=== PATIENT | female | born 1945 | race Caucasian/White ===

== ENCOUNTER 2022-04-01 08:40 | Outpatient (CLI) | payer MEDICARE, BC, SELFPAY ==
[2022-04-01 12:28] LABS: Chloride* 103 mmol/L (96-114)
[2022-04-01 12:29] LABS: Potassium* 4.1 mmol/L (3.6-5.1); Sodium* 138 mmol/L (135-149)
[2022-04-01 12:31] LABS: Alkaline Phosphatase* 65 U/L (40-150); Aspartate Amino Transferase* 27 U/L (12-35); Bilirubin Total* 0.7 mg/dL (0.1-1.5); Blood Urea Nitrogen* 12 mg/dL (7-30); Carbon Dioxide* 29 mmol/L (20-32); Cholesterol* 220 mg/dL (90-199); Creatinine* 1.2 mg/dL (0.5-1.5); Estimated Glomerular Filt Rate 46.05; Total Protein* 6.5 g/dL (6.0-8.3)
[2022-04-01 12:32] LABS: Alanine Aminotransferase* 18 U/L (4-35); Glucose* 108 mg/dL (60-115); HDL Cholesterol* 60 mg/dL (>=50); LDL Cholesterol Calculated 136 mg/dL (<100); Triglycerides* 119 mg/dL (40-149)
== END 2022-04-01 08:41 | disposition home or self-care (01) ==
PROVIDERS: PCP Family Medicine; Visit Provider Family Medicine
DX: Z00.00 Encounter for general adult medical examination without abnormal findings (principal); E78.5 Hyperlipidemia, unspecified; E66.9 Obesity, unspecified; Z13.1 Encounter for screening for diabetes mellitus
CPT/HCPCS: 80053; 80061

== ENCOUNTER 2022-05-10 11:01 | Outpatient (CLI) | payer MEDICARE, BC, SELFPAY | END 2022-05-10 11:02 | disposition home or self-care (01) | LOC: NFLDREF 11:01 | PROVIDERS: PCP Family Medicine; Visit Provider Family Medicine | DX: R39.89 Other symptoms and signs involving the genitourinary system (principal); N39.0 Urinary tract infection, site not specified | CPT/HCPCS: 87086 ==

== ENCOUNTER 2022-06-24 12:37 | Outpatient (CLI) | payer MEDICARE, BC, SELFPAY | END 2022-06-24 12:38 | disposition home or self-care (01) | LOC: NFLDREF 07-01 11:34 | PROVIDERS: PCP Family Medicine; Visit Provider Registered Nurse | DX: R30.0 Dysuria (principal); N30.90 Cystitis, unspecified without hematuria | CPT/HCPCS: 87086 ==

== ENCOUNTER 2022-07-02 09:56 | Outpatient (CLI) | payer MEDICARE, BC, SELFPAY ==
--- OUTSIDE RECORDS SUMMARY | 2022-07-04 14:53 | XMS_ITS | Encounter Summary ---
:1945 Author Organization [facility] Address [address] [place] [id number] Care Team Providers Name Role Phone Unavailable Primary Care Provider Unavailable Reason for Referral Outpatient (Routine) - Closed Specialty Diagnoses / Procedures Referred By Contact Refer red To Contact Diagnoses Syncope And Near Syncope Dyspnea On Exertion Nick Mcneil M.D. [facility] Procedures Cardiopulmonary (VO2) Exercise Test [address] [place] [address] Referral ID Status Reason Start Date Expiration Date Visits Requ ested Visits Authorized [id number] Closed 05/11/2022 05/11/2023 1 1 Outpatient (Routine) - Closed Specialty Diagnoses / Procedures Referred By Contact Refer red To Contact Diagnoses Syncope And Near Syncope Dyspnea On Exertion Nick Mcneil M.D. [facility] Procedures Echo Stress [address] [place] [address] Referral ID Status Reason Start Date Expiration Date Visits Requ ested Visits Authorized [id number] Closed 05/11/2022 05/11/2023 1 1 Reason for Visit Outpatient (Routine) - Closed Specialty Diagnoses / Procedures Referred By Contact Refer red To Contact Diagnoses Syncope And Near Syncope Dyspnea On Exertion Nick Mcneil M.D. [facility] Procedures Echo Stress [address] [place] [address], [place] [phone] Referral ID Status Reason Start Date Expiration Date Visits Requ berhaned Visits Authorized [id number] Closed 05/11/2022 05/11/2023 1 1 Encounter Details Date Type Department Care Team Description 05/19/2022 Hospital Encounter Department of Pessanha, Syncope And Near Syncope; Cardiovascular Diseases Nick Reyes M.D. Dyspnea On Exertion in [facility] health care technician [address] [facility] [address] [place] [phone] Social History Tobacco Use Types Packs/Day Years Used Date Smoking Tobacco: Never Smokeless Tobacco: Never Alcohol Use Standard Drinks/Week Comments Not Currently 0 (1 standard drink = 0.6 oz pure alcoho l) wine about once a month Alcohol Habits Answer Date Recorded How often do you have a drink containing Never 02/16/2022 alcohol? How many drinks containing alcohol do you have 1 or 2 10/19/2019 on a typical day when you are drinking? How often do you have six or more drinks on one Never 10/19/2019 occasion? Comment: wine about once a month 10/22/2019 Social Isolation Answer Date Recorded In a typical week, how many times do you More than three babita es a week 02/16/2022 talk on the phone with family, friends, or neighbors? How often do you get together with friends Once a week 02/16/2022 or relatives? How often do you attend baptism or More than 4 times per year 02/16/2022 roman catholic services? Do you belong to any clubs or Yes 02/16/2022 organizations such as baptism groups, unions, fraternal or athletic groups, or school groups? How often do you attend meetings of the More than 4 times pe r year 02/16/2022 clubs or organizations you belong to? Are you now , , , 02/16/2022 , never or living with a partner? Physical Activity Answer Date Recorded On average, how many days per week do you engage in moderate to 7 days 02/16/2022 strenuous exercise (like walking fast, running, jogging, dancing, swimming, biking, or other activities that cause a light or heavy sweat)? On average, how many minutes do you engage in exercise at is 30 min 02/16/2022 level? Stress Answer Date Recorded Do you feel stress - tense, restless, nervous, or Only a lit tle 02/16/2022 anxious, or unable to sleep at night because your mind is troubled all the time - these days? Financial Resource Strain Answer Date Recorded How hard is it for you to pay for the very basics like Not h trey at all 02/16/2022 food, housing, medical care, and heating? Intimate Partner Violence Answer Date Recorded Within the last year, have you been afraid of your partner o r No 02/16/2022 ex-partner? Within the last year, have you been humiliated or emotionall y No 02/16/2022 abused in other ways by your partner or ex-partner? Within the last year, have you been kicked, hit, slapped, or No 02/16/2022 otherwise physically hurt by your partner or ex-partner? Within the last year, have you been raped or forced to have any No 02/16/2022 kind of sexual activity by your partner or ex-partner? Food Insecurity Answer Date Recorded Within the past 12 months, you worried that your food would Never true 02/16/2022 run out before you got money to buy more. Within the past 12 months, the food you bought just didn't N ever true 02/16/2022 last and you didn't have money to get more. Transportation Needs Answer Date Recorded In the past 12 months, has lack of transportation kept you f rom No 02/16/2022 medical appointments or from getting medications? In the past 12 months, has lack of transportation kept you f rom No 02/16/2022 meetings, work, or getting things needed for daily living? Housing Stability Answer Date Recorded In the last 12 months, was there a time when you were not ab le No 02/16/2022 to pay the mortgage or rent on time? In the last 12 months, how many places have you lived? 1 02/16/2022 In the last 12 months, was there a time when you did not hav e a No 02/16/[address] sleep or slept in a detention (including now)? Education Answer Date Recorded What is the highest level of Professional school degree (e.g ., , 02/16/2022 school you have completed or the DDS, DVM, KRISTEN) highest degree you have received? Sex Assigned at Date Recorded Female 05/07/2022 11:11 AM CDT documented as of this encounter Medications at Time of Discharge Medication Sig Dispensed Refills Start Date End Date acetaminophen (TYLENOL) Every 4 Hours as 0 325 mg tablet needed calcium carbonate-vitamin Take 1,000 mg by 0 03/2009 D3 400-133.3 mg-unit mouth daily. tablet cholecalciferol (VITAMIN Take 400 Units by 0 03/2009 D3) 10 mcg (400 Unit) mouth daily. tablet clotrimazole (LOTRIMIN) 1 Apply 1 application 0 % cream topically as needed. dextromethorphan-guaiFENes Take by mouth as 0 in (ROBITUSSIN-DM) 10-100 needed for cough. mg/5 mL syrup diphenhydrAMINE (BENADRYL) Take 25 mg by mouth 0 25 mg capsule every 6 (six) hours as needed. docosanol (ABREVA) 10 % Apply 1 application 0 cream topically 4 (four) times a day as needed. doxycycline (VIBRAMYCIN) 0 03/24/2018 100 mg capsule ergocalciferol, vitamin Twice A Day 0 D2, 10 mcg (400 unit) tablet ibuprofen (ADVIL,MOTRIN) Take 600 mg by mouth 0 200 mg capsule every 6 (six) hours as needed for pain. Lactobacillus acidophilus Take 1 capsule by 0 capsule mouth as needed (Uses when also taking antibiotics). levothyroxine (SYNTHROID, Take 1 tablet by 0 01/01 LEVOTHROID) 88 mcg tablet mouth daily. loperamide (IMODIUM A-D) 2 Take 2 mg by mouth 4 0 mg capsule (four) times a day as needed for diarrhea. loratadine (CLARITIN) 10 Take 1 tablet by 0 06/04 mg tablet mouth daily as needed. metoprolol succinate Take 12.5 mg by mouth 0 04/2022 (TOPROL-XL) 25 mg 24 hr daily. tablet pseudoephedrine-guaiFENesi Take 1 tablet by 0 n (MUCINEX D) 60-600 mg mouth 2 (two) times a per 12 hr tablet day as needed for allergies. sulfamethoxazole-trimethop 0 2 rim (BACTRIM DS) 800-160 mg per tablet vitamin A & D (AMERIDERM) Apply 1 application 0 ointment topically as needed for dry skin. documented as of this encounter Plan of Treatment Upcoming Encounters Date Type Specialty Care Team Description 07/27/2022 Office Visit Cardiovascular Disease Nick Mcneil M.D. [address] [place], [place] [phone] (Wo rk) documented as of this encounter Procedures Procedure Name Priority Date/Time Associated Comments Diagnosis ECHO STRESS 2D WITH Routine 05/19/2022 10:11 Syncope And Near Results for this COLOR, DOPPLER AND AM CDT Syncope procedure are in CONTRAST Dyspnea On the results Exertion section. CARDIOPULMONARY (VO2) Routine 05/19/2022 10:11 Syncope And Renata r Results for this EXERCISE TEST AM CDT Syncope procedure are in Dyspnea On the results Exertion section. documented in this encounter Results ECHO STRESS 2D WITH COLOR, DOPPLER AND CONTRAST (05/19/2022 10:11 AM CDT) [facility] gist Method Time Signature Ejection Fraction 62 MC CV EIMS Mid-Ascending Aorta 33 MC CV EIMS LV Mass Index 123 MC CV EIMS LV End-Diastolic 43 MC CV EIMS Diameter LV End-Systolic 29 MC CV EIMS Diameter LV End-Diastolic 85 MC CV EIMS Volume LV End-Systolic 33 MC CV EIMS Volume MV E Velocity 0.60 MC CV EIMS MV A Velocity 0.90 MC CV EIMS MV E/A 0.67 MC CV EIMS MV e' Velocity 0.06 MC CV EIMS Medial MV E/e' Medial 10 MC CV EIMS LV Interventricular 14 MC CV EIMS Septal Wall Thickness LV Posterior Wall 12 MC CV EIMS Thickness LV Relative Wall 56 MC CV EIMS Thickness RA Pressure 5 MC CV EIMS WMSI At Rest 1 MC CV EIMS WMSI At Peak Stress 1 MC CV EIMS Anatomical Region Laterality Modality Echocardiography Specimen (Source) Anatomical Collection Method Collection Time Re ceived Time Location / / Volume Laterality 05/19/2022 8:51 AM CDT Impressions 05/19/2022 11:41 AM CDT consistent with normal left ventricular filling pressure at rest and with exercise. 9. The stress ECG was negative for ische carmen in leads V4-6 (baseline bifascicular block). 10. O2 uptake data detailed in the [facility] Medical Record (Cardiopulmonary (VO2) Exercise Test). 11. REST IMPRESSIONS: 12. Normal left ventricular chamber size and systolic function, no regional wall motion abnormalities. 13. Normal left ventricular filling pres sure. Mildly increased concentric left ventricular wall thickness. 14. Normal right ventricular chamber siz e with normal systolic function. Unable to estimate right ventricular systolic pressure. 15. No hemodynamically significant valvu lar heart disease. 16. Normal inferior vena cava size with normal inspiratory collapse (>50%). 17. No ??pericardial effusion. Findings STRESS TEST:The patient exercised for 6: 00 min:sec on the Oxygen protocol. The test was terminated due to fatigue and dyspnea. The patient achieved a workload of 6 METS and 94% FAC. A peak heart rate of 118 BPM was achieved (84% age-predicted maximal HR). Blood pressure at rest 138 mmHg/76 mmHg. Blood pressure with exercise 148 mmHg/64 mmHg. Normal blood pressure response to exercise. O2 sat at rest 100%, and with exercise 95%. The baseline ECG demo nstrated sinus rhythm. The stress ECG wa s negative for ischemia in leads V4-V6. Please see Nursing Notes for additional information. REST IMAGES: LEFT VENTRICLE:Normal left ventricular c hamber size. Calculated 2-D biplane volumetric left ventricular ejection fraction 62%. Mildly increased concentric left ventricular wall thickness. No regional wa ll motion abnormalities. Normal left kacy tricular filling pressure. RIGHT VENTRICLE:Normal right ventricular chamber size. Normal right ventricular systolic function. Unable to detect peak tricuspid regurgitation velocity for pulmonary artery systolic pressure calculation. ATRIA:Normal left atrial size by visual estimate. Normal right atrial size by visual estimate. CARDIAC VALVES:Trileaflet aortic valve. Normal aortic valve. No aortic valve regurgitation. Normal mitral valve. Mildly calcified mitral annulus. Trivial mitral valve regurgitation. Normal pulmonary amirah ve. Trivial pulmonary valve regurgitatio n. Normal tricuspid valve. Trivial tricuspid valve regurgitation. OTHER ECHO FINDINGS:Normal inferior vena cava size with normal inspiratory collapse (>50%). Normal mid ascending aorta diameter of 33 mm. Upper limit of normal of the mid ascending aorta, for age, se x and BSA is 39 mm. No intracardiac mass or thrombus, but the left atrial appendage cannot be visualized adequately with transthoracic echo to exclude thrombus in this location. No ??pericardial effusion. Attempts were made to optimize the echocardiographi c images and two or more left ventricula r segments were not visualized adequately to evalua te cardiac structure. The patient's current allergies and medications have been screened. Intravenous Lumason ultrasound enhancement agent(s) administered to enhance endocardial border definition. Imaging enhancement agent administered per [facility] ardiography Contrast Administration Protocol Reference Document [id number]. Patient met an inclusion criterion and did not have contraindications in screening sections. LUNG FINDINGS:Lung ultrasound performed. Findings consistent with normal lung aeration at rest and with exercise. For the complete report, see the Order-L evel Documents. Narrative 05/19/2022 11:41 AM CDT For the complete report, see the Order-Level Documents. Final Impressions 1. STRESS IMPRESSIONS: 2. Exercise echocardiogram negative for myocardial ischemia at the achieved workload. 3. Limited heart rate and double product response could reduce the sensitivity of the test. 4. The patient's exercise capacity was a verage (6.0 METS, 94% FAC). 5. A peak heart rate of 118 BPM was achi eved (84% age-predicted maximal HR). 6. Ejection fraction response from 62% a t rest to 70% at peak stress. 7. Left ventricular end-systolic volume decreased with stress. 8. Procedure Note Radha Flores M.D. - 05/19/2022Form atting of this note might be different from the original. For the complete report, see the Order-L evel Documents. Final Impressions 1. STRESS IMPRESSIONS: 2. Exercise echocardiogram negative for myocardial ischemia at the achieved workload. 3. Limited heart rate and double product response could reduce the sensitivity of the test. 4. The patient's exercise capacity was a verage (6.0 METS, 94% FAC). 5. A peak heart rate of 118 BPM was achi eved (84% age-predicted maximal HR). 6. Ejection fraction response from 62% a t rest to 70% at peak stress. 7. Left ventricular end-systolic volume decreased with stress. 8. Findings consistent with normal left ventricular filling pressure at rest and with exercise. 9. The stress ECG was negative for ische carmen in leads V4-6 (baseline bifascicular block). 10. O2 uptake data detailed in the [facility] Medical Record (Cardiopulmonary (VO2) Exercise Test). 11. REST IMPRESSIONS: 12. Normal left ventricular chamber size and systolic function, no regional wall motion abnormalities. 13. Normal left ventricular filling pres sure. Mildly increased concentric left ventricular wall thickness. 14. Normal right ventricular chamber siz e with normal systolic function. Unable to estimate right ventricular systolic pressure. 15. No hemodynamically significant valvu lar heart disease. 16. Normal inferior vena cava size with normal inspiratory collapse (>50%). 17. No pericardial effusion. Findings STRESS TEST:The patient exercised for 6: 00 min:sec on the Oxygen protocol. The test was terminated due to fatigue and dyspnea. The patient achieved a workload of 6 METS and 94% FAC. A peak heart rate of 118 BPM was achieved (84% age-predicted maximal HR). Blood pr essure at rest 138 mmHg/76 mmHg. Blood pressure with exercise 148 mmHg/64 mmHg. Normal blood pressure response to exercise. O2 sat at rest 100%, and with exercise 95%. The baseline ECG demonstrated sinus rhythm. The stress ECG was negative for ischemia in leads V4-V6. Please see Nursing Notes for additional information. REST IMAGES: LEFT VENTRICLE:Normal left ventricular c hamber size. Calculated 2-D biplane volumetric left ventricular ejection fraction 62%. Mildly increased concentric left ventricular wall thickness. No regional wall motion abnormalities. Normal left ventri cular filling pressure. RIGHT VENTRICLE:Normal right ventricular chamber size. Normal right ventricular systolic function. Unable to detect peak tricuspid regurgitation velocity for pulmonary artery systolic pressure calculation. ATRIA:Normal left atrial size by visual estimate. Normal right atrial size by visual estimate. CARDIAC VALVES:Trileaflet aortic valve. Normal aortic valve. No aortic valve regurgitation. Normal mitral valve. Mildly calcified mitral annulus. Trivial mitral valve regurgitation. Normal pulmonary valve. Trivial pulmonary valve regurgitation. Normal tr icuspid valve. Trivial tricuspid valve regurgitation. OTHER ECHO FINDINGS:Normal inferior vena cava size with normal inspiratory collapse (>50%). Normal mid ascending aorta diameter of 33 mm. Upper limit of normal of the mid ascending aorta, for age, sex and BSA is 39 mm. No intracardiac mass or thrombus, but the l eft atrial appendage cannot be visualized adequately with transthoracic echo to exclude thrombus in this location. No pericardial effusion. Attempts were made to optimize the echocardiographic images and two or more left ventricular segments were not visualized adequately to evaluate cardiac structure. The patient's current allergies and medications have been screened. Intravenous Lumason ultrasound enhancement agent(s) administ ered to enhance endocardial border definition. Imaging enhancement agent administered per Echocardiography Contrast Administration Protocol Reference Document [id number]. Patient met an inclusion criterion and did not h ave contraindications in screening sections. LUNG FINDINGS:Lung ultrasound performed. Findings consistent with normal lung aeration at rest and with exercise. For the complete report, see the Order-L evel Documents. Nick Mcneil M.D. CV ECHO PROCEDURES CARDIOPULMONARY (VO2) EXERCISE TEST (05/19/2022 10:11 AM CDT) Specimen (Source) Anatomical Collection Method Collection Time Re ceived Time Location / / Volume Laterality 05/19/2022 8:24 AM CDT Narrative CV MERGE - 05/19/2022 11:46 AM CDT This result has an attachment that is no t available. See PDF For Result Procedure Note Ras Esteban M.D. - 05/19/2022Forma tting of this note might be different from the original. See PDF For Result Nick Mcneil M.D. CV STRESS PROCEDURES Performing Organization Address City/State/ZIP Code Phon e Number CV MERGE CV MERGE NA documented in this encounter Visit Diagnoses Diagnosis Syncope And Near Syncope Dyspnea On Exertion documented in this encounter Administered Medications Inactive Administered Medications - up to 3 most recent administrations Medication Order MAR Action Action Date Dose Rate Site sodium chloride 0.9 % injection 10 Given 05/19/2022 9:56 AM CDT 10 mL mL 10 mL, intravenous, As needed, line care, Starting on Reena 05/19/22 at 0955, Prior to and following infusion and between multiple consecutive infusions: sodium chloride 0.9 % injection sulfur hexafluoride microspheres injection Given 05/19/2022 10:0 3 AM CDT 3 mL (LUMASON) intravenous, As needed, contrast, Starting on Reena 05/19/22 at 0955, Intraprocedure - Diagnostic, See protocol. Reconstitute each 25 mg vial with 5 mL NS. documented in this encounter
--- OUTSIDE RECORDS SUMMARY | 2022-07-04 14:53 | XMS_ITS | Clinical Summary ---
:1945 Author Organization [facility] [place] [address] Care Team Providers Name Role Phone Dayday Prince MD Primary Care Provider Allergies Not on File Medications Not on file Active Problems Not on file Immunizations Name Administration Dates Next Due Amb Influenza, Inactivated AIIV4 (Age 65+ Years) 07/13/2020 Preserv Free Social History Tobacco Use Types Packs/Day Years Used Date Never Assessed Sex Assigned at Date Recorded Not on file Plan of Treatment Health Maintenance Due Date Last Done Comments COVID-19 vaccine series (#1) 1945 Tdap 1954 Depression screening for age 12+ 1955 BMI (ht and wt on same day) for age 18+ 1961 Hepatitis C screening for age 18-79 1961 Tetanus booster 1963 Zoster (shingles) series for age 50+ (1 of 2) 1993 DEXA/DXA scan for age 65+ 2008 Pneumococcal series for age 65+ (1 - PCV) 2008 Influenza for age 65+ 06/02/2022 07/13/2020 Results Not on filefrom Last 3 Months Insurance Payer Benefit Plan / Subscriber ID Effective Dates Phone Addre ss Type Group BLUE CROSS [place] BLUE [employer]OSS [id number] 2016-Present [address] [address] [place], [place] ONLY [phone] Care Teams Machining Supervisor Relationship Specialty Start Date End Date Labenski, Dayday Ahmet, MD PCP - General 03/20/06 [address] [place] [address]
--- OUTSIDE RECORDS SUMMARY | 2022-07-04 14:53 | XMS_ITS | Encounter Summary ---
:1945 Author Organization [facility] Address [address] [place] [address] Care Team Providers Name Role Phone Unavailable Primary Care Provider Unavailable Encounter Details Date Type Department Care Team Description 02/22/2022 Clinical Communication Department of Sleep Yoni Cavanaugh, Medicine in Geeta Blevins, M.P .H. [place] [address] [place] [phone] Social History Tobacco Use Types Packs/Day Years [...] or relatives? How often do you attend druze or More than 4 times per year 02/16/2022 caodaism services? Do you belong to any clubs or Yes 02/16/2022 organizations such as druze groups, unions, fraternal or athletic groups, or [...] minutes do you engage in exercise at th is 30 min 02/16/2022 level? Stress Answer [...] place to sleep or slept in a assisted (including now)? Education Answer Date Recorded What is the highest level of Professional school degree (e.g ., , 02/16/2022 school you have completed or the DDS, DVM, KRISTEN) highest degree you have received? Sex Assigned at Date Recorded Female 05/07/2022 11:11 AM CDT documented as of this encounter Miscellaneous Notes Telephone Encounter - Lexi Boston L.PNikNNik - 02/24/2022 11:47 AM CDT Patient notified of result. Telephone Encounter - Lexi Boston L.PNikNNik - 02/23/2022 2:53 PM CDT stated that Emmy is not home. Will call again tomorrow. Telephone Encounter - Michelle Vora - 02/22/2022 1:34 PM CDT TEST RESULT QUESTION: Type of test: MR Brain W/O Contrast Date of test: 02/17/22 Which provider/department ordered the test? Dr. Cavanaugh Neurology [facility] Comments: Patient is requesting a call back to review the results of the imaging. She hasn't heard anything and isn't able to find the results on her portal. Route to [facility] pool of ordering provider. documented in this encounter Plan of Treatment Upcoming Encounters Date Type Specialty Care Team Description 07/27/2022 Office Visit Cardiovascular Disease Nick Mcneil M.D. [address] [place] [phone] (Wo rk) documented as of this encounter Visit Diagnoses Not on filedocumented in this encounter
--- OUTSIDE RECORDS SUMMARY | 2022-07-04 14:53 | XMS_ITS | Encounter Summary ---
:[address] [facility] Address [address] [place] [address] Care Team Providers Name Role Phone Unavailable Primary Care Provider Unavailable Reason for Visit Appointment Request (Routine) - Closed Specialty Diagnoses / Procedures Referred By Contact Refer red To Contact Diagnoses Dyspnea On Exertion Nick Mcneil M.D. Procedures Pulmonary Function Tests [address] [place] [phone] Referral ID Status Reason Start Date Expiration Date Visits Requ ested Visits Authorized [id number] Closed 05/11/2022 05/11/2023 1 Encounter Details Date Type Department Care Team Description 05/19/2022 Diagnostic Division of Pulmonary Nick Mcneil, Dyspnea On Exertion Medicine in [facility] [address] [facility] [address] [place] [phone] (Wo rk) Social History Tobacco Use Types Packs/Day Years [...] or relatives? How often do you attend catholic or More than 4 times per year 02/16/2022 episcopalian services? Do you belong to any clubs or Yes 02/16/2022 organizations such as catholic groups, unions, fraternal or athletic groups, or [...] place to sleep or slept in a residential (including now)? Education Answer Date Recorded What is the highest level of Professional school degree (e.g ., , 02/16/2022 school you have completed or the DDS, DVM, KRISTEN) highest degree you have received? Sex Assigned at Date Recorded Female 05/07/2022 11:11 AM CDT documented as of this encounter Plan of Treatment Upcoming Encounters Date Type Specialty Care Team Description 07/27/2022 Office Visit Cardiovascular Disease Nick Mcneil M.D. [address] [place] [phone] (Wo rk) documented as of this encounter Procedures Procedure Name Priority Date/Time Associated Diagnosis Comme nts PULMONARY FUNCTION Routine 05/19/2022 7:29 AM Dyspnea On Exert ion Results for this TESTS CDT procedure are i n the results section. documented in this encounter Results Pulmonary Function Tests (05/19/2022 7:29 AM CDT) Component Value Ref Test Analysis Performed At [facility] Range Method Time Signature VC MAX 2.18 L 05/19/2022 [facility] SENTRY PROVDILATATION 9:[address] FVC PROVDILATATION 2.16 L 05/19/2022 [facility] SENTR Y 9:15 AM CDT SUITE FEV 1 1.64 L 05/19/2022 [facility] PROVDILATATION 9:15 AM CDT SUITE FEV1/FVC 75.86 % 05/19/2022 [facility] PROVDILATATION 9:15 AM CDT SUITE FEF 25-75% 1.37 L/s 05/19/2022 [facility] PROVDILATATION 9:15 AM CDT [address] PEF PROVDILATATION 3.36 L/s 05/19/2022 [facility] 9:15 AM CDT SUITE FET PROVDILATATION 8.05 sec 05/19/2022 [facility] 9:15 AM CDT SUITE [id number] 100.00 % 05/19/2022 [facility] 9:15 AM CDT SUITE PulseRest 67.00 1/min 05/19/2022 [facility] 9:15 AM CDT SUITE [id number] 96.00 % 05/19/2022 [facility] 9:15 AM CDT SUITE PulseExer 101.00 1/min 05/19/2022 [facility] 9:15 AM CDT SUITE EXER TIME 3.00 min 05/19/2022 [facility] 9:15 AM CDT SUITE STEP HEIGHT PRE 9.00 Inch 05/19/2022 [facility] 9:15 AM CDT SUITE VC MAX PROVOCATION 2.12 L 05/19/2022 [facility] 9:15 AM CDT SUITE CHALFVC 2.12 L 05/19/2022 [facility] 9:15 AM CDT SUITE CHALFEV1 1.51 L 05/19/2022 [facility] 9:15 AM CDT SUITE FEV1/FVC 71.36 % 05/19/2022 [facility] PROVOCATION 9:15 AM CDT SUITE FEF 25-75% 1.03 L/s 05/19/2022 [facility] PROVOCATION 9:15 AM CDT SUITE PEF PROVOCATION 2.70 L/s 05/19/2022 [facility] 9:15 AM CDT SUITE FET PROVOCATION 9.09 sec 05/19/2022 [facility] 9:15 AM CDT SUITE VC MAX 2.32 L 05/19/2022 [facility] 9:15 AM CDT SUITE FVC PROVBASE 2.32 L 05/19/2022 [facility] 9:15 AM CDT SUITE FEV 1 PROVBASE 1.75 L 05/19/2022 [facility] 9:15 AM CDT SUITE FEV1/FVC PROVBASE 75.20 % 05/19/2022 [facility] 9:15 AM CDT SUITE FEF 25-75% 1.38 L/s 05/19/2022 [facility] PROVBASE 9:15 AM CDT SUITE PEF PROVBASE 3.93 L/s 05/19/2022 [facility] 9:15 AM CDT SUITE FET PROVBASE 11.10 sec 05/19/2022 [facility] 9:15 AM CDT SUITE DLCO SINGLE BREATH 11.06 ml/(min* 05/19/2022 [facility] S[facility] Y PROVBASE mmHg) 9:15 AM CDT SUITE VA SINGLE BREATH 3.48 L 05/19/2022 [facility] S[facility] PROVBASE 9:15 AM CDT SUITE CUMULATED DOSE 1063.278?? 05/19/2022 [facility] PROVOCATION 9:15 AM CDT SUITE CUMULATED DOSE 2.000 05/19/2022 [facility] PROVDILATATION 9:15 AM CDT SUITE PD 20 05/19/2022 [facility] SENTRY 9:15 AM CDT SUITE SUBSTANCE PROVBASE -- 05/19/2022 [facility] 9:15 AM CDT SUITE SUBSTANCE Methacholine 05/19/2022 [facility] PROVOCATION 9:15 AM CDT SUITE SUBSTANCE Combivent 05/19/2022 [facility] PROVDILATATION 9:15 AM CDT SUITE % PRED VC MAX 97 % % 05/19/2022 [facility] 9:15 AM CDT SUITE FVC% 97 % % 05/19/2022 [facility] 9:15 AM CDT SUITE FEV1% 95 % % 05/19/2022 [facility] 9:15 AM CDT SUITE % PRED FEV1/FVC 97 % % 05/19/2022 [facility] S[facility] 9:15 AM CDT SUITE % PRED FEF 25-75% 91 % % 05/19/2022 [facility] 9:15 AM CDT SUITE % PRED PEF 78 % % 05/19/2022 [facility] 9:15 AM CDT SUITE DLCO% 63 % % 05/19/2022 [facility] 9:15 AM CDT SUITE PRED VC MAX 2.40 05/19/2022 [facility] 9:15 AM CDT SUITE PRED FVC 2.40 05/19/2022 [facility] 9:15 AM CDT SUITE PRED FEV 1 1.83 05/19/2022 [facility] 9:15 AM CDT SUITE PRED FEV1/FVC 77.3 05/19/2022 [facility] 9:15 AM CDT SUITE PRED FEF 25-75% 1.51 05/19/2022 [facility] 9:15 AM CDT SUITE PRED PEF 5.0 05/19/2022 [facility] 9:15 AM CDT SUITE PRED DLCO 17.7 05/19/2022 [facility] 9:15 AM CDT SUITE Specimen (Source) Anatomical Collection Method Collection Time Re ceived Time Location / / Volume Laterality 05/19/2022 7:29 AM CDT Impressions [facility] - 05/19/2022 9:15 AM C DT Negative methacholine challenge. Normal baseline spirometry. Expiratory flows return towards baseline after administration of bronchodilator. Diffusing [place] unadjusted for hemoglobin is mildly reduc ed, consistent with a pulmonary parenchy mal or vascular abnormality, or anemia. Pulse o ximetry is normal at rest and during exercise. Compared to 09/21/2006, and after adjusting for age-related expected changes, there is no significant change. Narrative This result has an attachment that is no t available. Procedure Note Leandro Chinchilla M.D. - 2021 IMPRESSION: Negative methacholine challenge. Normal baseline spirometry. Expiratory flows return towards baseline after administration of bronchodilator. Diffusing capacity unadjusted for hemoglobin is mildly reduced, consistent with a pulmonary parenchymal or vascular abnormality, or anemia. Pulse o ximetry is normal at rest and during exercise. Compared to 09/21/2006, and after adjusting for age-related expected changes, there is no significant change. Nick Mcneil M.D. PFT ORDERABLES Performing Organization Address City/State/ZIP Code Phon e Number [facility] NA documented in this encounter Visit Diagnoses Diagnosis Dyspnea On Exertion documented in this encounter Administered Medications Inactive Administered Medications - up to 3 most recent administrations Medication Order MAR Action Action Date Dose Rate Site ipratropium-albuteroL 20-100 Given 05/19/2022 8:04 AM CDT 2 puff s mcg/actuation inhaler 2 puff (COMBIVENT RESPIMAT) 2 puff, inhalation, Once as needed, other, per protocol, Starting on Reena 05/19/22 at 0743, For 1 dose methacholine chloride (dose 1) 0.1875 mg/3 Given 05/19 7:45 AM CDT 0.0625 mg mL (0.0625 mg/mL) nebulizer solution 0.0625 mg 0.0625 mg, nebulization, Once as needed, per protocol, Starting on Reena 05/19/22 at 0743, For 1 dose, Administer by inhalation using nebulizer. methacholine chloride (dose 2) 0.75 mg/3 mL Given 05/02 7:48 AM CDT 0.25 mg (0.25 mg/mL) nebulizer solution 0.25 mg 0.25 mg, nebulization, Once as needed, per protocol, Starting on Reena 05/19/22 at 0743, For 1 dose, Administer by inhalation using nebulizer. methacholine chloride (dose 3) 3 mg/3 mL (1 Given 05/19/2022 7:5 1 AM CDT 1 mg mg/mL) nebulizer solution 1 mg 1 mg, nebulization, Once as needed, per protocol, Starting on Reena 05/19/22 at 0743, For 1 dose, Administer by inhalation using nebulizer. methacholine chloride (dose 4) 12 mg/3 mL (4 Given 05/19/2022 7: 54 AM CDT 4 mg mg/mL) nebulizer solution 4 mg 4 mg, nebulization, Once as needed, per protocol, Starting on Reena 05/19/22 at 0743, For 1 dose, Administer by inhalation using nebulizer. methacholine chloride (dose 5) 48 mg/3 mL (16 Given 7:57 AM CDT 16 mg mg/mL) nebulizer solution 16 mg 16 mg, nebulization, Once as needed, per protocol, Starting on Reena 05/19/22 at 0743, For 1 dose, Administer by inhalation using nebulizer. documented in this encounter
--- OUTSIDE RECORDS SUMMARY | 2022-07-04 14:53 | XMS_ITS | Encounter Summary ---
:1945 Author Organization [facility] Address [address] [place] [address] Care Team Providers Name Role Phone Unavailable Primary Care Provider Unavailable Encounter Details Date Type Department Care Team Description 04/12/2022 Office Visit Department of Yoni Cavanaugh Syncope An d Collapse Neurology in M.D., M.P.H. (Primary Dx) [place], [place] [address] [phone] Social History Tobacco Use Types Packs/Day Years [...] or relatives? How often do you attend episcopalian or More than 4 times per year 02/16/2022 uatsdin services? Do you belong to any clubs or Yes 02/16/2022 organizations such as episcopalian groups, unions, fraternal or athletic groups, or [...] place to sleep or slept in a mcc (including now)? Education Answer Date Recorded What is the highest level of Professional school degree (e.g ., MD, 02/16/2022 school you have completed or the DDS, DVM, KRISTEN) highest degree you have received? Sex Assigned at Date Recorded Female 05/07/2022 11:11 AM CDT documented as of this encounter Last Filed Vital Signs Vital Sign Reading Time Taken Comments Blood Pressure 127/74 04/12/2022 9:13 AM CDT Pulse 86 04/12/2022 9:13 AM CDT Temperature - - Respiratory Rate - - Oxygen Saturation 98% 04/12/2022 9:13 AM CDT room ai r Inhaled Oxygen Concentration - - Weight 67.8 kg (149 lb 7.6 oz) 04/12/2022 9:13 AM CDT Height - - Body Mass Index 27.26 02/16/2022 7:41 AM CDT documented in this encounter Progress Notes Yoni Cavanaugh M.D., M.P.H. - 04/12/2022 9:30 AM CDT SUBJECTIVE CHIEF COMPLAINT / REASON FOR VISIT Emmy Anderson is a 77 y.o. female who presents for evaluation of No chief complaint on file.. HISTORY OF PRESENT ILLNESS Patient is here to follow-up after an episode presyncope and syncope in October 10 while at episcopalian.For details of that event please see my note from 02/16/2022. Time of the visit her biggest concern in addition to the episode of loss of consciousness was a soreneck and this is gradually gotten better with physical therapy. I was concerned that she might have developed a subdural hematoma and so I got an MRI brain which did not show that. I also thought it overwhelmingly likely that the cause of her loss of consciousness was not a seizure but rather circulatory. I ordered a Holter monitor and it appears to my eye as though this is benign resolved. Bhanu 1. The basic rhythm was sinus with sinus arrhythmia. The total analyzed time was 1d 23h 40m. The heart rate varied from 49 to 120 bpm. The average HR was 74 bpm. 2. Premature ventricular complexes were noted singly. There were 205 PVCs recorded with a PVC burdenof less than 1%. 3. Premature supraventricular complexes were noted singly, in bigeminy and in one 9 beat atrial run,rate of 117 bpm. There were 109 PACs recorded with a PAC burden of less than 1%. 4. No symptomatic events were noted. Barrel Tester: Kamala Marcus/ Bernardo Frederick She tells me today that when she lies down she feels palpitations but no more episodes of presyncopeor loss of consciousness. I placed an order yesterday for her to see automobile upholstery trim installer and she is going to attempt to get one appointment scheduled she leaves today. Reviewed her Holter monitor with her but I told her that I would prefer that automobile upholstery trim installer evaluate her. Not ordered an EEG but to consider that I think it is quite unlikely that this event was a seizure. Past Medical History: Diagnosis Date ??? Cataract 1999 ??? Complication Anesthesia Initial 2002 ??? Dermatitis 1979 ??? Gallbladder Disorder removed about 2002 ??? Headache Unspecified frequent most of my life ??? Hyperlipidemia 3-2019 ??? Hyperthyroidism about 1990 ??? Migraine Headache 1989 ??? Osteoporosis about 2006 ??? Other Injury Of Unspecified Body Region 2016 disk not sure on date ??? Other Specified Health Status 1999 Graves Dise ase and severe allergy to lidocane. food intolle Past Surgical History: Procedure Laterality Date ??? DILATATION AND CURETTAGE 1979 Not sure on date ??? GALLBLADDER SURGERY 2002 not sure on exact date ??? OTHER CONVERTED SHX (SEE COMMENT) N/A 09/12/1995 >Injection of right extensor carpi ulnaris tendon sheath with Celestone and Xylocaine. ??? OTHER CONVERTED SHX (SEE COMMENT) N/A 07/26/1999 > Colonoscopy MEDICATIONS: Current Outpatient Medications: ??? acetaminophen (TYLENOL) 325 mg tablet, Every 4 Hours as needed, Disp: , Rfl: ??? calcium carbonate-vitamin D3 400-133.3 mg-unit tablet, Take 1,000 mg by mouth daily., Disp: , Rfl: ??? cholecalciferol (VITAMIN D3) 10 mcg (400 Unit) tablet, Take 400 Units by mouth daily., Disp: , Rfl: ??? clotrimazole (LOTRIMIN) 1 % cream, Apply 1 application topically as needed., Disp: , Rfl: ??? dextromethorphan-guaiFENesin (ROBITUSSIN-DM) 10-100 mg/5 mL syrup, Take by mouth as needed for cough., Disp: , Rfl: ??? diphenhydrAMINE (BENADRYL) 25 mg capsule, Take 25 mg by mouth every 6 (six) hours as needed., Disp: , Rfl: ??? docosanol (ABREVA) 10 % cream, Apply 1 application topically 4 (four) times a day as needed., Disp: , Rfl: ??? doxycycline (VIBRAMYCIN) 100 mg capsule, , Disp: , Rfl: ??? ergocalciferol, vitamin D2, 10 mcg (400 unit) tablet, Twice A Day, Disp: , Rfl: ??? ibuprofen (ADVIL,MOTRIN) 200 mg capsule, Take 600 mg by mouth every 6 (six) hours as needed for pain., Disp: , Rfl: ??? Lactobacillus acidophilus capsule, Take 1 capsule by mouth as needed (Uses when also taking antibiotics)., Disp: , Rfl: ??? levothyroxine (SYNTHROID, LEVOTHROID) 88 mcg tablet, Take 1 tablet by mouth daily., Disp: , Rfl: ??? loperamide (IMODIUM A-D) 2 mg capsule, Take 2 mg by mouth 4 (four) times a day as needed for diarrhea., Disp: , Rfl: ??? loratadine (CLARITIN) 10 mg tablet, Take 1 tablet by mouth daily as needed., Disp: , Rfl: ??? pseudoephedrine-guaiFENesin (MUCINEX D) 60-600 mg per 12 hr tablet, Take 1 tablet by mouth 2 (two) times a day as needed for allergies., Disp: , Rfl: ? ? vitamin A & D (AMERIDERM) ointment, Apply 1 application topically as needed for dry skin., Disp: , Rfl: ??? metoprolol succinate (TOPROL-XL) 25 mg 24 hr tablet, Take 12.5 mg by mouth daily., Disp: , Rfl: ALLERGY: Allergies Allergen Reactions ??? Lidocaine Anaphylaxis per pt, tubal closure, asthmatic attack; ??? Adhesive Tape-Silicones Rash ??? Aspirin GI intolerance ??? Chlorpheniramine Other (see comments) ??? Chlorpheniramine-Phenylephrine Cough runny nose ??? Codeine Shortness of breath ??? Mold Other (see comments) Sneezing, sinus issues ??? Penicillin V Other (see comments) diahrria ??? Phenylpropanolamine Other (see comments) ??? [place] Pollen-Rough Pigweed Other (see comments) Sneezing, nasal drainage ??? Adhesive Itching Family History Problem Relation Age of Onset ??? Breast cancer Sister ??? Hypertension Sister ??? Hyperlipidemia Sister ??? Diabetes Sister ??? Colon cancer Maternal Grandfather ??? Skin cancer Mother ??? Stroke Mother ??? Arthritis Mother ??? Obesity Mother ??? Skin cancer Sister ??? Coronary artery disease Father ??? Hypertension Father ??? Hyperlipidemia Father ??? Coronary artery disease Brother ??? Hypertension Brother ??? Coronary artery disease Brother ??? Diabetes Brother ??? Obesity Brother ??? Hypertension Brother ??? Hypertension Sister ??? Hyperlipidemia Sister ??? Asthma Sister ??? Obesity Sister ??? Hyperlipidemia Brother ??? Thyroid disease Brother ??? Arthritis Brother ??? Diabetes Brother Social History Socioeconomic History ??? Marital status: Spouse name: Not on file ??? Number of children: Not on file ??? Years of education: Not on file ??? Highest education level: Professional school degree (e.g., MD, DDS, DVM, KRISTEN) Occupational History ??? Not on file Tobacco Use ??? Smoking status: Never Smoker ??? Smokeless tobacco: Never Used Vaping Use ??? Vaping Use: never used Substance and Sexual Activity ??? Alcohol use: Not Currently Alcohol/week: 0.0 standard drinks Comment: wine about once a month ??? Drug use: Never ??? Sexual activity: Not Currently Partners: Male control/protection: None Other Topics Concern ??? Not on file Social History Narrative ??? Not on file Social Determinants of Health Financial Resource Strain: Low Risk ??? Difficulty of Paying Living Expenses: Not hard at all Food Insecurity: No Food Insecurity ??? Worried About Running Out of Food in the Last Year: Never true ??? Ran Out of Food in the Last Year: Never true Transportation Needs: No Transportation Needs ??? Lack of Transportation (Medical): No ??? Lack of Transportation (Non-Medical): No Physical Activity: Sufficiently Active ??? Days of Exercise per Week: 7 days ??? Minutes of Exercise per Session: 30 min Stress: No Stress Concern Present ??? Feeling of Stress : Only a little Social Connections: Socially Integrated ??? Frequency of Communication with Friends and Family: More than three times a week ??? Frequency of Social Gatherings with Friends and Family: Once a week ??? Attends Buddhist Services: More than 4 times per year ??? Active Member of Clubs or Organizations: Yes ??? Attends Club or Organization Meetings: More than 4 times per year ??? Marital Status: Intimate Partner Violence: Not At Risk ??? Fear of Current or Ex-Partner: No ??? Emotionally Abused: No ??? Physically Abused: No ??? Sexually Abused: No Housing Stability: Low Risk ??? Unable to Pay for Housing in the Last Year: No ??? Number of Places Lived in the Last Year: 1 ??? Unstable Housing in the Last Year: No @ OBJECTIVE Vitals: 04/12/22 0913 BP: 127/74 BP Location: Left arm Patient Position: Sitting Cuff Size: Regular Pulse: 86 SpO2: 98% Weight: 67.8 kg PHYSICAL EXAM COGNITION: Alert and oriented x 4. CRANIAL NERVES: lozenge maker helper II-XII intact and symmetric. GAIT: Normal ASSESSMENT / PLAN Impression: Encounter Diagnoses Name Primary? Syncope And Collapse Yes I reviewed with her her by benign MRI brain and what I feel is a benign Holter monitor. I have printed out the reports that she might have it in his entirety and also for Dr. Escobar. I personally spent 30 minutes in care of the patient today. Time includes both non face to face and face to face patient care. Yoni Cavanaugh M.D., M.P.H. documented in this encounter Plan of Treatment Upcoming Encounters Date Type Specialty Care Team Description 07/27/2022 Office Visit Cardiovascular Disease Nick Mcneil M.D. [address] [place] [phone] (Wo rk) documented as of this encounter Visit Diagnoses Diagnosis Syncope And Collapse - Primary documented in this encounter
--- OUTSIDE RECORDS SUMMARY | 2022-07-04 14:53 | XMS_ITS | Encounter Summary ---
:1945 Author Organization [facility] Address [address] [place] [id number] Care Team Providers Name Role Phone Unavailable Primary Care Provider Unavailable Reason for Referral Outpatient (Routine) - Authorized Specialty Diagnoses / Procedures Referred By Contact Refer red To Contact Cardiovascular Disease Nick Mcneil [facility] M.D. [address] [place] [address] Referral ID Status Reason Start Date Expiration Date Visits V isits Requested Authorized [id number] Authorized 05/11/2022 05/11/2023 1 1 Outpatient (Routine) - Closed Specialty Diagnoses / Procedures Referred By Contact Refer red To Contact Diagnoses Syncope And Near Syncope Nick Mcneil M.D. [facility] Procedures ECG Ambulatory Real Time Cardiac Monitoring [address] [place] [address] Referral ID Status Reason Start Date Expiration Date Visits Requ ested Visits Authorized [id number] Closed 05/11/2022 05/11/2023 1 1 Appointment Request (Routine) - Closed Specialty Diagnoses / Procedures Referred By Contact Refer red To Contact Diagnoses Dyspnea On Exertion Nick Mcneil M.D. Procedures Pulmonary Function Tests [address] [place] [address] Referral ID Status Reason Start Date Expiration Date Visits Requ ested Visits Authorized [id number] Closed 05/11/2022 05/11/2023 1 Outpatient (Routine) - Closed Specialty Diagnoses / Procedures Referred By Contact Refer red To Contact Diagnoses Syncope And Near Syncope Dyspnea On Exertion Nick Mcneil M.D. [facility] Procedures Echo Stress [address] [place] [address] Referral ID Status Reason Start Date Expiration Date Visits Requ ested Visits Authorized [id number] Closed 05/11/2022 05/11/2023 1 1 Reason for Visit Reason Comments Syncope Vasovagal Outpatient (Routine) - Closed Specialty Diagnoses / Referred By Contact Referred To Contact Procedures Cardiovascular Diseases / Diagnoses Syncope Vasovagal Yoni Cavanaugh, [facility] Cardiovascular Disease M.Kenny, M.P.H. [address] [address] Referral ID Status Reason Start Date Expiration Date Visits Requ ested Visits Authorized [id number] Closed 04/11/2022 04/11/2023 1 1 Encounter Details Date Type Department Care Team Description 05/11/2022 Comprehensive Visit Department of [place] Syncope And Near Syncope (Primary Dx); Cardiovascular Nick Reyes M.D. Syncope Vasovagal; Diseases in [facility] [address] Dyspnea On Exertion [place], [place] [address] [address] [place], [place] [phone] (Work) [phone] Social History Tobacco Use Types Packs/Day Years Used Date Smoking Tobacco: Never Smokeless Tobacco: Never Tobacco Cessation: Counseling Given: Not Answered Alcohol Use Standard Drinks/Week Comments Not Currently [...] or relatives? How often do you attend yazdanism or More than 4 times per year 02/16/2022 anabaptism services? Do you belong to any clubs or Yes 02/16/2022 organizations such as yazdanism groups, unions, fraternal or athletic groups, or school groups? How often do you attend meetings of the More than 4 times r year 02/16/2022 clubs or organizations you [...] Sign Reading Time Taken Comments Blood Pressure 136/58 05/11/2022 12:02 PM CDT Pulse 67 05/11/2022 11:59 AM CDT Temperature - - Respiratory Rate - - Oxygen Saturation 100% 05/11/2022 11:59 AM CDT Inhaled Oxygen Concentration - - Weight 67.8 kg (149 lb 7.6 oz) 05/11/2022 11:59 AM CDT Height - - Body Mass Index 27.26 02/16/2022 7:41 AM CDT documented in this encounter Consult Notes Nick Mcneil M.D. - 05/11/2022 12:15 PM CDT ASSESSMENT / PLAN Loss of consciousness, 10/2021. 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 Nonsustained supraventricular/atrial tachycardia on Holter 01/2022 Chest discomfort, not suggestive of ischemic etiology. Dyspnea Hyperlipidemia, statin intolerant Hypothyroidism; status post Graves disease with radioactive ablation. Osteoporosis; compression fractures Spinal stenosis of lumbar region. Loss of consciousness, likely due to syncope. Last event occurred October 2021 while standing in yazdanism. Difficulty to properly characterize the event; memory lapses. No typical features for vasovagal syncope described and trauma was associated ( with possible concussion). A cardiac cause has not beenexcluded yet. The patient had underlying right bundle-branch block and left anterior fascicular block diagnosed on January 2022 (electrocardiogram around the time of syncope not available; not performed asper patient). She has not had recurrences of loss of consciousness. Occasional episodes of LOC whileyounger. Her last event, prior to the current one, occurred when she was 45-50 years of age (vasovagal events were likely, in her teenage years). We will proceed with 30 day ambulatory electrocardiographic monitoring to clarify if any bradyarrhythmias or tachyarrhythmias are present that would requireadditional treatment. We would continued with low-dose beta-stacey initiated by primary care provider. Stress testing is also recommended to assess for the possibly of ischemia or exercise-induced arrhythmias. After syncopal event, we would ask the patient not to drive for 3 months but that has already. We will consider additional evaluation with electrophysiology depending on test findings.We educated patient how to prevent vasovagal episodes. Chest discomfort/palpitations/dyspnea. The patient has been reporting occasional chest discomfort, palpitations and dyspnea for least the past month or so. Shortness of breath is mostly exertional but also occurring at night with other symptoms occurring at rest. Not necessarily temporally associated.She is euvolemic on exam. Improvement of dyspnea with menthol does suggest a noncardiac etiology. Still, in view of concerns as well as loss of consciousness, additional evaluation will be performed with a cardiopulmonary exercise stress echocardiogram as well as pulmonary function testing (with methacholine challenge if negative). We will attempt to clarify the etiology the patient's symptoms and decide if additional cardiac therapies are indicated. Hyperlipidemia, per primary care provider. Lipids from [place] reviewed (LDL 136, HDL 60, triglycerides 119 with normal CMP April 2022; normal TSH and no anemia March 2022). The patient is candidate for statins but has been unable to tolerate to different statins due to side effects in the past (sorethroat and headache reported). Low-dose statin such as Crestor once a week or ezetimibe may be initiated by primary care provider. Otherwise, we will consider treatment if abnormal stress testing or when we see the patient next time, in follow-up. PLAN: #1 Syncope Vasovagal - Cardiovascular Disease - General cardiology consult (clinic) #2 Syncope And Near Syncope - SARS Coronavirus-2 RNA, V Asymptomatic; Future; Expected date: This COVID-19 Screening Test is forhigh-risk outpatient appointments and procedures; test is to be done 2-5 days before any high risk appointment or procedure. - ECG Ambulatory Real Time Cardiac Monitoring; Future; Expected date: 05/11/2022 #3 Dyspnea On Exertion - Pulmonary Function Tests; Future; Expected date: 05/11/2022 Other orders - Echo Stress; Future; Expected date: 05/11/2022 - Cardiovascular Disease office visit (clinic) General; Future; Expected date: 08/11/2022 There are no discontinued medications. - Follow up with Cardiology in 3 months or call us sooner in case of problems or concerns. The patient expressed understanding of the information discussed during the visit today and agreement with the plan. CARDIOLOGY CONSULTATION Location: [facility]. Referring Provider: Yoni Cavanaugh M.D., M.P.H. SUBJECTIVE CHIEF COMPLAINT/REASON FOR CONSULT No chief complaint on file. HISTORY OF PRESENT ILLNESS Ms. Emmy Anderson is a very pleasant 77 y.o. female who presents to [facility] for evaluation after loss of consciousness. Her primary care provider is No primary care provider on file.. Previously seen by Cardiology: No. Presenting unaccompanied by family. The patient presents today to [facility] care after episode of loss of consciousness, October 10/2022. She states she was standing in yazdanism on suddenly everything became fuzzy and white. She was still by witnesses that she had lost consciousness and hit her head causing her to have a concussion. Veena had significant neck and chest discomfort, from the trauma, afterwards. She states she had no bowel bladder incontinence and did not bite her tongue. She did not seek help in the ER and did not see her primary care provider immediately. After the event, she still drove home. She has had episodes of loss of consciousness in the past with the last event when she was 45-50 years of age after looking up. She also has had episodes during her teenage years when having painful menstrual periods. She states the loss of consciousness markedly decreased after she became at age 26. No history ofprior myocardial infarction or strokes. She does report for the past month or so a feather feelingin her chest as well as occasional palpitations and chest discomfort at rest (sharp sudden pains). Those occur once in a while. She has also been having difficulty to sleep with shortness of breath which may also occur with exertion. She states that at night she gets short of breath when lying down before going to sleep. This is improved by using mental cough drops or mental inhalers. She states she does not have history of asthma. She does have history of sinus problems. She states shortness of breath even though worsening lately has been present for awhile since she was young. She has occasional lower extremity edema, particularly at the end of the days. On low-dose beta-blockers now, started byher primary care provider. No side effects reported. Hypothyroidism followed by primary care provider. Lipids done in [place] reviewed. Currently undergoing treatment for UTI. No bleeding reported. Family history significant for father dying of a heart attack at age 72. Her brother of a heartattack at age 56. She had a sister with valve replacement in his 70s. Mother had a stroke at age 89. The patient has never smoked. She exercises regularly. She does gardening almost daily. She walks with her dog for proximal 4 blocks wants to twice a da and she does water aerobics at the [employer] times a week. She has been noticed that her endurance has been decreasing. Cardiovascular Risk Factors: 1. Smoking status: has never smoked 2. Type II Diabetes Mellitus: no. 3. Hypertension: no 4. Dyslipidemia: yes. 5. Family history of early Coronary Artery Disease in a first degree relative (Male less than 55 years of age; Female less than 65 years of age): no 6. Obesity and/or Metabolic Syndrome: no 7. Sedentary lifestyle: no 8. Menopausal status: postmenopausal Current Outpatient Medications Medication Sig acetaminophen (TYLENOL) 325 mg tablet Every 4 Hours as needed calcium carbonate-vitamin D3 400-133.3 mg-unit tablet Take 1,000 mg by mouth daily. cholecalciferol (VITAMIN D3) 10 mcg (400 Unit) tablet Take 400 Units by mouth daily. clotrimazole (LOTRIMIN) 1 % cream Apply 1 application topically as needed. dextromethorphan-guaiFENesin (ROBITUSSIN-DM) 10-100 mg/5 mL syrup Take by mouth as needed for cough. diphenhydrAMINE (BENADRYL) 25 mg capsule Take 25 mg by mouth every 6 (six) hours as needed. docosanol (ABREVA) 10 % cream Apply 1 application topically 4 (four) times a day as needed. doxycycline (VIBRAMYCIN) 100 mg capsule ergocalciferol, vitamin D2, 10 mcg (400 unit) tablet Twice A Day ibuprofen (ADVIL,MOTRIN) 200 mg capsule Take 600 mg by mouth every 6 (six) hours as needed for pain. Lactobacillus acidophilus capsule Take 1 capsule by mouth as needed (Uses when also taking antibiotics). levothyroxine (SYNTHROID, LEVOTHROID) 88 mcg tablet Take 1 tablet by mouth daily. loperamide (IMODIUM A-D) 2 mg capsule Take 2 mg by mouth 4 (four) times a day as needed for diarrhea. loratadine (CLARITIN) 10 mg tablet Take 1 tablet by mouth daily as needed. metoprolol succinate (TOPROL-XL) 25 mg 24 hr tablet Take 12.5 mg by mouth daily. pseudoephedrine-guaiFENesin (MUCINEX D) 60-600 mg per 12 hr tablet Take 1 tablet by mouth 2 (two) times a day as needed for allergies. vitamin A & D (AMERIDERM) ointment Apply 1 application topically as needed for dry skin. Allergies Allergen Reactions Lidocaine Anaphylaxis per pt, tubal closure, asthmatic attack; Adhesive Tape-Silicones Rash Aspirin GI intolerance Chlorpheniramine Other (see comments) Chlorpheniramine-Phenylephrine Cough runny nose Codeine Shortness of breath Mold Other (see comments) Sneezing, sinus issues Penicillin V Other (see comments) diahrria Phenylpropanolamine Other (see comments) [place] Pollen-Rough Pigweed Other (see comments) Sneezing, nasal drainage Adhesive Itching Social History Socioeconomic History Marital status: Highest education level: Professional school degree (e.g., MD, DDS, DVM, KRISTEN) Tobacco Use Smoking status: Never Smokeless tobacco: Never Vaping Use Vaping Use: never used Substance and Sexual Activity Alcohol use: Not Currently Alcohol/week: 0.0 standard drinks Comment: wine about once a month Drug use: Never Sexual activity: Not Currently Partners: Male control/protection: None Social Determinants of Health Financial Resource Strain: Low Risk Difficulty of Paying Living Expenses: Not hard at all Food Insecurity: No Food Insecurity Worried About Running Out of Food in the Last Year: Never true Ran Out of Food in the Last Year: Never true Transportation Needs: No Transportation Needs Lack of Transportation (Medical): No Lack of Transportation (Non-Medical): No Physical Activity: Sufficiently Active Days of Exercise per Week: 7 days Minutes of Exercise per Session: 30 min Stress: No Stress Concern Present Feeling of Stress : Only a little Social Connections: Socially Integrated Frequency of Communication with Friends and Family: More than three times a week Frequency of Social Gatherings with Friends and Family: Once a week Attends Episcopalian Services: More than 4 times per year Active Member of Clubs or Organizations: Yes Attends Club or Organization Meetings: More than 4 times per year Marital Status: Intimate Partner Violence: Not At Risk Fear of Current or Ex-Partner: No Emotionally Abused: No Physically Abused: No Sexually Abused: No Housing Stability: Low Risk Unable to Pay for Housing in the Last Year: No Number of Places Lived in the Last Year: 1 Unstable Housing in the Last Year: No Family History Problem Relation Age of Onset Breast cancer Sister Hypertension Sister Hyperlipidemia Sister Diabetes Sister Colon cancer Maternal Grandfather Skin cancer Mother Stroke Mother Arthritis Mother Obesity Mother Skin cancer Sister Coronary artery disease Father Hypertension Father Hyperlipidemia Father Coronary artery disease Brother Hypertension Brother Coronary artery disease Brother Diabetes Brother Obesity Brother Hypertension Brother Hypertension Sister Hyperlipidemia Sister Asthma Sister Obesity Sister Hyperlipidemia Brother Thyroid disease Brother Arthritis Brother Diabetes Brother REVIEW OF SYSTEMS Constitutional: Positive for fatigue. ENT: Positive for sinus congestion. Respiratory: Positive for dry cough (Allergies reported) and shortness of breath. Cardiovascular: Positive for chest pain, pressure or tightness, swelling in the legs or feet, rapid or fluttering heart beat and shortness of breath when lying flat. Genitourinary: Positive for incontinence and frequent urination. Hematologic: - Negative for bruises or bleeds easily. Musculoskeletal: Positive for pain or stiffness in the joints, back pain and muscle pain/stiffness. Neurological: Positive for light-headedness (Occasional) and headaches. - Negative for loss of consciousness. Psychiatric/Behavioral: Positive for excessive daytime sleepiness/tiredness and loud snoring. The following systems were negative: Skin, Eyes, Gastrointestinal The following portions of the patient's history were reviewed and updated as appropriate: allergies,current medications, family history, medical history, social history, surgical history and problem list. OBJECTIVE Vitals: 05/11/22 1159 05/11/22 1202 BP: (!) 127/51 136/58 BP Location: Left arm Right arm Patient Position: Sitting Sitting Cuff Size: Regular Regular Pulse: 67 SpO2: 100% Weight: 67.8 kg BP Readings from Last 3 Encounters: 04/12/22 127/74 02/16/22 152/85 10/22/19 140/71 Body mass index is 27.26 kg/m??. PHYSICAL EXAMINATION GENERAL: Patient is awake, alert, oriented x3. No acute distress. EYES: Pupils are equal and symmetric in size, normal extraocular movements. No pallor. No icterus. No xanthelasma. ENT: Oropharynx not examined; wearing a mask. No drainage from the ear canals bilaterally. NECK: No jugular venous distention. No carotid bruits. CHEST/LUNGS: No chest deformity. Normal respiratory effort. Good entry bilaterally. No adventitious sounds. CARDIOVASCULAR: Normal rate and regular rhythm. Normal S1 and S2. No murmurs, rubs, or gallops. Negative hepatojugular reflux. ABDOMEN: Soft, nontender, nondistended. LOWER EXTREMITIES: Lower extremity warm without edema. UPPER EXTREMITIES: 2+ Radial pulses bilaterally. Normal capillary refill. No cyanosis. NEUROLOGIC: No focal motor findings in upper or lower extremities. DIAGNOSTICS I have reviewed the patient's current laboratory, imaging, and other diagnostic studies. Pertinent laboratory studies have been reviewed and are notable for: Hospital Outpatient Visit on 04/27/2022 Component Date Value Ventricular Rate ECG/Min 04/27/2022 75 NE Interval 04/27/2022 164 QRSD Interval 04/27/2022 134 QT Interval 04/27/2022 410 QTC Interval 04/27/2022 457 P [place] 04/27/2022 66 R [place] 04/27/2022 -73 T Wave [place] 04/27/2022 31 Hospital Outpatient Visit on 02/23/2022 Component Date Value Min Heart Rate 02/25/2022 49 Max Heart Rate 02/25/2022 120 Mean Heart Rate 02/25/2022 74 VE Total Beats 02/25/2022 205 VE Percent Beats 02/25/2022 less than 1 SVE Total Beats 02/25/2022 109 SVE Percent Beats 02/25/2022 less than 1 AF Count 02/25/2022 0 AF Duration 02/25/2022 0 AF Kulm 02/25/2022 0 Symptom Count 02/25/2022 0 ECG 12 Lead Result Date: 04/27/2022 Normal sinus rhythm Right bundle branch block Left anterior fascicular block Bifascicular block Nonspecific ST and T wave abnormality When compared with ECG of 30-AUG-2005 09:40, (RBBB and left anterior fascicular block) are now present Reviewed by NATASHA Rasheed Heart rate 75 BPM. Pertinent cardiac (or related) studies have been reviewed and are notable for: Holter monitor January 2022: 1. The basic rhythm was sinus with [...] 1%. 4. No symptomatic events were noted. Stress echocardiogram March 2007, [facility]: 1. Normal stress echocardiogram. There are no resting or exercise-induced wall motion abnormalities suggestive of ischemia. 2. Stress ECG portion of this test will be dictated separately. IMPRESSION/REPORT/PLAN See above. documented in this encounter Plan of Treatment Upcoming Encounters Date Type Specialty Care Team Description 07/27/2022 Office Visit Cardiovascular Disease Nick Mcneil M.D. [address] [place] [address] [place], [place] [phone] (Wo rk) Scheduled Referrals Name Type Priority Associated Order Schedule Diagnoses Cardiovascular Disease Outpatient Referral Routine Expected: office visit (clinic) 2021 General (Approximate), Expires: 08/11/2023 documented as of this encounter Results ECG AMBULATORY REAL TIME CARDIAC MONITORING (06/23/2022 10:00 PM CDT) P athologist Signature Min Heart Rate 49 bpm [facility] Max Heart Rate 120 bpm [facility] Mean Heart 69 bpm [facility] Rate VE Total Beats <100 count [facility] VE Percent <1% percent [facility] Beats SVE Total 2163 count [facility] Beats SVE Percent <1% percent [facility] Beats Holter Pauses 0 count [facility] AF Count 0 count [facility] AF Duration 0 sec duration [facility] AF Kulm 0% percent [facility] VT Runs 0 count [facility] SVT Runs 8 count [facility] Symptom Count 8 count [facility] Specimen (Source) Anatomical Collection Method Collection Time Re ceived Time Location / / Volume Laterality 05/25/2022 10:36 AM CDT Narrative [facility] - 06/25/2022 10:03 AM CD T 1. The patient was monitored from 05/25/2022 to 06/23/2022 with a total monitoring time of 28 days 11 h r 56 min. The baseline rhythm was sinus. The heart rate varied from 49 to 120 BPM. The average heart rate was 69 BPM. 2. There were <100 PVCs seen with a PVC burden of <1%. 3. There were 2,163 PACs seen singly wit h a PAC burden of <1%. There were 8 runs of supraventricular tachycardia observed. The longest run of SVT was 16 beats. The fastest rate of SVT was 171 BPM. 4. The patient reported 8 symptomatic ev ents of heart fluttering and hard heart beat. During these events, the rhythm was sinus. The heart rate varied from 56 ??to 86 BPM. No ectopy was noted. Autocutter: NATASHA Gómez/ Ashleigh Basalt Procedure Note Marc Lau M.D. - 06/25/2022Formatt ing of this note might be different from the original. 1. The patient was monitored from to 06/23/2022 with a total monitoring time of 28 days 11 hr 56 min. The baseline rhythm was sinus. The heart rate varied from 49 to 120 BPM. The average heart rate was 69 BPM. 2. There were <100 PVCs seen with a PVC burden of <1%. 3. There were 2,163 PACs seen singly wit h a PAC burden of <1%. There were 8 runs of supraventricular tachycardia observed. The longest run of SVT was 16 beats. The fastest rate of SVT was 171 BPM. 4. The patient reported 8 symptomatic ev ents of heart fluttering and hard heart beat. During these events, the rhythm was sinus. The heart rate varied from 56 to 86 BPM. No ectopy was noted. Autocutter: NATASHA Gómez/ Ashleigh Basalt Nick Mcneil M.D. CV CARDIAC SERVICES PROCEDUR ES Performing Organization Address City/State/ZIP Code Phon e Number [facility] NA ECHO STRESS 2D WITH COLOR, DOPPLER AND CONTRAST (05/19/2022 10:11 AM CDT) [facility] gist Method Time Signature Ejection Fraction 62 [...] CV EIMS [facility] At Peak Stress 1 [facility] EIMS Anatomical Region Laterality Modality Echocardiography Specimen [...] 10. O2 uptake data detailed in the [facility] Medical Record (Cardiopulmonary (VO2) Exercise Test). [...] border definition. Imaging enhancement agent administered per [facility] ardiography Contrast Administration Protocol Reference Document [id number]. Patient met an inclusion criterion and did [...] 10. O2 uptake data detailed in the [facility] Medical Record (Cardiopulmonary (VO2) Exercise Test). [...] per Echocardiography Contrast Administration Protocol Reference Document [id number]. Patient met an inclusion criterion and did not h ave contraindications in screening sections. LUNG FINDINGS:Lung ultrasound performed. Findings consistent with normal lung aeration at rest and with exercise. For the complete report, see the Order-L evel Documents. Nick Mcneil M.D. CV ECHO PROCEDURES Pulmonary Function Tests (05/19/2022 7:29 AM CDT) Component Value Ref Test Analysis Performed At Patholo gist Range Method Time Signature VC MAX 2.18 L 05/19/2022 [facility] PROVDILATATION 9:15 [address] CDT [address] FVC PROVDILATATION 2.16 L 05/19/2022 [facility] 9:15 AM CDT SUITE FEV 1 1.64 L 05/19/2022 [facility] PROVDILATATION 9:15 AM CDT SUITE FEV1/FVC 75.86 % 05/19/2022 [facility] PROVDILATATION 9:15 AM CDT SUITE FEF 25-75% 1.37 L/s 05/19/2022 [facility] PROVDILATATION 9:15 AM CDT SUITE PEF PROVDILATATION 3.36 L/s 05/19/2022 [facility] 9:15 AM CDT SUITE FET PROVDILATATION 8.05 sec 05/19/2022 [facility] 9:15 AM CDT SUITE [id number] 100.00 % 05/19/2022 [facility] 9:15 AM CDT SUITE PulseRest 67.00 1/min 05/19/2022 [facility] 9:15 AM CDT SUITE [id number] 96.00 % 05/19/2022 [facility] 9:15 AM CDT SUITE PulseExer 101.00 1/min 05/19/2022 [facility] 9:15 AM CDT SUITE EXER TIME [...] CDT SUITE FEF 25-75% 1.03 L/s 05/19/2022 [facility] PROVOCATION 9:15 AM CDT SUITE PEF PROVOCATION 2.70 L/s 05/19/2022 [facility] KILLIAN[facility] 9:15 AM CDT SUITE FET PROVOCATION 9.09 sec 05/19/2022 [facility] 9:15 AM CDT SUITE VC MAX 2.32 L 05/19/2022 [facility] 9:15 AM CDT SUITE FVC PROVBASE 2.32 L 05/19/2022 ABDIFATAH KILLIANRY 9:15 AM CDT SUITE FEV 1 PROVBASE 1.75 L 05/19/2022 [facility] 9:15 AM CDT SUITE FEV1/FVC PROVBASE 75.20 % 05/19/2022 [facility] 9:15 AM CDT SUITE FEF 25-75% 1.38 L/s 05/19/2022 [facility] PROVBASE 9:15 AM CDT SUITE PEF PROVBASE 3.93 L/s 05/19/2022 [facility] 9:15 AM CDT SUITE FET PROVBASE 11.10 sec 05/19/2022 [facility] 9:15 AM CDT SUITE DLCO SINGLE BREATH 11.06 ml/(min* 05/19/2022 [facility] PROVBASE mmHg) 9:15 AM CDT SUITE VA SINGLE BREATH 3.48 L 05/19/2022 [facility] PROVBASE 9:15 AM CDT SUITE CUMULATED DOSE 1063.278?? 05/19/2022 [facility] [employer] 9:15 AM CDT SUITE CUMULATED DOSE 2.000 05/19/2022 [facility] PROVDILATATION 9:15 AM CDT SUITE PD 20 05/19/2022 [facility] 9:15 AM CDT SUITE SUBSTANCE PROVBASE -- 05/19/2022 [facility] 9:15 AM CDT SUITE SUBSTANCE Methacholine 05/19/2022 [facility] 9:15 AM CDT SUITE SUBSTANCE Combivent 05/19/2022 [facility] PROVDILATATION 9:15 AM CDT SUITE % PRED VC MAX 97 % % 05/19/2022 [facility] 9:15 AM CDT SUITE FVC% 97 % % 05/19/2022 [facility] 9:15 AM CDT SUITE FEV1% 95 % % 05/19/2022 [facility] 9:15 AM CDT SUITE % PRED FEV1/FVC 97 % % 05/19/2022 [facility] 9:15 AM CDT SUITE % PRED FEF 25-75% 91 % % 05/19/2022 [facility] 9:15 AM CDT SUITE % PRED PEF 78 % % 05/19/2022 [facility] 9:15 AM CDT SUITE DLCO% 63 % % 05/19/2022 [facility] 9:15 AM CDT SUITE PRED VC MAX 2.40 05/19/2022 [facility] 9:15 AM CDT SUITE PRED FVC 2.40 05/19/2022 [facility] 9:15 AM CDT SUITE PRED FEV 1 1.83 05/19/2022 [facility] 9:15 AM CDT SUITE PRED FEV1/FVC 77.3 05/19/2022 [facility] 9:15 AM CDT SUITE PRED FEF 25-75% 1.51 05/19/2022 [facility] 9:15 AM CDT SUITE PRED PEF 5.0 05/19/2022 [facility] 9:15 AM CDT SUITE PRED DLCO 17.7 05/19/2022 [facility] 9:15 AM CDT SUITE Specimen (Source) Anatomical Collection Method Collection Time Re ceived Time Location / / Volume Laterality 05/19/2022 7:29 AM CDT Impressions [facility] SUITE - 05/19/2022 9:15 AM C DT Negative [...] Organization Address City/State/ZIP Code Phon e Number [facility] NA SARS Coronavirus-2 RNA, V Asymptomatic (05/16/2022 9:57 AM CDT) [facility] Method Time Signature SARS-CoV-2 Swab, 05/16/2022 [facility] Specimen Nasopharynx 10:32 PM Source CDT SARS CoV-2 Undetected Undetected 05/16/2022 [facility] RNA, TMA 10:32 PM CDT Comment: SARS-CoV-2 RNA absent. This result does not rule out COVID-19 in the patient, as the sensitivity of the test depends o n the timing of the specimen collection and the quality of the specim en. Result should be correlated with patient's history and clinical presentat ion. ----ADDITIONAL INFORMATION---- This molecular amplification test was pe rformed using the Aptima SARS-CoV-2 assay ([employer] on the XStor Systemss tem under emergency use authorization (EUA) by the U.S. Food and Drug Administ ration. Fact sheets for this EUA assay can be fo und at the following links: For Healthcare Providers: https://www.fd a.gov/media/105320/download For Patients: https://www.fda.gov/media/ 285906/download Specimen Anatomical Collection Method Collection Time Receive d Time (Source) Location / / Volume Laterality Varies 05/16/2022 9:57 AM 4:43 (Nasopharynx) CDT PM CDT Nick Mcneil M.D. LAB MICROBIOLOGY - GENERAL O RDERABLES Performing Organization Address City/State/ZIP Code Phon e Number [facility]- [address] [place] [address] [place] [address] System in [place] [facility] [facility] documented in this encounter Visit Diagnoses Diagnosis Syncope And Near Syncope - Primary Syncope Vasovagal Dyspnea On Exertion Dyspnea On Exertion Syncope And Near Syncope Dyspnea On Exertion Syncope And Near Syncope documented in this encounter
--- OUTSIDE RECORDS SUMMARY | 2022-07-04 14:53 | XMS_ITS | Encounter Summary ---
:1945 Author Organization [facility] Address [address] [place] [address] Care Team Providers Name Role Phone Unavailable Primary Care Provider Unavailable Reason for Referral Outpatient (Routine) - Authorized Specialty Diagnoses / Procedures Referred By Contact Refer red To Contact Diagnoses Post Concussion Syndrome Dizziness Syncope Vasovagal Yoni Cavanaugh M.D., [facility] Procedures ECG Heart rhythm monitor (Holter) [facility] [address] [place] [phone] Referral ID Status Reason Start Date Expiration Date Visits V isits Requested Authorized [id number] Authorized 02/16/2022 02/16/2023 1 1 Reason for Visit Outpatient (Routine) - Authorized Specialty Diagnoses / Procedures Referred By Contact Refer red To Contact Diagnoses Post Concussion Syndrome Dizziness Syncope Vasovagal Yoni Cavanaugh M.D., [facility] Procedures ECG Heart rhythm monitor (Holter) [facility] [address] [place] [phone] Referral ID Status Reason Start Date Expiration Date Visits V isits Requested Authorized [id number] Authorized 02/16/2022 02/16/2023 1 1 Encounter Details Date Type Department Care Team Description 02/23/2022 Hospital Encounter Department of Yoni Cavanaugh Post Con cussion Syndrome; Cardiovascular Diseases Geeta Westbrook, Dizz iness; in Zelda Blevins cayden [facility] Syncope Vasovagal [address] [facility] [phone] [place] [phone] Social History Tobacco Use Types Packs/Day Years [...] or relatives? How often do you attend mandaen or More than 4 times per year 02/16/2022 lutheran services? Do you belong to any clubs or Yes 02/16/2022 organizations such as mandaen groups, unions, fraternal or athletic groups, or [...] place to sleep or slept in a care home (including now)? Education Answer Date Recorded What [...] doxycycline (VIBRAMYCIN) 0 03/24/2018 100 mg capsule ibuprofen (ADVIL,MOTRIN) Take 600 mg by mouth [...] 06/04 mg tablet mouth daily as needed. pseudoephedrine-guaiFENesi Take 1 tablet by 0 n (MUCINEX D) 60-600 mg mouth 2 (two) times a per 12 hr tablet day as needed for allergies. vitamin A & D (AMERIDERM) Apply 1 application 0 ointment topically as needed for dry skin. documented as of this encounter Plan of Treatment Upcoming Encounters Date Type Specialty Care Team Description 07/27/2022 Office Visit Cardiovascular Disease Nick Mcneil M.D. [address] [place] [phone] (Wo rk) documented as of this encounter Procedures Procedure Name Priority Date/Time Associated Diagnosis Comme nts HOLTER MONITOR - IN Routine 02/25/2022 1:58 PM Post Concussion Results for this CLINIC AIRWAYS CONTROL SPECIALIST CDT Syndrome procedure are in Dizziness the results Syncope Vasovagal section. documented in this encounter Results HOLTER MONITOR - IN CLINIC AIRWAYS CONTROL SPECIALIST (02/25/2022 1:58 PM CDT) [facility] Method Time Signature Min Heart Rate 49 bpm INFOBIONIC MOME Max Heart Rate 120 bpm INFOBIONIC MOME Mean Heart 74 bpm INFOBIONIC Rate MOME VE Total Beats 205 count INFOBIONIC MOME VE Percent less than percent INFOBIONIC Beats 1 MOME SVE Total 109 count INFOBIONIC Beats MOME SVE Percent less than percent INFOBIONIC Beats 1 MOME AF Count 0 count INFOBIONIC MOME AF Duration 0 duration INFOBIONIC MOME AF [place] 0 percent INFOBIONIC MOME Symptom Count 0 count INFOBIONIC MOME Specimen (Source) Anatomical Collection Method Collection Time Re ceived Time Location / / Volume Laterality 02/23/2022 3:24 PM CDT Narrative INFOBIONIC MOME - 03/02/2022 5:33 PM CDT [place] 1. The basic rhythm was sinus with sinus arrhythmia. The total analyzed time was 1d 23h 40m. The heart rate varied from 49 to 120 bpm. The average HR was 74 bpm. 2. Premature ventricular complexes were noted singly. There were 205 PVCs recorded with a PVC burden of less than 1%. 3. Premature supraventricular complexes were noted singly, in bigeminy and in one 9 beat atrial run, rate of 117 bpm. There were 109 PACs recorded with a PAC burden of less than 1%. 4. No symptomatic events were noted. Steel Plate Printer: Kamala Marcus/ Otoniel, Ad am Procedure Note Cory Whitten M.D. - 03/02/2022Forma tting of this note might be different from the original. [place] 1. The basic rhythm was sinus with sinus arrhythmia. The total analyzed time was 1d 23h 40m. The heart rate varied from 49 to 120 bpm. The average HR was 74 bpm. 2. Premature ventricular complexes were noted singly. There were 205 PVCs recorded with a PVC burden of less than 1%. 3. Premature supraventricular complexes were noted singly, in bigeminy and in one 9 beat atrial run, rate of 117 bpm. There were 109 PACs recorded with a PAC burden of less than 1%. 4. No symptomatic events were noted. Steel Plate Printer: Kamala Marcus/ Phani Frederick am Yoni Cavanaugh M.D., [facility] CV CARDIAC SERVICES PROCED URES Performing Organization Address City/State/ZIP Code Phon e Number [facility] NA documented in this encounter Visit Diagnoses Diagnosis Post Concussion Syndrome Dizziness Syncope Vasovagal documented in this encounter
--- OUTSIDE RECORDS SUMMARY | 2022-07-04 14:53 | XMS_ITS | Encounter Summary ---
:1945 Author Organization [facility] Address [address] [place] [address] Care Team Providers Name Role Phone Unavailable Primary Care Provider Unavailable Reason for Referral Outpatient (Routine) - Closed Specialty Diagnoses / Procedures Referred By Contact Refer red To Contact Diagnoses Syncope And Near Syncope Nick Mcneil M.D. [facility] Procedures ECG Ambulatory Real Time Cardiac Monitoring [address] [place] [address] Referral ID Status Reason Start Date Expiration Date Visits Requ ested Visits Authorized [id number] Closed 05/11/2022 05/11/2023 1 1 Reason for Visit Outpatient (Routine) - Closed Specialty Diagnoses / Procedures Referred By Contact Refer red To Contact Diagnoses Syncope And Near Syncope Nick Mcneil M.D. [facility] Procedures ECG Ambulatory Real Time Cardiac Monitoring [address] [place] [phone] Referral ID Status Reason Start Date Expiration Date Visits Requ ested Visits Authorized [id number] Closed 05/11/2022 05/11/2023 1 1 Encounter Details Date Type Department Care Team Description 05/25/2022 Hospital Encounter Department of [place], Syncope And Near Cardiovascular Diseases Nick Reyes M.D. Syncope in [facility] [address] [place] [phone] Social History Tobacco Use Types Packs/Day Years [...] or relatives? How often do you attend alevism or More than 4 times per year 02/16/2022 congregation services? Do you belong to any clubs or Yes 02/16/2022 organizations such as alevism groups, unions, fraternal or athletic groups, or [...] place to sleep or slept in a retirement (including now)? Education Answer Date Recorded What [...] Office Visit Cardiovascular Disease Nick Mcneil M.D. [address] [place] [address] [place] [phone] (Wo rk) documented as of this encounter Procedures Procedure Name Priority Date/Time Associated Comments Diagnosis ECG AMBULATORY REAL Routine 06/23/2022 10:00 PM Syncope And Ne ar Results for this TIME CARDIAC CDT Syncope procedure are i n MONITORING the results section. documented in this encounter Results ECG AMBULATORY REAL TIME [...] Duration 0 sec duration INFOBIONIC MOME AF [place] 0% percent INFOBIONIC MOME [place] Runs 0 [...] ??to 86 BPM. No ectopy was noted. Physician Interventional Cardiologist: NATASHA Gómez/ Ashleigh Schaefer Procedure Note Marc Lau M.D. - 06/25/2022[place]att [...] to 86 BPM. No ectopy was noted. Physician Interventional Cardiologist: NATASHA Gómez/ Ashleigh Schaefer Nick Mcneil M.D. CV CARDIAC SERVICES PROCEDUR ES Performing Organization Address City/State/ZIP Code Phon e Number [facility] NA documented in this encounter Visit Diagnoses Diagnosis Syncope And Near Syncope documented in this encounter
--- OUTSIDE RECORDS SUMMARY | 2022-07-04 14:53 | XMS_ITS | Clinical Summary ---
:1945 Author Organization [facility] Address [address] [place] [id number] Care Team Providers Name Role Phone Unavailable Primary Care Provider Unavailable Source Comments Patient records contain information from all sites at [facility]. For routine questions regarding patient records, call [phone] during business hours, M-F 8:00 AM - 5:00 PM Central Time. Record requests for emergency care only can be directed to [phone] at any time.[facility] Allergies Active Allergy Reactions Severity Noted Date Comments Adhesive Itching Low 01/11/2022 Adhesive Tape-Silicones Rash 06/04/2013 Aspirin GI intolerance 08/30/2005 Chlorpheniramine Other (see comments) 01/11/2022 Chlorpheniramine-Phenylephri Cough 06/04/2013 runny nose ne Codeine Shortness of breath 08/30/2005 Lidocaine Anaphylaxis High 06/25/2009 per pt, tubal closure, asthmatic attac k; Mold Other (see comments) 02/16/2022 Sneezin g, sinus issues Penicillin V Other (see comments) 03/27/2018 diahrri a Phenylpropanolamine Other (see comments) 01/11/2022 [place] Pollen-Rough Pigweed Other (see comments) 022 Sneezing, nasal drainage Medications Medication Sig Dispensed Refills Start Date End Date Status calcium Take 1,000 mg by 0 05/07/2009 Ac tive carbonate-vitamin D3 mouth daily. 400-133.3 mg-unit tablet doxycycline 0 03/24/2018 Active (VIBRAMYCIN) 100 mg capsule cholecalciferol Take 400 Units by 0 05/07/2009 Active (VITAMIN D3) 10 mcg mouth daily. (400 Unit) tablet levothyroxine Take 1 tablet by 0 01/21/2013 Active (SYNTHROID, mouth daily. LEVOTHROID) 88 mcg tablet loratadine (CLARITIN) Take 1 tablet by 0 06/04/2013 Active 10 mg tablet mouth daily as needed. docosanol (ABREVA) 10 Apply 1 0 Active % cream application topically 4 (four) times a day as needed. pseudoephedrine-guaiFE Take 1 tablet by 0 Active Nesin (MUCINEX D) mouth 2 (two) 60-600 mg per 12 hr times a day as tablet needed for allergies. dextromethorphan-guaiF Take by mouth as 0 Active ENesin (ROBITUSSIN-DM) needed for cough. 10-100 mg/5 mL syrup Lactobacillus Take 1 capsule by 0 Active acidophilus capsule mouth as needed (Uses when also taking antibiotics). diphenhydrAMINE Take 25 mg by 0 Active (BENADRYL) 25 mg mouth every 6 capsule (six) hours as needed. ibuprofen Take 600 mg by 0 Activ e (ADVIL,MOTRIN) 200 mg mouth every 6 capsule (six) hours as needed for pain. loperamide (IMODIUM Take 2 mg by mouth 0 Active A-D) 2 mg capsule 4 (four) times a day as needed for diarrhea. clotrimazole Apply 1 0 Active (LOTRIMIN) 1 % cream application topically as needed. vitamin A & D Apply 1 0 Active (AMERIDERM) ointment application topically as needed for dry skin. acetaminophen Every 4 Hours as 0 Active (TYLENOL) 325 mg needed tablet metoprolol succinate Take 12.5 mg by 0 03/08/2022 Active (TOPROL-XL) 25 mg 24 mouth daily. hr tablet ergocalciferol, Twice A Day 0 Ac tive vitamin D2, 10 mcg (400 unit) tablet sulfamethoxazole-trime 0 05/10/2022 Active thoprim (BACTRIM DS) 800-160 mg per tablet Active Problems Problem Noted Date Syncope And Collapse 04/12/2022 Osteoporosis 10/22/2019 Overview: ?? Osteoporosis, T score -2.6 right hip, neck, T12 compression fracture 2008 after lifting boat ?? Intolerant and reluctant for bone dir ected therapies (prior on oral bisphosphonates for ?11 months but didn't like due to symptoms) ?? She declined IV Reclast prior and cur rently Last Assessment & Plan: ?? Emmy presents for follow up of oste oporosis, last seen by Dr. Cha in 2008, notes reviewed ?? No recurrent compression fractures si nce then, when she had a T12 fracture after lifting a boat; she declined IV Reclast then ?? She returns after repeat DXA and plan s to see orthopedics for 'bad back' and paresthesias of lower legs, new, pending MRI legs ?? Exam: alert and oriented; no palpable neck nodules; no LAD; Lungs clear, CVR - regular, no murmur; Ext - no edema ?? We reviewed her DXA which meets crite duran for osteoporosis but no major declines from 6 years ago, reassuring ?? She had numerous questions re: her ca lcium, vitamin D, fish oil, soy and levothyroxine, all reviewed; she is taking in 500 mg calcium as supplements, probably ~350 mg as diet; lactose intolerant ?? She declines again Reclast at this ti me, after careful risk/benefit discussion; she elects continued diet (increase calcium intake) and exercise ?? She can repeat DXA in 2 years with he r PCP, return if questions or fractures arise Encounters Date Type Specialty Care Team Description 05/25/2022 Hospital Encounter Cardiovascular Disease Pessanha, Syncope And Near Nick Reyes M.D. Syncope 05/19/2022 Hospital Encounter Cardiovascular Disease Dashawnanmiriam, Syncope And Near Syncope; Nick Reyes M.D. Dyspnea On Exe rtion 05/19/2022 Diagnostic Pulmonary Medicine Tarun, Dyspnea O n Exertion Nick Reyes M.D. 05/16/2022 Lab General Surgery Dashawnanha, Syncope And Near Nick Reyes M.D. Syncope 05/11/2022 Comprehensive Visit Cardiovascular Disease Dashawnanha, Syncope And Near Syncope (Primary Dx); Nick Reyes M.D. Syncope Vasova gal; Dyspnea On Exer tion 04/27/2022 Hospital Encounter Laboratory Medicine Yoni Cavanaugh Sy ncope Vasovagal Geeta Westbrook, M.P.H. 04/12/2022 Office Visit Neurology Yoni Cavanaugh Syncope And Geeta Westbrook, Collapse (Prima ry M.P.H. Dx) 04/11/2022 Orders Only Sleep Medicine Yoni Cavanaugh Syncope Vasov carmen Westbrook M.D., (Primary Dx) M.P.H. from Last 3 Months Family History Medical History Relation Name Comments Coronary artery disease Brother 1 ray Hypertension Brother 1 ray Coronary artery disease Brother 2 lenie Diabetes Brother 2 lenie Obesity Brother 2 lenie Hypertension Brother 3 laura Arthritis Brother 4 beau Hyperlipidemia Brother 4 beau Thyroid disease Brother 4 beau Diabetes Brother 5 robin Coronary artery disease Father pops Hyperlipidemia Father pops Hypertension Father pops Colon cancer Maternal Grandfather gramps Arthritis Mother moms Obesity Mother moms Skin cancer Mother moms Stroke Mother moms Breast cancer Sister 1 nasim Diabetes Sister 1 nasim Hyperlipidemia Sister 1 nasim Hypertension Sister 1 nasim Skin cancer Sister 2 placido Asthma Sister 3 bo Hyperlipidemia Sister 3 bo Hypertension Sister 3 bo Obesity Sister 3 bo Relation Name Status Comments Brother 1 ray Brother 2 lenie Brother 3 laura Brother 4 beau Brother 5 robin Father pops Maternal Grandfather gramps Mother moms Sister 1 nasim Sister 2 placido Sister 3 bo Social History Tobacco Use Types Packs/Day Years [...] or relatives? How often do you attend worship or More than 4 times per year 02/16/2022 yarsanism services? Do you belong to any clubs or Yes 02/16/2022 organizations such as worship groups, unions, fraternal or athletic groups, or [...] place to sleep or slept in a long term (including now)? Education Answer Date Recorded What is the highest level of Professional school degree (e.g ., , 02/16/2022 school you have completed or the DDS, DVM, KRISTEN) highest degree you have received? Sex Assigned at Date Recorded Female 05/07/2022 11:11 AM CDT Last Filed Vital Signs Vital Sign Reading Time Taken Comments Blood Pressure 136/58 05/11/2022 12:02 PM CDT Pulse 67 05/11/2022 11:59 AM CDT Temperature - - Respiratory Rate - - Oxygen Saturation 100% 05/11/2022 11:59 AM CDT Inhaled Oxygen Concentration - - Weight 67.8 kg (149 lb 7.6 oz) 05/11/2022 11:59 AM CDT Height 157.7 cm (5' 2.09) 02/16/2022 7:41 AM CDT Body Mass Index 27.26 02/16/2022 7:41 AM CDT Plan of Treatment Upcoming Encounters Date Type Specialty Care Team Description 07/27/2022 Office Visit Cardiovascular Disease Nick Mcneil M.D. [address] [place] [address] [phone] (Wo rk) Health Maintenance Due Date Last Done Comments Hepatitis C Screening 1945 Thyroid Stimulating Hormone (TSH) 1945 test for thyroid function Zoster Vaccines (1 of 2) 1993 Depression Screening (Annual 10/02/2021 PHQ-2) Fall Risk Screen (Annual) 10/02/2021 COVID-19 Vaccine (5 - Booster for 02/24/2022 12/30/2021, , Pfizer series) 12/08/2020, Additional history exists Influenza Vaccine (#1) 2022 06/18/2021, 07/13/2020, 06/11/2020, Additional history exists DTaP,Tdap,and Td Vaccines (3 - Td 03/24/2031 03/24/2021, , or Tdap) 12/01/2010, Additional history exists Pneumococcal vaccine (65+ years) Completed 12/29/2014, 07/2009 Procedures Procedure Name Priority Date/Time Associated Comments Diagnosis ECG AMBULATORY REAL TIME Routine 06/23/2022 10:00 Syncope And Near Results for this CARDIAC MONITORING PM CDT Syncope procedure are in the results section. ECHO STRESS 2D WITH Routine 05/19/2022 10:11 Syncope And Near Results for this COLOR, DOPPLER AND AM CDT Syncope procedure are in CONTRAST Dyspnea On the results Exertion section. CARDIOPULMONARY (VO2) Routine 05/19/2022 10:11 Syncope And Renata r Results for this EXERCISE TEST AM CDT Syncope procedure are in Dyspnea On the results Exertion section. PULMONARY FUNCTION TESTS Routine 05/19/2022 7:29 Dyspnea On Results for this AM CDT Exertion procedure are i n the results section. SARS CORONAVIRUS-2 RNA, Routine 05/16/2022 9:57 Syncope And Ne ar Results for this V AM CDT Syncope procedure are i n the results section. ECG Routine 04/27/2022 9:12 Syncope Vasovagal Results for this AM CDT procedure are i n the results section. from Last 3 Months Results ECG AMBULATORY REAL TIME CARDIAC MONITORING [...] Duration 0 sec duration INFOBIONIC MOME AF [place] 0% percent INFOBIONIC MOME VT Runs 0 count INFOBIONIC MOME SVT Runs 8 count INFOBIONIC MOME Symptom Count 8 count INFOBIONIC JESSICAE Specimen (Source) Anatomical Collection Method Collection Time Re ceived Time Location / / Volume Laterality 05/25/2022 10:36 AM CDT Narrative MIO PARRA - 06/25/2022 10:03 AM CD T 1. [...] ??to 86 BPM. No ectopy was noted. Controls Designer: NATASHA Gómez/ Ashleigh Schaefer Procedure Note Marc [...] to 86 BPM. No ectopy was noted. Controls Designer: NATASHA Gómez/ Ashleigh Schaefer Nick Mcneil M.D. CV CARDIAC SERVICES PROCEDUR ES Performing Organization Address City/State/ZIP Code Phon e Number INFOBIONIC MOME INFOBIONIC MOME NA ECHO STRESS 2D WITH COLOR, DOPPLER AND CONTRAST (05/19/2022 10:11 AM CDT) [facility] Method Time Signature Ejection Fraction 62 MC [...] 10. O2 uptake data detailed in the [facility] [[email or web address]] Medical Record (Cardiopulmonary (VO2) Exercise Test). 11. [...] border definition. Imaging enhancement agent administered per [facility] ardiography Contrast Administration Protocol Reference Document [id number]. Patient met an inclusion criterion and did [...] 10. O2 uptake data detailed in the [facility] [[email or web address]] Medical Record (Cardiopulmonary (VO2) Exercise Test). 11. [...] per Echocardiography Contrast Administration Protocol Reference Document [id number]. Patient met an inclusion criterion and did [...] Volume Laterality 05/19/2022 8:24 AM CDT Narrative [facility] CV MERGE - 05/19/2022 11:46 AM CDT This result has an attachment that is no t available. See PDF For Result Procedure Note Ras Esteban M.D. - 05/19/2022Forma tting of this note might be different from the original. See PDF For Result Nick Mcneil M.D. CV STRESS PROCEDURES Performing Organization Address City/State/ZIP Code Phon e Number CV MERGE CV MERGE NA Pulmonary Function Tests (05/19/2022 7:29 AM CDT) Component Value Ref Test Analysis Performed At [facility] Range Method Time Signature VC MAX 2.18 L 05/19/2022 [facility] PROVDILATATION 9:[address] FVC PROVDILATATION 2.16 L 05/19/2022 [facility] 9:15 AM CDT SUITE FEV 1 1.64 L 05/19/2022 [facility] PROVDILATATION 9:15 AM CDT SUITE FEV1/FVC 75.86 % 05/19/2022 [facility] PROVDILATATION 9:15 AM CDT SUITE FEF 25-75% 1.37 L/s [facility] PEF PROVDILATATION 3.36 L/s 05/19/2022 [facility] 9:15 AM CDT SUITE FET PROVDILATATION 8.05 sec 05/19/2022 [facility] 9:15 AM CDT SUITE [id number] 100.00 % 05/19/2022 [facility] 9:15 AM CDT SUITE PulseRest 67.00 1/min 05/19/2022 [facility] 9:15 AM CDT SUITE [id number] 96.00 % 05/19/2022 [facility] 9:15 AM CDT SUITE PulseExer 101.00 1/min 05/19/2022 [facility] 9:15 AM CDT SUITE EXER TIME 3.00 min 05/19/2022 [facility] 9:15 AM CDT SUITE STEP HEIGHT PRE 9.00 Inch 05/19/2022 [facility] 9:15 AM CDT SUITE VC MAX PROVOCATION 2.12 L 05/19/2022 [facility] 9:15 AM CDT SUITE CHALFVC 2.12 L 05/19/2022 [facility] 9:15 AM CDT SUITE CHALFEV1 1.51 L [...] CDT SUITE FVC PROVBASE 2.32 L 05/19/2022 [facility] 9:15 AM CDT SUITE FEV 1 PROVBASE 1.75 L 05/19/2022 [facility] 9:15 AM CDT SUITE FEV1/FVC PROVBASE 75.20 % 05/19/2022 [facility] 9:15 AM CDT SUITE FEF 25-75% 1.38 L/s 05/19/2022 [facility] PROVBASE 9:15 AM CDT [address] PEF PROVBASE 3.93 L/s 05/19/2022 [facility] 9:15 AM CDT SUITE FET PROVBASE 11.10 sec 05/19/2022 [facility] 9:15 AM CDT SUITE DLCO SINGLE BREATH 11.06 ml/(min* 05/19/2022 [facility] PROVBASE mmHg) 9:15 AM CDT [address] VA SINGLE BREATH 3.48 L 05/19/2022 [facility]OV[facility] 9:15 AM CDT SUITE CUMULATED DOSE 1063.278?? 05/19/2022 [facility]OC[facility] 9:15 AM CDT SUITE CUMULATED DOSE 2.000 05/19/2022 [facility] PR[facility]DIL[facility]ATION 9:15 AM CDT SUITE PD 20 05/19/2022 [facility] 9:15 AM CDT SUITE SUBSTANCE PROVBASE -- 05/19/2022 [facility] 9:15 AM CDT SUITE SUBSTANCE Methacholine 05/19/2022 [facility] 9:15 AM CDT SUITE SUBSTANCE Combivent 05/19/2022 [facility] 9:15 AM CDT SUITE % PRED VC MAX 97 % % 05/19/2022 [facility] 9:15 AM CDT SUITE FVC% 97 % % 05/19/2022 [facility] 9:15 AM CDT SUITE FEV1% 95 % % 05/19/2022 [facility] 9:15 AM CDT SUITE % PRED FEV1/FVC 97 % % 05/19/2022 [facility] 9:15 AM CDT SUITE % PRED FEF 25-75% 91 % % 05/19/2022 [facility] 9:15 AM CDT SUITE % PRED PEF 78 % % 05/19/2022 [facility] 9:15 AM CDT SUITE DLCO% 63 % % 05/19/2022 [facility] 9:15 AM CDT SUITE PRED VC MAX 2.40 05/19/2022 [facility] 9:15 AM CDT SUITE PRED FVC 2.40 05/19/2022 [facility] 9:15 AM CDT SUITE PRED FEV 1 1.83 05/19/2022 [facility] 9:15 AM CDT SUITE PRED FEV1/FVC 77.3 05/19/2022 [facility] 9:15 AM CDT SUITE PRED FEF 25-75% 1.51 05/19/2022 [facility] 9:15 AM CDT SUITE PRED PEF 5.0 05/19/2022 [facility] 9:15 AM CDT SUITE PRED DLCO 17.7 05/19/2022 [facility] 9:15 AM CDT SUITE Specimen (Source) Anatomical Collection Method Collection Time Re ceived Time Location / / Volume Laterality 05/19/2022 7:29 AM CDT Impressions [facility] SUITE - 05/19/2022 9:15 AM C DT Negative methacholine challenge. Normal baseline spirometry. Expiratory flows return towards baseline after administration of bronchodilator. Diffusing [facility] unadjusted for hemoglobin is mildly reduc ed, [...] Mcneil M.D. PFT ORDERABLES Performing Organization Address City/[facility] Phon e Number [facility] SUITE [facility] SUITE NA SARS Coronavirus-2 RNA, V Asymptomatic (05/16/2022 9:57 AM CDT) [facility] Method Time Signature SARS-CoV-2 Swab, 05/16/2022 [...] pe rformed using the Aptima SARS-CoV-2 assay ([employer] on the [employer] tem under emergency use authorization (EUA) by the U.S. Food and Drug Administ rodney. Fact sheets for this EUA assay can be fo und at the following links: For Healthcare Providers: https://www.fd a.gov/media/292625/download For Patients: https://www.fda.gov/media/ 614922/download Specimen Anatomical Collection Method Collection Time Receive d Time (Source) Location / / Volume Laterality Varies 05/16/2022 9:57 AM 4:43 (Nasopharynx) CDT PM CDT Nick Mcneil M.D. LAB MICROBIOLOGY - GENERAL O RDERABLES Performing Organization Address City/[facility]/ZIP Code Phon e Number [facility]- [address] [place] [id number] [place] [address] System in [place] [address] [facility] 12 Lead (04/27/2022 9:12 AM CDT) P athologist Signature Ventricular Rate 75 BPM MUSE ECG/Min ID Interval 164 ms MUSE QRSD Interval 134 ms MUSE QT Interval 410 ms MUSE QTC Interval 457 ms MUSE P [place] 66 degrees MUSE R [place] -73 degrees MUSE T Wave [place] 31 degrees MUSE Specimen Anatomical Collection Method Collection Time Receive d Time (Source) Location / / Volume Laterality 04/27/2022 9:12 AM 2 9:20 CDT AM CDT Impressions MUSE - 04/27/2022 9:20 AM CDT Normal sinus rhythm Right bundle branch block Left anterior fascicular block Bifascicular block Nonspecific ST and T wave abnormality When compared with ECG of 30-AUG-2005 09 :40, (RBBB and left anterior fascicular block ) are now present Reviewed by NATASHA Rasheed Narrative This result has an attachment that is no t available. Procedure Note Danny Bruner M.D., Ph.D. - 2 IMPRESSION: Normal sinus rhythm Right bundle branch block Left anterior fascicular block Bifascicular block Nonspecific ST and T wave abnormality When compared with ECG of 30-AUG-2005 09 :40, (RBBB and left anterior fascicular block ) are now present Reviewed by NATASHA Rasheed Yoni Cavanaugh M.D., M.P.H. ECG ORDERABLES Performing Organization Address City/State/ZIP Code Phon e Number MUSE MUSE NA from Last 3 Months Insurance Payer Benefit Plan Subscriber ID Effective Phone Address Typ e / Group Dates MEDICARE RAILROAD [id number] 2008-Pres [address] [facility] care MEDICARE ent [id number] [place] [address] BLUE [employer] BCBS [place] [id number] 2016-Pres [phone] [address] Cost Share BLUE SHIELD BLUE COST ent [phone] [place] [address] Advance Directives For more information, please contact: [phone] Documents on File Type Date Recorded Patient Evp Marketing Explanati on Advance Directives 08/30/2007 12:00 AM Shady augustin. See document viewer.
--- OUTSIDE RECORDS SUMMARY | 2022-07-04 14:53 | XMS_ITS | Encounter Summary ---
:1945 Author Organization [facility] Address [address] [place] [address] Care Team Providers Name Role Phone Unavailable Primary Care Provider Unavailable Reason for Referral Outpatient (Routine) - Closed Specialty Diagnoses / Procedures Referred By Contact Refer red To Contact Diagnoses Syncope Vasovagal Yoni Cavanaugh M.D., [facility] Procedures ECG 12 Lead M.P.H. [address] [place] [phone] Referral ID Status Reason Start Date Expiration Date Visits Requ ested Visits Authorized [id number] Closed 04/11/2022 04/11/2023 1 1 Outpatient (Routine) - Closed Specialty Diagnoses / Referred By Contact Referred To Contact Procedures Cardiovascular Diseases / Diagnoses Syncope Vasovagal Yoni Cavanaugh, [facility] Cardiovascular Disease Geeta, M.P.H. [address] [place] [phone] Referral ID Status Reason Start Date Expiration Date Visits Requ ested Visits Authorized [id number] Closed 04/11/2022 04/11/2023 1 1 Encounter Details Date Type Department Care Team Description 04/11/2022 Orders Only Department of Sleep Yoni Cavanaugh, Sync ope Vasovagal Medicine in Geeta Schulte, M.P .H. (Primary Dx) [place] [address] [place] [phone] Social History Tobacco Use Types Packs/Day Years [...] or relatives? How often do you attend holiness or More than 4 times per year 02/16/2022 latter-day services? Do you belong to any clubs or Yes 02/16/2022 organizations such as holiness groups, unions, fraternal or athletic groups, or [...] Visit Cardiovascular Disease Nick Mcneil M.D. [address] [place] [address] [place] [phone] (Wo rk) Scheduled Referrals Name Type Priority Associated Order Schedule Diagnoses Cardiovascular Disease Outpatient Referral Routine Syncope Vas ovagal Expected: - General cardiology 022 consult (clinic) (Approximat e), Expires: 07/12/2023 documented as of this encounter Results ECG 12 Lead (04/27/2022 9:12 AM CDT) P athologist Signature Ventricular Rate 75 BPM MUSE ECG/Min [place] Interval 164 ms MUSE QRSD Interval 134 ms MUSE QT Interval 410 ms MUSE QTC Interval 457 ms MUSE P [place] 66 degrees MUSE R [place] -73 degrees MUSE T Wave [place] 31 degrees MUSE Specimen Anatomical Collection Method Collection Time Receive d Time (Source) Location / / Volume Laterality 04/27/2022 9:12 AM 9:20 CDT AM CDT Impressions MUSE - [...] Code Phon e Number MUSE MUSE NA documented in this encounter Visit Diagnoses Diagnosis Syncope Vasovagal - Primary Syncope Vasovagal documented in this encounter
--- OUTSIDE RECORDS SUMMARY | 2022-07-04 14:53 | XMS_ITS | Encounter Summary ---
:1945 Author Organization [facility] Address [address] [place] [address] Care Team Providers Name Role Phone Unavailable Primary Care Provider Unavailable Reason for Referral Outpatient (Routine) - Closed Specialty Diagnoses / Procedures Referred By Contact Refer red To Contact Diagnoses Syncope Vasovagal Yoni Cavanaugh M.D., [facility] Procedures ECG 12 Lead M.P[facility] [address] [place] [phone] Referral ID Status Reason Start Date Expiration Date Visits Requ ested Visits Authorized [id number] Closed 04/11/2022 04/11/2023 1 1 Reason for Visit Outpatient (Routine) - Closed Specialty Diagnoses / Procedures Referred By Contact Refer red To Contact Diagnoses Syncope Vasovagal Yoni Cavanaugh M.D., [facility] Procedures ECG 12 Lead M[facility] [address] [place] [phone] Referral ID Status Reason Start Date Expiration Date Visits Requ ested Visits Authorized [id number] Closed 04/11/2022 04/11/2023 1 1 Encounter Details Date Type Department Care Team Description 04/27/2022 Hospital Encounter Department of Yoni Cavanaugh Syncope Vasovagal Laboratory Medicine in Geeta Westbrook, [place], [place] M.P.H. [address] [place], [place] [phone] Social History Tobacco Use Types Packs/Day Years [...] or relatives? How often do you attend anabaptism or More than 4 times per year 02/16/2022 buddhism services? Do you belong to any clubs or Yes 02/16/2022 organizations such as anabaptism groups, unions, fraternal or athletic groups, or [...] Visit Cardiovascular Disease Nick Mcneil M.D. [address] [place] [address] [place] [phone] (Wo rk) documented as of this encounter Procedures Procedure Name Priority Date/Time Associated Diagnosis Comme nts ECG Routine 04/27/2022 9:12 AM Syncope Vasovagal Resu lts for this CDT procedure are i n the results section . documented in this encounter Results ECG 12 Lead (04/27/2022 9:12 AM CDT) P athologist Signature Ventricular Rate 75 BPM MUSE ECG/Min [place] Interval 164 ms MUSE QRSD Interval 134 ms MUSE QT Interval 410 ms MUSE QTC Interval 457 ms MUSE P [place] 66 degrees MUSE R [place] -73 degrees MUSE T Wave [place] 31 degrees MUSE Specimen Anatomical Collection Method [...] this encounter Visit Diagnoses Diagnosis Syncope Vasovagal documented in this encounter
--- OUTSIDE RECORDS SUMMARY | 2022-07-04 14:53 | XMS_ITS | Encounter Summary ---
:1945 Author Organization [facility] Address [address] [place] [address] Care Team Providers Name Role Phone Unavailable Primary Care Provider Unavailable Encounter Details Date Type Department Care Team Description 05/16/2022 Lab Department of General Nick Mcneil, Syncope And Near Syncope Surgery in [place] [address] [place] [id number] [facility] [phone] (Wo rk) Social History Tobacco Use Types [...] or relatives? How often do you attend muslim or More than 4 times per year 02/16/2022 tenriism services? Do you belong to any clubs or Yes 02/16/2022 organizations such as muslim groups, unions, fraternal or athletic groups, or [...] place to sleep or slept in a long-term (including now)? Education Answer Date Recorded What [...] Office Visit Cardiovascular Disease Nick Mcneil M.D. [address] [place] [address] [phone] (Wo rk) documented as of this encounter Procedures Procedure Name Priority Date/Time Associated Diagnosis Comme nts SARS CORONAVIRUS-2 Routine 05/16/2022 9:57 AM Syncope And Near Results for this RNA, V CDT Syncope procedure are i n the results section. documented in this encounter Results SARS Coronavirus-2 RNA, V Asymptomatic (05/16/2022 9:57 AM CDT) [facility] Method Time Signature SARS-CoV-2 Swab, 05/16/2022 MKTO [...] pe rformed using the Aptima SARS-CoV-2 assay ([employer] on the [employer] tem under emergency use authorization (EUA) by the U.S. Food and Drug Administ rodney. Fact sheets for this EUA assay can be fo und at the following links: For Healthcare Providers: https://www.fd a.gov/media/067632/download For Patients: https://www.fda.gov/media/ 862051/download Specimen Anatomical Collection Method Collection Time Receive d Time (Source) Location / / Volume Laterality Varies 05/16/2022 9:57 AM 4:43 (Nasopharynx) CDT PM CDT Nick Mcneil M.D. LAB MICROBIOLOGY - GENERAL O RDERABLES Performing Organization Address City/State/ZIP Code Phon e Number [facility]- [address] [place] [address] [place] [address] System in [address] documented in this encounter Visit Diagnoses Diagnosis Syncope And Near Syncope documented in this encounter Additional Health Concerns Infection Onset Date Last Indicated Resolved Time COVID19 Pending 05/13/2022 05/16/2022 05/16/2022 10:33 PM CDT documented as of this encounter
--- OUTSIDE RECORDS SUMMARY | 2022-07-04 14:54 | XMS_ITS | Encounter Summary ---
:1945 Author Organization [facility] Address [address] [place] [address] Care Team Providers Name Role Phone Unavailable Primary Care Provider Unavailable Reason for Referral Outpatient (Routine) - Authorized Specialty Diagnoses / Procedures Referred By Contact Refer red To Contact Diagnoses Post Concussion Syndrome Dizziness Syncope Vasovagal Yoni Cavanaugh M.D., [facility] [place] [facility] Procedures ECG Heart rhythm monitor (Holter) [facility] [address] [place] [address] Referral ID Status Reason Start Date Expiration Date Visits V isits Requested Authorized [id number] Authorized 02/16/2022 02/16/2023 1 1 MRI/CAT/PET Scan (Routine) - Closed Specialty Diagnoses / Procedures Referred By Contact Refer red To Contact Radiology Diagnoses Post Concussion Syndrome Dizziness Yoni Cavanaugh M.D., [facility] [place] Procedures MR Brain without IV Contrast [place] MRI BRAIN WO CNTRST HC MRI BRAIN WO CNTRST [facility] [address] [place] [address] Referral ID Status Reason Start Date Expiration Date Visits Requ ested Visits Authorized [id number] Closed 02/16/2022 02/16/2023 1 1 Reason for Visit Reason Comments Dizziness Weakness - Generalized Ref. Dr. [facility] Appointment Request (Routine) - Closed Specialty Diagnoses / Procedures Referred By Contact Refer red To Contact Neurology Referral ID Status Reason Start Date Expiration Date Visits Requ ested Visits Authorized [id number] Closed 02/14/2022 02/14/2023 1 Encounter Details Date Type Department Care Team Description 02/16/2022 Comprehensive Visit Department of Yoni Cavanaugh Co ncussion Syndrome (Primary Dx); Neurology in [place], Dizziness; [place], [place] [facility] Syncope Vasovagal [address] [facility] [address] [place] [phone] [address] Social History Tobacco Use Types Packs/Day [...] or relatives? How often do you attend scientology or More than 4 times per year 02/16/2022 bahai services? Do you belong to any clubs or Yes 02/16/2022 organizations such as scientology groups, unions, fraternal or athletic groups, or [...] place to sleep or slept in a fdc (including now)? Education Answer Date Recorded What is the highest level of Professional school degree (e.g ., , 02/16/2022 school you have completed or the DDS, DVM, KRISTEN) highest degree you have received? Sex Assigned at Date Recorded Female 05/07/2022 11:11 AM CDT documented as of this encounter Last Filed Vital Signs Vital Sign Reading Time Taken Comments Blood Pressure 152/85 02/16/2022 8:05 AM CDT Pulse 74 02/16/2022 8:05 AM CDT Temperature - - Respiratory Rate - - Oxygen Saturation - - Inhaled Oxygen Concentration - - Weight 69.2 kg (152 lb 8.9 oz) 02/16/2022 7:41 AM CDT Height 157.7 cm (5' 2.09) 02/16/2022 7:41 AM CDT Body Mass Index 27.83 02/16/2022 7:41 AM CDT documented in this encounter Patient Instructions AttachmentsThe following attachments cannot be sent through Care Everywhere. Concussion (Tamazight)documented in this encounter Consult Notes Yoni Cavanaugh M.D., M[facility]P.[facility] - 02/16/2022 8:00 AM CDT SUBJECTIVE CHIEF COMPLAINT / REASON FOR VISIT Emmy Anderson is a 76 y.o. female who presents for evaluation of Dizziness and Weakness - Generalized (Ref. Dr. Krishnan [facility]). HISTORY OF PRESENT ILLNESS 76-year-old patient presents for evaluation of dizziness and weakness that have resulted after a fall on October 10 while at scientology. She tells the story that she had been standing in a turned to put him on offering in the tray and as she turned to walk away she felt her vision went white or hazy and then the next thing she recalls is waking up on the floor. Apparently the fall was unwitnessed but people hurt it and the Religious will stand show core vibrating I would as result of the fall. She got upand then finished the service including singing and then was allowed to drive home. Since that time she has had a number of symptoms including a sense of dizziness and headache and fatigue. She feels weak overall. She is not any more such episodes but does feel a sense of impending loss of consciousness or imbalance when sitting up in the morning and then when standing up. I asked her to reviewed very carefully whether head movement from side to side seem to bring the symptoms on and she denied thatit did appear that changing a vertical position that is sitting to standing or lying to sitting werethe those maneuvers that would precipitate symptoms. She has had relatively high blood pressure herebut says that at home her blood pressure substantially lower. She has had osteomyelitis C2 and thereare a series of cervical spine films but none of them show any acute changes. She has not had an MRIbrain, Holter monitor nor EEG. Past Medical History: Diagnosis Date ??? Cataract 1999 ??? Complication Anesthesia Initial 2002 ??? Dermatitis 1979 ??? Gallbladder Disorder removed about 2002 ??? Headache Unspecified frequent most of my life ??? Hyperlipidemia -2018 ??? Hyperthyroidism about 1990 ??? Migraine Headache [...] day as needed., Disp: , Rfl: ??? ibuprofen (ADVIL,MOTRIN) 200 [...] for dry skin., Disp: , Rfl: ??? doxycycline (VIBRAMYCIN) 100 mg capsule, , Disp: , Rfl: ALLERGY: Allergies Allergen Reactions ??? Lidocaine Anaphylaxis per pt, tubal closure, asthmatic attack; ??? Adhesive Tape-Silicones Rash ??? Aspirin GI intolerance ??? Chlorpheniramine Other (see comments) ??? Chlorpheniramine-Phenylephrine Cough runny nose ??? Codeine Shortness of breath ??? Mold Other (see comments) Sneezing, sinus issues ??? Penicillin V Other (see comments) diahrria ??? Phenylpropanolamine Other (see comments) ??? [place] Pollen-Rough Pigweed Other (see comments) Sneezing, nasal [...] and Family: Once a week ??? Attends Shinto Services: More than 4 times per year [...] the Last Year: No @ OBJECTIVE Vitals: 02/16/22 0801 02/16/22 0803 02/16/22 0804 02/16/22 0805 BP: (!) 169/72 148/84 154/90 152/85 BP Location: Left arm Left arm Left arm Left arm Patient Position: Lying Standing Standing Standing Cuff Size: Regular Regular Regular Regular Pulse: 63 67 76 74 Weight: Height: PHYSICAL EXAM COGNITION: Alert and oriented x 4. CRANIAL NERVES: handkerchief presser II-XII intact and symmetric. MOTOR: Full strength throughout the upper and lower extremities bilaterally both proximally and distally. Normal tone. No pronator drift. No tremor. REFLEXES: Normal and symmetric at the biceps, triceps, brachioradialis, knees, and ankles. SENSORY: normal sensation to touch CEREBELLAR: ARMs-normal GAIT: Normal Her head impulse test was limited due to cervical tenderness but was normal. ASSESSMENT / PLAN Impression: Encounter Diagnoses Name Primary? Post Concussion Syndrome Yes ??? Dizziness ??? Syncope Vasovagal Description of the patient's symptoms and every bit like post it concussive syndrome. Of greater concern to me would be whether she might have a subdural hematoma from the fall and what the cause of the syncope was. I am going to get an MRI brain without contrast and going to get 48 hour Holter monitor was see her back after that. Otherwise I think her neurologic exam safer tender neck is as one would expect a 76-year-old post concussive patient. I have given her handout on concussions for her review. I personally spent 60 minutes in care of the patient today. Time includes both non face to face and face to face patient care. Yoni Cavanaugh M.D., M.P.[facility]. documented in this encounter Plan of Treatment Upcoming Encounters Date Type Specialty Care Team Description 07/27/2022 Office Visit Cardiovascular Disease Nick Mcneil M.D. [address] [place] [address] [phone] (Wo rk) documented as of this encounter Results HOLTER MONITOR - IN CLINIC NUMERICAL CONTROL LATHE OPERATOR (02/25/2022 1:58 PM CDT) [facility] Method Time Signature Min Heart Rate [...] AF Duration 0 duration [facility] AF [place] 0 percent INFO[facility] MOME Symptom Count 0 [...] 1%. 4. No symptomatic events were noted. Vice President Of Business Development: Kamala Marcus/ Otoniel, Ad am Procedure Note [...] 1%. 4. No symptomatic events were noted. Vice President Of Business Development: Kamala Marcus/ Phani Frederick am Yoni Cavanaugh M.D., M.P.H. CV CARDIAC SERVICES PROCED URES Performing Organization Address City/State/ZIP Code Phon e Number [facility] NA MR Brain without IV Contrast (02/17/2022 12:22 PM CDT) Anatomical Region Laterality Modality Head, Brain, Neuroradiology RST LOS, Neuroradiology ARZ N/A Magnetic Resonance LOS, Neuroradiology FLA [facility] Specimen (Source) Anatomical Collection Method Collection Time Re ceived Time Location / / Volume Laterality 02/17/2022 3:41 PM CDT Impressions 02/17/2022 3:59 PM CDT No acute findings by noncontrast imaging. Narrative 02/17/2022 3:59 PM CDT EXAM: MR BRAIN WITHOUT IV CONTRAST COMPARISON:None FINDINGS: Diffusion imaging is negative for acute infarction. No hemorrhage. No midline shift. No hydrocephalus. Scattered bilateral FLAIR white matter hyperintensities, which are nonspecific, but likely represent sequela of chronic micr ovascular disease given the patient's age. Procedure Note Valeriano Barnhart M.D. - 02/17/2022Formatt ing of this note might be different from the original. EXAM: MR BRAIN WITHOUT IV CONTRAST COMPARISON:None FINDINGS: Diffusion imaging is negative for acute infarction. No hemorrhage. No midline shift. No hydrocephalus. Scattered bilateral FLAIR white matter hyperintensities, which are nonspecific, but likely represent sequela of chronic micr ovascular disease given the patient's age. IMPRESSION: No acute findings by noncontrast imaging . Yoni Cavanaugh M.D., M.P.H. IMG MRI PROCEDURES documented in this encounter Visit Diagnoses Diagnosis Post Concussion Syndrome - Primary Dizziness Syncope Vasovagal Post Concussion Syndrome Dizziness Post Concussion Syndrome Dizziness Syncope Vasovagal documented in this encounter
--- OUTSIDE RECORDS SUMMARY | 2022-07-04 14:54 | XMS_ITS | Encounter Summary ---
:1945 Author Organization [facility] Address [address] [place] [address] Care Team Providers Name Role Phone Unavailable Primary Care Provider Unavailable Reason for Visit Reason Comments Skin Check Appointment Request (Routine) - Closed Specialty Diagnoses / Procedures Referred By Contact Refer red To Contact Family Medicine Referral ID Status Reason Start Date Expiration Date Visits Requ ested Visits Authorized [id number] Closed 10/05/2020 10/05/2021 1 1 Encounter Details Date Type Department Care Team Description 12/21/2020 Office Visit Department of Deepali Harrington, Keratosis Seborrheic (Primary Dx); [facility] [place], [place] [address] [facility] Keratosis Actinic [address] [place] [phone] Social History Tobacco Use Types Packs/Day Years [...] or relatives? How often do you attend oriental orthodox or More than 4 times per year 02/16/2022 hoahaoism services? Do you belong to any clubs or Yes 02/16/2022 organizations such as oriental orthodox groups, unions, fraternal or athletic groups, or [...] Recorded What is the highest level of school Master's degree (e.g., Rohan Gallagher, MS, 12/09/2020 you have completed or the highest Surya, MEd, GUARD ENTRANCE REGISTRAR, LIVE) degree you have received? Sex Assigned at Date Recorded Female 05/07/2022 11:11 AM CDT documented as of this encounter Progress Notes Deepali Harrington M.D. - 12/21/2020 11:00 AM CDT SUBJECTIVE CHIEF COMPLAINT / REASON FOR VISIT Skin cancer screening exam HISTORY OF PRESENT ILLNESS Ms. Emmy Anderson is a 75 y.o. female who presents today for a full skin cancer screening examination. The patient was last seen by me in Dermatology clinic on 11/26/2019. The patient denies a personal history of skin cancer or family history for melanoma. The patient denies any lesions of concern. Allergies Allergen Reactions ??? Lidocaine Anaphylaxis per pt, tubal closure, asthmatic attack; ??? Adhesive Tape-Silicones Rash ??? Aspirin GI intolerance ??? Chlorpheniramine-Phenylephrine Cough runny nose ??? Codeine Shortness of breath ??? Penicillin V Other (see comments) diahrria MEDICAL HISTORY No history of skin cancer FAMILY HISTORY No family history for melanoma OBJECTIVE PHYSICAL EXAMINATION General: Awake, alert, in no acute distress, and with appropriate affect. Eyes: No scleral injection or icterus. No eyelid abnormalities. Lymph: No lower extremity edema. Skin: I have examined the scalp, face, neck, chest, abdomen, back, bilateral upper extremities, and bilateral lower extremities. My scribe Milagros was present for the full exam today. Examination of face, trunk, and extremities reveals multiple benign appearing nevi and lentigines, and multiple SKs. Examination today reveals a total of 4 AKs, includin involving the left cheek, 1 involving lateral to left eyebrow, 1 involving the right shoulder. Examination of the left posterior forearm reveals a small scar and adjacent to it reveals a 8 x 6.5 mm light brown slightly scaly macule compatible with a SK. Examination today reveals no suspicious lesions for skin cancer. ASSESSMENT / PLAN #1 Left cheek, left lateral eyebrow right shoulder: Actinic keratosis x 4 lesions Given the precancerous nature of this lesion(s), treatment is medically indicated. After discussion of the risks, benefits and alternatives to treatment with cryotherapy, informed consent was obtained.We treated a total of 4 lesion(s) with two 10-second freeze-thaw cycles of liquid nitrogen cryotherapy. The patient tolerated the procedure well. Aftercare instructions were provided in written and verbal form to the patient. Should any of these lesions recur, the patient should return for biopsy or further evaluation. Discussed the risks, benefits, alternatives, and the necessity of other members ofthe healthcare team participating in the procedure. All questions answered and consent given. #2 Face, trunk, and extremities: Multiple benign appearing nevi and lentigines The ABCDE criteria for melanoma was reviewed with the patient. None of the patient's nevi reach the clinical threshold for biopsy. I recommend continued sun protection, self-skin examinations, and observation. Should any of the patient's nevi change in size, color, texture, or shape or develop symptoms such as itching or bleeding, I recommend an immediate return visit for reassessment. #3 Face, trunk, and extremities: Multiple Seborrheic keratosis The benign nature of the skin lesion(s) was discussed with the patient. No treatment is required. I recommend continued observation. Should symptoms or changes develop related to this condition, I would recommend a return visit for reassessment. PATIENT EDUCATION: Ready to learn. No apparent learning barriers were identified. Learning preferences include listening. Explained diagnosis and treatment plan; patient/guardian of patient expressed understanding of thecontent. By signing my name below, I, Phoebe Rasmussen, attest that this documentation has been prepared underthe direction and in the presence of Deepali Harrington M.D. Electronically Signed: josiane Walker. 12/21/2020 I, Deepali Harrington M.D., personally performed the services described in this documentation. All medical record entries made by the scribe were at my direction and in my presence. I have reviewed the chart and discharge instructions (if applicable) and agree that the record reflects my personal performance and is accurate and complete. Deepali Harrington M.D. 12/21 documented in this encounter Plan of Treatment Upcoming Encounters Date Type Specialty Care Team Description 07/27/2022 Office Visit Cardiovascular Disease Nick Mcneil M.D. [address] [place] [address] [phone] (Wo rk) documented as of this encounter Visit Diagnoses Diagnosis Keratosis Seborrheic - Primary Nevi Multiple Keratosis Actinic documented in this encounter
--- OUTSIDE RECORDS SUMMARY | 2022-07-04 14:54 | XMS_ITS | Encounter Summary ---
:1945 Author Organization [facility] Address [address] [place] [address] Care Team Providers Name Role Phone Unavailable Primary Care Provider Unavailable Reason for Visit Reason Comments Skin Check Encounter Details Date Type Department Care Team Description 11/26/2019 Office Visit Department of Deepali Harrington, Natty Pittman ple (Primary Dx); Dermatology in [place] Keratosis Actinic; [place], [place] [address] [place] [address] Keratosis Seborrheic; [address] [place] [address] [place] [phone] Social History Tobacco Use Types Packs/Day Years [...] More than 4 times per year 02/16/2022 temple services? Do you belong to any clubs [...] of Professional school degree (e.g ., , 10/19/2019 school you have completed or the DDS, DVM, KRISTEN) highest degree you have received? Sex Assigned at Date Recorded Female 05/07/2022 11:11 AM CDT documented as of this encounter Progress Notes Deepali Harrington M.D. - 11/26/2019 12:45 PM CST SUBJECTIVE CHIEF COMPLAINT/REASON FOR VISIT Full skin cancer screening HISTORY OF PRESENT ILLNESS Emmy Anderson is a 74 y.o. female who presents for a full skin cancer screening examination. The patient denies a personal history of skin cancer or family history for melanoma. Her mother and sister have had non-melanoma skin cancers. She uses sunscreen intermittently. She has no other concerns today. Allergies Allergen Reactions ??? Lidocaine Anaphylaxis per pt, tubal closure, asthmatic attack; ??? Adhesive Tape-Silicones Rash ??? Aspirin GI intolerance ??? Chlorpheniramine-Phenylephrine Cough runny nose ??? Codeine Shortness of breath ??? Penicillin V Other (see comments) diahrria MEDICAL HISTORY 1. Negative for skin cancer 2. Anaphylactic reaction to lidocaine FAMILY HISTORY 1. Negative for melanoma 2. Non-melanoma skin cancers in mother and sister OBJECTIVE PHYSICAL EXAMINATION General: Awake, alert, in no acute distress, and with appropriate affect. Eyes: No scleral injection or icterus. No eyelid abnormalities. Lymph: No lower extremity edema. Skin: I have examined the scalp, face, neck, chest, abdomen, back, bilateral upper extremities, and bilateral lower extremities. My nurse (Tana) served as a 3d designer for the entirety of the exam. Examination of the face, trunk and extremities reveals multiple benign-appearing nevi, lentigines and seborrheic keratoses. Examination of the left cheek reveals actinic keratoses x3. Examination of the right infraorbital area reveals a verrucal keratosis. Examination of the central forehead reveals a seborrheic keratosis. No suspicious lesions for skin cancer today. ASSESSMENT/PLAN #1 Left cheek: Actinic keratosis x3 CONSENT Discussed the risks, benefits, alternatives, and the necessity of other members of the healthcare team participating in the procedure. All questions answered and consent given. PROCEDURE INFORMATION Given the precancerous nature of this lesion(s), treatment is medically indicated. After discussion of the risks, benefits and alternatives to treatment with cryotherapy, informed consent was obtained.We treated a total of 3 lesion(s) with two 10-second freeze-thaw cycles of liquid nitrogen cryotherapy. The patient tolerated the procedure well. Aftercare instructions were provided in written and verbal form to the patient. Should any of these lesions recur, the patient should return for biopsy or further evaluation. Follow up in 1-2 months for recheck if these areas do not complete resolve. #2 Face, trunk and extremities: Multiple nevi and lentigines The ABCDE criteria for melanoma was reviewed with the patient. None of the patient's nevi reach the clinical threshold for biopsy. I recommend continued sun protection, self-skin examinations, and observation. Should any of the patient's nevi change in size, color, texture, or shape or develop symptoms such as itching or bleeding, I recommend an immediate return visit for reassessment. Follow up in 6months or immediately if any new or changing lesions are noted. #3 Face, trunk and extremities: Seborrheic keratosis The benign nature of the skin lesion(s) was discussed with the patient. No treatment is required. I recommend continued observation. Should symptoms or changes develop related to this condition, I would recommend a return visit for reassessment. #4 Right infraorbital area: Verrucal keratosis The benign nature of the skin [...] thecontent. By signing my name below, I, Manny Brigitte, attest that this documentation has been prepared under thedirection and in the presence of Deepali Harrington M.D. Electronically Signed: josiane Waters. 11/26/2019. 12:54 PM SWAT TEAM MEMBER. I, Deepali Harrington M.D., personally performed the services described in this documentation. All medical record entries made by the scribe were at my direction and in my presence. I have reviewed the chart and discharge instructions (if applicable) and agree that the record reflects my personal performance and is accurate and complete. Deepali Harrington M.D. . 11/26/2019. 1:04 PM SWAT TEAM MEMBER. TEAM MEMBER documented in this encounter Plan of Treatment Upcoming Encounters Date Type Specialty Care Team Description 07/27/2022 Office Visit Cardiovascular Disease Nick Mcneil M.D. [address] [place] [address] [phone] (Wo rk) documented as of this encounter Visit Diagnoses Diagnosis Nevi Multiple - Primary Keratosis Actinic Keratosis Seborrheic Verrucal Keratosis documented in this encounter
--- OUTSIDE RECORDS SUMMARY | 2022-07-04 14:54 | XMS_ITS | Encounter Summary ---
:1945 Author Organization [facility] Address [address] [place] [address] Care Team Providers Name Role Phone Unavailable Primary Care Provider Unavailable Reason for Visit Reason Comments Skin Check Appointment Request (Routine) - Closed Specialty Diagnoses / Procedures Referred By Contact Refer red To Contact Referral ID Status Reason Start Date Expiration Date Visits Requ ested Visits Authorized [id number] Closed 10/13/2021 10/13/2022 1 1 Encounter Details Date Type Department Care Team Description 01/10/2022 Office Visit Department of Deepali Harrington, Keratosis Actinic (Primary Dx); Dermatology in [place] Keratosis Seborrheic Inflamed; [place], [place] [address] [facility] Keratosis Seborrheic; [address] [place] [address] [place] [phone] Social History Tobacco Use Types Packs/Day Years [...] or relatives? How often do you attend samaritan or More than 4 times per year 02/16/2022 yazidi services? Do you belong to any clubs or Yes 02/16/2022 organizations such as samaritan groups, unions, fraternal or athletic groups, or [...] place to sleep or slept in a [facility] (including now)? Education Answer Date Recorded What is the highest level of school Master's degree (e.g., Rohan Gallagher, MS, 12/09/2020 you have completed or the highest Surya, MEd, DUMP GROUNDS CHECKER, LIVE) degree you have received? Sex Assigned at Date Recorded Female 05/07/2022 11:11 AM CDT documented as of this encounter Progress Notes Deepali Harrington M.D. - 01/10/2022 9:15 AM CDT SUBJECTIVE CHIEF COMPLAINT / REASON FOR VISIT Full skin cancer screening HISTORY OF PRESENT ILLNESS Emmy Anderson is a pleasant 76 y.o. female who presents for a full skin cancer screening. The patient was last seen by me in Dermatology clinic on 12/21/20. She denies a personal history of skin cancer or family history for melanoma. She uses sunscreen. She denies any new or changing lesions today. MEDICAL HISTORY Negative for skin cancer FAMILY HISTORY Negative for melanoma Unknown skin cancer in mother and sister OBJECTIVE PHYSICAL EXAMINATION General: Awake, alert, in no acute distress, and with appropriate affect. Eyes: No scleral injection or icterus. No eyelid abnormalities. Lymph: No lower extremity edema. Skin: I have examined the scalp, face, neck, chest, abdomen, back, bilateral upper extremities, and bilateral lower extremities. My scribe (Ana) served as a addiction counselor for the entirety of the exam. Examination today reveals actinic keratoses, including 1 left upper cheek and 1 right upper cheek. Examination of the face, trunk and extremities reveals multiple benign-appearing nevi, lentigines and seborrheic keratoses. Examination of the right upper cheek reveals two irritated seborrheic keratosis. Examination of the left buttock and legs reveals some xerosis. I recommend a moisturizer such as CeraVe twice daily as needed. Examination today reveals no suspicious lesions for skin cancer. ASSESSMENT / PLAN #1 Left upper cheek and right upper cheek: Actinic keratosis x 2 Given the precancerous nature of this lesion(s), treatment is medically indicated. After discussion of the risks, benefits and alternatives to treatment with cryotherapy, informed consent was obtained.We treated a total of 2 lesion(s) with two 10-second freeze-thaw cycles of liquid nitrogen cryotherapy. The patient tolerated the procedure well. Aftercare instructions were provided in written and verbal form to the patient. Should any of these lesions recur, the patient should return for biopsy or further evaluation. Follow up in 1-2 months for recheck if these areas do not complete resolve. #2 Right upper cheek: Irritated seborrheic keratosis x 2 CONSENT Discussed the risks, benefits, alternatives, and the necessity of other members of the healthcare team participating in the procedure. All questions answered and consent given. PROCEDURE INFORMATION After discussion of the risks, benefits and alternatives to treatment with cryotherapy, informed consent was obtained. We treated a total of two lesion(s) with two 10-second freeze-thaw cycles of liquid nitrogen cryotherapy. The patient tolerated the procedure well. Aftercare instructions were provided in written and verbal form to the patient. Should any of these lesions recur, the patient should return for biopsy or further evaluation. Follow up in 1-2 months for recheck if these areas do not complete resolve. #3 Face, trunk and extremities: Multiple nevi and [...] recommend an immediate return visit for reassessment. #4 Face, trunk and extremities: Seborrheic keratosis The benign nature of the skin lesion(s) was discussed with the patient. No treatment is required. I recommend continued observation. Should this lesion change in size, color, texture, or shape or develop symptoms such as itching or bleeding, I recommend an immediate return visit for reassessment. PATIENT EDUCATION: Ready to learn. No apparent learning barriers were identified. Learning preferences include listening. Explained diagnosis and treatment plan; patient/guardian of patient expressed understanding of thecontent. By signing my name below, I, Ana Salter, attest that this documentation has been prepared under the direction and in the presence of Deepali Harrington M.D. Electronically Signed: josiane Mullen. 01/10/2022. 9:12 AM CDT. I, Deepali Harrington M.D., personally performed the services described in this documentation. All medical record entries made by the scribe were at my direction and in my presence. I have reviewed the chart and discharge instructions (if applicable) and agree that the record reflects my personal performance and is accurate and complete. Deepali Harrington M.D. documented in this encounter Plan of Treatment Upcoming Encounters Date Type Specialty Care Team Description 07/27/2022 Office Visit Cardiovascular Disease Nick Mcneil M.D. [address] [place] [address] [phone] (Wo rk) documented as of this encounter Visit Diagnoses Diagnosis Keratosis Actinic - Primary Keratosis Seborrheic Inflamed Keratosis Seborrheic Nevi Multiple documented in this encounter
--- OUTSIDE RECORDS SUMMARY | 2022-07-04 14:54 | XMS_ITS | Encounter Summary ---
:1945 Author Organization [facility] Address [address] [place] [id number] Care Team Providers Name Role Phone Unavailable Primary Care Provider Unavailable Reason for Visit Reason Comments Allergies bananas, consult Appointment Request (Routine) - Closed Specialty Diagnoses / Procedures Referred By Contact Refer red To Contact Allergy and Immunology Referral ID Status Reason Start Date Expiration Date Visits Requ ested Visits Authorized [id number] Closed 10/10/2018 10/10/2019 1 Encounter Details Date Type Department Care Team Description 11/16/2018 Office Visit Department of Allergy Ondina Garduno, Frankie initis Chronic (Primary Dx); [place] Pain Ear Bilateral; [address] Intolerance Food (HCC) [place] [phone] Social History Tobacco Use Types Packs/Day Years Used Date Smoking Tobacco: Never Smokeless Tobacco: Never Alcohol Habits Answer Date Recorded How often do you have a drink containing alcohol? Never 02/16/2022 How many drinks containing alcohol do you have on a typical 1 or 2 10/19/2019 day when you are drinking? How often do you have six or more drinks on one occasion? Ne leticia 10/19/2019 Comment: Not asked Social Isolation Answer Date Recorded In a typical week, how many times do you More than three babita es a week 02/16/2022 talk on the phone with family, friends, or neighbors? How often do you get together with friends Once a week 02/16/2022 or relatives? How often do you attend baptism or More than 4 times per year 02/16/2022 protestant services? Do you belong to any clubs [...] place to sleep or slept in a [facility] (including now)? Sex Assigned at Date Recorded Female 05/07/2022 11:11 AM CDT documented as of this encounter Last Filed Vital Signs Vital Sign Reading Time Taken Comments Blood Pressure 152/78 11/16/2018 3:43 PM HIMS CLERK Pulse 68 11/16/2018 3:43 PM HIMS CLERK Temperature - - Respiratory Rate - - Oxygen Saturation - - Inhaled Oxygen Concentration - - Weight 73.8 kg (162 lb 11.2 oz) 11/16/2018 3:43 PM HIMS CLERK Height - - Body Mass Index 28.47 08/21/2014 8:19 AM HIMS CLERK documented in this encounter Patient Instructions Patient InstructionsOndina Garduno M.D. - 11/16/2018 3:45 PM CST Your nose is swollen and may be contributing to the episodes of nasal congestion, runny nose, sneezing and ear aches that you have been experiencing. Recommend trial of Nasacort 2 sprays to each nostril daily. I would recommend using this daily x 3 months to truly assess your response to this treatment strategy. If helpful, this has a safe profile so it can be used more group home. CLERK documented in this encounter Consult Notes Ondina Garduno M.D. - 11/16/2018 3:45 PM CST SUBJECTIVE CHIEF COMPLAINT / REASON FOR VISIT Chief Complaint Patient presents with ??? Allergies bananas, consult HISTORY OF PRESENT ILLNESS Ms. Anderson is a pleasant 73 y.o. female with Grave's disease, a number of food intolerances, frequent diarrhea, presenting today to review a few allergy concerns. Ms. Anderson spent approximately 45 minutes reviewing her long history of sensitives and intolerances with me today. She has a rather extensive list of foods that she has been avoiding for a number of years due to concern for triggering diarrhea, migraines or nasal congestion. She had seen Dr. Gaitan for allergy evaluation regarding these issues on 09/21/2006. Related documentation was reviewed. Ms. Anderson's history has not changed significantly since then. She has not had any symptoms of anaphylaxis withfood ingestion and food allergy testing in 1998 and 2005 were negative. She has found that eating gluten grains, oats, tanya spice, dairy, pineapple and certain processed meats have been associated with diarrhea. [place] (and any corn derivative), celery and bananas seem to trigger nasal congestion. Peas, onion, apple, pears trigger migraines. [place] fruits cause cold sores. Ms. Anderson detailed a number of other reaction concerns including respiratory issues with exposure to jute, mock orange shrub, malian lilac tree, rough pigweed, some molds, and most paints. There have been rashes over the years that she has attributed to elastic, adhesives, cleome flower green and yellow martinez blossoms, and wool.Use of Afrin once caused hay fever symptoms. Ms. Anderson presents seeking guidance in her nasal congestion and frequent ear aches. She has felt thatcorn derivatives drive these issues. MEDICAL HISTORY Chronic rhinitis Diarrhea Food Intolerance CURRENT MEDICATIONS Current Outpatient Medications Medication Sig ??? calcium carbonate-vitamin D3 400-133.3 mg-unit tablet Take 1,000 mg by mouth daily. ??? cholecalciferol (cholecalciferol) 400 Unit tablet Take 400 Units by mouth daily. ??? clotrimazole (LOTRIMIN) 1 % cream Apply 1 application topically as needed. ??? dextromethorphan-guaiFENesin (ROBITUSSIN-DM) 10-100 mg/5 mL syrup Take by mouth as needed for cough. ??? diphenhydrAMINE (BENADRYL) 25 mg capsule Take 25 mg by mouth every 6 (six) hours as needed. ??? docosanol (ABREVA) 10 % cream Apply 1 application topically 4 (four) times a day as needed. ??? ibuprofen (ADVIL,MOTRIN) 200 mg capsule Take 600 mg by mouth every 6 (six) hours as needed for pain. ??? Lactobacillus acidophilus capsule Take 1 capsule by mouth as needed (Uses when also taking antibiotics). ??? levothyroxine (SYNTHROID, LEVOTHROID) 88 mcg tablet Take 1 tablet by mouth daily. ??? loperamide (IMODIUM A-D) 2 mg capsule Take 2 mg by mouth 4 (four) times a day as needed for diarrhea. ??? loratadine (CLARITIN) 10 mg tablet Take 1 tablet by mouth daily as needed. ? ? vitamin A & D (AMERIDERM) ointment Apply 1 application topically as needed for dry skin. ??? doxycycline (VIBRAMYCIN) 100 mg capsule ??? pseudoephedrine-guaiFENesin (MUCINEX D) 60-600 mg per 12 hr tablet Take 1 tablet by mouth 2 (two) times a day as needed for allergies. ALLERGIES/CONTRAINDICATIONS Allergies Allergen Reactions ??? Lidocaine Anaphylaxis per pt, tubal closure, asthmatic attack; ??? Adhesive Tape-Silicones Rash ??? Aspirin GI intolerance ??? Chlorpheniramine-Phenylephrine Cough runny nose ??? Codeine Shortness of breath ??? Penicillin V Other (see comments) diahrria SOCIAL HISTORY Social History Substance Use Topics ??? Smoking status: Never Smoker ??? Smokeless tobacco: Never Used ??? Alcohol use Not on file REVIEW OF SYSTEMS Constitutional Symptoms: Denies fever, chills, unintentional weight loss, fatigue. Eyes: Denies itchy, watery eyes. Ears: +frequent ear discomfort without associated infections. Nose: +episodic nasal congestion, rhinorrhea Throat: Denies sore throat, postnasal drainage. Cardiovascular: Denies chest pain. Respiratory: Denies shortness of breath, cough, chest tightness, wheezing. GI: Denies heartburn, dysphagia, abdominal pain, nausea, vomiting. +Episodic diarrhea. Heme/Immuno: Denies frequent infection. SKIN: Denies any rash or itching recently. OBJECTIVE BP 152/78 Pulse 68 Wt 73.8 kg BMI 28.47 kg/m?? PHYSICAL EXAMINATION General: Alert, in no apparent distress. Head: Normocephalic, atraumatic. Eyes: No lid edema, no conjunctival injection. Ears: Canals clear, tympanic membranes intact without fluid bilaterally. Nose: Septum midline, moist mucosa, no discharge, mild inferior turbinate hypertrophy, no polyps appreciated. Throat: Moist mucosa, no lesions, no postnasal drainage, no tonsillar enlargement, no exudates. Neck: Supple, no adenopathy. Cardiovascular: Regular rate, rhythm. Respiratory: Clear to auscultation bilaterally, no wheezes, rales, rhonchi. Psychiatric: Mood, affect, and mentation within normal limits. Hematology/Lymphatics/Immunologic: No cervical or supraclavicular lymphadenopathy. DIAGNOSTICS Negative skin testing to anaphylaxis series in 1998 and 2005. ASSESSMENT / PLAN #1 Rhinitis Chronic #2 Pain Ear Bilateral Ms. Anderson has struggled with intermittent rhinitis symptoms including nasal congestion, rhinorrhea, sneezing and ear pressure. She has made some connection of these symptoms with food ingestion, but wasreassured that she does not have any evidence of food allergy. It is unfortunate that her diet has become so restrictive and I suggested that a trial of intranasal corticosteroid may be helpful in controlling her symptoms and allow her some opportunity to liberate her diet. Her desire to minimize medication use is acknowledged. Efforts were made to emphasize the safety profile of intranasal corticosteroids. I recommend consideration for a 3 month trial of Nasacort 2 sprays to each nostril once daily. If no benefit at that point, then it would be reasonable to discontinue use. #3 Intolerance Food (HCC) Ms. Anderson has developed a rather lengthy list of foods that she has eliminated from her diet due to appreciated intolerances. She does not desire medical management of her symptoms and is overall satisfied with her diet as is. She does not appear to have developed any medical complication or nutritional deficits from this diet and thus no further recommendations for modification were made with this regard. All of the above was discussed and all questions were answered. Total length of today's visit was 60minutes of which 40 minutes was spent in discussion of food intolerance vs. allergy vs. other consideration for symptomatology. Follow up as needed. CLERK documented in this encounter Plan of Treatment Upcoming Encounters Date Type Specialty Care Team Description 07/27/2022 Office Visit Cardiovascular Disease Nick Mcneil M.D. [address] [place] [address] [phone] (Wo rk) documented as of this encounter Visit Diagnoses Diagnosis Rhinitis Chronic - Primary Pain Ear Bilateral Intolerance Food documented in this encounter
--- OUTSIDE RECORDS SUMMARY | 2022-07-04 14:54 | XMS_ITS | Encounter Summary ---
:1945 Author Organization [facility] Address [address] [place] [address] Care Team Providers Name Role Phone Unavailable Primary Care Provider Unavailable Encounter Details Date Type Department Care Team Description 10/11/2019 [facility] AND OLENA Saeed M.D. Cervical (Primary Dx) [address] [facility] [address] [address] [place], [place] [phone] Social History Tobacco Use Types Packs/Day Years [...] place to sleep or slept in a alf (including now)? Sex Assigned at Date Recorded Female 05/07/2022 11:11 AM CDT documented as of this encounter Plan of Treatment Upcoming Encounters Date Type Specialty Care Team Description 07/27/2022 Office Visit Cardiovascular Disease Nick Mcneil M.D. [address] [place] [address] [phone] (Wo rk) documented as of this encounter Visit Diagnoses Diagnosis Stenosis Spinal Cervical - Primary documented in this encounter
--- OUTSIDE RECORDS SUMMARY | 2022-07-04 14:54 | XMS_ITS | Encounter Summary ---
:1945 Author Organization [facility] Address [address] [place] [address] Care Team Providers Name Role Phone Unavailable Primary Care Provider Unavailable Encounter Details Date Type Department Care Team Description 07/19/2007 - 07/21/2007 Hospital Encounter HX RST BRENDA 2B Social History Tobacco Use Types Packs/Day Years Used Date Smoking Tobacco: Never Assessed Alcohol Habits Answer Date Recorded How often [...] More than 4 times per year 02/16/2022 sikhism services? Do you belong to any clubs [...] or slept in a [facility] (including now)? Sex Assigned at Date Recorded Female 05/07/2022 11:11 AM CDT documented as of this encounter Plan of Treatment Upcoming Encounters Date Type Specialty Care Team Description 07/27/2022 Office Visit Cardiovascular Disease Nick Mcneil M.D. [address] [phone] (Wo rk) documented as of this encounter Procedures Procedure Name Priority Date/Time Associated Diagnosis Comme nts DX CHEST POST PICC Routine 07/20/2007 10:42 PM Re sults for this PLACEMENT 1 VIEW CDT procedure a re in the results section. DX CHEST POST PICC Routine 07/20/2007 5:09 PM Res ults for this PLACEMENT 1 VIEW CDT procedure a re in the results section. MR CERVICAL SPINE Routine 07/19/2007 7:38 PM Resu lts for this WITHOUT AND WITH IV CDT procedur e are in CONTRAST the results section. documented in this encounter Results DX Chest Post PICC Placement 1 View (07/20/2007 10:42 PM CDT) Anatomical Region Laterality Modality Chest N/A Radiographic Imaging Specimen (Source) Anatomical Collection Method Collection Time Re ceived Time Location / / Volume Laterality 07/20/2007 10:42 PM CDT Narrative 07/21/2007 7:49 AM CDT 20-Jul-2007 22:42:00 ??Exam: Chest-PICC Indications: Check PICC placement ORIGINAL REPORT - 20-Jul-2007 22:50:00 Chest-PICC Right-sided PICC with tip in the mid SVC . Electronically signed by: ?? Jose Rafael Caballero [phone] [id number] 7 22:50 I have reviewed the films/images and agr ee with the above interpretation. Electronically signed by: ?? Giovanny Ramires MD. ??[phone] 21-Jul-2007 07: 49 Procedure Note Mac Ramires M.D. - 01/01/2018Formatti ng of this note might be different from the original. 20-Jul-2007 22:42:00 Exam: Chest-PICC Indications: Check PICC placement ORIGINAL REPORT - 20-Jul-2007 22:50:00 Chest-PICC Right-sided PICC with tip in the mid SVC . Electronically signed by: Jose Rafael Caballero [phone] [id number] 22:50 I have reviewed the films/images and agr ee with the above interpretation. Electronically signed by: Giovanny Ramires MD. [phone] 21-Jul-2007 07:49 Elizabeth Jenkins M.D. IMG DIAGNOSTIC IMAGING PROCE DURES DX Chest Post PICC Placement 1 View (07/20/2007 5:09 PM CDT) Anatomical Region Laterality Modality Chest N/A Radiographic Imaging Specimen (Source) Anatomical Collection Method Collection Time Re ceived Time Location / / Volume Laterality 07/20/2007 5:09 PM CDT Narrative 07/20/2007 7:02 PM CDT 20-Jul-2007 17:09:00 ??Exam: Chest-PICC Indications: s/p PICC line, r/o pulmonar y progress ORIGINAL REPORT - 20-Jul-2007 17:15:00 Chest; 1 view: Mild thoracolumbar curve. Surgical clips RUQ. Aortic calcification. Chest otherwise negative. No PICC is identified on this film. Electronically signed by: ?? Juan Robertson MD [phone] ([id number]) 20-Jul-20 07 17:15 I have reviewed the films/images and agr ee with the above interpretation. Electronically signed by: ?? Oz Decker MD [phone] [id number] 20-Jul-2007 1 9:02 Procedure Note Gwyn Decker M.D. - 01/01/2018Forma tting of this note might be different from the original. 20-Jul-2007 17:09:00 Exam: Chest-PICC Indications: s/p PICC line, r/o pulmonar y progress ORIGINAL REPORT - 20-Jul-2007 17:15:00 Chest; 1 view: Mild thoracolumbar curve. Surgical clips RUQ. Aortic calcification. Chest otherwise negative. No PICC is identified on this film. Electronically signed by: Juan Robertson MD [phone] ([id number]) 20-Jul-20 07 17:15 I have reviewed the films/images and agr ee with the above interpretation. Electronically signed by: Oz Decker MD [phone] [id number] 20-Jul-2007 1 9:02 A. Pati Bundy M.D. IMAmelie DIAGNOSTIC IMAGING PROCE CHRISTOPHER MR Cervical Spine without and with IV Contrast (07/19/2007 7:38 PM CDT) Anatomical Region Laterality Modality Spine, Cervical Spine N/A Magnetic Resonance Specimen (Source) Anatomical Collection Method Collection Time Re ceived Time Location / / Volume Laterality 07/19/2007 7:38 PM CDT Narrative 07/19/2007 9:23 PM CDT 19-Jul-2007 19:38:00 ??Exam: MRI CERVICAL Sp wo&w Indications: C-SP ODONTOID MASS PAIN^ ORIGINAL REPORT - 19-Jul-2007 21:23:00 MRI cervical spine without and with cont rast compared to CT cervical spine without contrast July 19, 2007. By report, there is an outside MRI which I do not have access to. There is no significant ch silas compared to the prior CT. The MR de monstrates a 7mm area of fluid signal intensity in the anterior aspect of the dens immediately below the level of C1. This area of peripherally-enhancing fluid si gnal intensity interrupts the normal ant erior cortical line of the dens suggesting an element of cortical destruction. Surrounding this is an area of abnormal enhancing increased T2 signal within the conti bstance of the dense and minimally withi n the prevertebral soft tissues. Of note, there is very little in the way of prevertebral soft tissue swelling, T2 signal, or enhancement. No other areas of simil ar appearance in other vertebral bodies. Findings are suspicious for osteomyelitis with a questionable small anteriorly-placed abscess. The prevertebral enhancement noted on the outside report is not definitely seen to the level of C 4 on today's examination. ?? 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 ?? With this constellation of findings is s uspicious for infection with possible abscess. Lesser consideration to inflammatory neoplastic disease. This fluid collection does not appear to be prominently me ntioned in the prior MRI report. Correla tion with those images would be helpful for more sensitive evaluation. Electronically signed by: ?? Sam Palm MD. [phone] 19-Jul-2007 21:23 Procedure Note Sam Palm M.D. - 01/01/2018Forma tting of this note might be different from the original. 19-Jul-2007 19:38:00 Exam: MRI CERVICAL Sp wo&w Indications: C-SP ODONTOID MASS PAIN^ ORIGINAL REPORT - 19-Jul-2007 21:23:00 MRI cervical spine without and with cont rast compared to CT cervical spine without contrast July 19, 2007. By report, there is an outside MRI which I do not have access to. There is no significant change compared to the prior CT. The MR demonstrates a 7mm area of fluid signal intensity in the anterior aspect of the dens immediately below the level of C1. This area of peripherally-enhancing fluid signal intensity interrupts the normal anterior cortical line of the den s suggesting an element of cortical destruction. Surrounding this is an area of abnormal enhancing increased T2 signal within the substance of the dense and minimally within the prevertebral soft tissues. Of note, there is very little in the way of prevertebral soft tissue swelling, T2 signal, or enhancement. No other areas of similar appearance in other vertebral bodies. Findings are suspicious for osteomyelitis with a ques tionable small anteriorly-placed abscess. The prevertebral enhancement noted on the outside report is not definitely seen to the level of C4 on today's examination. 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 With this constellation of findings is s uspicious for infection with possible abscess. Lesser consideration to inflammatory neoplastic disease. This fluid collection does not appear to be prominently mentioned in the prior MRI report. Correlation with those images would be helpful for more sensitive evaluation. Electronically signed by: Sam Palm MD. [id number] 19-Jul-2007 21:23 Elizabeth TEJEDA MRI PROCEDURES documented in this encounter Visit Diagnoses Not on filedocumented in this encounter
--- OUTSIDE RECORDS SUMMARY | 2022-07-04 14:54 | XMS_ITS | Encounter Summary ---
:1945 Author Organization [facility] Address [address] [place] [address] Care Team Providers Name Role Phone Unavailable Primary Care Provider Unavailable Reason for Visit Reason Comments Medication Question Encounter Details Date Type Department Care Team Description 06/27/2019 Clinical Division of [facility], Medication Communication Gastroenterology in [place], [place] [address] [facility] [address] [place] [address] [place] [address] Social History Tobacco Use Types Packs/Day Years [...] or relatives? How often do you attend jainism or More than 4 times per year 02/16/2022 mormonism services? Do you belong to any clubs or Yes 02/16/2022 organizations such as jainism groups, unions, fraternal or athletic groups, or [...] place to sleep or slept in a senior living (including now)? Sex Assigned at Date Recorded Female 05/07/2022 11:11 AM CDT documented as of this encounter Plan of Treatment Upcoming Encounters Date Type Specialty Care Team Description 07/27/2022 Office Visit Cardiovascular Disease Nick Mcneil M.D. [address] [place] [phone] (Wo rk) documented as of this encounter Visit Diagnoses Not on filedocumented in this encounter
--- OUTSIDE RECORDS SUMMARY | 2022-07-04 14:54 | XMS_ITS | Encounter Summary ---
:1945 Author Organization [facility] Address [address] [place] [address] Care Team Providers Name Role Phone Unavailable Primary Care Provider Unavailable Reason for Visit MRI/CAT/PET Scan (Routine) - Closed Specialty Diagnoses / Procedures Referred By Contact Refer red To Contact Radiology Diagnoses Pain Back Weakness Leg Numbness Lower Extremity Weakness Upper Extremity Osteoporosis Elizabeth Jenkins M.D. [facility] Procedures MR Lumbar Spine without IV Contrast [address] [place] [address] Referral ID Status Reason Start Date Expiration Date Visits Requ ested Visits Authorized [id number] Closed 10/18/2019 10/17/2020 1 1 Encounter Details Date Type Department Care Team Description 10/23/2019 Hospital Encounter Department of Elizabeth Jenkins Pain Ba ck; RadiologyDino M.D. Weakness Leg; [facility] in [place], [address] [place] [address] Numbness Lower Extremity; [place], [place] Weakness Upper Extremity; [address] [place] [phone] Osteoporosis [place], [place] [phone] (Work) [phone] Social History Tobacco Use Types Packs/Day Years [...] More than 4 times per year 02/16/2022 jain services? Do you belong to any clubs [...] place to sleep or slept in a skilled nursing (including now)? Education Answer Date Recorded What is the highest level of Professional school degree (e.g ., , 10/19/2019 school you have completed or the DDS, DVM, KRISTEN) highest degree you have received? Sex Assigned at Date Recorded Female 05/07/2022 11:11 AM CDT documented as of this encounter Last Filed Vital Signs Vital Sign Reading Time Taken Comments Blood Pressure - - Pulse - - Temperature - - Respiratory Rate - - Oxygen Saturation - - Inhaled Oxygen Concentration - - Weight - - Height 161.2 cm (5' 3.47) 10/23/2019 4:51 PM ASSOCIATE PROFESSOR OF LITERACY Body Mass Index - - documented in this encounter Medications at Time of Discharge Medication Sig Dispensed Refills Start Date End Date calcium carbonate-vitamin Take 1,000 mg by 0 [...] dry skin. documented as of this encounter Nursing Notes Justine Whitfield RNikN. - 10/23/2019 5:30 PM CST A review of the patients current medications was completed under the context of radiology care priorto contrast/medication administration. CIATE PROFESSOR OF LITERACY documented in this encounter Plan of Treatment Upcoming Encounters Date Type Specialty Care Team Description 07/27/2022 Office Visit Cardiovascular Disease Nick Mcneil M.D. [address] [place] [phone] (Wo rk) documented as of this encounter Procedures Procedure Name Priority Date/Time Associated Comments Diagnosis MR CERVICAL AND RAD - Routine 10/23/2019 6:55 Pain Back Results for this THORACIC AND (most inpatients PM ASSOCIATE PROFESSOR OF LITERACY Weakness Leg procedure are in LUMBAR SPINE WOW and all Numbness Lower the resul ts IV CONTRAST outpatients) Extremity section. Weakness Upper Extremity Osteoporosis documented in this encounter Results MR Cervical and Thoracic and Lumbar Spine WOW IV Contrast (10/23/2019 6:55 PM ASSOCIATE PROFESSOR OF LITERACY) Anatomical Region Laterality Modality Spine, Cervical Spine, Neuroradiology RST LOS, N/A Magnetic Resonance Neuroradiology ARZ LOS, Neuroradiology FLA [facility] Specimen (Source) Anatomical Collection Method Collection Time Re ceived Time Location / / Volume Laterality 10/24/2019 1:56 PM ASSOCIATE PROFESSOR OF LITERACY Impressions 10/24/2019 3:08 PM ASSOCIATE PROFESSOR OF LITERACY Overall mild degenerative changes within the spine, with compression deformities compatible with osteoporosis . Nothing to explain the patient's numbness and weakness in all extremities . Narrative 10/24/2019 3:08 PM ASSOCIATE PROFESSOR OF LITERACY EXAM: MR CERVICAL AND THORACIC AND LUMBAR SPINE WOW IV CONTRAST COMPARISON: Cervical spine MRI with and without IV contrast 09/18/2008; lumbar spine MRI with and without IV contrast 0 01/23/2013. No comparison study is available for the thoracic spine MRI. FINDINGS: The cervical spine MRI shows i nterval appearance of C2, C4 and C5 compression deformities, with mild loss of vertebral body height. New grade 1 retrolisthesis of C5 on C6, with mild as sociated degenerative disc disease and spondylosis. At C2-3, new minimal centra l stenosis due to a left paracentral disc protrusion. At C5-6, new mild centr al and bilateral neural foraminal stenosis due to a disc osteophyte comple x and uncovertebral joint hypertrophy. At C6-7 and C7-T1, new minimal central s tenosis due to disc bulges. The central canal and neural foramina are otherwise widely patent. New Schmorl's node in the superior C7 endplate. Normal cervical co rd signal. Remainder normal, specifically, no evidence of active oste omyelitis in the cervical spine. The thoracic spine MRI shows compression deformities T5-9 with mild loss of vertebral body height and mild vertebral body widening. Prominent Schmorl's node in the inferior T12 endplate. No signifi cant degenerative disc disease in the thoracic spine; the central canal and ne ural foramina are widely patent at all thoracic levels. Normal thoracic cord si gnal. Small cysts within the kidneys. The lumbar spine MRI shows 5 lumbar-type vertebral bodies as counted from the occiput, with sacralization of the L5 ve rtebral body. Unchanged since the prior study; the Schmorl's node in the inferio r T12 vertebral body is unchanged since the date of this lumbar spine MRI. Stabl e mild degenerative disc disease, spondylosis and degenerative endplate ch anges at L4-5. At L2-3, minimal central and left neural foraminal stenosis due t o bilateral paracentral disc protrusions with left intraforaminal extension, mode rate facet joint hypertrophy and moderate to marked ligamentum flavum hyp ertrophy. At L3-4, moderate central stenosis due to bilateral paracentral di sc protrusions with intraforaminal extension, mild to moderate facet joint hypertrophy and moderate to marked ligamentum flavum hypertrophy, left more than right. Mild mass effect upon the traversing left L5 nerve root in the lef t lateral recess without ciera swelling of this nerve root. At L4-5, mild centra l and left neural foraminal stenosis due to a left paracentral/intraforaminal dis c protrusion and mild facet joint and ligamentum flavum hypertrophy. Few cysts within the kidneys. Remainder normal. Procedure Note Bryson Galarza M.D., Ph.D. - 10/24/2019Fo rmatting of this note might be different from the original. EXAM: MR CERVICAL AND THORACIC AND LUMBA R SPINE WOW IV CONTRAST COMPARISON: Cervical spine MRI with and without IV contrast 09/18/2008; lumbar spine MRI with and without IV contrast 0 01/23/2013. No comparison study is available for the thoracic spine MRI. FINDINGS: The cervical spine MRI shows i nterval appearance of C2, C4 and C5 compression deformities, with mild loss of vertebral body height. New grade 1 retrolisthesis of C5 on C6, with mild as sociated degenerative disc disease and spondylosis. At C2-3, new minimal centra l stenosis due to a left paracentral disc protrusion. At C5-6, new mild centr al and bilateral neural foraminal stenosis due to a disc osteophyte comple x and uncovertebral joint hypertrophy. At C6-7 and C7-T1, new minimal central s tenosis due to disc bulges. The central canal and neural foramina are otherwise widely patent. New Schmorl's node in the superior C7 endplate. Normal cervical co rd signal. Remainder normal, specifically, no evidence of active oste omyelitis in the cervical spine. The thoracic spine MRI shows compression deformities T5-9 with mild loss of vertebral body height and mild vertebral body widening. Prominent Schmorl's node in the inferior T12 endplate. No signifi cant degenerative disc disease in the thoracic spine; the central canal and ne ural foramina are widely patent at all thoracic levels. Normal thoracic cord si gnal. Small cysts within the kidneys. The lumbar spine MRI shows 5 lumbar-type vertebral bodies as counted from the occiput, with sacralization of the L5 ve rtebral body. Unchanged since the prior study; the Schmorl's node in the inferio r T12 vertebral body is unchanged since the date of this lumbar spine MRI. Stabl e mild degenerative disc disease, spondylosis and degenerative endplate ch anges at L4-5. At L2-3, minimal central and left neural foraminal stenosis due t o bilateral paracentral disc protrusions with left intraforaminal extension, mode rate facet joint hypertrophy and moderate to marked ligamentum flavum hyp ertrophy. At L3-4, moderate central stenosis due to bilateral paracentral di sc protrusions with intraforaminal extension, mild to moderate facet joint hypertrophy and moderate to marked ligamentum flavum hypertrophy, left more than right. Mild mass effect upon the traversing left L5 nerve root in the lef t lateral recess without ciera swelling of this nerve root. At L4-5, mild centra l and left neural foraminal stenosis due to a left paracentral/intraforaminal dis c protrusion and mild facet joint and ligamentum flavum hypertrophy. Few cysts within the kidneys. Remainder normal. IMPRESSION: Overall mild degenerative changes within the spine, with compression deformities compatible with osteoporosis . Nothing to explain the patient's numbness and weakness in all extremities . Elizabeth TEJEDA MRI PROCEDURES documented in this encounter Visit Diagnoses Diagnosis Pain Back Weakness Leg Numbness Lower Extremity Weakness Upper Extremity Osteoporosis documented in this encounter Administered Medications Inactive Administered Medications - up to 3 most recent administrations Medication Order MAR Action Action Date Dose Rate Site gadobutrol injection 0.01-30 mL Given 10/23/2019 6:15 PM ASSOCIATE PROFESSOR OF LITERACY 8 m L (GADAVIST) 0.01-30 mL, intravenous, Once in imaging, contrast, Starting on Mon10/23/19 at 1651, For 1 dose, Imaging Protocol Orders, Dose per Radiant Medication Guidelines documented in this encounter
--- OUTSIDE RECORDS SUMMARY | 2022-07-04 14:54 | XMS_ITS | Encounter Summary ---
:1945 Author Organization [facility] Address [address] [place] [id number] Care Team Providers Name Role Phone Unavailable Primary Care Provider Unavailable Encounter Details Date Type Department Care Team Description 10/22/2019 Hospital Encounter Department of [place], [place], Pain Ba c[facility]; Laboratory Medicine M.D. Weakness Leg; and Pathology, [address] [place] [address] Numbness Lower Extremity; [facility], in [place], [place] Weaknes s Upper Extremity; [place], [place] [address] Osteoporosis [address] [place] [address] [place], [place] (Work) [phone] Social History Tobacco Use Types Packs/Day Years [...] or relatives? How often do you attend restoration or More than 4 times per year 02/16/2022 oriental orthodox services? Do you belong to any clubs or Yes 02/16/2022 organizations such as restoration groups, unions, fraternal or athletic groups, or [...] place to sleep or slept in a longterm (including now)? Education Answer Date Recorded What [...] Office Visit Cardiovascular Disease Nick Mcneil M.D. [address] [place] [address] [phone] (Wo rk) documented as of this encounter Procedures Procedure Name Priority Date/Time Associated Comments Diagnosis 25-HYDROXYVITAMIN D2 Routine 10/22/2019 8:56 AM Pain [place] k Results for this AND D3, S NEEDLE LOOM SETTER Weakness Leg procedure are in Numbness Lower the results Extremity section. Weakness Upper Extremity Osteoporosis PHOSPHORUS Routine 10/22/2019 8:56 AM Pain Back Results for this (INORGANIC), S NEEDLE LOOM SETTER Weakness Leg procedure are in Numbness Lower the results Extremity section. Weakness Upper Extremity Osteoporosis CREATININE WITH Routine 10/22/2019 8:56 AM Pain Back Results for this EGFR, S/P NEEDLE LOOM SETTER Weakness Leg procedure are in Numbness Lower the results Extremity section. Weakness Upper Extremity Osteoporosis CALCIUM, TOT, S/P Routine 10/22/2019 8:56 AM Pain Back Results for this NEEDLE LOOM SETTER Weakness Leg procedure are in Numbness Lower the results Extremity section. Weakness Upper Extremity Osteoporosis ALBUMIN, S/P Routine 10/22/2019 8:56 AM Pain Back Results for this NEEDLE LOOM SETTER Weakness Leg procedure are in Numbness Lower the results Extremity section. Weakness Upper Extremity Osteoporosis documented in this encounter Results 25-Hydroxyvitamin D2 and D3 (10/22/2019 8:56 AM NEEDLE LOOM SETTER) P athologist Signature 25-Hydroxy D2 <4.0 ng/mL 10/23/2019 SDSC 1:02 PM NEEDLE LOOM SETTER 25-Hydroxy D3 48 ng/mL 10/23/2019 SDSC 1:02 PM NEEDLE LOOM SETTER 25-Hydroxy D 48 ng/mL 10/23/2019 SDSC Total 1:02 PM NEEDLE LOOM SETTER Comment: ----REFERENCE VALUE---- 25-HYDROXY D TOTAL (D2+D3) Optimum level s in the healthy population are 20-50, patients with bone disease may benefit from higher levels within this r silas. ----ADDITIONAL INFORMATION---- This test was developed and its performa nce characteristics determined by [facility] in a manner consistent with CLIA requirements. This test has not been cleared or approved by the [place] d and Drug Administration. Specimen Anatomical Collection Method Collection Time Receive d Time (Source) Location / / Volume Laterality Blood (Blood, 10/22/2019 8:56 AM 10/22/19 Venous) NEEDLE LOOM SETTER 12:10 PM NEEDLE LOOM SETTER Elizabeth Jenkins M.D. LAB BLOOD ADD-ON Performing Organization Address City/[facility] Code Phon e Number [facility] [address] [place], [place] [address] [facility] [place] [address] Laboratory Medicine and Pathology [address] [place] Albumin (10/22/2019 8:56 AM NEEDLE LOOM SETTER) P athologist Signature Albumin, S 4.4 3.5 - 5.0 10/22/2019 DTL g/dL 10:16 AM NEEDLE LOOM SETTER Specimen Anatomical Collection Method Collection Time Receive d Time (Source) Location / / Volume Laterality Blood (Blood, 10/22/2019 8:56 AM 10/22/19 9:17 Venous) NEEDLE LOOM SETTER AM NEEDLE LOOM SETTER Elizabeth Jenkins M.D. LAB BLOOD ADD-ON Performing Organization Address City/State/ZIP Code Phon e Number [facility] - [address] [place], [place] [address] [place] [address] [facility] [address] Calcium, Total (10/22/2019 8:56 AM NEEDLE LOOM SETTER) P athologist Signature Calcium, Total, 9.2 8.8 - 10.2 10/22/2019 DTL S mg/dL 10:16 AM NEEDLE LOOM SETTER Specimen Anatomical Collection Method Collection Time Receive d Time (Source) Location / / Volume Laterality Blood (Blood, 10/22/2019 8:56 AM 10/22/19 9:17 Venous) NEEDLE LOOM SETTER AM NEEDLE LOOM SETTER Elizabeth Jenkins M.D. LAB BLOOD ADD-ON Performing Organization Address City/[facility] Code Phon e Number [facility] - 200 [place], [place] [address] [place] [phone] Phosphorus Inorganic (10/22/2019 8:56 AM NEEDLE LOOM SETTER) P athologist Signature Phosphorus 3.5 2.5 - 4.5 10/22/2019 DTL (Inorganic), S mg/dL 10:16 AM NEEDLE LOOM SETTER Specimen Anatomical Collection Method Collection Time Receive d Time (Source) Location / / Volume Laterality Blood (Blood, 10/22/2019 8:56 AM 10/22/19 9:17 Venous) NEEDLE LOOM SETTER AM NEEDLE LOOM SETTER Elizabeth Jenkins M.D. LAB BLOOD ADD-ON Performing Organization Address [facility] Phon e Number [facility] - [address] [place], [place] [address] [place] [id number] (ABNORMAL) Creatinine with Estimated GFR (10/22/2019 8:56 AM NEEDLE LOOM SETTER) Analysis Performed At Patho logist Time Signature Creatinine 1.24 (H) 0.59 - 10/22/2019 DTL 1.04 mg/dL 10:16 AM NEEDLE LOOM SETTER eGFR-Non 42 (L) >=60 10/22/2019 DTL Black/ mL/min/BSA 10:16 AM NEEDLE LOOM SETTER Vietnamese Comment: ----ADDITIONAL INFORMATION---- Estimated GFR calculated using the 2009 CKD_EPI creatinine equation. eGFR-Black/ 49 (L) >=60 mL/min/BSA 2019 10:16 AM NEEDLE LOOM SETTER DTL Comment: ----ADDITIONAL INFORMATION---- Estimated GFR calculated using the 2009 CKD_EPI creatinine equation. Specimen Anatomical Collection Method Collection Time Receive d Time (Source) Location / / Volume Laterality Blood (Blood, 10/22/2019 8:56 AM 10/22/19 9:17 Venous) NEEDLE LOOM SETTER AM NEEDLE LOOM SETTER Elizabeth Jenkins M.D. LAB BLOOD ADD-ON Performing Organization Address City/[facility] Phon e Number [facility] - [address] [place], [place] [address] [place] [address] [facility] [address] documented in this encounter Visit Diagnoses Diagnosis Pain Back Weakness Leg Numbness Lower Extremity Weakness Upper Extremity Osteoporosis documented in this encounter
--- OUTSIDE RECORDS SUMMARY | 2022-07-04 14:54 | XMS_ITS | Encounter Summary ---
:1945 Author Organization [facility] Address [address] [place] [address] Care Team Providers Name Role Phone Unavailable Primary Care Provider Unavailable Reason for Referral MRI/CAT/PET Scan (Routine) - Closed Specialty Diagnoses / Procedures Referred By Contact Refer red To Contact Radiology Diagnoses Post Concussion Syndrome Dizziness [facility] Cavanaugh M[facility]D., [facility] [place] [facility] Procedures MR Brain without IV Contrast SC MRI BRAIN WO CNTRST HC MRI BRAIN WO [facility]ST [facility] [address] [place] [phone] Referral ID Status Reason Start Date Expiration Date Visits Requ ested Visits Authorized [id number] Closed 02/16/2022 02/16/2023 1 1 Reason for Visit MRI/CAT/PET Scan (Routine) - Closed Specialty Diagnoses / Procedures Referred By Contact Refer red To Contact Radiology Diagnoses Post Concussion Syndrome Dizziness Yoni Cavanaugh M.D., [facility] [place] [facility] Procedures MR Brain without IV Contrast SC MRI BRAIN WO CNTRST HC MRI BRAIN WO [facility] [address] [place] [phone] Referral ID Status Reason Start Date Expiration Date Visits Requ ested Visits Authorized [id number] Closed 02/16/2022 02/16/2023 1 1 Encounter Details Date Type Department Care Team Description 02/17/2022 Hospital Encounter Department of Yoni Cavanaugh Con cussion Syndrome; Radiology in [place] M.D., [place], [place] [facility] [address] [facility] [phone] [place] [phone] Social History Tobacco Use Types Packs/Day [...] or relatives? How often do you attend mormonism or More than 4 times per year 02/16/2022 temple services? Do you belong to any clubs or Yes 02/16/2022 organizations such as mormonism groups, unions, fraternal or athletic groups, or [...] place to sleep or slept in a penitentiary (including now)? Education Answer Date Recorded What [...] Office Visit Cardiovascular Disease Nick Mcneil M.D. [address] [place], [place] [address], [place] [phone] (Wo rk) documented as of this encounter Procedures Procedure Name Priority Date/Time Associated Comments Diagnosis MR BRAIN WITHOUT RAD - Routine 02/17/2022 12:22 Post Concussion Res ults for this IV CONTRAST (most inpatients PM CDT Syndrome procedure are in and all Dizziness the results outpatients) section. documented in this encounter Results MR Brain without IV Contrast (02/17/2022 12:22 PM CDT) Anatomical Region Laterality Modality Head, Brain, Neuroradiology RST LOS, Neuroradiology ARZ N/A Magnetic Resonance LOS, Neuroradiology FLA LOS Specimen (Source) Anatomical Collection Method Collection Time [...] Visit Diagnoses Diagnosis Post Concussion Syndrome Dizziness documented in this encounter
--- OUTSIDE RECORDS SUMMARY | 2022-07-04 14:54 | XMS_ITS | Encounter Summary ---
:1945 Author Organization [facility] Address [address] [place] [address] Care Team Providers Name Role Phone Unavailable Primary Care Provider Unavailable Encounter Details Date Type Department Care Team Description 07/19/2007 - 07/21/2007 Hospital Encounter HX NO MAPPING Social History Tobacco Use Types Packs/Day Years [...] or relatives? How often do you attend religion or More than 4 times per year 02/16/2022 congregational services? Do you belong to any clubs or Yes 02/16/2022 organizations such as religion groups, unions, fraternal or athletic groups, or [...] place to sleep or slept in a fci (including now)? Sex Assigned at Date Recorded Female 05/07/2022 11:11 AM CDT documented as of this encounter Plan of Treatment Upcoming Encounters Date Type Specialty Care Team Description 07/27/2022 Office Visit Cardiovascular Disease Nick Mcneil M.D. [address] [place] [address] [phone] (Wo rk) documented as of this encounter Visit Diagnoses Not on filedocumented in this encounter
--- OUTSIDE RECORDS SUMMARY | 2022-07-04 14:54 | XMS_ITS | Encounter Summary ---
:1945 Author Organization [facility] Address [address] [place] [address] Care Team Providers Name Role Phone Unavailable Primary Care Provider Unavailable Reason for Referral Outpatient (Routine) - Closed Specialty Diagnoses / Procedures Referred By Contact Refer red To Contact Diagnoses Pain Back Weakness Leg Numbness Lower Extremity Weakness Upper Extremity Osteoporosis Elizabeth Jenkins M.D. [facility] Procedures BMD Bone Density Spine Hips [address] [place] [phone] Referral ID Status Reason Start Date Expiration Date Visits Requ ested Visits Authorized [id number] Closed 10/18/2019 10/17/2020 1 1 utpatient (Routine) - Closed Specialty Diagnoses / Procedures Referred By Contact Refer red To Contact Endocrinology Diagnoses Pain Back Weakness Leg Numbness Lower Extremity Weakness Upper Extremity Osteoporosis Elizabeth Jenkins M.D. [facility] [address] [place] [phone] Referral ID Status Reason Start Date Expiration Date Visits Requ ested Visits Authorized [id number] Closed 10/18/2019 10/17/2020 1 1 Scheduling Instructions Has seen Dr. Cha in the past RI/CAT/PET Scan (Routine) - Closed Specialty Diagnoses / Procedures Referred By Contact Refer red To Contact Radiology Diagnoses Pain Back Weakness Leg Numbness Lower Extremity Weakness Upper Extremity Osteoporosis Elizabeth Jenkins M.D. [facility] Procedures MR Lumbar Spine without IV Contrast [address] [place] [address] Referral ID Status Reason Start Date Expiration Date Visits Requ ested Visits Authorized [id number] Closed 10/18/2019 10/17/2020 1 1 RI/CAT/PET Scan (Routine) - Closed Specialty Diagnoses / Procedures Referred By Contact Refer red To Contact Radiology Diagnoses Pain Back Weakness Leg Numbness Lower Extremity Weakness Upper Extremity Osteoporosis Elizabeth Jenkins M.D. [facility] Procedures MR Thoracic Spine without IV Contrast [address] [place] [address] Referral ID Status Reason Start Date Expiration Date Visits Requ ested Visits Authorized [id number] Closed 10/18/2019 10/17/2020 1 1 RACT TECHNICIAN Reason for Visit Reason Onset Date Comments Return Visit 10/14/2019 Encounter Details Date Type Department Care Team Description 10/14/2019 Clinical Communication Department of Elizabeth Jenkins Ret urn Visit Orthopedic Surgery in [place], [place] [address] [facility] [place] [address] [place] [phone] Social History Tobacco Use Types Packs/Day Years [...] More than 4 times per year 02/16/2022 adventist services? Do you belong to any clubs [...] or slept in a detention (including now)? Sex Assigned at Date Recorded Female 05/07/2022 11:11 AM CDT documented as of this encounter Miscellaneous Notes Telephone Encounter - Lisa Denis R.N. - 10/29/2019 8:43 AM CST Test Result Information: Name of test result(s): MRI- cervical, thoracic and lumbar Test result information provided: Reviewed results with Mrs. Anderson Ordered by: Dr. Jenkins Date performed: 10/22/19 Pending results: none Disposition/Recommendation: self-care is appropriate at this time, patient encouraged to call back with questions Information/Education: patient/caller able to teach back Caller agreeable to plan of care: yes Dr. Jenkins reviewed the MRI images and Endocrinology visit. Per his direction, advised Mrs. Anderson thathe does not feel that she has anything surgical in nature that would be causing the symptoms she hasbeen having. Advised her that Dr. Jenkins feels that she could have her local provider refer her to neurology. She states that she has been feeling better and does not want to be referred at this time. Advised her to let us know if she has any other questions or concerns. She states good understanding of the information discussed. RACT TECHNICIAN Telephone Encounter - Lupe Soria - 10/28/2019 5:02 PM CST Patient returning Robert's call RACT TECHNICIAN Telephone Encounter - Lisa Denis R.N. - 10/28/2019 2:27 PM CST Attempted to reach patient x1 Contact number used: [phone] Nature of call: Recommendations for patient Left msg to return call. RACT TECHNICIAN Telephone Encounter - Che Neff - 10/18/2019 3:16 PM CST Confirmed 1-, 1-22 and 2-4 appointments with the patient. Sent PAG in the mail and emailed her thelink for the portal. RACT TECHNICIAN Telephone Encounter - Lisa Denis R.N. - 10/18/2019 1:55 PM CST Che, Orders have been placed for MRIs and Endo. Please let me know if you have any questions. Thanks, Robert RACT TECHNICIAN Telephone Encounter - Lupe Soria - 10/17/2019 9:46 AM CST X-rays available for review and copy of report sent to scanning and copy in service box RACT TECHNICIAN Telephone Encounter - Lisa Denis R.N. - 10/16/2019 1:00 PM CST Information Discussed Mrs. Anderson was contacted in regard to her message. She states she would like to have a follow up appointment with Dr. Jenkins. She was last seen in November 2013 for C2 osteomyelitis and T12 compression fracture. She states in the last couple months she has had 3 episodes where both of her legs have gone completely numb to the point of hardly being able to walk. She states this will last for a couple hoursand then it goes away. Denies pain during these episodes. She states she has started to use a cane to help with balance in case this happens again. She states it almost feels like her legs are paralyzed. Recently her local provider did an x-ray of her lower back. Advised her to have these sent to Dr. Jenkins for review. She states about a week ago she had pain in the back of my hips this has sense improved. She states she does have numbness in her hands with R>L. She states she has pain in her knuckles and has been told by her local provider that her hand symptoms are related to arthritis. Shestates that she has noticed weakness in her right hand and is struggling to open jars. She states when she presses down on something with her right hand, the pain increases. Denies pain in her arms. She denies having recent x-rays of her neck. She feels that maybe some of her arm symptoms are related to scar tissue that has built up in her neck. She does have a diagnosis of osteoporosis. She states she was on something for a while but is not sure what it was. She has not had a bone density checked in years. The last one we have was from 11/2013 with a low T- score of -2.4. She states she does take calcium and vitamin D3. PLAN Advised her that Dr. Jenkins will need to review her most recent x-rays. Advised to have the images sent to Dr. Jenkins. Once he has had a chance to review them we will be in contact with her regarding thenext steps. She states good understanding of the information discussed and is in agreement with the plan. Disposition/Recommendation: notified provider and awaiting recommendations and self-care is appropriate at this time, patient encouraged to call back with questions Information/Education: patient/caller able to teach back Caller agreeable to plan of care: yes The following references were used: nursing clinical judgement Addendum Discussed Mrs. Anderson's symptoms with Dr. Jenkins. Per his direction, advised Mrs. Anderson that he would like to have a MRI of her whole spine. She states she would be willing to come to [place] for this. Advised her that Dr. Jenkins would also like her to see a bone fishing reel assembler. She states she hasn't seen one in a while and is in agreement with this plan. Advised her that one of our schedulers will be in contact with her to get all of this arranged. She states good understanding of everything discussed and is in agreement with the plan. RACT TECHNICIAN Telephone Encounter - Lisa Denis R.N. - 10/15/2019 10:02 AM CONTRACT TECHNICIAN Attempted to reach patient x1 Contact number used: [phone] Nature of call: Return call from a patient msg Left msg to return call. RACT TECHNICIAN Telephone Encounter - Carolyne Pal - 10/14/2019 11:03 AM CST Patient received a referral to come back and see Dr. Jenkins for her neck and lower back. With the lower back when she bends forward and then get up has no feeling in both legs. This will last for several hours, has happened 4 times in the last 2 months. She says she is not able to move her legs, has touse a cane to hobble around. In regard to the neck she has quite a bit of pain and will get light headed. She is not sure if scar tissue has built up and is causing the problem. She is trying to be very careful with her movements at this time. Has a corset type back support that she wears when the pain is worse. A few days ago she had sciatic pain. She did have x-rays of the Lsp about a week ago. Last Csp was done 3-4 years ago. She has a hard time getting the muscles to work when having a BM. If she goes to the bathroom every 2 hours she is ok. Please advise if ok to schedule return and if any testing is needed. ([phone]) RACT TECHNICIAN documented in this encounter Plan of Treatment Upcoming Encounters Date Type Specialty Care Team Description 07/27/2022 Office Visit Cardiovascular Disease Nick Mcneil M.D. [address] [place] [address], [place] [phone] (Wo rk) Scheduled Referrals Name Type Priority Associated Order Schedule Diagnoses Endocrinology - Outpatient Referral Routine Pain Back Expected: Osteoporosis / Weakness Leg 10/18/2019 metabolic bone Numbness Lower (Approximat e), disorders consult Extremity Expires: (clinic) Weakness Upper 10/18/2022 Extremity Osteoporosis documented as of this encounter Results BMD Bone Density Spine Hips (10/22/2019 8:57 AM CONTRACT TECHNICIAN) Anatomical Region Laterality Modality Hip, Lumbar Spine, Nuclear Medicine RST LOS, N/A Radiographic Imaging Musculoskeletal ARZ LOS, Muskuloskeletal FLA LOS Specimen (Source) Anatomical Collection Method Collection Time Re ceived Time Location / / Volume Laterality 10/22/2019 12:14 PM CONTRACT TECHNICIAN Impressions 10/22/2019 12:15 PM CONTRACT TECHNICIAN Osteoporosis Narrative 10/22/2019 12:15 PM CONTRACT TECHNICIAN EXAM: ??BMD BONE DENSITY SPINE HIPS COMPARISON: Serial Comparisons Left Total Hip results: ?08/30/2005 ?BMD: ??0.758 g/cm( sq), T Score: -2.0 ?05/07/2009 ?BMD: ??0.736 g/cm( sq), T Score: -2.2 ?12/24/2013 ?BMD: ??0.725 g/cm( sq), T Score: -2.2 ?10/22/2019 ?BMD: ??0.721 g/cm( sq), T Score: -2.3 ?Change vs. Previous (difference): ? -0.004 g/cm(sq) ?Change vs. Previous (%): ??-0.6% ?The least significant change in BM D for the Total Hip ?is 0.036 g/cm(sq) ?The absolute BMD change from previ ous, ??0.004g/cm(sq), is ?less than the least significant ch silas. ?The absolute BMD change from basel ine, ??0.037g/cm(sq), is ?greater than the least significant change. Right Total Hip results: ?05/07/2009 ?BMD: ??0.763 g/cm( sq), T Score: -2.0 ?12/24/2013 ?BMD: ??0.767 g/cm( sq), T Score: -1.9 ?10/22/2019 ?BMD: ??0.744 g/cm( sq), T Score: -2.1 ?Change vs. Previous (difference): ? -0.023 g/cm(sq) ?Change vs. Previous (%): ??-3.0% ?The least significant change in BM D for the Total Hip ?is 0.036 g/cm(sq) ?The absolute BMD change from previ ous, ??0.023g/cm(sq), is ?less than the least significant ch silas. ?The absolute BMD change from basel ine, ??0.019g/cm(sq), is ?less than the least significant ch silas. Combined Total Hip results: ?05/07/2009 ?BMD: ??0.749 g/cm( sq), T Score: -2.1 ?12/24/2013 ?BMD: ??0.746 g/cm( sq), T Score: -2.1 ?10/22/2019 ?BMD: ??0.733 g/cm( sq), T Score: -2.2 ?Change vs. Previous (difference): ? -0.014 g/cm(sq) ?Change vs. Previous (%): ??-1.8% ?The least significant change in BM D for the Total Hip ?is 0.036 g/cm(sq) ?The absolute BMD change from previ ous, ??0.014g/cm(sq), is ?less than the least significant ch silas. ?The absolute BMD change from basel ine, ??0.017g/cm(sq), is ?less than the least significant ch silas. Spine results: ?08/30/2005 ?BMD: ??1.047 g/cm( sq), T Score: -1.0 ?05/07/2009 ?BMD: ??0.994 g/cm( sq), T Score: -1.5 ?12/24/2013 ?BMD: ??1.038 g/cm( sq), T Score: -1.1 ?10/22/2019 ?BMD: ??1.025 g/cm( sq), T Score: -1.2 ?Change vs. Previous (difference): ? -0.013 g/cm(sq) ?Change vs. Previous (%): ??-1.3% ?The least significant change in BM D for the Spine is 0.041 g/cm(sq) ?The absolute BMD change from previ ous, ??0.013g/cm(sq), is ?less than the least significant ch silas. ?The absolute BMD change from basel ine, ??0.022g/cm(sq), is ?less than the least significant ch silas. FINDINGS: Left Hip [single scan]: ?Femur Neck: BMD = ??0.715 g/cm (sq ) ?T-score = -2.3 ?Z-score = - 0.5 ?Total Hip: BMD = ??0.721 g/cm (sq) ?T-score = -2.3 ?Z-score = - 0.7 Right Hip [single scan]: ?Femur Neck: BMD = ??0.682 g/cm (sq ) ?T-score = -2.6 ?Z-score = - 0.8 ?Total Hip: BMD = ??0.744 g/cm (sq) ?T-score = -2.1 ?Z-score = - 0.5 Lumbar Spine ??[single scan]: ?L1: BMD = 0.974 g/cm (sq), T-score =-1.4, Z-score = 0.1 ?L2: BMD = 1.070 g/cm (sq), T-score =-1.2, Z-score = 0.3 ?Total Lumbar Spine: BMD = ??1.025 g/cm (sq) ?T-score = -1.2 ?Z-score = ? ?0.3 Trabecular Bone Scores: ?L1-L2: TBS = 1.377 Please note: A more comprehensive DXA re port, including images and graphs, is available in [facility]. ?In the absence of other causes of low BMD or demonstrated skeletal ?fragility, osteoporosis may be bunny gnosed in post-menopausal ? women when the T-score i s at or below -2.5 as defined by ?the WHO. Osteopenia is present at T-scores between -1 and -2.5 and ?normal BMD when T-score is at or a paola -1.0. The diagnosis in ?pre-menopausal women and men can b e based on low bone mass or ?evidence of skeletal fragility in the appropriate clinical setting. Degenerative changes are present which m ay spuriously elevate the spine BMD measurement. Today's spine scan was compared with the previous scans using a new region,L1-L2. Patient does not meet ISCD guidelines fo r FRAX calculations. Procedure Note Dexter Lamb M.D., Ph.D. - 020 EXAM: BMD BONE DENSITY SPINE HIPS COMPARISON: Serial Comparisons Left Total Hip results: 08/30/2005 BMD: 0.758 g/cm(sq), T Score : -2.0 05/07/2009 BMD: 0.736 g/cm(sq), T Score : -2.2 12/24/2013 BMD: 0.725 g/cm(sq), T Score : -2.2 10/22/2019 BMD: 0.721 g/cm(sq), T Score : -2.3 Change vs. Previous (difference): -0.00 4 g/cm(sq) Change vs. Previous (%): -0.6% The least significant change in BMD for the Total Hip is 0.036 g/cm(sq) The absolute BMD change from previous, 0.004g/cm(sq), is less than the least significant change. The absolute BMD change from baseline, 0.037g/cm(sq), is greater than the least significant sheridan ge. Right Total Hip results: 05/07/2009 BMD: 0.763 g/cm(sq), T Score : -2.0 12/24/2013 BMD: 0.767 g/cm(sq), T Score : -1.9 10/22/2019 BMD: 0.744 g/cm(sq), T Score : -2.1 Change vs. Previous (difference): -0.02 3 g/cm(sq) Change vs. Previous (%): -3.0% The least significant change in BMD for the Total Hip is 0.036 g/cm(sq) The absolute BMD change from previous, 0.023g/cm(sq), is less than the least significant change. The absolute BMD change from baseline, 0.019g/cm(sq), is less than the least significant change. Combined Total Hip results: 05/07/2009 BMD: 0.749 g/cm(sq), T Score : -2.1 12/24/2013 BMD: 0.746 g/cm(sq), T Score : -2.1 10/22/2019 BMD: 0.733 g/cm(sq), T Score : -2.2 Change vs. Previous (difference): -0.01 4 g/cm(sq) Change vs. Previous (%): -1.8% The least significant change in BMD for the Total Hip is 0.036 g/cm(sq) The absolute BMD change from previous, 0.014g/cm(sq), is less than the least significant change. The absolute BMD change from baseline, 0.017g/cm(sq), is less than the least significant change. Spine results: 08/30/2005 BMD: 1.047 g/cm(sq), T Score : -1.0 05/07/2009 BMD: 0.994 g/cm(sq), T Score : -1.5 12/24/2013 BMD: 1.038 g/cm(sq), T Score : -1.1 10/22/2019 BMD: 1.025 g/cm(sq), T Score : -1.2 Change vs. Previous (difference): -0.01 3 g/cm(sq) Change vs. Previous (%): -1.3% The least significant change in BMD for the Spine is 0.041 g/cm(sq) The absolute BMD change from previous, 0.013g/cm(sq), is less than the least significant change. The absolute BMD change from baseline, 0.022g/cm(sq), is less than the least significant change. FINDINGS: Left Hip [single scan]: Femur Neck: BMD = 0.715 g/cm (sq) T-score = -2.3 Z-score = -0.5 Total Hip: BMD = 0.721 g/cm (sq) T-score = -2.3 Z-score = -0.7 Right Hip [single scan]: Femur Neck: BMD = 0.682 g/cm (sq) T-score = -2.6 Z-score = -0.8 Total Hip: BMD = 0.744 g/cm (sq) T-score = -2.1 Z-score = -0.5 Lumbar Spine [single scan]: L1: BMD = 0.974 g/cm (sq), T-score =-1. 4, Z-score = 0.1 L2: BMD = 1.070 g/cm (sq), T-score =-1. 2, Z-score = 0.3 Total Lumbar Spine: BMD = 1.025 g/cm (s q) T-score = -1.2 Z-score = 0.3 Trabecular Bone Scores: L1-L2: TBS = 1.377 Please note: A more comprehensive DXA re port, including images and graphs, is available in [facility]. In the absence of other causes of low B MD or demonstrated skeletal fragility, osteoporosis may be diagnose d in post-menopausal women when the T-score is at or below -2.5 as defined by the WHO. Osteopenia is present at T-sco res between -1 and -2.5 and normal BMD when T-score is at or above -1.0. The diagnosis in pre-menopausal women and men can be bas ed on low bone mass or evidence of skeletal fragility in the a [facility] setting. Degenerative changes are present which m ay spuriously elevate the spine BMD measurement. Today's spine scan was compared with the previous scans using a new region,L1-L2. Patient does not meet ISCD guidelines fo r FRAX calculations. IMPRESSION: Osteoporosis Elizabeth TEJEDA DXA PROCEDURES 25-Hydroxyvitamin D2 and D3 (10/22/2019 8:56 AM CONTRACT TECHNICIAN) P athologist Signature 25-Hydroxy D2 <4.0 ng/mL 10/23/2019 SDSC 1:02 PM CONTRACT TECHNICIAN 25-Hydroxy D3 48 ng/mL 10/23/2019 SDSC 1:02 PM CONTRACT TECHNICIAN 25-Hydroxy D 48 ng/mL 10/23/2019 SDSC Total 1:02 PM CONTRACT TECHNICIAN Comment: ----REFERENCE VALUE---- 25-HYDROXY D TOTAL (D2+D3) Optimum level s in the healthy population are 20-50, patients with bone disease may benefit from higher levels within this r silas. ----ADDITIONAL INFORMATION---- This test was developed and its performa nce characteristics determined by [facility] in a manner consistent with CLIA requirements. This test has not been cleared or approved by the [place] Ren[place] d and Drug Administration. Specimen Anatomical Collection Method Collection Time Receive d Time (Source) Location / / Volume Laterality Blood (Blood, 10/22/2019 8:56 AM 10/22/19 Venous) CONTRACT TECHNICIAN 12:10 PM CONTRACT TECHNICIAN Elizabeth Jenkins M.D. LAB BLOOD ADD-ON Performing Organization Address City/State/ZIP Code Phon e Number [facility] [address] [place], [place] [address] [facility] [place] [address] Laboratory Medicine and Pathology [address] [place] Albumin (10/22/2019 8:56 AM CONTRACT TECHNICIAN) athologist Signature Albumin, S 4.4 3.5 - 5.0 10/22/2019 DTL g/dL 10:16 AM CONTRACT TECHNICIAN Specimen Anatomical Collection Method Collection Time Receive d Time (Source) Location / / Volume Laterality Blood (Blood, 10/22/2019 8:56 AM 10/22/19 9:17 Venous) CONTRACT TECHNICIAN AM CONTRACT TECHNICIAN Elizabeth Jenkins M.D. LAB BLOOD ADD-ON Performing Organization Address City/[facility] [place]/ZIP Code Phon e Number [facility] - [address] [place], [place] [address] [place] [address] [facility] [address] Calcium, Total (10/22/2019 8:56 AM CONTRACT TECHNICIAN) athologist Signature Calcium, Total, 9.2 8.8 - 10.2 10/22/2019 DTL S mg/dL 10:16 AM CONTRACT TECHNICIAN Specimen Anatomical Collection Method Collection Time Receive d Time (Source) Location / / Volume Laterality Blood (Blood, 10/22/2019 8:56 AM 10/22/19 9:17 Venous) CONTRACT TECHNICIAN AM CONTRACT TECHNICIAN Elizabeth Jenkins M.D. LAB BLOOD ADD-ON Performing Organization Address City/State/ZIP Code Phon e Number [facility] - [address] [place], [place] [address] [place] [address] [facility] [address] Phosphorus Inorganic (10/22/2019 8:56 AM CONTRACT TECHNICIAN) P athologist Signature Phosphorus 3.5 2.5 - 4.5 10/22/2019 DTL (Inorganic), S mg/dL 10:16 AM CONTRACT TECHNICIAN Specimen Anatomical Collection Method Collection Time Receive d Time (Source) Location / / Volume Laterality Blood (Blood, 10/22/2019 8:56 AM 10/22/19 9:17 Venous) CONTRACT TECHNICIAN AM CONTRACT TECHNICIAN Elizabeth Jenkins M.D. LAB BLOOD ADD-ON Performing Organization Address City/[facility] [place]/[facility] Code Phon e Number [facility] - [address] [place], [place] [address] [place] [address] [place] [address] Laboratories-[place] [address] [facility] (ABNORMAL) Creatinine with Estimated GFR (10/22/2019 8:56 AM CONTRACT TECHNICIAN) Analysis Performed At Patho logist Time Signature Creatinine 1.24 (H) 0.59 - 10/22/2019 DTL 1.04 mg/dL 10:16 AM CONTRACT TECHNICIAN eGFR-Non 42 (L) >=60 10/22/2019 DTL Black/ mL/min/BSA 10:16 AM CONTRACT TECHNICIAN Polish Comment: ----ADDITIONAL INFORMATION---- Estimated GFR calculated using the 2009 CKD_EPI creatinine equation. eGFR-Black/ 49 (L) >=60 mL/min/BSA 2019 10:16 AM CONTRACT TECHNICIAN DTL Comment: ----ADDITIONAL INFORMATION---- Estimated GFR calculated using the 2009 CKD_EPI creatinine equation. Specimen Anatomical Collection Method Collection Time Receive d Time (Source) Location / / Volume Laterality Blood (Blood, 10/22/2019 8:56 AM 10/22/19 9:17 Venous) CONTRACT TECHNICIAN AM CONTRACT TECHNICIAN Elizabeth Jenkins M.D. LAB BLOOD ADD-ON Performing Organization Address City/State/[facility] Code Phon e Number [facility] - [address] [place], [place] [address] [facility] [place] [place] [address] Laboratories-[address] documented in this encounter Visit Diagnoses Diagnosis Pain Back - Primary Weakness Leg Numbness Lower Extremity Weakness Upper Extremity Osteoporosis Pain Back Weakness Leg Numbness Lower Extremity Weakness Upper Extremity Osteoporosis documented in this encounter
--- OUTSIDE RECORDS SUMMARY | 2022-07-04 14:54 | XMS_ITS | Encounter Summary ---
:1945 Author Organization [facility] Address [address] [place] [address] Care Team Providers Name Role Phone Unavailable Primary Care Provider Unavailable Reason for Referral Outpatient (Routine) - Authorized Specialty Diagnoses / Procedures Referred By Contact Refer red To Contact Neurology Diagnoses Dizziness Weakness [facility] All Krishnan M.D. [facility] [address] [place] [address] Referral ID Status Reason Start Date Expiration Date Visits V isits Requested Authorized [id number] Authorized 02/15/2022 02/15/2023 1 1 Encounter Details Date Type Department Care Team Description 02/15/2022 [facility] All Krishnan (Primary Dx); AND CLINICS Geeta GU [facility] [address] [place] [address] [phone] Social History Tobacco Use Types Packs/Day Years [...] or relatives? How often do you attend christian or More than 4 times per year 02/16/2022 yarsanism services? Do you belong to any clubs or Yes 02/16/2022 organizations such as christian groups, unions, fraternal or athletic groups, or [...] place to sleep or slept in a intermediate (including now)? Education Answer Date Recorded What is the highest level of school Master's degree (e.g., M Elliott, MS, 12/09/2020 you have completed or the highest Surya, MEd, RAND TACKER, LIVE) degree you have received? Sex Assigned at Date Recorded Female 05/07/2022 11:11 AM CDT documented as of this encounter Plan of Treatment Upcoming Encounters Date Type Specialty Care Team Description 07/27/2022 Office Visit Cardiovascular Disease Nick Mcneil M.D. [address] [place] [address] [phone] (Wo rk) Scheduled Referrals Name Type Priority Associated Diagnoses Order [facility] Neurology Referral Outpatient Referral Routine Dizziness Expected: Weakness General 02/15/2022 (Approximate), Expires: 05/18/2023 documented as of this encounter Visit Diagnoses Diagnosis Dizziness - Primary Weakness General documented in this encounter
--- OUTSIDE RECORDS SUMMARY | 2022-07-04 14:54 | XMS_ITS | Encounter Summary ---
:1945 Author Organization [facility] Address [address] [place] [address] Care Team Providers Name Role Phone Unavailable Primary Care Provider Unavailable Reason for Referral Outpatient (Routine) - Closed Specialty Diagnoses / Procedures Referred By Contact Refer red To Contact Diagnoses Pain Back Weakness Leg Numbness Lower Extremity Weakness Upper Extremity Osteoporosis Elizabeth Jenkins M.D. [facility] Procedures BMD Bone Density Spine Hips [address] [place] [phone] Referral ID Status Reason Start Date Expiration Date Visits Requ ested Visits Authorized [id number] Closed 10/18/2019 10/17/2020 1 1 2 YEAR OLDS [employer] Reason for Visit Outpatient (Routine) - Closed Specialty Diagnoses / Procedures Referred By Contact Refer red To Contact Diagnoses Pain Back Weakness Leg Numbness Lower Extremity Weakness Upper Extremity Osteoporosis Elizabeth Jenkins M.D. [facility] Procedures BMD Bone Density Spine Hips [address] [place] [address] [phone] Referral ID Status Reason Start Date Expiration Date Visits Requ ested Visits Authorized [id number] Closed 10/18/2019 10/17/2020 1 1 Encounter Details Date Type Department Care Team Description 10/22/2019 Hospital Encounter Department of Elizabeth Jenkins Pain Ba ck; RadiologyMegan M.D. Weakness Leg; Building, in [address] [place] [address] Numbness Lower Extremity; [place], [place] Weakness Upper Extremity; [address] [place] [phone] Osteoporosis [place], [place] [phone] (Work) [phone] Social History Tobacco Use Types Packs/Day Years [...] or relatives? How often do you attend christianity or More than 4 times per year 02/16/2022 gnosticism services? Do you belong to any clubs or Yes 02/16/2022 organizations such as christianity groups, unions, fraternal or athletic groups, or [...] place to sleep or slept in a usp (including now)? Education Answer Date Recorded What [...] cholecalciferol (VITAMIN Take 400 Units by 0 08/0 03/2009 D3) 10 mcg (400 Unit) mouth [...] Office Visit Cardiovascular Disease Nick Mcneil M.D. 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 Weakness Upper Extremity Osteoporosis documented in this encounter Results BMD Bone Density Spine Hips (10/22/2019 8:57 AM 2 YEAR OLDS PRESCHO[employer] TE[employer]ER) Anatomical Region Laterality Modality Hip, Lumbar Spine, Nuclear Medicine RST LOS, N/A Radiographic Imaging Musculoskeletal ARZ LOS, Muskuloskeletal FLA LOS Specimen (Source) Anatomical Collection Method Collection Time Re ceived Time Location / / Volume Laterality 10/22/2019 12:14 PM 2 YEAR OLDS [employer] Impressions 10/22/2019 12:15 PM 2 YEAR OLDS PRES[employer] TE[employer]ER Osteoporosis Narrative 10/22/2019 12:15 PM 2 YEAR OLDS PRESCHO[employer] TE[employer]ER EXAM: ??BMD BONE DENSITY SPINE HIPS COMPARISON: [...] including images and graphs, is available in [employer]. ?In the absence of other causes of [...] evidence of skeletal fragility [facility] the [facility]. Degenerative changes are present which m ay spuriously elevate the spine BMD measurement. Today's spine scan was compared with the previous scans using a new region,L1-L2. Patient does not meet ISCD guidelines fo r FRAX calculations. IMPRESSION: Osteoporosis Elizabeth TEJEDA DXA PROCEDURES documented in this encounter Visit Diagnoses Diagnosis Pain Back Weakness Leg Numbness Lower Extremity Weakness Upper Extremity Osteoporosis documented in this encounter
--- OUTSIDE RECORDS SUMMARY | 2022-07-04 14:54 | XMS_ITS | Encounter Summary ---
:1945 Author Organization [facility] Address [address] [place] [address] Care Team Providers Name Role Phone Unavailable Primary Care Provider Unavailable Encounter Details Date Type Department Care Team Description 04/24/2020 Clinical Communication Department of Deepali Harrington, Dermatology in .[place], [place] [address] [facility] [address] [place] [phone] Social History Tobacco Use Types Packs/Day Years [...] or relatives? How often do you attend mormon or More than 4 times per year 02/16/2022 congregation services? Do you belong to any clubs or Yes 02/16/2022 organizations such as mormon groups, unions, fraternal or athletic groups, or [...] place to sleep or slept in a nursing home (including now)? Education Answer Date Recorded What is the highest level of Professional school degree (e.g ., , 10/19/2019 school you have completed or the DDS, DVM, KRISTEN) highest degree you have received? Sex Assigned at Date Recorded Female 05/07/2022 11:11 AM CDT documented as of this encounter Miscellaneous Notes Telephone Encounter - Shanell Garcia - 04/24/2020 10:57 AM CDT Pt would like a call back once Dr. Harrington schedule is open for . She is needing a annual skin check. She can be reached at [phone]. Thank you documented in this encounter Plan of Treatment Upcoming Encounters Date Type Specialty Care Team Description 07/27/2022 Office Visit Cardiovascular Disease Nick Mcneil M.D. [address] [place] [phone] (Wo rk) documented as of this encounter Visit Diagnoses Not on filedocumented in this encounter
--- OUTSIDE RECORDS SUMMARY | 2022-07-04 14:54 | XMS_ITS | Encounter Summary ---
:1945 Author Organization [facility] Address [address] [place] [address] Care Team Providers Name Role Phone Unavailable Primary Care Provider Unavailable Reason for Visit Reason Comments Skin Check Appointment Request (Routine) - Closed Specialty Diagnoses / Procedures Referred By Contact Refer red To Contact Dermatology Referral ID Status Reason Start Date Expiration Date Visits Requ ested Visits Authorized [id number] Closed 01/17/2018 07/16/2018 1 Encounter Details Date Type Department Care Team Description 03/27/2018 Office Visit Department of Deepali Harrington, Keratosis Seborrheic Inflamed (Primary Dx); Dermatology in [place] [facility]; [place], [place] [address] [facility] Keratosis Actinic [address] [place] [phone] Social History Tobacco Use Types Packs/Day Years [...] or relatives? How often do you attend restorationist or More than 4 times per year 02/16/2022 holiness services? Do you belong to any clubs or Yes 02/16/2022 organizations such as restorationist groups, unions, fraternal or athletic groups, or [...] or slept in a longterm (including now)? Sex Assigned at Date Recorded Female 05/07/2022 11:11 AM CDT documented as of this encounter Progress Notes Deepali Harrington M.D. - 03/27/2018 3:00 PM CDT CHIEF COMPLAINT/REASON FOR VISIT Skin cancer screening exam HISTORY OF PRESENT ILLNESS Ms. Emmy Anderson is a 72 y.o. female who presents today for a full skin cancer screening examination. The patient denies a history of skin cancer. The patient denies any lesions of concern. Sinceher last visit, the patient reports that her primary care physician at another facility biopsied herleft leg blue nevus which was benign on pathology. The patient reports having a rash on her buttocks that feels similar to dry skin. This itches intermittently. A few days ago, the patient was seen in urgent care for a deer tick bite. She was prescribed doxycycline for 1 day. Allergies not on file PAST MEDICAL HISTORY No history of skin cancer FAMILY HISTORY No family history for melanoma. Mother and sister history of nonmelanoma skin cancer. PHYSICAL EXAM General: Awake, alert, in no acute distress, and with appropriate affect. Eyes: No scleral injection or icterus. No eyelid abnormalities. Lymph: No lower extremity edema. Skin: I have examined the scalp, face, neck, chest, abdomen, back, bilateral upper extremities, and bilateral lower extremities. Examination of the left mid cheek reveals an actinic keratosis. Examination of the left lateral cheek reveals an seborrheic keratosis. Examination of the face otherwise a few benign nevi and lentigines. Examination of the arms and hands reveals multiple benign nevi and lentigines and seborrheic keratoses. Examination of the left clavicle, left triceps and right swenson reveals irritated seborrheic keratosis. Examination of the right upper chest / clavicle reveals some dry skin. Examination of the chest, back and posterior legs reveals multiple seborrheic keratoses and a few benign nevi. Examination of the left swenson reveals a scar at the site of her blue nevus biopsy. Examination of the left lower buttock crease reveals dry skin. No evidence for rash associated with tick bite. IMPRESSION/REPORT/PLAN # 1 Left mid cheek: Actinic keratosis CONSENT Discussed the risks, benefits, alternatives, and the necessity of other members of the healthcare team participating in the procedure. All questions answered and consent given. ?? PROCEDURE INFORMATION Given the precancerous nature of this lesion(s), treatment is medically indicated. After discussion of the risks, benefits and alternatives to treatment with cryotherapy, informed consent was obtained.We treated a total of 1 lesion(s) with two 20-second freeze-thaw cycles of liquid nitrogen cryotherapy. The patient tolerated the procedure well. Aftercare instructions were provided in written and verbal form to the patient. Should any of these lesions recur, the patient should return for biopsy or further evaluation. Follow up in 1-2 months for recheck if these do not completely resolve. #2 Left clavicle, left triceps and right swenson: Inflamed seborrheic keratosis CONSENT Discussed the risks, benefits, alternatives, and the necessity of other members of the healthcare team participating in the procedure. All questions answered and consent given. ?? PROCEDURE INFORMATION Given the precancerous nature of this lesion(s), treatment is medically indicated. After discussion of the risks, benefits and alternatives to treatment with cryotherapy, informed consent was obtained.We treated a total of 3 lesion(s) with two 20-second freeze-thaw cycles of liquid nitrogen cryotherapy. The patient tolerated the procedure well. Aftercare instructions were provided in written and verbal form to the patient. Should any of these lesions recur, the patient should return for biopsy or further evaluation. Follow up in 1-2 months for recheck if these do not completely resolve. #3 Multiple nevi The ABCDE criteria for melanoma was reviewed with the patient. None of the patient's nevi reach the clinical threshold for biopsy. I recommend continued sun protection, self-skin examinations, and observation. Should any of the patient's nevi change in size, color, texture, or shape or develop symptoms such as itching or bleeding, I recommend an immediate return visit for reassessment. Otherwise return in one year for a full skin cancer screening exam. #4 Face, trunk and extremities: Seborrheic Keratosis The benign nature of the skin lesion(s) was discussed with the patient. No treatment is required. I recommend continued observation. Should symptoms or changes develop related to this condition, I would recommend a return visit for reassessment. PATIENT EDUCATION Ready to learn. No apparent learning barriers were identified. Learning preferences include listening. Explained diagnosis and treatment plan; patient/guardian of patient expressed understanding of thecontent. By signing my name below, I, Raz Noel, attest that this documentation has been prepared underthe direction and in the presence of Deepali Harrington M.D.. Electronically Signed: josiane Bean. 03/27/2018. 4:02 PM . IDeepali M.D., personally performed the services described in this documentation. All medical record entries made by the scribe were at my direction and in my presence. I have reviewed the chart and discharge instructions (if applicable) and agree that the record reflects my personal performance and is accurate and complete. Deepali Harrington M.D. . 03/27/2018. 4:22 PM. documented in this encounter Plan of Treatment Upcoming Encounters Date Type Specialty Care Team Description 07/27/2022 Office Visit Cardiovascular Disease Nick Mcneil M.D. [address] [place] [phone] (Wo rk) documented as of this encounter Visit Diagnoses Diagnosis Keratosis Seborrheic Inflamed - Primary Nevi Multiple Keratosis Actinic documented in this encounter
--- OUTSIDE RECORDS SUMMARY | 2022-07-04 14:54 | XMS_ITS | Encounter Summary ---
:1945 Author Organization [facility] Address [address] [place] [address] Care Team Providers Name Role Phone Unavailable Primary Care Provider Unavailable Encounter Details Date Type Department Care Team Description 09/18/2007 - Hospital Encounter HX RST INFUSION Jerson Ramos, 09/25/2007 THERAPY R.N. [address] [place] [phone] Social History Tobacco Use Types Packs/Day Years Used Date Smoking Tobacco: Never Assessed Alcohol Habits Answer Date Recorded How often do you have a drink containing alcohol? Never 02/16/2022 How many drinks containing alcohol do you have on a typical or 2 10/19/2019 day when you are [...] or relatives? How often do you attend baptist or More than 4 times per year 02/16/2022 zoroastrian services? Do you belong to any clubs or Yes 02/16/2022 organizations such as baptist groups, unions, fraternal or athletic groups, or [...] Office Visit Cardiovascular Disease Nick Mcneil M.D. [address] [place] [phone] (Wo rk) documented as of this encounter Visit Diagnoses Not on filedocumented in this encounter
--- OUTSIDE RECORDS SUMMARY | 2022-07-04 14:54 | XMS_ITS | Encounter Summary ---
:1945 Author Organization [facility] Address [address] [place] [address] Care Team Providers Name Role Phone Unavailable Primary Care Provider Unavailable Encounter Details Date Type Department Care Team Description 08/22/2014 Hospital Encounter HX NO MAPPING Social History [...] or relatives? How often do you attend religious or More than 4 times per year 02/16/2022 gnosticist services? Do you belong to any clubs or Yes 02/16/2022 organizations such as religious groups, unions, fraternal or athletic groups, or [...] Refills Start Date End Date calcium carbonate-vitamin D3 Take 1,000 mg by 0 0 05/07/2009 400-133.3 mg-unit tablet mouth daily. cholecalciferol (VITAMIN D3) Take 400 Units by 0 05/07/2009 10 mcg (400 Unit) tablet mouth daily. levothyroxine (SYNTHROID, Take 1 tablet by 0 01/01 LEVOTHROID) 88 mcg tablet mouth daily. loratadine (CLARITIN) 10 mg Take 1 tablet by 0 tablet mouth daily as needed. documented as of this encounter Plan of Treatment Upcoming Encounters Date Type Specialty Care Team Description 07/27/2022 Office Visit Cardiovascular Disease Nick Mcneil M.D. [address] [place] [phone] (Wo rk) documented as of this encounter Visit Diagnoses Not on filedocumented in this encounter
--- OUTSIDE RECORDS SUMMARY | 2022-07-04 14:54 | XMS_ITS | Encounter Summary ---
:1945 Author Organization [facility] Address [address] [place] [address] Care Team Providers Name Role Phone Unavailable Primary Care Provider Unavailable Reason for Visit Outpatient (Routine) - Closed Specialty Diagnoses / Procedures Referred By Contact Refer red To Contact Endocrinology Diagnoses Pain Back Weakness Leg Numbness Lower Extremity Weakness Upper Extremity Osteoporosis Elizabeth Jenkins M.D. [facility] [address] [place] [phone] Referral ID Status Reason Start Date Expiration Date Visits Requ ested Visits Authorized [id number] Closed 10/18/2019 10/17/2020 1 1 Encounter Details Date Type Department Care Team Description 10/22/2019 Comprehensive Visit Division of Brittni Beckham; Endocrinology in [place] Weakness Leg; [place], [place] [address] Numbness Lower Extremity; [address] [facility] Weakness Upper Extremity; [place], [place], Osteoporosis [address] [place] [phone] Social History Tobacco Use Types Packs/Day Years [...] or relatives? How often do you attend zoroastrian or More than 4 times per year 02/16/2022 church services? Do you belong to any clubs or Yes 02/16/2022 organizations such as zoroastrian groups, unions, fraternal or athletic groups, or [...] slept in a senior living (including now)? Education Answer Date Recorded What is the highest level of Professional school degree (e.g ., , 10/19/2019 school you have completed or the DDS, DVM, KRISTEN) highest degree you have received? Sex Assigned at Date Recorded Female 05/07/2022 11:11 AM CDT documented as of this encounter Last Filed Vital Signs Vital Sign Reading Time Taken Comments Blood Pressure 140/71 10/22/2019 1:17 PM WOOD CAULKER Pulse 76 10/22/2019 1:17 PM WOOD CAULKER Temperature - - Respiratory Rate - - Oxygen Saturation - - Inhaled Oxygen Concentration - - Weight 73.6 kg (162 lb 4.1 oz) 10/22/2019 1:17 PM WOOD CAULKER Height 161.2 cm (5' 3.47) 10/22/2019 1:17 PM WOOD CAULKER Body Mass Index 28.32 10/22/2019 1:17 PM WOOD CAULKER documented in this encounter Consult Notes Indy Beckham M.D. - 10/22/2019 1:30 PM CST Problem List Musculoskeletal Osteoporosis Overview ?? Osteoporosis, T score -2.6 right hip, neck, T12 compression fracture 2008 after lifting boat ?? Intolerant and reluctant for bone directed therapies (prior on oral bisphosphonates for ?11 months but didn't like due to symptoms) ?? She declined IV Reclast prior and currently Current Assessment & Plan ?? Emmy presents for follow up of osteoporosis, last seen by Dr. Cha in 2008, notes reviewed ?? No recurrent compression fractures since then, when she had a T12 fracture after lifting a boat; she declined IV Reclast then ?? She returns after repeat DXA and plans to see orthopedics for 'bad back' and paresthesias of lower legs, new, pending MRI legs ?? Exam: alert and oriented; no palpable neck nodules; no LAD; Lungs clear, CVR - regular, no murmur; Ext - no edema ?? We reviewed her DXA which meets criteria for osteoporosis but no major declines from 6 years ago,reassuring ?? She had numerous questions re: her calcium, vitamin D, fish oil, soy and levothyroxine, all reviewed; she is taking in 500 mg calcium as supplements, probably ~350 mg as diet; lactose intolerant ?? She declines again Reclast at this time, after careful risk/benefit discussion; she elects continued diet (increase calcium intake) and exercise ?? She can repeat DXA in 2 years with her PCP, return if questions or fractures arise CAULKER documented in this encounter Miscellaneous Notes Assessment & Plan Note - Indy Beckham M.D. - 10/22/2019 4:22 PM CSTAssociated Problem(s): Osteoporosis ?? Emmy presents for follow up of osteoporosis, last seen by Dr. Cha in 2008, notes reviewed ?? No recurrent compression fractures since then, when she had a T12 fracture after lifting a boat; she declined IV Reclast then ?? She returns after repeat DXA and plans to see orthopedics for 'bad back' and paresthesias of lower legs, new, pending MRI legs ?? Exam: alert and oriented; no palpable neck nodules; no LAD; Lungs clear, CVR - regular, no murmur; Ext - no edema ?? We reviewed her DXA which meets criteria for osteoporosis but no major declines from 6 years ago,reassuring ?? She had numerous questions re: her calcium, vitamin D, fish oil, soy and levothyroxine, all reviewed; she is taking in 500 mg calcium as supplements, probably ~350 mg as diet; lactose intolerant ?? She declines again Reclast at this time, after careful risk/benefit discussion; she elects continued diet (increase calcium intake) and exercise ?? She can repeat DXA in 2 years with her PCP, return if questions or fractures arise CAULKER documented in this encounter Plan of Treatment Upcoming Encounters Date Type Specialty Care Team Description 07/27/2022 Office Visit Cardiovascular Disease Nick Mcneil M.D. [address] [place] [phone] (Wo rk) documented as of this encounter Visit Diagnoses Diagnosis Pain Back Weakness Leg Numbness Lower Extremity Weakness Upper Extremity Osteoporosis documented in this encounter
== END 2022-07-02 09:57 | disposition home or self-care (01) ==
LOC: NFLDREF 07-04 14:51
PROVIDERS: PCP Family Medicine; Visit Provider Student in an Organized Health Care Education/Training Program
DX: R30.0 Dysuria (principal); N39.0 Urinary tract infection, site not specified
CPT/HCPCS: 87086

== ENCOUNTER 2022-07-13 11:09 | Outpatient (CLI) | payer MEDICARE, BC, SELFPAY ==
--- OUTSIDE RECORDS SUMMARY | 2022-07-14 12:30 | XMS_ITS | Encounter Summary ---
:1945 Author Organization [facility] Address [address] [place] [address] Care Team Providers Name Role Phone Unavailable Primary Care Provider Unavailable Reason for Referral Outpatient (Routine) - Closed Specialty Diagnoses / Procedures Referred By Contact Refer red To Contact Diagnoses Syncope And Near Syncope Nick Mcneil M.D. [facility] Procedures ECG Ambulatory Real Time Cardiac Monitoring [address] [place] [address] Referral ID Status Reason Start Date Expiration Date Visits Requ ested Visits Authorized [id number] Closed 05/11/2022 05/11/2023 1 1 Reason for Visit Outpatient (Routine) - Closed Specialty Diagnoses / Procedures Referred By Contact Refer red To Contact Diagnoses Syncope And Near Syncope Nick Mcneil M.D. [facility] Procedures ECG Ambulatory Real Time Cardiac Monitoring [address] [place] [address] Referral ID Status Reason Start Date Expiration Date Visits Requ ested Visits Authorized [id number] Closed 05/11/2022 05/11/2023 1 1 Encounter Details Date Type Department Care Team Description 05/25/2022 Hospital Encounter Department of Pessanha, Syncope And Near Cardiovascular Diseases Nick Reyes M.D. Syncope in [facility] [address] [place] [phone] Social History Tobacco Use [...] or relatives? How often do you attend yarsani or More than 4 times per year 02/16/2022 protestant services? Do you belong to any clubs or Yes 02/16/2022 organizations such as yarsani groups, unions, fraternal or athletic groups, or [...] 4 (four) times a day as needed. ibuprofen (ADVIL,MOTRIN) Take 600 mg by mouth [...] ointment topically as needed for dry skin. doxycycline (VIBRAMYCIN) 0 03/24/2018 100 mg capsule ergocalciferol, vitamin Twice A Day 0 D2, 10 mcg (400 unit) tablet metoprolol succinate Take 12.5 mg by mouth 0 04/2022 (TOPROL-XL) 25 mg 24 hr daily. tablet sulfamethoxazole-trimethop 0 2 rim (BACTRIM DS) 800-160 mg per tablet documented as of this encounter Plan of Treatment Upcoming Encounters Date Type Specialty Care Team Description 07/27/2022 Office Visit Cardiovascular Disease Nick Mcneil M.D. [address] [place] [address] [place] [phone] (Wo rk) documented as of [...] Duration 0 sec duration INFOBIONIC MOME AF [place] 0% percent INFOBIONIC MOME [place] Runs 0 [...] ??to 86 BPM. No ectopy was noted. Computer Technical Support Specialist: NATASHA Gómez/ Ashleigh Schaefer Procedure Note Marc [...] to 86 BPM. No ectopy was noted. Computer Technical Support Specialist: NATASHA Gómez/ Ashleigh Schaefer Nick Mcneil M.D. CV CARDIAC SERVICES PROCEDUR ES Performing Organization Address City/State/ZIP Code Phon e Number INFOBIONIC MOME INFOBIONIC MOME NA documented in this encounter Visit Diagnoses Diagnosis Syncope And Near Syncope documented in this encounter
--- OUTSIDE RECORDS SUMMARY | 2022-07-14 12:30 | XMS_ITS | Clinical Summary ---
:1945 Author Organization [facility] Address [address] [place] [address] Care Team Providers Name Role Phone Unavailable Primary Care Provider Unavailable Source Comments Patient records contain information from all sites at [facility]. For routine questions regarding patient records, call [phone] during business hours, M-F 8:00 AM - 5:00 PM Central Time. Record requests for emergency care only can be directed to [phone] at any time.[facility] Allergies Active Allergy Reactions Severity Noted Date [...] diahrri a Phenylpropanolamine Other (see comments) 01/11/2022 [place] Pollen-Rough Pigweed Other (see comments) 022 Sneezing, [...] M.D. Syncope 05/19/2022 Hospital Encounter Cardiovascular Disease Tar[place], Syncope And Near Syncope; Nick Reyes M.D. [...] 04/27/2022 Hospital Encounter Laboratory Medicine Yoni Cavanaugh ncope Vasovagal Geeta Westbrook, M.P.H. from Last 3 Months Family History [...] or relatives? How often do you attend yazidi or More than 4 times per year 02/16/2022 roman catholic services? Do you belong to any clubs or Yes 02/16/2022 organizations such as yazidi groups, unions, fraternal or athletic groups, or [...] place to sleep or slept in a correction (including now)? Education Answer Date Recorded What [...] Office Visit Cardiovascular Disease Nick Mcneil M.D. [address] [place] [phone] (Wo rk) Health Maintenance Due [...] Duration 0 sec duration INFOBIONIC MOME AF [place] 0% percent INFOBIONIC MOME [place] Runs 0 [...] ??to 86 BPM. No ectopy was noted. Business Planning Director: NATASHA Gómez/ Ashleigh Schaefer Procedure Note Marc [...] to 86 BPM. No ectopy was noted. Business Planning Director: NATASHA Gómez/ Ashleigh Schaefer Nick Mcneil M.D. CV CARDIAC SERVICES PROCEDUR ES Performing Organization Address City/State/ZIP Code Phon e Number INFOBIONIC MOME INFOBIONIC MOME NA ECHO STRESS 2D WITH COLOR, DOPPLER AND CONTRAST (05/19/2022 10:11 AM CDT) [facility] Method Time Signature Ejection Fraction 62 CV EIMS Mid-Ascending Aorta 33 MC CV [...] 10. O2 uptake data detailed in the [facility] Medical Record (Cardiopulmonary (VO2) Exercise Test). 11. [...] border definition. Imaging enhancement agent administered per [facility] ardiography Contrast Administration Protocol Reference Document [id number]. Patient met an inclusion criterion and did [...] 10. O2 uptake data detailed in the [facility] Medical Record (Cardiopulmonary (VO2) Exercise Test). 11. [...] per Echocardiography Contrast Administration Protocol Reference Document [id number]. Patient met an inclusion criterion and did [...] Component Value Ref Test Analysis Performed At [facility] Range Method Time Signature VC MAX 2.18 L 05/19/2022 [place] PROVDILATATION 9:[address] FVC PROVDILATATION 2.16 L 05/19/2022 [facility] [place] 9:15 AM CDT SUITE FEV 1 1.64 L 05/19/2022 [place] PROVDILATATION 9:15 AM CDT SUITE FEV1/FVC 75.86 % 05/19/2022 [place] PROVDILATATION 9:15 AM CDT SUITE FEF 25-75% 1.37 L/s 05/19/2022 [place] PROVDILATATION 9:15 AM CDT SU[address] PEF PROVDILATATION 3.36 L/s 05/19/2022 [facility] 9:15 AM CDT SUITE FET PROVDILATATION 8.05 sec 05/19/2022 [facility] 9:15 AM CDT SUITE [id number] 100.00 % 05/19/2022 [place] 9:15 AM CDT SUITE PulseRest 67.00 1/min 05/19/2022 [place] 9:15 AM CDT SUITE [id number] 96.00 % 05/19/2022 [place] 9:15 AM CDT SUITE PulseExer 101.00 1/min 05/19/2022 [place] 9:15 AM CDT SUITE EXER TIME 3.00 min 05/19/2022 [place] 9:15 AM CDT SUITE STEP HEIGHT PRE 9.00 Inch 05/19/2022 [place] 9:15 AM CDT SUITE VC MAX PROVOCATION 2.12 L 05/19/2022 [facility] 9:15 AM CDT SUITE CHALFVC 2.12 L 05/19/2022 [place] 9:15 AM CDT SUITE CHALFEV1 1.51 L 05/19/2022 [place] 9:15 AM CDT SUITE FEV1/FVC 71.36 % 05/19/2022 [place] PROVOCATION 9:15 AM CDT SUITE FEF 25-75% 1.03 L/s 05/19/2022 [place] PROVOCATION 9:15 AM CDT SU[address] PEF [...] AM CDT SUITE CUMULATED DOSE 2.000 05/19/2022 [place] PROVDILATATION 9:15 AM CDT SUITE PD 20 05/19/2022 [place] 9:15 AM CDT SUITE SUBSTANCE PROVBASE -- 05/19/2022 [facility] 9:15 AM CDT SUITE SUBSTANCE Methacholine 05/19/2022 [place] PROVOCATION 9:15 AM CDT SUITE SUBSTANCE Combivent 05/19/2022 [place] PROVDILATATION 9:15 AM CDT SUITE % PRED VC MAX 97 % % 05/19/2022 [place] [facility] 9:15 AM CDT SUITE FVC% 97 % % 05/19/2022 [facility] 9:15 AM CDT SUITE FEV1% 95 % % 05/19/2022 [facility] 9:15 AM CDT SUITE % PRED FEV1/FVC 97 % % 05/19/2022 [facility] 9:15 AM CDT SUITE % PRED FEF 25-75% 91 % % 05/19/2022 [facility] 9:15 AM CDT SUITE % PRED PEF 78 % % 05/19/2022 [facility] 9:15 AM CDT SUITE DLCO% 63 % % 05/19/2022 [facility] 9:15 AM CDT SUITE PRED VC MAX 2.40 05/19/2022 [facility] 9:15 AM CDT SUITE PRED FVC 2.40 05/19/2022 [facility] 9:15 AM CDT SUITE PRED FEV 1 1.83 05/19/2022 [facility] 9:15 AM CDT SUITE PRED FEV1/FVC 77.3 05/19/2022 [facility] 9:15 AM CDT SUITE PRED FEF 25-75% 1.51 05/19/2022 [facility] 9:15 AM CDT SUITE PRED PEF 5.0 05/19/2022 [facility] 9:15 AM CDT SUITE PRED DLCO 17.7 05/19/2022 [facility] 9:15 AM CDT SUITE Specimen (Source) Anatomical Collection Method Collection Time Re ceived Time Location / / Volume Laterality 05/19/2022 7:29 AM CDT Impressions [facility] - 05/19/2022 9:15 AM C DT Negative [...] Mcneil M.D. PFT ORDERABLES Performing Organization Address City/[facility] Phon e Number [place] SUITE [place] SUITE NA SARS Coronavirus-2 RNA, V Asymptomatic (05/16/2022 9:57 AM CDT) [facility] Method Time Signature SARS-CoV-2 Swab, 05/16/2022 MKTO [...] pe rformed using the Aptima SARS-CoV-2 assay ([employer] on the [employer] tem under emergency use authorization (EUA) by the U.S. Food and Drug Administ ration. Fact sheets for this EUA assay can be fo und at the following links: For Healthcare Providers: https://www.fd a.gov/media/832451/download For Patients: https://www.fda.gov/media/ 658914/download Specimen Anatomical Collection Method Collection Time Receive d Time (Source) Location / / Volume Laterality Varies 05/16/2022 9:57 AM 4:43 (Nasopharynx) CDT PM CDT Nick Mcneil M.D. LAB MICROBIOLOGY - GENERAL O RDERABLES Performing Organization Address City/[facility]/ZIP Code Phon e Number [facility]- [address] [place] [address] [place] [address] ECG 12 Lead (04/27/2022 9:12 AM CDT) P athologist Signature Ventricular Rate 75 BPM MUSE ECG/Min HI Interval 164 ms MUSE QRSD Interval 134 ms MUSE QT Interval 410 ms MUSE QTC Interval 457 ms MUSE P [place] 66 degrees MUSE R [place] -73 degrees MUSE T Wave [place] 31 degrees MUSE Specimen Anatomical Collection Method [...] Address City/State/ZIP Code Phon e Number MUSE ABRAH[place] NA from Last 3 Months Insurance Payer Benefit Plan Subscriber ID Effective Phone Address Typ e / Group Dates MEDICARE RAILROAD [id number] 2008-Pres [address] [facility] MEDICARE [place] [id number] [place] [address] BLUE CROSS BCBS FALSE PASS [id number] 2016-Pres [phone] [address] Cost Share BLUE SHIELD BLUE COST ent [phone] [place] [address] Advance Directives For more information, please contact: [phone] Documents on File Type Date Recorded Patient Central Office Supervisor Explanati on Advance Directives 08/30/2007 12:00 AM Shady augustin. See document viewer.
--- OUTSIDE RECORDS SUMMARY | 2022-07-14 12:30 | XMS_ITS | Clinical Summary ---
:1945 Author Organization [facility] [place] [address] Care Team Providers Name Role Phone Dayday [...] Type Group BLUE CROSS MR BLUE CROSS [id number] 2016-Present [address] [address] [place], [place] ONLY [phone] Care Teams Confectionery Laboratory Manager Relationship Specialty Start Date End Date Labenski, Dayday Ahmet, MD PCP - General 03/20/06 [address] [place] [address]
--- OUTSIDE RECORDS SUMMARY | 2022-07-14 12:31 | XMS_ITS | Encounter Summary ---
:1945 Author Organization [facility] Address [address] [place] [address] Care Team Providers Name Role Phone Unavailable Primary Care Provider Unavailable Reason for Visit Reason Comments Skin Check Appointment Request (Routine) - Closed Specialty Diagnoses / Procedures Referred By Contact Refer red To Contact Referral ID Status Reason Start Date Expiration Date Visits Requ ested Visits Authorized [id number] Closed 10/13/2021 10/13/2022 1 1 Encounter Details Date Type Department Care Team Description 01/10/2022 Office Visit Department of Deepali Harrington, Keratosis Actinic (Primary Dx); Dermatology in [place] Keratosis Seborrheic Inflamed; [place], [place] [address] [facility] Keratosis Seborrheic; [address] [place] [address] [place] [phone] Social History Tobacco Use Types Packs/Day Years [...] or relatives? How often do you attend cheondoism or More than 4 times per year 02/16/2022 islam services? Do you belong to any clubs or Yes 02/16/2022 organizations such as cheondoism groups, unions, fraternal or athletic groups, or [...] place to sleep or slept in a group home (including now)? Education Answer Date Recorded What is the highest level of school Master's degree (e.g., Rohan Gallagher, MS, 12/09/2020 you have completed or the highest Surya, MEd, TORPEDO MAN, LIVE) degree you have received? Sex Assigned [...] extremities. My scribe (Ana) served as a fixed income analyst for the entirety of the exam. Examination [...] Office Visit Cardiovascular Disease Nick Mcneil M.D. [address] [place] [phone] (Wo rk) documented as of this encounter Visit Diagnoses Diagnosis Keratosis Actinic - Primary Keratosis Seborrheic Inflamed Keratosis Seborrheic Nevi Multiple documented in this encounter
--- OUTSIDE RECORDS SUMMARY | 2022-07-14 12:31 | XMS_ITS | Encounter Summary ---
:1945 Author Organization [facility] Address [address] [place] [address] Care Team Providers Name Role Phone Unavailable Primary Care Provider Unavailable Encounter Details Date Type Department Care Team Description 02/22/2022 Clinical Communication Department of Sleep Yoni Cavanaugh, Medicine in Geeta Blevins, M.P .H. [place] [address] [place] [phone] Social History Tobacco Use Types Packs/Day Years [...] or relatives? How often do you attend jewish or More than 4 times per year 02/16/2022 druze services? Do you belong to any clubs or Yes 02/16/2022 organizations such as jewish groups, unions, fraternal or athletic groups, or [...] the results on her portal. Route to [facility] pool of ordering provider. documented in this encounter Plan of Treatment Upcoming Encounters Date Type Specialty Care Team Description 07/27/2022 Office Visit Cardiovascular Disease Nick Mcneil M.D. [address] [place] [phone] (Wo rk) documented as of this encounter Visit Diagnoses Not on filedocumented in this encounter
--- OUTSIDE RECORDS SUMMARY | 2022-07-14 12:31 | XMS_ITS | Encounter Summary ---
:1945 Author Organization [facility] Address [address] [place] [address] Care Team Providers Name Role Phone Unavailable Primary Care Provider Unavailable Reason for Referral Outpatient (Routine) - Authorized Specialty Diagnoses / Procedures Referred By Contact Refer red To Contact Neurology Diagnoses Dizziness Weakness [facility] All Krishnan M.D. [facility] [address] [place] [address] Referral ID Status Reason Start Date Expiration Date Visits V isits Requested Authorized [id number] Authorized 02/15/2022 02/15/2023 1 1 Encounter Details Date Type Department Care Team Description 02/15/2022 [facility] All Krishnan (Primary Dx); AND CLINICS Geeta GU [facility] [address] [place] [address] [phone] Social History Tobacco Use Types Packs/Day Years [...] or relatives? How often do you attend jew or More than 4 times per year 02/16/2022 episcopalian services? Do you belong to any clubs or Yes 02/16/2022 organizations such as jew groups, unions, fraternal or athletic groups, or [...] place to sleep or slept in a [place] [facility] facility (including now)? Education Answer Date Recorded What is the highest level of school Master's degree (e.g., M Elliott, MS, 12/09/2020 you have completed or the highest Surya, MEd, RATING EXAMINER, LIVE) degree you have received? Sex Assigned at Date Recorded Female 05/07/2022 11:11 AM CDT documented as of this encounter Plan of Treatment Upcoming Encounters Date Type Specialty Care Team Description 07/27/2022 Office Visit Cardiovascular Disease Nick Mcneil M.D. [address] [place] [phone] (Wo rk) Scheduled Referrals Name Type Priority Associated Diagnoses Order S [facility] Neurology Referral Outpatient Referral Routine Dizziness Expected: Weakness General 02/15/2022 (Approximate), Expires: 05/18/2023 documented as of this encounter Visit Diagnoses Diagnosis Dizziness - Primary Weakness General documented in this encounter
--- OUTSIDE RECORDS SUMMARY | 2022-07-14 12:31 | XMS_ITS | Encounter Summary ---
:1945 Author Organization [facility] Address [address] [place] [address] Care Team Providers Name Role Phone Unavailable Primary Care Provider Unavailable Encounter Details Date Type Department Care Team Description 05/16/2022 Lab Department of General Nick Mcneil, Syncope And Near Syncope Surgery in Geeta [place] [address] [place] [phone] [facility] [phone] (Wo rk) Social History Tobacco Use Types [...] or relatives? How often do you attend rastafarian or More than 4 times per year 02/16/2022 restorationist services? Do you belong to any clubs or Yes 02/16/2022 organizations such as rastafarian groups, unions, fraternal or athletic groups, or [...] place to sleep or slept in a halfway (including now)? Education Answer Date Recorded What [...] Office Visit Cardiovascular Disease Nick Mcneil M.D. [address] [place] [phone] (Wo rk) documented as of this encounter Procedures Procedure Name Priority Date/Time Associated Diagnosis Comme nts SARS CORONAVIRUS-2 Routine 05/16/2022 9:57 AM Syncope And Near Results for this RNA, V CDT Syncope procedure are i n the results section. documented in this encounter Results SARS Coronavirus-2 RNA, V Asymptomatic (05/16/2022 9:57 AM CDT) [facility] Method Time Signature SARS-CoV-2 Swab, 05/16/2022 MKTO [...] pe rformed using the Aptima SARS-CoV-2 assay ([employer] on the [place] Sys tem under emergency use authorization (EUA) by the U.S. Food and Drug Administ rodney. Fact sheets for this EUA assay can be fo und at the following links: For Healthcare Providers: https://www.fd a.gov/media/498117/download For Patients: https://www.fda.gov/media/ 740199/download Specimen Anatomical Collection Method Collection Time Receive d Time (Source) Location / / Volume Laterality Varies 05/16/2022 9:57 AM 4:43 (Nasopharynx) CDT PM CDT Nick Mcneil M.D. LAB MICROBIOLOGY - GENERAL O RDERABLES Performing Organization Address City/State/ZIP Code Phon e Number [facility]- [address] [place] [address] [place] [address] System [address] documented in this encounter Visit Diagnoses Diagnosis Syncope And Near Syncope documented in this encounter Additional Health Concerns Infection Onset Date Last Indicated Resolved Time COVID19 Pending 05/13/2022 05/16/2022 05/16/2022 10:33 PM CDT documented as of this encounter
--- OUTSIDE RECORDS SUMMARY | 2022-07-14 12:31 | XMS_ITS | Encounter Summary ---
:1945 Author Organization [facility] Address [address] [place] [address] Care Team Providers Name Role Phone Unavailable Primary Care Provider Unavailable Reason for Referral Outpatient (Routine) - Closed Specialty Diagnoses / Procedures Referred By Contact Refer red To Contact Diagnoses Syncope Vasovagal Yoni Cavanaugh M.D., [facility] Procedures ECG 12 Lead M.P.H. [address] [place] [phone] Referral ID Status Reason Start Date Expiration Date Visits Requ ested Visits Authorized [id number] Closed 04/11/2022 04/11/2023 1 1 Outpatient (Routine) - Closed Specialty Diagnoses / Referred By Contact Referred To Contact Procedures Cardiovascular Diseases / Diagnoses Syncope Vasovagal Yoni Cavanaugh, [facility] Cardiovascular Disease Geeta, M.P.H. [address] [place] [phone] Referral ID Status Reason Start Date Expiration Date Visits Requ ested Visits Authorized [id number] Closed 04/11/2022 04/11/2023 1 1 Encounter Details Date Type Department Care Team Description 04/11/2022 Orders Only Department of Sleep Yoni Cavanaugh, Sync ope Vasovagal Medicine in Geeta Schulte, M.P .H. (Primary Dx) [place] [address] [place] [phone] Social History Tobacco Use Types Packs/Day Years [...] or relatives? How often do you attend voodoo or More than 4 times per year 02/16/2022 restoration services? Do you belong to any clubs or Yes 02/16/2022 organizations such as voodoo groups, unions, fraternal or athletic groups, or [...] Office Visit Cardiovascular Disease Nick Mcneil M.D. [address] [place] [address] EDU Schulte [phone] (Wo rk) Scheduled Referrals Name Type Priority Associated Order Schedule Diagnoses Cardiovascular Disease Outpatient Referral Routine Syncope Vas ovagal Expected: - General cardiology 022 consult (clinic) (Approximat e), Expires: 07/12/2023 documented as of this encounter Results ECG 12 Lead (04/27/2022 9:12 AM CDT) P athologist Signature Ventricular Rate 75 BPM MUSE ECG/Min [place] Interval 164 ms MUSE QRSD Interval 134 ms MUSE QT Interval 410 ms MUSE QTC Interval 457 ms MUSE P [place] 66 degrees MUSE R [place] -73 degrees MUSE T Wave [place] 31 degrees MUSE Specimen Anatomical Collection Method [...]
--- OUTSIDE RECORDS SUMMARY | 2022-07-14 12:31 | XMS_ITS | Encounter Summary ---
:1945 Author Organization [facility] Address [address] [place] [address] Care Team Providers Name Role Phone Unavailable Primary Care Provider Unavailable Reason for Referral Outpatient (Routine) - Closed Specialty Diagnoses / Procedures Referred By Contact Refer red To Contact Diagnoses Syncope And Near Syncope Dyspnea On Exertion Nick Mcneil M.D. [facility] Procedures Cardiopulmonary (VO2) Exercise Test [address] [place] [address] Referral ID Status Reason Start Date Expiration Date Visits Requ ested Visits Authorized [id number] Closed 05/11/2022 05/11/2023 1 1 Outpatient (Routine) - Closed Specialty Diagnoses / Procedures Referred By Contact Refer red To Contact Diagnoses Syncope And Near Syncope Dyspnea On Exertion Nick Mcneil M.D. [facility] Procedures Echo Stress [address] [place] [address] Referral ID Status Reason Start Date Expiration Date Visits Requ ested Visits Authorized [id number] Closed 05/11/2022 05/11/2023 1 1 Reason for Visit Outpatient (Routine) - Closed Specialty Diagnoses / Procedures Referred By Contact Refer red To Contact Diagnoses Syncope And Near Syncope Dyspnea On Exertion Nick Mcneil M.D. [facility] Procedures Echo Stress [address] [place], [place] [phone] Referral ID Status Reason Start Date Expiration Date Visits Requ berhaned Visits Authorized [id number] Closed 05/11/2022 05/11/2023 1 1 Encounter Details Date Type Department Care Team Description 05/19/2022 Hospital Encounter Department of Pessanha, Syncope And Near Syncope; Cardiovascular Diseases Nick Reyes M.D. Dyspnea On Exertion in 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 [address] [place], [place] [phone] (Wo rk) documented as [...] AND CONTRAST (05/19/2022 10:11 AM CDT) [facility] gist Method Time Signature Ejection Fraction 62 [...] 10. O2 uptake data detailed in the [facility] Medical Record (Cardiopulmonary (VO2) Exercise [...] border definition. Imaging enhancement agent administered per [facility] ardiography Contrast Administration Protocol Reference Document [id number]. Patient met an inclusion criterion and did [...] 10. O2 uptake data detailed in the [facility] Medical Record (Cardiopulmonary (VO2) Exercise [...] per Echocardiography Contrast Administration Protocol Reference Document [id number]. Patient met an inclusion criterion and did [...]
--- OUTSIDE RECORDS SUMMARY | 2022-07-14 12:31 | XMS_ITS | Encounter Summary ---
:1945 Author Organization [facility] Address [address] [place] [address] Care Team Providers Name Role Phone Unavailable Primary Care Provider Unavailable Reason for Referral MRI/CAT/PET Scan (Routine) - Closed Specialty Diagnoses / Procedures Referred By Contact Refer red To Contact Radiology Diagnoses Post Concussion Syndrome Dizziness Yoni Cavanaugh M.D., [facility] [place] [facility] Procedures MR Brain without IV Contrast [place] MRI BRAIN WO CNTRST HC MRI BRAIN WO CNTRST [facility] [address] [place] [phone] Referral ID Status Reason Start Date Expiration Date Visits Requ ested Visits Authorized [id number] Closed 02/16/2022 02/16/2023 1 1 Reason for Visit MRI/CAT/PET Scan (Routine) - Closed Specialty Diagnoses / Procedures Referred By Contact Refer red To Contact Radiology Diagnoses Post Concussion Syndrome Dizziness Yoni Cavanaugh M.D., [facility] [place] [facility] Procedures MR Brain without IV Contrast [place] MRI BRAIN WO CNTRST HC MRI BRAIN WO CNTRST [facility] [address] [place] [phone] Referral ID Status Reason Start Date Expiration Date Visits Requ ested Visits Authorized [id number] Closed 02/16/2022 02/16/2023 1 1 Encounter Details Date Type Department Care Team Description 02/17/2022 Hospital Encounter Department of Yoni Cavanaugh Con cussion Syndrome; Radiology in [place] M.D., [place], [place] M.P.H. [address] 0 NW [facility] [address] [place] [phone] [address] Social History Tobacco Use Types Packs/Day [...] or relatives? How often do you attend bahai or More than 4 times per year 02/16/2022 islam services? Do you belong to any clubs or Yes 02/16/2022 organizations such as bahai groups, unions, fraternal or athletic groups, or [...] doxycycline (VIBRAMYCIN) 0 03/24/2018 100 mg capsule documented as of this encounter Plan of Treatment Upcoming Encounters Date Type Specialty Care Team Description 07/27/2022 Office Visit Cardiovascular Disease Nick Mcneil M.D. [address] [place] [address] [phone] (Wo rk) documented as of this encounter [...]
--- OUTSIDE RECORDS SUMMARY | 2022-07-14 12:31 | XMS_ITS | Encounter Summary ---
:1945 Author Organization [facility] Address [address] [place] [address] Care Team Providers Name Role Phone Unavailable Primary Care Provider Unavailable Reason for Referral Outpatient (Routine) - Authorized Specialty Diagnoses / Procedures Referred By Contact Refer red To Contact Diagnoses Post Concussion Syndrome Dizziness Syncope Vasovagal Yoni Cavanaugh M.D., [facility] Procedures ECG Heart rhythm monitor (Holter) M.P[facility] [address] [place] [phone] Referral ID Status Reason Start Date Expiration Date Visits V isits Requested Authorized [id number] Authorized 02/16/2022 02/16/2023 1 1 Reason for Visit Outpatient (Routine) - Authorized Specialty Diagnoses / Procedures Referred By Contact Refer red To Contact Diagnoses Post Concussion Syndrome Dizziness Syncope Vasovagal Yoni Cavanaugh M.D., [facility] Procedures ECG Heart rhythm monitor (Holter) M[facility] [address] [place] [phone] Referral ID Status Reason Start Date Expiration Date Visits V isits Requested Authorized [id number] Authorized 02/16/2022 02/16/2023 1 1 Encounter Details Date Type Department Care Team Description 02/23/2022 Hospital Encounter Department of Yoni Cavanaugh Post Con cussion Syndrome; Cardiovascular Diseases Geeta Westbrook, Dizz iness; in Zelda Blevins cay[place] M.P.H. Syncope Vasovagal [address] [facility] [address] [place] [phone] Social History Tobacco Use Types Packs/Day [...] or relatives? How often do you attend gnosticism or More than 4 times per year 02/16/2022 scientologist services? Do you belong to any clubs or Yes 02/16/2022 organizations such as gnosticism groups, unions, fraternal or athletic groups, or [...] Visit Cardiovascular Disease Nick Mcneil M.D. [address] [place] [phone] (Wo rk) documented as of this encounter Procedures Procedure Name Priority Date/Time Associated Diagnosis Comme nts HOLTER MONITOR - IN Routine 02/25/2022 1:58 PM Post Concussion Results for this CLINIC TECHNICAL SOLUTIONS DIRECTOR CDT Syndrome procedure are in Dizziness the results Syncope Vasovagal section. documented in this encounter Results HOLTER MONITOR - IN CLINIC TECHNICAL SOLUTIONS DIRECTOR (02/25/2022 1:58 PM CDT) [facility] Method Time Signature Min Heart Rate 49 [...] AF Duration 0 duration INFOBIONIC MOME AF [place] 0 percent INFOBIONIC MOME Symptom Count 0 [...] 1%. 4. No symptomatic events were noted. Mattress Renovator: Kamala Marcus/ Otoniel, Ad am Procedure Note [...] 1%. 4. No symptomatic events were noted. Mattress Renovator: Kamala Marcus/ Phani Frederick am Yoni Cavanaugh M.D., M.P.H. CV CARDIAC SERVICES PROCED URES Performing Organization Address City/State/ZIP Code Phon e Number INFOBIONIC MOME INFOBIONIC MOME NA documented in this encounter Visit Diagnoses Diagnosis Post Concussion Syndrome Dizziness Syncope Vasovagal documented in this encounter
--- OUTSIDE RECORDS SUMMARY | 2022-07-14 12:31 | XMS_ITS | Encounter Summary ---
:1945 Author Organization [facility] Address [address] [place] [address] Care Team Providers Name Role Phone Unavailable Primary Care Provider Unavailable Encounter Details Date Type Department Care Team Description 04/12/2022 Office Visit Department of Yoni Cavanaugh Syncope An d Collapse Neurology in M.D., M.P.H. (Primary Dx) [place], [place] [address] [address] [phone] Social History Tobacco Use Types Packs/Day Years [...] or relatives? How often do you attend presybeterian or More than 4 times per year 02/16/2022 protestant services? Do you belong to any clubs or Yes 02/16/2022 organizations such as presybeterian groups, unions, fraternal or athletic groups, or [...] and syncope in October 10 while at [employer].For details of that event please see my [...] 1%. 4. No symptomatic events were noted. Ballast Regulator Operator: Kamala Marcus/ Bernardo Frederick She tells me today that when she lies down she feels palpitations but no more episodes of presyncopeor loss of consciousness. I placed an order yesterday for her to see wood setter and she is going to attempt to get one appointment scheduled she leaves today. Reviewed her Holter monitor with her but I told her that I would prefer that wood setter evaluate her. Not ordered an EEG but [...] diahrria ??? Phenylpropanolamine Other (see comments) ??? [place] Pollen-Rough Pigweed Other (see comments) Sneezing, nasal [...] and Family: Once a week ??? Attends Scientology Services: More than 4 times per year [...] Alert and oriented x 4. CRANIAL NERVES: insurance customer service specialist II-XII intact and symmetric. GAIT: Normal ASSESSMENT [...] Office Visit Cardiovascular Disease Nick Mcneil M.D. [address] [place] [phone] (Wo rk) documented as of this encounter Visit Diagnoses Diagnosis Syncope And Collapse - Primary documented in this encounter
--- OUTSIDE RECORDS SUMMARY | 2022-07-14 12:31 | XMS_ITS | Encounter Summary ---
:1945 Author Organization [facility] Address [address] [place] [address] Care Team Providers Name Role Phone Unavailable Primary Care Provider Unavailable Encounter Details Date Type Department Care Team Description 10/22/2019 Hospital Encounter Department of [place], [place], Pain Ba ck; Laboratory Medicine M.D. Weakness Leg; and Pathology, [address] [place] [address] Numbness Lower Extremity; [facility], in [place], [place] Weaknes s Upper Extremity; [place], [place] [address] Osteoporosis [address] [place] [address] [place], [place] (Work) [address] [phone] Social History Tobacco Use Types Packs/Day Years [...] More than 4 times per year 02/16/2022 denominational services? Do you belong to any clubs [...] Cardiovascular Disease Nick Mcneil M.D. [address] [place], [place] [phone] (Wo rk) documented as of this encounter Procedures Procedure Name Priority Date/Time Associated Comments Diagnosis 25-HYDROXYVITAMIN D2 Routine 10/22/2019 8:56 AM Pain [place] k Results for this AND D3, S QUARTZ CUTTER Weakness Leg procedure are in Numbness Lower the results Extremity section. Weakness Upper Extremity Osteoporosis PHOSPHORUS Routine 10/22/2019 8:56 AM Pain Back Results for this (INORGANIC), S QUARTZ CUTTER Weakness Leg procedure are in Numbness Lower the results Extremity section. Weakness Upper Extremity Osteoporosis CREATININE WITH Routine 10/22/2019 8:56 AM Pain Back Results for this EGFR, S/P QUARTZ CUTTER Weakness Leg procedure are in Numbness Lower the results Extremity section. Weakness Upper Extremity Osteoporosis CALCIUM, TOT, S/P Routine 10/22/2019 8:56 AM Pain Back Results for this QUARTZ CUTTER Weakness Leg procedure are in Numbness Lower the results Extremity section. Weakness Upper Extremity Osteoporosis ALBUMIN, S/P Routine 10/22/2019 8:56 AM Pain Back Results for this QUARTZ CUTTER Weakness Leg procedure are in Numbness Lower the results Extremity section. Weakness Upper Extremity Osteoporosis documented in this encounter Results 25-Hydroxyvitamin D2 and D3 (10/22/2019 8:56 AM QUARTZ CUTTER) P athologist Signature 25-Hydroxy D2 <4.0 ng/mL 10/23/2019 SDSC 1:02 PM QUARTZ CUTTER 25-Hydroxy D3 48 ng/mL 10/23/2019 SDSC 1:02 PM QUARTZ CUTTER 25-Hydroxy D 48 ng/mL 10/23/2019 SDSC Total 1:02 PM QUARTZ CUTTER Comment: ----REFERENCE VALUE---- 25-HYDROXY D TOTAL (D2+D3) Optimum level s in the healthy population are 20-50, patients with bone disease may benefit from higher levels within this r silas. ----ADDITIONAL INFORMATION---- This test was developed and its performa nce characteristics determined by [facility] in a manner consistent with CLIA requirements. This test has not been cleared or approved by the [place] d and Drug Administration. Specimen Anatomical Collection Method Collection Time Receive d Time (Source) Location / / Volume Laterality Blood (Blood, 10/22/2019 8:56 AM 10/22/19 Venous) QUARTZ CUTTER 12:10 PM QUARTZ CUTTER Elizabeth Jenkins M.D. LAB BLOOD ADD-ON Performing Organization Address City/[facility] Code Phon e Number [facility] [address] [place], [place] [address] [facility] [place] [address] Laboratory Medicine and Pathology [address] [place] Albumin (10/22/2019 8:56 AM QUARTZ CUTTER) P athologist Signature Albumin, S 4.4 3.5 - 5.0 10/22/2019 DTL g/dL 10:16 AM QUARTZ CUTTER Specimen Anatomical Collection Method Collection Time Receive d Time (Source) Location / / Volume Laterality Blood (Blood, 10/22/2019 8:56 AM 10/22/19 9:17 Venous) QUARTZ CUTTER AM QUARTZ CUTTER Elizabeth Jenkins M.D. LAB BLOOD ADD-ON Performing Organization Address City/State/ZIP Code Phon e Number [facility] - [address] [place], [place] [address] [place] [address] Laboratories-[facility] [address] Calcium, Total (10/22/2019 8:56 AM QUARTZ CUTTER) P athologist Signature Calcium, Total, 9.2 8.8 - 10.2 10/22/2019 DTL S mg/dL 10:16 AM QUARTZ CUTTER Specimen Anatomical Collection Method Collection Time Receive d Time (Source) Location / / Volume Laterality Blood (Blood, 10/22/2019 8:56 AM 10/22/19 9:17 Venous) QUARTZ CUTTER AM QUARTZ CUTTER Elizabeth Jenkins M.D. LAB BLOOD ADD-ON Performing Organization Address City/[facility] Code Phon e Number [facility] - 200 [place], [place] [address] [place] [address] Phosphorus Inorganic (10/22/2019 8:56 AM QUARTZ CUTTER) P athologist Signature Phosphorus 3.5 2.5 - 4.5 10/22/2019 DTL (Inorganic), S mg/dL 10:16 AM QUARTZ CUTTER Specimen Anatomical Collection Method Collection Time Receive d Time (Source) Location / / Volume Laterality Blood (Blood, 10/22/2019 8:56 AM 10/22/19 9:17 Venous) QUARTZ CUTTER AM QUARTZ CUTTER Elizabeth Jenkins M.D. LAB BLOOD ADD-ON Performing Organization Address [facility] Phon e Number [facility] - 200 [place], [place] [address] [place] [address] (ABNORMAL) Creatinine with Estimated GFR (10/22/2019 8:56 AM QUARTZ CUTTER) Analysis Performed At Patho logist Time Signature Creatinine 1.24 (H) 0.59 - 10/22/2019 DTL 1.04 mg/dL 10:16 AM QUARTZ CUTTER eGFR-Non 42 (L) >=60 10/22/2019 DTL Black/ mL/min/BSA 10:16 AM QUARTZ CUTTER Nigerian Comment: ----ADDITIONAL INFORMATION---- Estimated GFR calculated using the 2009 CKD_EPI creatinine equation. eGFR-Black/ 49 (L) >=60 mL/min/BSA 2019 10:16 AM QUARTZ CUTTER DTL Comment: ----ADDITIONAL INFORMATION---- Estimated GFR calculated using the 2009 CKD_EPI creatinine equation. Specimen Anatomical Collection Method Collection Time Receive d Time (Source) Location / / Volume Laterality Blood (Blood, 10/22/2019 8:56 AM 10/22/19 9:17 Venous) QUARTZ CUTTER AM QUARTZ CUTTER Elizabeth Jenkins M.D. LAB BLOOD ADD-ON Performing Organization Address City/[facility] Phon e Number [facility] - [address] [place], [place] [address] [place] [address] [facility] [address] documented in this encounter Visit Diagnoses Diagnosis Pain Back Weakness Leg Numbness Lower Extremity Weakness Upper Extremity Osteoporosis documented in this encounter
--- OUTSIDE RECORDS SUMMARY | 2022-07-14 12:31 | XMS_ITS | Encounter Summary ---
:1945 [address] [facility] Address [address] [place] [address] Care Team Providers Name Role Phone Unavailable Primary Care Provider Unavailable Reason for Referral Outpatient (Routine) - Closed Specialty Diagnoses / Procedures Referred By Contact Refer red To Contact Diagnoses Syncope Vasovagal Yoni Cavanaugh M.D., [facility] Procedures ECG 12 Lead M.P.H[facility] [address] [place] [phone] Referral ID Status Reason Start Date Expiration Date Visits Requ ested Visits Authorized [id number] Closed 04/11/2022 04/11/2023 1 1 Reason for Visit Outpatient (Routine) - Closed Specialty Diagnoses / Procedures Referred By Contact Refer red To Contact Diagnoses Syncope Vasovagal Yoni Cavanaugh M.D., [facility] Procedures ECG 12 Lead M.P.[facility] [address] [place] [phone] Referral ID Status Reason Start Date Expiration Date Visits Requ ested Visits Authorized [id number] Closed 04/11/2022 04/11/2023 1 1 Encounter Details Date Type Department Care Team Description 04/27/2022 Hospital Encounter Department of Yoni Cavanaugh Syncope Vasovagal Laboratory Medicine in Geeta Westbrook, [place], [place] M.P.H. [address] [place], [place] [phone] Social History Tobacco Use Types Packs/Day Years [...] or relatives? How often do you attend pentecostalism or More than 4 times per year 02/16/2022 latter-day services? Do you belong to any clubs or Yes 02/16/2022 organizations such as pentecostalism groups, unions, fraternal or athletic groups, or [...] (TOPROL-XL) 25 mg 24 hr daily. tablet documented as of this encounter Plan of Treatment Upcoming Encounters Date Type Specialty Care Team Description 07/27/2022 Office Visit Cardiovascular Disease Nick Mcneil M.D. [address] [place] [address] [place] [phone] (Wo rk) documented as of this encounter Procedures Procedure Name Priority Date/Time Associated Diagnosis Comme nts ECG Routine 04/27/2022 9:12 AM Syncope Vasovagal Resu lts for this CDT procedure are i n the results section . documented in this encounter Results ECG 12 Lead (04/27/2022 9:12 AM CDT) P athologist Signature Ventricular Rate 75 BPM MUSE ECG/Min [place] Interval 164 ms MUSE QRSD Interval 134 ms MUSE QT Interval 410 ms MUSE QTC Interval 457 ms MUSE P [place] 66 degrees MUSE R [place] -73 degrees MUSE T Wave [place] 31 degrees MUSE Specimen Anatomical Collection Method [...]
--- OUTSIDE RECORDS SUMMARY | 2022-07-14 12:31 | XMS_ITS | Encounter Summary ---
:1945 Author Organization [facility] Address [address] [place] [address] Care Team Providers Name Role Phone Unavailable Primary Care Provider Unavailable Reason for Referral Outpatient (Routine) - Authorized Specialty Diagnoses / Procedures Referred By Contact Refer red To Contact Cardiovascular Disease Nick Mcneil [facility] M.D. [address] [place] [address] Referral ID Status Reason Start Date Expiration Date Visits V isits Requested Authorized [id number] Authorized 05/11/2022 05/11/2023 1 1 Outpatient (Routine) - Closed Specialty Diagnoses / Procedures Referred By Contact Refer red To Contact Diagnoses Syncope And Near Syncope Nick Mcneil M.D. [facility] Procedures ECG Ambulatory Real Time Cardiac Monitoring [address] [place] [address] Referral ID Status Reason Start Date Expiration Date Visits Requ ested Visits Authorized [id number] Closed 05/11/2022 05/11/2023 1 1 Appointment Request (Routine) - Closed Specialty Diagnoses / Procedures Referred By Contact Refer red To Contact Diagnoses Dyspnea On Exertion Nick Mcneil M.D. Procedures Pulmonary Function Tests [address] [place] [address] Referral ID Status Reason Start Date Expiration Date Visits Requ ested Visits Authorized [id number] Closed 05/11/2022 05/11/2023 1 Outpatient (Routine) - Closed Specialty Diagnoses / Procedures Referred By Contact Refer red To Contact Diagnoses Syncope And Near Syncope Dyspnea On Exertion Nick Mcneil M.D. [facility] Procedures Echo Stress [address] [place] [address] Referral ID Status Reason Start Date Expiration Date Visits Requ ested Visits Authorized [id number] Closed 05/11/2022 05/11/2023 1 1 Reason for Visit Reason Comments Syncope Vasovagal Outpatient (Routine) - Closed Specialty Diagnoses / Referred By Contact Referred To Contact Procedures Cardiovascular Diseases / Diagnoses Syncope Vasovagal Yoni Cavanaugh, [facility] Cardiovascular Disease M.Kenny, M.P.H. [address] [address] Referral ID Status Reason Start Date Expiration Date Visits Requ ested Visits Authorized [id number] Closed 04/11/2022 04/11/2023 1 1 Encounter Details Date Type Department Care Team Description 05/11/2022 Comprehensive Visit Department of Tarun Syncope And Near Syncope (Primary Dx); Cardiovascular Nick Reyes M.D. Syncope Vasovagal; Diseases in [facility] [address] Dyspnea On Exertion [place], [place] [address] [address] [place], [place] [phone] (Work) [phone] Social History Tobacco Use Types Packs/Day Years [...] More than 4 times per year 02/16/2022 pentecostal services? Do you belong to any clubs [...] or slept in a alf (including now)? Education Answer Date Recorded What [...] event occurred October 2021 while standing in mormon. Difficulty to properly characterize the event; memory [...] Hyperlipidemia, per primary care provider. Lipids from [place] reviewed (LDL 136, HDL 60, triglycerides 119 [...] agreement with the plan. CARDIOLOGY CONSULTATION Location: [facility]. Referring Provider: Yoni Cavanaugh M.D., M.P.H. SUBJECTIVE CHIEF COMPLAINT/REASON FOR CONSULT No chief complaint on file. HISTORY OF PRESENT ILLNESS Ms. Emmy Anderson is a very pleasant 77 y.o. female who presents to [facility] for evaluation after loss of consciousness. Her primary care provider is No primary care provider on file.. Previously seen by Cardiology: No. Presenting unaccompanied by family. The patient [facility] after episode of loss of consciousness, October 10/2022. She states she was standing in mormon on suddenly everything became fuzzy and white. [...] by primary care provider. Lipids done in [place] reviewed. Currently undergoing treatment for UTI. No [...] and she does water aerobics at the [employer] times a week. She has been noticed [...] (see comments) diahrria Phenylpropanolamine Other (see comments) [place] Pollen-Rough Pigweed Other (see comments) Sneezing, nasal [...] Friends and Family: Once a week Attends Amish Services: More than 4 times per year [...] Date Value Ventricular Rate ECG/Min 04/27/2022 75 OH Interval 04/27/2022 164 QRSD Interval 04/27/2022 134 QT Interval 04/27/2022 410 QTC Interval 04/27/2022 457 P [place] 04/27/2022 66 R [place] 04/27/2022 -73 T Wave [place] 04/27/2022 31 Hospital Outpatient Visit on 02/23/2022 Component Date Value Min Heart Rate 02/25/2022 49 Max Heart Rate 02/25/2022 120 Mean Heart Rate 02/25/2022 74 VE Total Beats 02/25/2022 205 VE Percent Beats 02/25/2022 less than 1 SVE Total Beats 02/25/2022 109 SVE Percent Beats 02/25/2022 less than 1 AF Count 02/25/2022 0 AF Duration 02/25/2022 0 AF Foley 02/25/2022 0 Symptom Count 02/25/2022 0 ECG [...] Office Visit Cardiovascular Disease Nick Mcneil M.D. [address] [place] [address] [place], [place] [phone] (Wo rk) Scheduled Referrals [...] Duration 0 sec duration INFOBIONIC MOME AF Foley 0% percent INFOBIONIC MOME VT Runs 0 [...] ??to 86 BPM. No ectopy was noted. Internet Cafe Manager: NATASHA Gómez/ Ashleigh Delaplaine Procedure Note Marc Lau M.D. - 06/25/2022Formatt [...] to 86 BPM. No ectopy was noted. [employer] Manager: NATASHA Gómez/ Ashleigh Delaplaine Nick Mcneil M.D. CV CARDIAC SERVICES PROCEDUR ES Performing Organization Address City/State/ZIP Code Phon e Number INFOBIONIC MOME INFOBIONIC MOME NA ECHO STRESS 2D WITH COLOR, DOPPLER AND CONTRAST (05/19/2022 10:11 AM CDT) [facility] gist Method Time Signature Ejection Fraction 62 [...] CV EIMS [facility]I At Peak Stress 1 [facility] EIMS Anatomical Region Laterality Modality Echocardiography [...] 10. O2 uptake data detailed in the [facility] Medical Record (Cardiopulmonary (VO2) Exercise Test). [...] border definition. Imaging enhancement agent administered per [facility] ardiography Contrast Administration Protocol Reference Document [id number]. Patient met an inclusion criterion and did [...] 10. O2 uptake data detailed in the [facility] Medical Record (Cardiopulmonary (VO2) Exercise Test). [...] per Echocardiography Contrast Administration Protocol Reference Document [id number]. Patient met an inclusion criterion and did [...] Time Signature VC MAX 2.18 L 05/19/2022 [facility] PROVDILATATION 9:[address] FVC PROVDILATATION 2.16 L 05/19/2022 [facility] 9:15 AM CDT SUITE FEV 1 1.64 L 05/19/2022 [facility] PROVDILATATION 9:15 AM CDT SUITE FEV1/FVC 75.86 % 05/19/2022 [facility] PROVDILATATION 9:15 AM CDT SUITE FEF 25-75% 1.37 L/s 05/19/2022 [facility] PROVDILATATION 9:15 AM CDT SU[address] PEF PROVDILATATION 3.36 L/s 05/19/2022 [facility] 9:15 AM CDT SUITE FET PROVDILATATION 8.05 sec 05/19/2022 [facility] 9:15 AM CDT SUITE [id number] 100.00 % 05/19/2022 [facility] 9:15 AM CDT SUITE PulseRest 67.00 1/min 05/19/2022 [facility] 9:15 AM CDT SUITE F3HdoBywd 96.00 % 05/19/2022 [facility] 9:15 AM CDT SUITE PulseExer 101.00 1/min [...] CDT SUITE FET PROVOCATION 9.09 sec 05/19/2022 [facility] 9:15 AM CDT SUITE VC MAX [...] AM CDT SUITE CUMULATED DOSE 2.000 05/19/2022 [facility] PROVDILATATION 9:15 AM CDT SUITE PD 20 05/19/2022 [facility] 9:15 AM CDT SUITE SUBSTANCE PROVBASE -- 05/19/2022 [facility] 9:15 AM CDT SUITE SUBSTANCE Methacholine 05/19/2022 [facility] PROVOCATION 9:15 AM CDT SUITE SUBSTANCE Combivent 05/19/2022 [facility] PROVDILATATION 9:15 AM CDT SUITE % PRED VC MAX 97 % % 05/19/2022 [facility] 9:15 AM CDT SUITE FVC% 97 % % 05/19/2022 [facility] 9:15 AM CDT SUITE FEV1% 95 % % 05/19/2022 [facility] 9:15 AM CDT SUITE % PRED FEV1/FVC 97 % % 05/19/2022 [facility] 9:15 AM CDT SUITE % PRED FEF 25-75% 91 % % 05/19/2022 [facility] 9:15 AM CDT SUITE % PRED PEF 78 % % 05/19/2022 [facility] 9:15 AM CDT SUITE DLCO% 63 % % 05/19/2022 [facility] 9:15 AM CDT SUITE PRED VC MAX 2.40 05/19/2022 [facility] 9:15 AM CDT SUITE PRED FVC 2.40 05/19/2022 [facility] 9:15 AM CDT SUITE PRED FEV 1 1.83 05/19/2022 [facility] 9:15 AM CDT SUITE PRED FEV1/FVC 77.3 05/19/2022 [facility] 9:15 AM CDT SUITE PRED FEF 25-75% 1.51 05/19/2022 [facility] 9:15 AM CDT SUITE PRED PEF 5.0 05/19/2022 [facility] 9:15 AM CDT SUITE PRED DLCO [...] Organization Address City/State/ZIP Code Phon e Number [facility] NA SARS Coronavirus-2 RNA, V Asymptomatic (05/16/2022 9:57 AM CDT) [facility] Method Time Signature SARS-CoV-2 Swab, 05/16/2022 MKTO [...] pe rformed using the Aptima SARS-CoV-2 assay ([employer] on the [employer] tem under emergency use authorization (EUA) by the U.S. Food and Drug Administ ration. Fact sheets for this EUA assay can be fo und at the following links: For Healthcare Providers: https://www.fd a.gov/media/769308/download For Patients: https://www.fda.gov/media/ 467708/download Specimen Anatomical Collection Method Collection Time Receive d Time (Source) Location / / Volume Laterality Varies 05/16/2022 9:57 AM 4:43 (Nasopharynx) CDT PM CDT Nick Mcneil M.D. LAB MICROBIOLOGY - GENERAL O RDERABLES Performing Organization Address City/State/ZIP Code Phon e Number [facility]- [address] [place] [address] [place] [address] System in [place] [address] [facility] documented in this encounter Visit Diagnoses Diagnosis Syncope And Near Syncope - Primary Syncope Vasovagal Dyspnea On Exertion Dyspnea On Exertion Syncope And Near Syncope Dyspnea On Exertion Syncope And Near Syncope documented in this encounter
--- OUTSIDE RECORDS SUMMARY | 2022-07-14 12:31 | XMS_ITS | Encounter Summary ---
:1945 Author Organization [facility] Address [address] [place] [address] Care Team Providers Name Role Phone Unavailable Primary Care Provider Unavailable Reason for Visit MRI/CAT/PET Scan (Routine) - Closed Specialty Diagnoses / Procedures Referred By Contact Refer red To Contact Radiology Diagnoses Pain Back Weakness Leg Numbness Lower Extremity Weakness Upper Extremity Osteoporosis Elizabeth Jenkins M.D. [facility] Procedures MR Lumbar Spine without IV Contrast [address] [place] [address] Referral ID Status Reason Start Date Expiration Date Visits Requ ested Visits Authorized [id number] Closed 10/18/2019 10/17/2020 1 1 Encounter Details Date Type Department Care Team Description 10/23/2019 Hospital Encounter Department of Elizabeth Jenkins Pain Ba ck; RadiologyDino M.D. Weakness Leg; [facility] in [place], [address] [place] [address] Numbness Lower Extremity; [place], [place] Weakness Upper Extremity; [address] [place] [phone] Osteoporosis [place], [place] [phone] (Work) [phone] Social History Tobacco Use Types Packs/Day Years [...] or relatives? How often do you attend episcopal or More than 4 times per year 02/16/2022 synagogue services? Do you belong to any clubs or Yes 02/16/2022 organizations such as episcopal groups, unions, fraternal or athletic groups, or [...] 161.2 cm (5' 3.47) 10/23/2019 4:51 PM QUALITY ASSURANCE GROUP LEADER Body Mass Index - - documented in [...] mg capsule documented as of this encounter Nursing Notes Justine Whitfield, RNikN. - 10/23/2019 5:30 PM CST A review of the patients current medications was completed under the context of radiology care priorto contrast/medication administration. ITY ASSURANCE GROUP LEADER documented in this encounter Plan of Treatment Upcoming Encounters Date Type Specialty Care Team Description 07/27/2022 Office Visit Cardiovascular Disease Nick Mcneil M.D. [address] [place] [phone] (Wo rk) documented as of this encounter Procedures Procedure Name Priority Date/Time Associated Comments Diagnosis MR CERVICAL AND RAD - Routine 10/23/2019 6:55 Pain Back Results for this THORACIC AND (most inpatients PM QUALITY ASSURANCE GROUP LEADER Weakness Leg procedure are in LUMBAR SPINE WOW and all Numbness Lower the resul ts IV CONTRAST outpatients) Extremity section. Weakness Upper Extremity Osteoporosis documented in this encounter Results MR Cervical and Thoracic and Lumbar Spine WOW IV Contrast (10/23/2019 6:55 PM QUALITY ASSURANCE GROUP LEADER) Anatomical Region Laterality Modality Spine, Cervical Spine, Neuroradiology RST LOS, N/A Magnetic Resonance Neuroradiology ARZ LOS, Neuroradiology FLA [facility] Specimen (Source) Anatomical Collection Method Collection Time Re ceived Time Location / / Volume Laterality 10/24/2019 1:56 PM QUALITY ASSURANCE GROUP LEADER Impressions 10/24/2019 3:08 PM QUALITY ASSURANCE GROUP LEADER Overall mild degenerative changes within the spine, with compression deformities compatible with osteoporosis . Nothing to explain the patient's numbness and weakness in all extremities . Narrative 10/24/2019 3:08 PM QUALITY ASSURANCE GROUP LEADER EXAM: MR CERVICAL AND THORACIC AND LUMBAR [...] injection 0.01-30 mL Given 10/23/2019 6:15 PM QUALITY ASSURANCE GROUP LEADER 8 m L (GADAVIST) 0.01-30 mL, intravenous, Once in imaging, contrast, Starting on Mon10/23/19 at 1651, For 1 dose, Imaging Protocol Orders, Dose per Radiant Medication Guidelines documented in this encounter
--- OUTSIDE RECORDS SUMMARY | 2022-07-14 12:31 | XMS_ITS | Encounter Summary ---
:1945 Author Organization [facility] Address [address] [place] [address] Care Team Providers Name Role Phone Unavailable Primary Care Provider Unavailable Encounter Details Date Type Department Care Team Description 04/24/2020 Clinical Communication Department of Deepali Harrington, Dermatology in .[place], [place] [address] [facility] [address] [place] [phone] [phone] Social History Tobacco Use Types Packs/Day Years [...] or relatives? How often do you attend amish or More than 4 times per year 02/16/2022 zoroastrianism services? Do you belong to any clubs or Yes 02/16/2022 organizations such as amish groups, unions, fraternal or athletic groups, or [...] skin check. She can be reached at [phone]. Thank you documented in this encounter Plan of Treatment Upcoming Encounters Date Type Specialty Care Team Description 07/27/2022 Office Visit Cardiovascular Disease Nick Mcneil M.D. [address] [place] [phone] (Wo rk) documented as of this encounter Visit Diagnoses Not on filedocumented in this encounter
--- OUTSIDE RECORDS SUMMARY | 2022-07-14 12:31 | XMS_ITS | Encounter Summary ---
:1945 Author Organization [facility] Address [address] [place] [address] Care Team Providers Name Role Phone Unavailable Primary Care Provider Unavailable Reason for Visit Appointment Request (Routine) - Closed Specialty Diagnoses / Procedures Referred By Contact Refer red To Contact Diagnoses Dyspnea On Exertion Nick Mcneil M.D. Procedures Pulmonary Function Tests [address] [place] [address] Referral ID Status Reason Start Date Expiration Date Visits Requ ested Visits Authorized [id number] Closed 05/11/2022 05/11/2023 1 Encounter Details Date Type Department Care Team Description 05/19/2022 Diagnostic Division of Pulmonary Nick Mcneil, Dyspnea On Exertion Medicine in [facility] [address] [facility] [address] [place] [phone] (Wo rk) Social History Tobacco [...] place to sleep or slept in a custodial (including now)? Education Answer Date Recorded What [...] Office Visit Cardiovascular Disease Nick Mcneil M.D. [address] [place] [phone] (Wo rk) documented as of this encounter Procedures Procedure Name Priority Date/Time Associated Diagnosis Comme nts PULMONARY FUNCTION Routine 05/19/2022 7:29 AM Dyspnea On Exert ion Results for this TESTS CDT procedure are i n the results section. documented in this encounter Results Pulmonary Function Tests (05/19/2022 7:29 AM CDT) Component Value Ref Test Analysis Performed At [facility] Range Method Time Signature VC MAX 2.18 L 05/19/2022 [facility] PROVDILATATION 9:15 AM CDT [address] FVC PROVDILATATION 2.16 L 05/19/2022 [facility] 9:15 AM CDT SUITE FEV [...] [facility] 9:15 AM CDT SUITE [id number] 100.00 % 05/19/2022 [facility] 9:15 AM CDT SUITE PulseRest 67.00 1/min 05/19/2022 [facility] 9:15 AM CDT SUITE [id number] 96.00 % 05/19/2022 [facility] 9:15 AM CDT SUITE PulseExer 101.00 1/min 05/19/2022 [facility] 9:15 AM CDT SUITE EXER TIME [...] CDT SUITE FEF 25-75% 1.03 L/s 05/19/2022 [facility] PROVOCATION 9:15 AM CDT SUITE PEF PROVOCATION 2.70 L/s 05/19/2022 [facility] 9:15 AM CDT SUITE FET PROVOCATION 9.09 sec 05/19/2022 [facility] 9:15 AM CDT SUITE VC MAX 2.32 L 05/19/2022 [facility] 9:15 AM CDT SUITE FVC PROVBASE 2.32 L 05/19/2022 [facility] 9:15 AM CDT SUITE FEV 1 PROVBASE 1.75 L 05/19/2022 [facility] 9:15 AM CDT SUITE FEV1/FVC PROVBASE 75.20 % 05/19/2022 [facility] 9:15 AM CDT SUITE FEF 25-75% 1.38 L/s 05/19/2022 [facility] PROV[facility] 9:15 AM CDT SUITE PEF PROVBASE 3.93 L/s 05/19/2022 [facility] 9:15 AM CDT SUITE FET PROVBASE 11.10 sec 05/19/2022 [facility] 9:15 AM CDT SUITE DLCO SINGLE BREATH 11.06 ml/(min* 05/19/2022 [facility] PROVBASE mmHg) 9:15 AM CDT SUITE VA SINGLE BREATH 3.48 L 05/19/2022 [facility] PROVBASE 9:15 AM CDT SUITE CUMULATED DOSE 1063.278?? 05/19/2022 [facility] 9:15 AM CDT SUITE CUMULATED DOSE 2.000 05/19/2022 [facility] PROVDILATATION 9:15 AM CDT SUITE PD 20 05/19/2022 [facility] 9:15 AM CDT SUITE SUBSTANCE PROVBASE -- 05/19/2022 [facility] 9:15 AM CDT SUITE SUBSTANCE Methacholine 05/19/2022 [facility] PROVOCATION 9:15 AM CDT SUITE SUBSTANCE Combivent 05/19/2022 [facility] PROVDILATATION 9:15 AM CDT SUITE % PRED VC MAX 97 % % 05/19/2022 [facility] 9:15 AM CDT SUITE FVC% 97 % % 05/19/2022 [facility] 9:15 AM CDT SUITE FEV1% 95 % % 05/19/2022 [facility] 9:15 AM CDT SUITE % PRED FEV1/FVC 97 % % 05/19/2022 [facility] 9:15 AM CDT SUITE % PRED FEF 25-75% 91 % % 05/19/2022 [facility] 9:15 AM CDT SUITE % PRED PEF 78 % % 05/19/2022 [facility] 9:15 AM CDT SUITE DLCO% 63 % % 05/19/2022 [facility] 9:15 AM CDT SUITE PRED VC MAX 2.40 05/19/2022 [facility] 9:15 AM CDT SUITE PRED FVC 2.40 05/19/2022 [facility] 9:15 AM CDT SUITE PRED FEV 1 1.83 05/19/2022 [facility] 9:15 AM CDT SUITE PRED FEV1/FVC 77.3 05/19/2022 [facility] 9:15 AM CDT SUITE PRED FEF 25-75% 1.51 05/19/2022 [facility] 9:15 AM CDT SUITE PRED PEF 5.0 05/19/2022 [facility] 9:15 AM CDT SUITE PRED DLCO 17.7 05/19/2022 [facility] 9:15 AM CDT SUITE Specimen (Source) Anatomical Collection Method Collection Time Re ceived Time Location / / Volume Laterality 05/19/2022 7:29 AM CDT Impressions [facility] - 05/19/2022 9:15 AM C DT Negative [...] Organization Address City/State/ZIP Code Phon e Number [facility] NA documented in this encounter Visit [...]
--- OUTSIDE RECORDS SUMMARY | 2022-07-14 12:31 | XMS_ITS | Encounter Summary ---
:1945 Author Organization [facility] Address [address] [place] [address] Care Team Providers Name Role Phone Unavailable Primary Care Provider Unavailable Reason for Referral Outpatient (Routine) - Authorized Specialty Diagnoses / Procedures Referred By Contact Refer red To Contact Diagnoses Post Concussion Syndrome Dizziness Syncope Vasovagal Yoni Cavanaugh M.D., [facility] [place] Region Procedures ECG Heart rhythm monitor (Holter) M.P.H. [address] [place] [address] Referral ID Status Reason Start Date Expiration Date Visits V isits Requested Authorized [id number] Authorized 02/16/2022 02/16/2023 1 1 MRI/CAT/PET Scan (Routine) - Closed Specialty Diagnoses / Procedures Referred By Contact Refer red To Contact Radiology Diagnoses Post Concussion Syndrome Dizziness Yoni Cavanaugh M.D., [facility] [place] Procedures MR Brain without IV Contrast ID MRI BRAIN WO CNTRST HC MRI BRAIN WO CNTRST [facility] [address] [place] [address] Referral ID Status Reason Start Date Expiration Date Visits Requ ested Visits Authorized [id number] Closed 02/16/2022 02/16/2023 1 1 Reason for Visit Reason Comments Dizziness Weakness - Generalized Ref. Dr. Krishnan [facility] Appointment Request (Routine) - Closed Specialty Diagnoses / Procedures Referred By Contact Refer red To Contact Neurology Referral ID Status Reason Start Date Expiration Date Visits Requ ested Visits Authorized [id number] Closed 02/14/2022 02/14/2023 1 Encounter Details Date Type Department Care Team Description 02/16/2022 Comprehensive Visit Department of Yoni Cavanaugh Co ncussion Syndrome (Primary Dx); Neurology in [place], Dizziness; [place], [place] M.P.H. Syncope Vasovagal [address] [facility] [address] [place], [place] [phone] [address] Social History Tobacco Use Types Packs/Day [...] cannot be sent through Care Everywhere. Concussion (Kyrgyz)documented in this encounter Consult Notes Yoni Cavanaugh M.D., M.P.H. - 02/16/2022 8:00 AM CDT SUBJECTIVE CHIEF COMPLAINT / REASON FOR VISIT Emmy Anderson is a 76 y.o. female who presents for evaluation of Dizziness and Weakness - Generalized (Ref. Dr. Krishnan [facility]). HISTORY OF PRESENT ILLNESS 76-year-old patient presents for evaluation of dizziness and weakness that have resulted after a fall on October 10 while at worship. She tells the story that she had been standing in a turned to put him on offering in the tray and as she turned to walk away she felt her vision went white or hazy and then the next thing she recalls is waking up on the floor. Apparently the fall was unwitnessed but people hurt it and the Confucianism will stand show core vibrating I would [...] diahrria ??? Phenylpropanolamine Other (see comments) ??? [place] Pollen-Rough Pigweed Other (see comments) Sneezing, nasal [...] and Family: Once a week ??? Attends Moravian Services: More than 4 times per year [...] Alert and oriented x 4. CRANIAL NERVES: customer service correspondence clerk II-XII intact and symmetric. MOTOR: Full strength [...] Office Visit Cardiovascular Disease Nick Mcneil M.D. [address] [place] [phone] (Wo rk) documented as of this encounter Results HOLTER MONITOR - IN CLINIC SUPERVISOR CORRESPONDENCE SECTION (02/25/2022 1:58 PM CDT) [facility] Method Time Signature Min Heart Rate 49 [...] AF Duration 0 duration INFOBIONIC MOME AF [place] 0 percent INFOBIONIC MOME Symptom Count 0 [...] 1%. 4. No symptomatic events were noted. Blanket Winder Helper: Kamala Marcus/ Otoniel, Ad am Procedure Note [...] 1%. 4. No symptomatic events were noted. Blanket Winder Helper: Kamala Marcus/ Phani Frederick am Yoni Cavanaugh M.D., M.P.H. CV CARDIAC SERVICES PROCED URES Performing Organization Address City/State/ZIP Code Phon e Number [facility] INFO[facility]ION[facility] NA MR Brain without IV Contrast (02/17/2022 12:22 PM CDT) Anatomical Region Laterality Modality Head, Brain, Neuroradiology RST LOS, Neuroradiology ARZ N/A Magnetic Resonance LOS, Neuroradiology FLA [facility] Specimen (Source) Anatomical Collection Method Collection Time [...]
--- OUTSIDE RECORDS SUMMARY | 2022-07-14 12:31 | XMS_ITS | Encounter Summary ---
:1945 Author Organization [facility] Address [address] [place] [address] Care Team Providers Name Role Phone Unavailable Primary Care Provider Unavailable Reason for Visit Reason Comments Skin Check Encounter Details Date Type Department Care Team Description 11/26/2019 Office Visit Department of Deepali Harrington, Natty Pittman ple (Primary Dx); Dermatology in [place] Ker[facility]; [place], [place] [address] [place] [address] Keratosis Seborrheic; [address] [place] [address] [place] [phone] Social History Tobacco Use Types Packs/Day Years [...] or relatives? How often do you attend congregation or More than 4 times per year 02/16/2022 holiness services? Do you belong to any clubs or Yes 02/16/2022 organizations such as congregation groups, unions, fraternal or athletic groups, or [...] extremities. My nurse (Tana) served as a renal dialysis technician for the entirety of the exam. Examination [...] Electronically Signed: josiane Waters. 11/26/2019. 12:54 PM ELECTRIC MOTORMAN. I, Deepali Harrington M.D., personally performed the services described in this documentation. All medical record entries made by the scribe were at my direction and in my presence. I have reviewed the chart and discharge instructions (if applicable) and agree that the record reflects my personal performance and is accurate and complete. Deepali Harrington M.D. . 11/26/2019. 1:04 PM ELECTRIC MOTORMAN. TRIC MOTORMAN documented in this encounter Plan of Treatment Upcoming Encounters Date Type Specialty Care Team Description 07/27/2022 Office Visit Cardiovascular Disease Nick Mcneil M.D. 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
--- OUTSIDE RECORDS SUMMARY | 2022-07-14 12:31 | XMS_ITS | Encounter Summary ---
:[address] [facility] Address [address] [place] [address] Care Team Providers Name Role Phone Unavailable Primary Care Provider Unavailable Reason for Visit Reason Comments Skin Check Appointment Request (Routine) - Closed Specialty Diagnoses / Procedures Referred By Contact Refer red To Contact Family Medicine Referral ID Status Reason Start Date Expiration Date Visits Requ ested Visits Authorized [id number] Closed 10/05/2020 10/05/2021 1 1 Encounter Details Date Type Department Care Team Description 12/21/2020 Office Visit Department of Deepali Harrington, Keratosis Seborrheic (Primary Dx); [facility] [place] [facility] [place], [place] [address] [email or web address]] Keratosis Actinic [address] [place] [phone] Social History Tobacco Use Types Packs/Day Years [...] or relatives? How often do you attend nondenominational or More than 4 times per year 02/16/2022 pentecostal services? Do you belong to any clubs or Yes 02/16/2022 organizations such as nondenominational groups, unions, fraternal or athletic groups, or [...] place to sleep or slept in a prison (including now)? Education Answer Date Recorded What is the highest level of school Master's degree (e.g., Rohan Gallagher, MS, 12/09/2020 you have completed or the highest Surya, MEd, COMPONENT OVERHAUL OPERATOR, LIVE) degree you have received? Sex Assigned [...] Office Visit Cardiovascular Disease Nick Mcneil M.D. 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
--- OUTSIDE RECORDS SUMMARY | 2022-07-14 12:32 | XMS_ITS | Encounter Summary ---
:1945 Author Organization [facility] Address [address] [place] [address] Care Team Providers Name Role Phone Unavailable [...] More than 4 times per year 02/16/2022 mormon services? Do you belong to any clubs [...] Electronically signed by: ?? Jose Rafael Caballero [phone] [id number] 7 22:50 I have reviewed the [...] . Electronically signed by: Jose Rafael Caballero [phone] R148 22:50 I have reviewed the films/images [...] Electronically signed by: ?? Juan Robertson MD [phone] ([id number]) 20-Jul-20 07 17:15 I have reviewed the films/images and agr ee with the above interpretation. Electronically signed by: ?? Oz Decker MD [phone] [id number] 20-Jul-2007 1 9:02 Procedure Note Gwyn [...] film. Electronically signed by: Juan Robertson MD [phone] ([id number]) 20-Jul-20 07 17:15 I have reviewed the films/images and agr ee with the above interpretation. Electronically signed by: Oz Decker MD [phone] [id number] 20-Jul-2007 1 9:02 A. Pati Bundy [...] Electronically signed by: ?? Sam Palm MD. [phone] 19-Jul-2007 21:23 Procedure Note Sam Palm M.D. [...] evaluation. Electronically signed by: Sam Palm MD. [id number] 19-Jul-2007 21:23 Elizabeth TEJEDA MRI PROCEDURES documented in this encounter Visit Diagnoses Not on filedocumented in this encounter
--- OUTSIDE RECORDS SUMMARY | 2022-07-14 12:32 | XMS_ITS | Encounter Summary ---
:1945 Author Organization [facility] Address [address] [place] [address] Care Team Providers Name Role Phone Unavailable Primary Care Provider Unavailable Reason for Referral Outpatient (Routine) - Closed Specialty Diagnoses / Procedures Referred By Contact Refer red To Contact Diagnoses Pain Back Weakness Leg Numbness Lower Extremity Weakness Upper Extremity Osteoporosis Elizabeth Jenkins M.D. [facility] Procedures BMD Bone Density Spine Hips [address] [place] [phone] Referral ID Status Reason Start Date Expiration Date Visits Requ ested Visits Authorized [id number] Closed 10/18/2019 10/17/2020 1 1 utpatient (Routine) - Closed Specialty Diagnoses / Procedures Referred By Contact Refer red To Contact Endocrinology Diagnoses Pain Back Weakness Leg Numbness Lower Extremity Weakness Upper Extremity Osteoporosis Elizabeth Jenkins M.D. [facility] [address] [place] [phone] Referral ID Status Reason Start Date Expiration Date Visits Requ ested Visits Authorized [id number] Closed 10/18/2019 10/17/2020 1 1 Scheduling Instructions Has seen Dr. Cha in the past RI/CAT/PET Scan (Routine) - Closed Specialty Diagnoses / Procedures Referred By Contact Refer red To Contact Radiology Diagnoses Pain Back Weakness Leg Numbness Lower Extremity Weakness Upper Extremity Osteoporosis Elizabeth Jenkins M.D. [facility] Procedures MR Lumbar Spine without IV Contrast [address] [place] [address] Referral ID Status Reason Start Date Expiration Date Visits Requ ested Visits Authorized [id number] Closed 10/18/2019 10/17/2020 1 1 RI/CAT/PET Scan (Routine) - Closed Specialty Diagnoses / Procedures Referred By Contact Refer red To Contact Radiology Diagnoses Pain Back Weakness Leg Numbness Lower Extremity Weakness Upper Extremity Osteoporosis Elizabeth Jenkins M.D. [facility] Procedures MR Thoracic Spine without IV Contrast [address] [place] [address] Referral ID Status Reason Start Date Expiration Date Visits Requ ested Visits Authorized [id number] Closed 10/18/2019 10/17/2020 1 1 L EXPENSE AGENT Reason for Visit Reason Onset Date Comments Return Visit 10/14/2019 Encounter Details Date Type Department Care Team Description 10/14/2019 Clinical Communication Department of Elizabeth Jenkins Ret urn Visit Orthopedic Surgery in [place], [place] [address] [facility] [place] [address] [place] [phone] Social History Tobacco Use Types Packs/Day Years [...] or relatives? How often do you attend adventist or More than 4 times per year 02/16/2022 mu-ism services? Do you belong to any clubs or Yes 02/16/2022 organizations such as adventist groups, unions, fraternal or athletic groups, or [...] or slept in a fdc (including now)? Sex Assigned at Date Recorded [...] states good understanding of the information discussed. L EXPENSE AGENT Telephone Encounter - Lupe Soria - 10/28/2019 5:02 PM CST Patient returning Robert's call L EXPENSE AGENT Telephone Encounter - Lisa Denis R.N. - 10/28/2019 2:27 PM CST Attempted to reach patient x1 Contact number used: [phone] Nature of call: Recommendations for patient Left msg to return call. L EXPENSE AGENT Telephone Encounter - Che Neff - 10/18/2019 3:16 PM CST Confirmed 1-, 1-22 and 2-4 appointments with the patient. Sent PAG in the mail and emailed her thelink for the portal. L EXPENSE AGENT Telephone Encounter - Lisa Denis R.N. - 10/18/2019 1:55 PM CST Che, Orders have been placed for MRIs and Endo. Please let me know if you have any questions. Thanks, Robert L EXPENSE AGENT Telephone Encounter - Lupe Soria - 10/17/2019 9:46 AM CST X-rays available for review and copy of report sent to scanning and copy in service box L EXPENSE AGENT Telephone Encounter - Lisa Denis R.N. - [...] she would be willing to come to [place] for this. Advised her that Dr. Jenkins would also like her to see a bone judge's clerk. She states she hasn't seen one in a while and is in agreement with this plan. Advised her that one of our schedulers will be in contact with her to get all of this arranged. She states good understanding of everything discussed and is in agreement with the plan. L EXPENSE AGENT Telephone Encounter - Lisa Denis R.N. - 10/15/2019 10:02 AM FINAL EXPENSE AGENT Attempted to reach patient x1 Contact number used: [phone] Nature of call: Return call from a patient msg Left msg to return call. L EXPENSE AGENT Telephone Encounter - Carolyne Pal - 10/14/2019 [...] return and if any testing is needed. ([phone]) L EXPENSE AGENT documented in this encounter Plan of Treatment Upcoming Encounters Date Type Specialty Care Team Description 07/27/2022 Office Visit Cardiovascular Disease Nick Mcneil M.D. [address] [place] [address], [place] [phone] (Wo rk) Scheduled Referrals Name Type Priority Associated Order Schedule Diagnoses Endocrinology - Outpatient Referral Routine Pain Back Expected: Osteoporosis / Weakness Leg 10/18/2019 metabolic bone Numbness Lower (Approximat e), disorders consult Extremity Expires: (clinic) Weakness Upper 10/18/2022 Extremity Osteoporosis documented as of this encounter Results BMD Bone Density Spine Hips (10/22/2019 8:57 AM FINAL EXPENSE AGENT) Anatomical Region Laterality Modality Hip, Lumbar Spine, Nuclear Medicine RST LOS, N/A Radiographic Imaging Musculoskeletal ARZ LOS, Muskuloskeletal FLA LOS Specimen (Source) Anatomical Collection Method Collection Time Re ceived Time Location / / Volume Laterality 10/22/2019 12:14 PM FINAL EXPENSE AGENT Impressions 10/22/2019 12:15 PM FINAL EXPENSE AGENT Osteoporosis Narrative 10/22/2019 12:15 PM FINAL EXPENSE AGENT EXAM: ??BMD BONE DENSITY SPINE HIPS COMPARISON: [...] including images and graphs, is available in [place]. ?In the absence of other causes of [...] evidence of skeletal fragility [facility] the [facility]. Degenerative changes are present which m ay spuriously elevate the spine BMD measurement. Today's spine scan was compared with the previous scans using a new region,L1-L2. Patient does not meet ISCD guidelines fo r FRAX calculations. IMPRESSION: Osteoporosis Elizabeth TEJEDA DXA PROCEDURES 25-Hydroxyvitamin D2 and D3 (10/22/2019 8:56 AM FINAL EXPENSE AGENT) P athologist Signature 25-Hydroxy D2 <4.0 ng/mL 10/23/2019 SDSC 1:02 PM FINAL EXPENSE AGENT 25-Hydroxy D3 48 ng/mL 10/23/2019 SDSC 1:02 PM FINAL EXPENSE AGENT 25-Hydroxy D 48 ng/mL 10/23/2019 SDSC Total 1:02 PM FINAL EXPENSE AGENT Comment: ----REFERENCE VALUE---- 25-HYDROXY D TOTAL (D2+D3) Optimum level s in the healthy population are 20-50, patients with bone disease may benefit from higher levels within this r silas. ----ADDITIONAL INFORMATION---- This test was developed and its performa nce characteristics determined by [facility] in a manner consistent with CLIA requirements. This test has not been cleared or approved by the [place] d and Drug Administration. Specimen Anatomical Collection Method Collection Time Receive d Time (Source) Location / / Volume Laterality Blood (Blood, 10/22/2019 8:56 AM 10/22/19 Venous) FINAL EXPENSE AGENT 12:10 PM FINAL EXPENSE AGENT Elizabeth Jenkins M.D. LAB BLOOD ADD-ON Performing Organization Address City/State/ZIP Code Phon e Number [facility] [address] [place], [place] [address] [facility] [place] [address] Laboratory Medicine and Pathology [address] [place] Albumin (10/22/2019 8:56 AM FINAL EXPENSE AGENT) athologist Signature Albumin, S 4.4 3.5 - 5.0 10/22/2019 DTL g/dL 10:16 AM FINAL EXPENSE AGENT Specimen Anatomical Collection Method Collection Time Receive d Time (Source) Location / / Volume Laterality Blood (Blood, 10/22/2019 8:56 AM 10/22/19 9:17 Venous) FINAL EXPENSE AGENT AM FINAL EXPENSE AGENT Elizabeth Jenkins M.D. LAB BLOOD ADD-ON Performing Organization Address City/[facility]/ZIP Code Phon e Number [facility] - [address] [place], [place] [address] [place] [address] [facility] [address] Calcium, Total (10/22/2019 8:56 AM FINAL EXPENSE AGENT) athologist Signature Calcium, Total, 9.2 8.8 - 10.2 10/22/2019 DTL S mg/dL 10:16 AM FINAL EXPENSE AGENT Specimen Anatomical Collection Method Collection Time Receive d Time (Source) Location / / Volume Laterality Blood (Blood, 10/22/2019 8:56 AM 10/22/19 9:17 Venous) FINAL EXPENSE AGENT AM FINAL EXPENSE AGENT Elizabeth Jenkins M.D. LAB BLOOD ADD-ON Performing Organization Address City/State/ZIP Code Phon e Number [facility] - [address] [place], [place] [address] [place] [address] [facility] [address] Phosphorus Inorganic (10/22/2019 8:56 AM FINAL EXPENSE AGENT) P athologist Signature Phosphorus 3.5 2.5 - 4.5 10/22/2019 DTL (Inorganic), S mg/dL 10:16 AM FINAL EXPENSE AGENT Specimen Anatomical Collection Method Collection Time Receive d Time (Source) Location / / Volume Laterality Blood (Blood, 10/22/2019 8:56 AM 10/22/19 9:17 Venous) FINAL EXPENSE AGENT AM FINAL EXPENSE AGENT Elizabeth Jenkins M.D. LAB BLOOD ADD-ON Performing Organization Address City/[facility] Code Phon e Number [facility] - [address] [place], [place] [address] [place] [address] [place] [address] [facility]-[place] [address] [address] [facility] (ABNORMAL) Creatinine with Estimated GFR (10/22/2019 8:56 AM FINAL EXPENSE AGENT) Analysis Performed At Patho logist Time Signature Creatinine 1.24 (H) 0.59 - 10/22/2019 DTL 1.04 mg/dL 10:16 AM FINAL EXPENSE AGENT eGFR-Non 42 (L) >=60 10/22/2019 DTL Black/ mL/min/BSA 10:16 AM FINAL EXPENSE AGENT [place] Comment: ----ADDITIONAL INFORMATION---- Estimated GFR calculated using the 2009 CKD_EPI creatinine equation. eGFR-Black/ 49 (L) >=60 mL/min/BSA 2019 10:16 AM FINAL EXPENSE AGENT DTL Comment: ----ADDITIONAL INFORMATION---- Estimated GFR calculated using the 2009 CKD_EPI creatinine equation. Specimen Anatomical Collection Method Collection Time Receive d Time (Source) Location / / Volume Laterality Blood (Blood, 10/22/2019 8:56 AM 10/22/19 9:17 Venous) FINAL EXPENSE AGENT AM FINAL EXPENSE AGENT Elizabeth Jenkins M.D. LAB BLOOD ADD-ON Performing Organization Address City/State/[facility] Code Phon e Number [facility] - [address] [place], [place] [address] [facility] [place] [address] [address] documented in this encounter Visit Diagnoses Diagnosis Pain Back - Primary Weakness Leg Numbness Lower Extremity Weakness Upper Extremity Osteoporosis Pain Back Weakness Leg Numbness Lower Extremity Weakness Upper Extremity Osteoporosis documented in this encounter
--- OUTSIDE RECORDS SUMMARY | 2022-07-14 12:32 | XMS_ITS | Encounter Summary ---
:1945 Author Organization [facility] Address [address] [place] [address] Care Team Providers Name Role Phone Unavailable Primary Care Provider Unavailable Reason for Visit Reason Comments Medication Question Encounter Details Date Type Department Care Team Description 06/27/2019 Clinical Division of Maged, Medication Communication Gastroenterology in [place], [place] [address] [facility] [[email or web address] [address] [place] [address] [place] [address] Social History Tobacco Use Types Packs/Day Years [...] or relatives? How often do you attend judaism or More than 4 times per year 02/16/2022 pentecostal services? Do you belong to any clubs or Yes 02/16/2022 organizations such as judaism groups, unions, fraternal or athletic groups, or [...] or slept in a prison (including now)? Sex Assigned at Date Recorded Female 05/07/2022 11:11 AM CDT documented as of this encounter Plan of Treatment Upcoming Encounters Date Type Specialty Care Team Description 07/27/2022 Office Visit Cardiovascular Disease Nick Mcneil M.D. [address] [place] [phone] (Wo rk) documented as of this encounter Visit Diagnoses Not on filedocumented in this encounter
--- OUTSIDE RECORDS SUMMARY | 2022-07-14 12:32 | XMS_ITS | Encounter Summary ---
:[address] [facility] Address [address] [place] [address] Care Team Providers Name Role Phone Unavailable Primary Care Provider Unavailable Encounter Details Date Type Department Care Team Description 10/11/2019 [facility] AND OLENA Saeed M.D. Cervical (Primary Dx) [address] [facility] [address], [place] [address] [place], [place] [phone] [address] Social History Tobacco Use Types Packs/Day Years [...] or relatives? How often do you attend evangelical or More than 4 times per year 02/16/2022 rastafarian services? Do you belong to any clubs or Yes 02/16/2022 organizations such as evangelical groups, unions, fraternal or athletic groups, or [...] Office Visit Cardiovascular Disease Nick Mcneil M.D. [address] [place] [phone] (Wo rk) documented as of this encounter Visit Diagnoses Diagnosis Stenosis Spinal Cervical - Primary documented in this encounter
--- OUTSIDE RECORDS SUMMARY | 2022-07-14 12:32 | XMS_ITS | Encounter Summary ---
:1945 Author Organization [facility] Address [address] [place] [address] Care Team Providers Name Role Phone Unavailable Primary Care Provider Unavailable Encounter Details Date Type Department Care Team Description 09/18/2007 - Hospital Encounter HX RST INFUSION Jerson Ramos, 09/25/2007 THERAPY R.N. [address] [place] [phone] Social History Tobacco Use Types Packs/Day Years [...] or relatives? How often do you attend advent or More than 4 times per year 02/16/2022 tenriism services? Do you belong to any clubs or Yes 02/16/2022 organizations such as advent groups, unions, fraternal or athletic groups, or [...] Office Visit Cardiovascular Disease Nick Mcneil M.D. [address] [place] [phone] (Wo rk) documented as of this encounter Visit Diagnoses Not on filedocumented in this encounter
--- OUTSIDE RECORDS SUMMARY | 2022-07-14 12:32 | XMS_ITS | Encounter Summary ---
:[address] [facility] Address [address] [place] [address] Care Team Providers Name Role Phone Unavailable Primary Care Provider Unavailable Reason for Visit Outpatient (Routine) - Closed Specialty Diagnoses / Procedures Referred By Contact Refer red To Contact Endocrinology Diagnoses Pain Back Weakness Leg Numbness Lower Extremity Weakness Upper Extremity Osteoporosis Elizabeth Jenkins M.D. [facility] [address] [place] [address] Referral ID Status Reason Start Date Expiration Date Visits Requ ested Visits Authorized [id number] Closed 10/18/2019 10/17/2020 1 1 Encounter Details Date Type Department Care Team Description 10/22/2019 Comprehensive Visit Division of Brittni Beckham; Endocrinology in [place] Weakness Leg; [place], [place] [address] Numbness Lower Extremity; [address] [facility] Weakness Upper Extremity; [place], [place], Osteoporosis [address] [place] [phone] [address] Social History Tobacco Use Types Packs/Day [...] or relatives? How often do you attend taoism or More than 4 times per year 02/16/2022 mormon services? Do you belong to any clubs or Yes 02/16/2022 organizations such as taoism groups, unions, fraternal or athletic groups, or [...] Comments Blood Pressure 140/71 10/22/2019 1:17 PM ADJUNCT PHLEBOTOMY INSTRUCTOR Pulse 76 10/22/2019 1:17 PM ADJUNCT PHLEBOTOMY INSTRUCTOR Temperature - - Respiratory Rate - - Oxygen Saturation - - Inhaled Oxygen Concentration - - Weight 73.6 kg (162 lb 4.1 oz) 10/22/2019 1:17 PM ADJUNCT PHLEBOTOMY INSTRUCTOR Height 161.2 cm (5' 3.47) 10/22/2019 1:17 PM ADJUNCT PHLEBOTOMY INSTRUCTOR Body Mass Index 28.32 10/22/2019 1:17 PM ADJUNCT PHLEBOTOMY INSTRUCTOR documented in this encounter Consult Notes [place] [...] PCP, return if questions or fractures arise NCT PHLEBOTOMY INSTRUCTOR documented in this encounter Miscellaneous Notes Assessment [...] PCP, return if questions or fractures arise NCT PHLEBOTOMY INSTRUCTOR documented in this encounter Plan of Treatment Upcoming Encounters Date Type Specialty Care Team Description 07/27/2022 Office Visit Cardiovascular Disease Nick Mcneil M.D. [address] [place] [phone] (Wo rk) documented as of this encounter Visit Diagnoses Diagnosis Pain Back Weakness Leg Numbness Lower Extremity Weakness Upper Extremity Osteoporosis documented in this encounter
--- OUTSIDE RECORDS SUMMARY | 2022-07-14 12:32 | XMS_ITS | Encounter Summary ---
:[address] [facility] Address [address] [place] [address] Care Team Providers Name Role Phone Unavailable Primary Care Provider Unavailable Reason for Visit Reason Comments Allergies bananas, consult Appointment Request (Routine) - Closed Specialty Diagnoses / Procedures Referred By Contact Refer red To Contact Allergy and Immunology Referral ID Status Reason Start Date Expiration Date Visits Requ ested Visits Authorized [id number] Closed 10/10/2018 10/10/2019 1 Encounter Details Date Type Department Care Team Description 11/16/2018 Office Visit Department of Allergy Ondina Garduno, Frankie initis Chronic (Primary Dx); in [place] M.D. Pain Ear Bilateral; [address] Intolerance Food (HCC) [place] [phone] Social History Tobacco Use Types Packs/Day Years [...] or relatives? How often do you attend roman catholic or More than 4 times per year 02/16/2022 anglican services? Do you belong to any clubs or Yes 02/16/2022 organizations such as roman catholic groups, unions, fraternal or athletic groups, [...] place to sleep or slept in a half-way (including now)? Sex Assigned at Date Recorded Female 05/07/2022 11:11 AM CDT documented as of this encounter Last Filed Vital Signs Vital Sign Reading Time Taken Comments Blood Pressure 152/78 11/16/2018 3:43 PM SIGHT EFFECTS SPECIALIST Pulse 68 11/16/2018 3:43 PM SIGHT EFFECTS SPECIALIST Temperature - - Respiratory Rate - - Oxygen Saturation - - Inhaled Oxygen Concentration - - Weight 73.8 kg (162 lb 11.2 oz) 11/16/2018 3:43 PM SIGHT EFFECTS SPECIALIST Height - - Body Mass Index 28.47 08/21/2014 8:19 AM SIGHT EFFECTS SPECIALIST documented in this encounter Patient Instructions Patient [...] profile so it can be used more shelter. T EFFECTS SPECIALIST documented in this encounter Consult Notes Ondina [...] processed meats have been associated with diarrhea. Gause (and any corn derivative), celery and bananas seem to trigger nasal congestion. Peas, onion, apple, pears trigger migraines. Fajardo fruits cause cold sores. Ms. Anderson detailed a number of other reaction concerns including respiratory issues with exposure to jute, mock orange shrub, british virgin islander lilac tree, rough pigweed, some molds, and [...] consideration for symptomatology. Follow up as needed. T EFFECTS SPECIALIST documented in this encounter Plan of Treatment Upcoming Encounters Date Type Specialty Care Team Description 07/27/2022 Office Visit Cardiovascular Disease Nick Mcneil M.D. [address] [place] [phone] (Wo rk) documented as of this encounter Visit Diagnoses Diagnosis Rhinitis Chronic - Primary Pain Ear Bilateral Intolerance Food documented in this encounter
--- OUTSIDE RECORDS SUMMARY | 2022-07-14 12:32 | XMS_ITS | Encounter Summary ---
:1945 Author Organization [facility] Address [address] [place] [address] Care Team Providers Name Role Phone Unavailable [...] More than 4 times per year 02/16/2022 orthodox services? Do you belong to any [...] or slept in a penitentiary (including now)? Sex Assigned at Date Recorded [...] Office Visit Cardiovascular Disease Nick Mcneil M.D. [address] [place] [address] [phone] (Wo rk) documented as of this encounter Visit Diagnoses Not on filedocumented in this encounter
--- OUTSIDE RECORDS SUMMARY | 2022-07-14 12:32 | XMS_ITS | Encounter Summary ---
:1945 Author Organization [facility] Address [address] [place] [address] Care Team Providers Name Role Phone Unavailable Primary Care Provider Unavailable Reason for Visit Reason Comments Skin Check Appointment Request (Routine) - Closed Specialty Diagnoses / Procedures Referred By Contact Refer red To Contact Dermatology Referral ID Status Reason Start Date Expiration Date Visits Requ ested Visits Authorized [id number] Closed 01/17/2018 07/16/2018 1 Encounter Details Date Type Department Care Team Description 03/27/2018 Office Visit Department of Deepali Harrington, Keratosis Seborrheic Inflamed (Primary Dx); Dermatology in [facility]; [place], [place] [address] [facility] Keratosis Actinic [address] [place] [phone] Social History Tobacco Use Types Packs/Day Years [...] or relatives? How often do you attend temple or More than 4 times per year 02/16/2022 jainism services? Do you belong to any clubs or Yes 02/16/2022 organizations such as temple groups, unions, fraternal or athletic groups, or [...] or slept in a intermediate (including now)? Sex Assigned at Date Recorded [...] Visit Cardiovascular Disease Nick Mcneil M.D. [address] [place] [phone] (Wo rk) documented as of this encounter Visit Diagnoses Diagnosis Keratosis Seborrheic Inflamed - Primary Nevi Multiple Keratosis Actinic documented in this encounter
--- OUTSIDE RECORDS SUMMARY | 2022-07-14 12:32 | XMS_ITS | Encounter Summary ---
:1945 Author Organization [facility] Address [address] [place] [address] Care Team Providers Name Role Phone Unavailable [...] or relatives? How often do you attend yarsanism or More than 4 times per year 02/16/2022 confucianism services? Do you belong to any clubs or Yes 02/16/2022 organizations such as yarsanism groups, unions, fraternal or athletic groups, or [...] to sleep or slept in a senior care (including now)? Sex Assigned at Date Recorded Female 05/07/2022 11:11 AM CDT documented as of this encounter Plan of Treatment Upcoming Encounters Date Type Specialty Care Team Description 07/27/2022 Office Visit Cardiovascular Disease Nick Mcneil M.D. [address] [place] [phone] (Wo rk) documented as of this encounter Visit Diagnoses Not on filedocumented in this encounter
--- OUTSIDE RECORDS SUMMARY | 2022-07-14 12:32 | XMS_ITS | Encounter Summary ---
:1945 Author Organization [facility] Address [address] [place] [address] Care Team Providers Name Role Phone Unavailable Primary Care Provider Unavailable Reason for Referral Outpatient (Routine) - Closed Specialty Diagnoses / Procedures Referred By Contact Refer red To Contact Diagnoses Pain Back Weakness Leg Numbness Lower Extremity Weakness Upper Extremity Osteoporosis Elizabeth Jenkins M.D. [facility] Procedures BMD Bone Density Spine Hips [address] [place] [phone] Referral ID Status Reason Start Date Expiration Date Visits Requ ested Visits Authorized [id number] Closed 10/18/2019 10/17/2020 1 1 PROCESS ENGINEER Reason for Visit Outpatient (Routine) - Closed Specialty Diagnoses / Procedures Referred By Contact Refer red To Contact Diagnoses Pain Back Weakness Leg Numbness Lower Extremity Weakness Upper Extremity Osteoporosis Elizabeth Jenkins M.D. [facility] Procedures BMD Bone Density Spine Hips [address] [place] [phone] Referral ID Status Reason Start Date Expiration Date Visits Requ ested Visits Authorized [id number] Closed 10/18/2019 10/17/2020 1 1 Encounter Details Date Type Department Care Team Description 10/22/2019 Hospital Encounter Department of Elizabeth Jenkins Pain Ba ck; RadiologyMegan M.D. Weakness Leg; Building, in [address] [place] [address] Numbness Lower Extremity; [place], [place] Weakness Upper Extremity; [address] [place] [phone] Osteoporosis [place], [place] [phone] (Work) [phone] Social History Tobacco Use Types Packs/Day Years [...] More than 4 times per year 02/16/2022 taoist services? Do you belong to any clubs [...] Visit Cardiovascular Disease Nick Mcneil M.D. [address] [place] [phone] (Wo rk) documented as of this encounter Procedures Procedure Name Priority Date/Time Associated Comments Diagnosis BMD BONE DENSITY RAD - Routine 10/22/2019 8:57 Pain Back Results for this SPINE HIPS (most inpatients AM LEAD PROCESS ENGINEER Weakness Leg procedure are in and all Numbness Lower the results outpatients) Extremity section. Weakness Upper Extremity Osteoporosis documented in this encounter Results BMD Bone Density Spine Hips (10/22/2019 8:57 AM LEAD PROCESS ENGINEER) Anatomical Region Laterality Modality Hip, Lumbar Spine, Nuclear Medicine RST LOS, N/A Radiographic Imaging Musculoskeletal ARZ LOS, Muskuloskeletal FLA LOS Specimen (Source) Anatomical Collection Method Collection Time Re ceived Time Location / / Volume Laterality 10/22/2019 12:14 PM LEAD PROCESS ENGINEER Impressions 10/22/2019 12:15 PM LEAD PROCESS ENGINEER Osteoporosis Narrative 10/22/2019 12:15 PM LEAD PROCESS ENGINEER EXAM: ??BMD BONE DENSITY SPINE HIPS COMPARISON: [...] including images and graphs, is available in [employer]. ?In the absence of other causes of [...] evidence of skeletal fragility [facility] the [facility]. Degenerative changes are present which [...]
== END 2022-07-13 11:10 | disposition home or self-care (01) ==
LOC: NFLDREF 07-14 12:28
PROVIDERS: PCP Family Medicine; Visit Provider Family Medicine
DX: R30.0 Dysuria (principal)
CPT/HCPCS: 87086

== ENCOUNTER 2022-09-05 14:20 | Outpatient (CLI) | payer MEDICARE, BC, SELFPAY ==
--- NOTE | 2022-09-05 14:40 | CRLHL7_ITS ---
For Patients: As a result of the Century Cures Act, medical imaging exams and procedure reports are released immediately into your electronic medical record. You may view this report before your referring provider. If you have questions, please contact your health care provider. BILATERAL SCREENING MAMMOGRAM WITH COMPUTER-AIDED DETECTION TECHNIQUE: CC and MLO views were obtained. These mammographic images have been obtained using full-field digital technique. These mammographic images were interpreted with the benefit of computer-aided detection. COMPARISON FILM: 08/30/21, 08/18/20, 08/15/19. FINDINGS: There are scattered areas of fibroglandular density. IMPRESSION: There is no radiographic evidence for malignancy. ASSESSMENT: BI-RADS Category 1: Negative RECOMMENDATION: Routine screening mammogram in 1 year. A lay language report of this examination will be provided to the patient. MANJINDER LEIGH M.D. Diagnostic Radiologist [email or web address] ED/[place] Transcribed: 09/06/2022, 6:[address]/Dictated by: Manjinder Leigh MD @ 09/06/2022 8:34:00 AM (Electronically Signed)
--- OUTSIDE RECORDS SUMMARY | 2022-09-05 14:51 | XMS_ITS | Encounter Summary ---
:1945 Author Organization [facility] Address [address] [place] [address] Care Team Providers Name Role Phone Unavailable Primary Care Provider Unavailable Reason for Referral Outpatient (Routine) - Closed Specialty Diagnoses / Procedures Referred By Contact Refer red To Contact Diagnoses Syncope Vasovagal Yoni Cavanaugh M.D., [facility] Procedures ECG 12 [address] [facility] [address], [place] [phone] Referral ID Status Reason Start Date Expiration Date Visits Requ ested Visits Authorized [id number] Closed 04/11/2022 04/11/2023 1 1 Reason for Visit Outpatient (Routine) - Closed Specialty Diagnoses / Procedures Referred By Contact Refer red To Contact Diagnoses Syncope Vasovagal Yoni Cavanaugh M.D., [facility] Procedures ECG 12 Lead [facility] [address], [place] [phone] Referral ID Status Reason Start Date Expiration Date Visits Requ ested Visits Authorized [id number] Closed 04/11/2022 04/11/2023 1 1 Encounter Details Date Type Department Care Team Description 04/27/2022 Hospital Encounter Department of Yoni Cavanaugh Syncope Vasovagal Laboratory Medicine in [place], [place], [place] [facility] [address] [place], [place] [phone] Social History Tobacco Use Types Packs/Day Years [...] alcohol do you have on a typical day 1 or 2 10/19/2019 when you are drinking? How often do you have six or more drinks on one occasion? Ne leticia 10/19/2019 Social Isolation Answer Date Recorded In a typical week, how many times do you More than three babita es a week 02/16/2022 talk on the phone with family, friends, or neighbors? How often do you get together with friends Once a week 02/16/2022 or relatives? How often do you attend mandaeism or More than 4 times per year 02/16/2022 scientology services? Do you belong to any clubs or Yes 02/16/2022 organizations such as mandaeism groups, unions, fraternal or athletic groups, or [...] place to sleep or slept in a fpc (including now)? Education Answer Date Recorded What [...] calcium carbonate-vitamin Take 1,000 mg by 0 /0 03/2009 D3 400-133.3 mg-unit mouth daily. tablet cholecalciferol (VITAMIN Take 400 Units by 0 0 03/2009 D3) 10 mcg (400 Unit) mouth daily. tablet clotrimazole (LOTRIMIN) 1 Apply 1 application 0 % cream topically as needed. dextromethorphan-guaiFENe Take by mouth as 0 sin (ROBITUSSIN-DM) needed for cough. 10-100 mg/5 mL syrup diphenhydrAMINE Take 25 mg by mouth 0 (BENADRYL) 25 mg capsule every 6 (six) hours as needed. docosanol (ABREVA) 10 % Apply 1 application 0 cream topically 4 (four) times a day as needed. ergocalciferol, vitamin Twice A Day 0 D2, [...] mcg tablet mouth daily. loperamide (IMODIUM A-D) Take 2 mg by mouth 4 0 2 mg capsule (four) times a day as needed for diarrhea. loratadine (CLARITIN) 10 Take 1 tablet by 0 06/04 mg tablet mouth daily as needed. metoprolol succinate Take 12.5 mg by 0 03/08/2022 (TOPROL-XL) 25 mg 24 hr mouth daily. tablet pseudoephedrine-guaiFENes Take 1 tablet by 0 in (MUCINEX D) 60-600 mg mouth 2 (two) times per 12 hr tablet a day as needed for allergies. vitamin A & D (AMERIDERM) Apply 1 application 0 ointment topically as needed for dry skin. doxycycline (VIBRAMYCIN) 0 03/24/2018 07/27/2022 100 mg capsule documented as of this encounter Plan of Treatment Not on filedocumented as of this encounter Procedures Procedure Name Priority Date/Time Associated Diagnosis Comme nts ECG Routine 04/27/2022 9:12 AM Syncope Vasovagal Resu lts for this CDT procedure are i n the results section . documented in this encounter Results ECG 12 Lead (04/27/2022 9:12 AM CDT) P athologist Signature Ventricular Rate 75 BPM MUSE ECG/Min NM Interval 164 ms MUSE QRSD Interval 134 ms MUSE QT Interval 410 ms MUSE QTC Interval 457 ms MUSE P [place] 66 degrees MUSE R [place] -73 degrees MUSE T Wave [place] 31 degrees MUSE Specimen Anatomical Collection Method [...]
--- OUTSIDE RECORDS SUMMARY | 2022-09-05 14:51 | XMS_ITS | Encounter Summary ---
:1945 Author Organization [facility] Address [address] [place] [address] Care Team Providers Name Role Phone Unavailable Primary Care Provider Unavailable Reason for Referral Outpatient (Routine) - Authorized Specialty Diagnoses / Procedures Referred By Contact Refer red To Contact Diagnoses Syncope Vasovagal Nick Mcneil M.D. [facility] [place] [facility] Procedures ECG 12 Lead [address] [place] [address] Referral ID Status Reason Start Date Expiration Date Visits V isits Requested Authorized [id number] Authorized 07/27/2022 07/27/2023 1 1 Outpatient (Routine) - Authorized Specialty Diagnoses / Procedures Referred By Contact Refer red To Contact Cardiovascular Disease Nick Mcneil [facility] [place] [facility] M.D. [address] [place] [address] Referral ID Status Reason Start Date Expiration Date Visits V isits Requested Authorized [id number] Authorized 07/27/2022 07/26/2025 1 1 Outpatient (Routine) - Closed Specialty Diagnoses / Procedures Referred By Contact Refer red To Contact Diagnoses Dyspnea On Exertion Nick Mcneil M.D. [facility] [place] [facility] Procedures DX Chest AP or PA and Lateral 2 Views [address] [place] [address] Referral ID Status Reason Start Date Expiration Date Visits Requ ested Visits Authorized [id number] Closed 07/27/2022 07/27/2023 1 1 Reason for Visit Reason Comments Follow-up Outpatient (Routine) - Closed Specialty Diagnoses / Procedures Referred By Contact Refer red To Contact [facility] [address] [place] [address] Referral ID Status Reason Start Date Expiration Date Visits Requ ested Visits Authorized [id number] Closed 05/11/2022 05/11/2023 1 1 Encounter Details Date Type Department Care Team Description 07/27/2022 Office Visit Department of Nick Mcneil Dyspnea On Exertion (Primary Dx); Cardiovascular Diseases [facility] Syncope Vasovagal in [facility] 300 [facility] [address] [place], [place] [facility] [phone] Social History Tobacco Use Types Packs/Day [...] Sign Reading Time Taken Comments Blood Pressure 131/77 07/27/2022 7:55 AM CDT Pulse 79 07/27/2022 7:55 AM CDT Temperature - - Respiratory Rate - - Oxygen Saturation 98% 07/27/2022 7:53 AM CDT Inhaled Oxygen Concentration - - Weight 68.9 kg (151 lb 12.6 oz) 07/27/2022 7:53 AM CDT Height - - Body Mass Index 27.68 02/16/2022 7:41 AM CDT documented in this encounter Progress Notes Nick Mcneil M.D. - 07/27/2022 7:45 AM CDT ASSESSMENT / PLAN Loss of consciousness, 10/2021. No recurrences. Palpitations. Right bundle-branch block and left anterior fascicular block on electrocardiogram from 01/2022; new from 2004. Nonsustained supraventricular/atrial tachycardia on Holter 01/2022 and EM 05/2022. Chest discomfort, not suggestive of ischemic etiology. Dyspnea, exertional. Hyperlipidemia, statin intolerant Hypothyroidism; status post Graves disease with radioactive ablation. Osteoporosis; compression fractures Spinal stenosis of lumbar region. COVID-19 on 06/2022. Loss of consciousness, likely due to syncope. Last event occurred October 2021 while standing in [employer]. Difficulty to properly characterize the event; memory lapses. No typical features for vasovagal syncope described and trauma was associated (with possible concussion). She underwent extensive workup with stress testing and monthly ambulatory event monitor with reassuring finding. The patient had underlying right bundle-branch block and left anterior fascicular block diagnosed on January 2022 (electrocardiogram around the time of syncope not available; not performed as per patient). In case of recurrences, particularly if not suggestive of a vasovagal episode, we will consider referral to electrophysiology for consideration of EP study and implantable loop recorder placement. The patient has supraventricular tachycardia but did not appear to be symptomatic from the events. Continue beta-stacey therapy as prescribed. In case of increase in palpitations, we asked the patient to reach out for possible up titration of beta-blockers. We again educated the patient on how to prevent vasovagal episodes. The patient agrees to reach out to us in case of recurrent symptoms, prior to follow-up appointment. Chest discomfort/palpitations/dyspnea. Symptoms are not suggestive of ischemia and she is status post reassuring cardiopulmonary exercise stress echocardiogram. We discussed importance lifestyle changes including regular exercise. We encouraged the patient to exercise for least half an hour 5 days a week. Pulmonary testing was not significantly abnormal but for mild reduction in diffusing capacity. Achest x-ray will be done today. If no significant abnormalities, no changes will be indicated. Risk modification is recommended with primary care provider. She has hyperlipidemia based on past lipids done at [facility] (LDL 136, HDL 60, triglycerides 119 with normal CMP April 2022; normal TSH and no anemia March 2022). The patient is candidate for statins but has been unable to tolerate to different statins due to side effects in the past (sore throat and headache reported). Low-dose statin such as Crestor once a week or ezetimibe may be initiated by primary care provider. PLAN: #1 Dyspnea On Exertion - DX Chest AP or PA and Lateral 2 Views; Future; Expected date: 07/27/2022 #2 Syncope Vasovagal - ECG 12 Lead; Future; Expected date: 07/27/2023 (Before next visit) Other orders - Cardiovascular Disease office visit (clinic) General - Cardiovascular Disease office visit (clinic) General; Future; Expected date: 07/27/2023 Medications Discontinued During This Encounter Medication Reason doxycycline (VIBRAMYCIN) 100 mg capsule sulfamethoxazole-trimethoprim (BACTRIM DS) 800-160 mg per tablet - Note forwarded to primary care provider. - Follow up with Cardiology in 12 months or call us sooner in case of problems or concerns. The patient expressed understanding of the information discussed during the visit today and agreement with the plan. CARDIOLOGY SUBSEQUENT VISIT Location: [facility]. SUBJECTIVE CHIEF COMPLAINT Office follow-up. HISTORY OF PRESENT ILLNESS Ms. Emmy Anderson is a very pleasant 77 y.o. female who presents to [facility] for follow-up. Her primary care provider is No primary care provider on file. (Dr. All Krishnan). Last seen by me on 05/2022. Presenting unaccompanied by family. I had the pleasure of seeing Ms. Emmy Anderson in clinic today. She is 77 y.o. years old. Patient presents today stating she is doing well from a cardiovascular standpoint. Still reports occasional chest discomfort, palpitations and decreased endurance. She states she has not been able to run even as a child with some shortness of breath. She is able to walk though. She exercises 3 times a week and walks about daily for proximal 4 blocks. She states she has no major symptoms other than decreased endurance when walking or with activities, during the daytime. She does report sharp stabbing chestdiscomfort lasting for few seconds were recurrent for 10-15 minutes at night as well as palpitations. Self-limited symptoms. Chest pain palpitations are not as significant during the daytime though. They are not exertional. She had 1 episode of dizziness for proximal 1 hour but no loss of consciousness associated. No recurrent loss of consciousness reported. She had been bothered by recurrent bladderinfections. She is working on being seen by Urology. We review test findings with the patient. We reviewed medications with the patient's. PERTINENT CARDIAC (OR RELATED) STUDIES REVIEWED: Ambulatory electrocardiographic monitor 06/2022: 1. The patient was monitored from 05/25/2022 to 06/23/2022 with a total monitoring time of 28 days 11 hr 56 min. The baseline rhythm was sinus. The heart rate varied from 49 to 120 BPM. The average heartrate was 69 BPM. 2. There were <100 PVCs seen with a PVC burden of <1%. 3. There were 2,163 PACs seen singly with a PAC burden of <1%. There were 8 runs of supraventricular tachycardia observed. The longest run of SVT was 16 beats. The fastest rate of SVT was 171 BPM. 4. The patient reported 8 symptomatic events of heart fluttering and hard heart beat. During these events, the rhythm was sinus. The heart rate varied from 56 to 86 BPM. No ectopy was noted. Stress echocardiogram May 2022: 1. STRESS IMPRESSIONS: 2. Exercise echocardiogram negative for myocardial ischemia at the achieved workload. 3. Limited heart rate and double product response could reduce the sensitivity of the test. 4. The patient's exercise capacity was average (6.0 METS, 94% FAC). 5. A peak heart rate of 118 BPM was achieved (84% age-predicted maximal HR). 6. Ejection fraction response from 62% at rest to 70% at peak stress. 7. Left ventricular end-systolic volume decreased with stress. 8. Findings consistent with normal left ventricular filling pressure at rest and with exercise. 9. The stress ECG was negative for ischemia in leads V4-6 (baseline bifascicular block). 10. O2 uptake data detailed in the Electronic Medical Record (Cardiopulmonary (VO2) Exercise Test). 11. REST IMPRESSIONS: 12. Normal left ventricular chamber size and systolic function, no regional wall motion abnormalities. 13. Normal left ventricular filling pressure. Mildly increased concentric left ventricular wall thickness. 14. Normal right ventricular chamber size with normal systolic function. Unable to estimate right ventricular systolic pressure. 15. No hemodynamically significant valvular heart disease. 16. Normal inferior vena cava size with normal inspiratory collapse (>50%). 17. No pericardial effusion. Pulmonary function test May 2022: Negative methacholine challenge. Normal baseline spirometry. Expiratory flows return towards baseline after administration of bronchodilator. Diffusing capacity unadjusted for hemoglobin is mildly reduced, consistent with a pulmonary parenchymal or vascular abnormality, or anemia. Pulse oximetry is nor mal at rest and during exercise. Compared to 09/21/2006, and after adjusting for age-related expected changes, there is no significant change. Holter monitor January 2022: 1. The basic [...] of this test will be dictated separately. Current Outpatient Medications Medication Sig acetaminophen (TYLENOL) [...] times a day as needed. ergocalciferol, vitamin D2, 10 mcg (400 unit) [...] tablet Take 12.5 mg by mouth daily. phenazopyridine (PYRIDIUM) 100 mg tablet TAKE 1 TABLET BY MOUTH THREE TIMES DAILY FOR 6 DOSES NEEDED FOR PAIN pseudoephedrine-guaiFENesin (MUCINEX D) 60-600 mg per 12 [...] (see comments) diahrria Phenylpropanolamine Other (see comments) [place] Pollen-Rough Pigweed Other (see comments) Sneezing, nasal drainage Adhesive Itching REVIEW OF SYSTEMS Constitutional: Positive for fatigue. ENT: Positive for sinus congestion. Respiratory: Positive for coughing up mucus (phlegm) and shortness of breath. Cardiovascular: Positive for chest pain, pressure or tightness, rapid or fluttering heart beat and shortness of breath when lying flat. Gastrointestinal: Positive for diarrhea. Genitourinary: Positive for frequent urination. Musculoskeletal: Positive for pain or stiffness in the joints, back pain and muscle pain/stiffness. Neurological: Positive for light-headedness and loss of balance or tendency to fall easily. The following systems were negative: Skin, Eyes, Hematologic, Psychiatric The following portions of the patient's history were reviewed and updated as appropriate: allergies,current medications, family history, medical history, social history, and problem list. OBJECTIVE Vitals: 07/27/22 0753 07/27/22 0755 BP: 127/73 131/77 BP Location: Right arm Right arm Patient Position: Sitting Standing Cuff Size: Regular Regular Pulse: 72 79 SpO2: 98% Weight: 68.9 kg BP Readings from Last 3 Encounters: 07/27/22 131/77 05/11/22 136/58 04/12/22 127/74 Wt Readings from Last 3 Encounters: 07/27/22 68.9 kg 05/11/22 67.8 kg 04/12/22 67.8 kg Body mass index is 27.68 kg/m??. PHYSICAL EXAMINATION GENERAL: Patient is awake, alert, oriented x3. No acute distress. EYES: No pallor. NECK: No jugular venous distention. CHEST/LUNGS: No chest deformity. Normal respiratory effort. Good entry bilaterally. No adventitious sounds. CARDIOVASCULAR: Normal rate and regular rhythm. Normal S1 and S2. No murmurs, rubs, or gallops. LOWER EXTREMITIES: Lower extremity warm without edema. UPPER EXTREMITIES: 2+ right radial pulse. Normal capillary refill. No cyanosis. NEUROLOGIC: Exam deferred. DIAGNOSTICS I have reviewed the patient's current laboratory, imaging, and other diagnostic studies. Pertinent laboratory studies have been reviewed and are notable for: No visits with results within 2 Month(s) from this visit. Latest known visit with results is: Hospital Outpatient Visit on 05/25/2022 Component Date Value Min Heart Rate 06/23/2022 49 Max Heart Rate 06/23/2022 120 Mean Heart Rate 06/23/2022 69 VE Total Beats 06/23/2022 <100 VE Percent Beats 06/23/2022 <1% SVE Total Beats 06/23/2022 2163 SVE Percent Beats 06/23/2022 <1% Holter Pauses 06/23/2022 0 AF Count 06/23/2022 0 AF Duration 06/23/2022 0 sec AF [place] 06/23/2022 0% VT Runs 06/23/2022 0 SVT Runs 06/23/2022 8 Symptom Count 06/23/2022 8 Lab Results Component Value Date CREATININE 1.24 (H) 10/22/2019 IMPRESSION/REPORT/PLAN See above. Nick Mcneil M.D. documented in this encounter Plan of Treatment Scheduled Orders Name Type Priority Associated Diagnoses Order S chedule ECG 12 Lead ECG Routine Syncope Vasovagal Expected: 07/27/2023 (Approximate), Expires: 2023 Scheduled Referrals Name Type Priority Associated Order Schedule Diagnoses Cardiovascular Disease Outpatient Referral Routine Expected: office visit (clinic) 2022 General (Approximate), Expires: 10/27/2023 documented as of this encounter Results DX Chest AP or PA and Lateral 2 Views (07/27/2022 8:46 AM CDT) Anatomical Region Laterality Modality Chest, Thoracic RST LOS, Thoracic ARZ LOS, Thoracic N/A Digital Radiography FLA LOS Specimen (Source) Anatomical Collection Method Collection Time Re ceived Time Location / / Volume Laterality 07/27/2022 9:11 AM CDT Impressions 07/27/2022 9:13 AM CDT No acute abnormalities are identified in the chest. Narrative 07/27/2022 9:13 AM CDT EXAM: DX CHEST AP OR PA AND LATERAL 2 VIEWS COMPARISON: 07/20/2007 FINDINGS: No acute abnormalities are giovanna ntified in the chest. The heart size and pulmonary vascularity are within normal limits. No acute focal pulmonary parenchymal abnormalities are seen. The visualized skeleton is demineralized . There are surgical clips in the right upper quadrant. There are atherosclerotic changes in the aorta. Mild lumbar curve is partially included on this study. Procedure Note Brant Lucas M.D. - 07/27/2022Format ting of this note might be different from the original. EXAM: DX CHEST AP OR PA AND LATERAL 2 EWS COMPARISON: 07/20/2007 FINDINGS: No acute abnormalities are giovanna ntified in the chest. The heart size and pulmonary vascularity are within normal limits. No acute focal pulmonary parenchymal abnormalities are seen. The visualized skeleton is demineralized . There are surgical clips in the right upper quadrant. There are atherosclerotic changes in the aorta. Mild lumbar curve is partially included on this study. IMPRESSION: No acute abnormalities are identified in the chest. Nick [facility] MIAN WHITE documented in this encounter Visit Diagnoses Diagnosis Dyspnea On Exertion - Primary Syncope Vasovagal Dyspnea On Exertion documented in this encounter
--- OUTSIDE RECORDS SUMMARY | 2022-09-05 14:51 | XMS_ITS | Encounter Summary ---
:1945 Author Organization [facility] Address [address] [place] [address] Care Team Providers Name Role Phone Unavailable Primary Care Provider Unavailable Encounter Details Date Type Department Care Team Description 04/12/2022 Office Visit Department of Yoni Cavanaugh, Syncope An d Collapse Neurology in [facility] (Primary Dx) [place], [place] [address] [address] [phone] Social History Tobacco Use Types Packs/Day Years [...] many times do you More than three baibta es a week 02/16/2022 talk on the phone with family, friends, or neighbors? How often do you get together with friends Once a week 02/16/2022 or relatives? How often do you attend presybeterian or More than 4 times per year 02/16/2022 cheondoism services? Do you belong to any clubs [...] 1%. 4. No symptomatic events were noted. Entry Analyst: Kamala Marcus/ Bernardo Frederick She tells me today that when she lies down she feels palpitations but no more episodes of presyncopeor loss of consciousness. I placed an order yesterday for her to see hospital personnel director and she is going to attempt to get one appointment scheduled she leaves today. Reviewed her Holter monitor with her but I told her that I would prefer that hospital personnel director evaluate her. Not ordered an EEG but [...] diahrria ??? Phenylpropanolamine Other (see comments) ??? [place] Pollen-Rough Pigweed Other (see comments) Sneezing, nasal [...] and Family: Once a week ??? Attends Baptism Services: More than 4 times per year [...] Alert and oriented x 4. CRANIAL NERVES: coal picker II-XII intact and symmetric. GAIT: Normal ASSESSMENT [...] documented in this encounter Plan of Treatment Not on filedocumented as of this encounter Visit Diagnoses Diagnosis Syncope And Collapse - Primary documented in this encounter
--- OUTSIDE RECORDS SUMMARY | 2022-09-05 14:51 | XMS_ITS | Encounter Summary ---
:1945 Author Organization [facility] Address [address] [place] [address] Care Team Providers Name Role Phone Unavailable Primary Care Provider Unavailable Reason for Referral Outpatient (Routine) - Authorized Specialty Diagnoses / Procedures Referred By Contact Refer red To Contact Diagnoses Post Concussion Syndrome Dizziness Syncope Vasovagal Yoni Cavanaugh M.D., [facility] Procedures ECG Heart rhythm monitor (Holter) [facility] [address] [place] [phone] Referral ID Status Reason Start Date Expiration Date Visits V isits Requested Authorized [id number] Authorized 02/16/2022 02/16/2023 1 1 Reason for Visit Outpatient (Routine) - Authorized Specialty Diagnoses / Procedures Referred By Contact Refer red To Contact Diagnoses Post Concussion Syndrome Dizziness Syncope Vasovagal Yoni Cavanaugh M.D., [facility] Procedures ECG Heart rhythm monitor (Holter) [facility] [address] [place] [phone] Referral ID Status Reason Start Date Expiration Date Visits V isits Requested Authorized [id number] Authorized 02/16/2022 02/16/2023 1 1 Encounter Details Date Type Department Care Team Description 02/23/2022 Hospital Encounter Department of Yoni Cavanaugh Post Con cussion Syndrome; Cardiovascular Diseases Geeta Westbrook, Dizz iness; in [facility] Syncope Vasovagal [address] [facility] [address] [place] [phone] Social History Tobacco Use Types Packs/Day [...] More than 4 times per year 02/16/2022 anabaptist services? Do you belong to any clubs [...] 06/04 mg tablet mouth daily as needed. pseudoephedrine-guaiFENes Take 1 tablet by 0 in [...] PM Post Concussion Results for this CLINIC TRANSMITTER OPERATOR CDT Syndrome procedure are in Dizziness the results Syncope Vasovagal section. documented in this encounter Results HOLTER MONITOR - IN CLINIC TRANSMITTER OPERATOR (02/25/2022 1:58 PM CDT) [facility] gist Method Time Signature Min Heart Rate 49 [...] AF Duration 0 duration INFOBIONIC MOME AF [place] 0 percent INFOBIONIC MOME Symptom Count 0 [...] 1%. 4. No symptomatic events were noted. Adult And Pediatric Neurologist: Kamala Marcus/ Phani Frederick am Procedure Note Cory Whitten M.D. - [...] 1%. 4. No symptomatic events were noted. Adult And Pediatric Neurologist: Arvind Marcus Ad am Yoni Cavanaugh M.D., M.P.[facility]. CV CARDIAC SERVICES PROCED URES Performing Organization Address City/State/ZIP Code Phon e Number INFOBIONIC MOME INFOBIONIC MOME NA documented in this encounter Visit Diagnoses Diagnosis Post Concussion Syndrome Dizziness Syncope Vasovagal documented in this encounter
--- OUTSIDE RECORDS SUMMARY | 2022-09-05 14:51 | XMS_ITS | Encounter Summary ---
:1945 Author Organization [facility] Address [address] [place] [address] Care Team Providers Name Role Phone Unavailable Primary Care Provider Unavailable Reason for Referral Outpatient (Routine) - Closed Specialty Diagnoses / Procedures Referred By Contact Refer red To Contact Diagnoses Syncope And Near Syncope [facility]. [facility] ECG Ambulatory Real Time Cardiac Monitoring [address] [place] [address] Referral ID Status Reason Start Date Expiration Date Visits Requ ested Visits Authorized [id number] Closed 05/11/2022 05/11/2023 1 1 Reason for Visit Outpatient (Routine) - Closed Specialty Diagnoses / Procedures Referred By Contact Refer red To Contact Diagnoses Syncope And Near Syncope Nick [facility]il [facility].D. [facility] Procedures ECG Ambulatory Real Time Cardiac Monitoring [address] [place] [address] Referral ID Status Reason Start Date Expiration Date Visits Requ ested Visits Authorized [id number] Closed 05/11/2022 05/11/2023 1 1 Encounter Details Date Type Department Care Team Description 05/25/2022 Hospital Encounter Department of Pess[place]ha, Syncope And Near Cardiovascular Diseases Nick Reyes M.D. Syncope in [facility] [address] [place] [phone] Social History Tobacco Use Types Packs/Day Years [...] More than 4 times per year 02/16/2022 presybeterian services? Do you belong to any clubs [...] cholecalciferol (VITAMIN Take 400 Units by 0 /03/2009 D3) 10 mcg (400 Unit) mouth daily. [...] (VIBRAMYCIN) 0 03/24/2018 07/27/2022 100 mg capsule sulfamethoxazole-trimetho 0 05/10/2022 07/27/2022 prim (BACTRIM DS) 800-160 mg per tablet documented [...] Duration 0 sec duration INFOBIONIC MOME AF [place] 0% percent INFOBIONIC MOME [place] Runs 0 [...] ??to 86 BPM. No ectopy was noted. Rebrander: NATASHA Gómez/ Ashleigh Schaefer Procedure Note Marc Lau M.D. - 06/25/2022Formatt ing of this note might be different from the original. 1. The patient was monitored from 022 to 06/23/2022 with a total monitoring time [...] to 86 BPM. No ectopy was noted. Rebrander: NATASHA Gómez/ Ashleigh Schaefer Nick Mcneil M.D. CV CARDIAC SERVICES PROCEDUR ES Performing Organization Address City/State/ZIP Code Phon e Number INFOBIONIC MOME INFOBIONIC MOME NA documented in this encounter Visit Diagnoses Diagnosis Syncope And Near Syncope documented in this encounter
--- OUTSIDE RECORDS SUMMARY | 2022-09-05 14:51 | XMS_ITS | Clinical Summary ---
:1945 Author Organization [facility] Address [address] [place] [address] Care Team Providers Name Role Phone Unavailable Primary Care Provider Unavailable Source Comments Patient records contain information from all sites at [facility]. For routine questions regarding patient records, call [phone] during business hours, M-F 8:00 AM - 5:00 PM Central Time. Record requests for emergency care only can be directed to [phone] at any time.[facility] Allergies Active Allergy Reactions Severity Noted Date [...] diahrri a Phenylpropanolamine Other (see comments) 01/11/2022 [place] Pollen-Rough Pigweed Other (see comments) 022 Sneezing, nasal drainage Medications Medication Sig Dispensed Refills Start Date End Date Status calcium Take 1,000 mg by 0 05/07/2009 Ac tive carbonate-vitamin D3 mouth daily. 400-133.3 mg-unit tablet cholecalciferol Take 400 Units by 0 05/07/2009 [...] vitamin D2, 10 mcg (400 unit) tablet phenazopyridine TAKE 1 TABLET BY 0 07/02/2022 Active (PYRIDIUM) 100 mg MOUTH THREE TIMES tablet DAILY FOR 6 DOSES NEEDED FOR PAIN estradioL (ESTRACE) Insert 1 g into 42 g 3 07/29/2022 Active 0.1 mg/g (0.01%) the vagina 3 vaginal cream (three) times a week. Nightly for first week. 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 07/27/2022 Hospital Encounter Radiology Nick Mcneil Dyspne a On S, M.D. Exertion 07/27/2022 Office Visit Cardiovascular Nick Mcneil Dyspnea On Exertion (Primary Dx); Disease S, M.D. Syncope Vasovag al 07/18/2022 Community Orders All Krishnan Infection Urinary C, M.D. Tract (Primary Dx) from Last 3 Months Family History Medical [...] or relatives? How often do you attend methodist or More than 4 times per year 02/16/2022 oriental orthodox services? Do you belong to any clubs or Yes 02/16/2022 organizations such as methodist groups, unions, fraternal or athletic groups, or [...] 12.6 oz) 07/27/2022 7:53 AM CDT Height 157.7 cm (5' 2.09) 02/16/2022 7:41 AM CDT Body Mass Index 27.68 02/16/2022 7:41 AM CDT Plan of Treatment Health Maintenance Due Date Last Done Comments Hepatitis C Screening 1945 Thyroid Stimulating Hormone (TSH) 1945 test for thyroid function Zoster Vaccines (1 of 2) 1993 Depression Screening (Annual 10/02/2021 PHQ-2) Fall Risk Screen (Annual) 10/02/2021 DTaP,Tdap,and Td Vaccines (3 - Td 03/24/2031 03/24/2021, , or Tdap) 12/01/2010, Additional history exists Colonoscopy Discontinued 08/22/2014 Colorectal Cancer Surveillance Discontinued Pneumococcal vaccine (65+ years) Completed 12/29/2014, 07/2009 COVID-19 Vaccine Completed 06/10/2022, 12/30/2021, 12/30/2021, Additional history exists Influenza Vaccine Completed 06/10/2022, 06/18/2021, 07/13/2020, Additional history exists CT Colonography Discontinued Cologuard Discontinued Procedures Procedure Name Priority Date/Time Associated Comments Diagnosis DX CHEST AP OR PA RAD - Routine 07/27/2022 8:46 Dyspnea On Result s for this AND LATERAL 2 (most inpatients AM CDT Exertion procedure are in VIEWS and all the results outpatients) section. ECG AMBULATORY Routine 06/23/2022 10:00 Syncope And Near Resul ts for this REAL TIME CARDIAC PM CDT Syncope procedure are in MONITORING the results section. from Last 3 Months Results DX Chest AP or PA and [...] abnormalities are identified in the chest. Nick Mcneil M.D. IMAmelie DIAGNOSTIC IMAGING PROCE CHRISTOPHER ECG AMBULATORY REAL TIME CARDIAC MONITORING (06/23/2022 [...] Duration 0 sec duration INFOBIONIC MOME AF [place] 0% percent INFOBIONIC MOME [place] Runs 0 [...] ??to 86 BPM. No ectopy was noted. Receivable Manager: NATASHA Gómez/ Ashleigh Schaefer Procedure Note Marc [...] to 86 BPM. No ectopy was noted. Receivable Manager: NATASHA Gómez/ Ashleigh Schaefer Nick Mcneil M.D. CV CARDIAC SERVICES PROCEDUR ES Performing Organization Address City/State/ZIP Code Phon e Number INFOBIONIC MOME INFOBIONIC MOME NA from Last 3 Months Insurance Payer Benefit Plan Subscriber ID Effective Phone Address Typ e / Group Dates MEDICARE RAILROAD [id number] 2008-Pres [address] [facility] MEDICARE ent [id number] [place] [address] BLUE CROSS BCBS [employer] [id number] 2016-Pres [phone] [facility] SHIELD BLUE COST ent [phone] [place] [address] Advance Directives For more information, please contact: [phone] Documents on File Type Date Recorded Patient Hand Mold Maker Explanati on Advance Directives 08/30/2007 12:00 AM Shady augustin. See document viewer.
--- OUTSIDE RECORDS SUMMARY | 2022-09-05 14:51 | XMS_ITS | Encounter Summary ---
:1945 Author Organization [facility] Address [address] [place] [address] Care Team Providers Name Role Phone Unavailable Primary Care Provider Unavailable Reason for Referral Outpatient (Routine) - Closed Specialty Diagnoses / Procedures Referred By Contact Refer red To Contact Diagnoses Syncope Vasovagal Yoni Cavanaugh M.D., [facility] Procedures ECG 12 Lead M.P.H. [address] [place] [phone] Referral ID Status Reason Start Date Expiration Date Visits Requ ested Visits Authorized [id number] Closed 04/11/2022 04/11/2023 1 1 Outpatient (Routine) - Closed Specialty Diagnoses / Referred By Contact Referred To Contact Procedures Cardiovascular Diseases / Diagnoses Syncope Vasovagal Yoni Cavanaugh, [facility] Cardiovascular Disease Geeta, M.P.H. [address] [place] [phone] Referral ID Status Reason Start Date Expiration Date Visits Requ ested Visits Authorized [id number] Closed 04/11/2022 04/11/2023 1 1 Encounter Details Date Type Department Care Team Description 04/11/2022 Orders Only Department of Sleep Yoni Cavanaugh, Sync ope Vasovagal Medicine in Geeta Schulte, M.P .H. (Primary Dx) [place] [address] [place], [place] EDU SCHULTE [phone] Social History Tobacco Use Types Packs/Day Years [...] More than 4 times per year 02/16/2022 baptism services? Do you belong to any clubs [...] as of this encounter Plan of Treatment Scheduled Referrals Name Type Priority Associated Order Schedule Diagnoses Cardiovascular Disease Outpatient Referral Routine Syncope Vas ovagal Expected: - General cardiology 022 consult (clinic) (Approximat e), Expires: 07/12/2023 documented as of this encounter Results ECG 12 Lead (04/27/2022 9:12 AM CDT) P athologist Signature Ventricular Rate 75 BPM MUSE ECG/Min CO Interval 164 ms MUSE QRSD Interval 134 ms MUSE QT Interval 410 ms MUSE QTC Interval 457 ms MUSE P Deaver 66 degrees MUSE R Deaver -73 degrees MUSE T Wave Deaver 31 degrees MUSE Specimen Anatomical Collection Method [...]
--- OUTSIDE RECORDS SUMMARY | 2022-09-05 14:51 | XMS_ITS | Encounter Summary ---
:1945 Author Organization [facility] Address [address] [place] [address] Care Team Providers Name Role Phone Unavailable Primary Care Provider Unavailable Reason for Referral Outpatient (Routine) - Closed Specialty Diagnoses / Procedures Referred By Contact Refer red To Contact Diagnoses Syncope And Near Syncope Dyspnea On Exertion Nick Mcneil M.D. [facility] Procedures Cardiopulmonary (VO2) Exercise Test [address] [place] [address] Referral ID Status Reason Start Date Expiration Date Visits Requ ested Visits Authorized [id number] Closed 05/11/2022 05/11/2023 1 1 Outpatient (Routine) - Closed Specialty Diagnoses / Procedures Referred By Contact Refer red To Contact Diagnoses Syncope And Near Syncope Dyspnea On Exertion Nick Mcneil M.D. [facility] Procedures Echo Stress [address] [place] [address] Referral ID Status Reason Start Date Expiration Date Visits Requ ested Visits Authorized [id number] Closed 05/11/2022 05/11/2023 1 1 Reason for Visit Outpatient (Routine) - Closed Specialty Diagnoses / Procedures Referred By Contact Refer red To Contact Diagnoses Syncope And Near Syncope Dyspnea On Exertion Nick Mcneil M.D. [facility] Procedures Echo Stress [address] [place], [place] [phone] Referral ID Status Reason Start Date Expiration Date Visits Requ ested Visits Authorized [id number] Closed 05/11/2022 05/11/2023 1 1 Encounter Details Date Type Department Care Team Description 05/19/2022 Hospital Encounter Department of Pessanha, Syncope And Near Syncope; Cardiovascular Diseases Nick Reyes M.D. Dyspnea On Exertion in [facility] potato spotter [address] [facility] [address] [place] [phone] Social History Tobacco Use Types Packs/Day Years [...] or relatives? How often do you attend mu-ism or More than 4 times per year 02/16/2022 congregational services? Do you belong to any clubs or Yes 02/16/2022 organizations such as mu-ism groups, unions, fraternal or athletic groups, or [...] DOPPLER AND CONTRAST (05/19/2022 10:11 AM CDT) [facility] gist Method Time Signature Ejection Fraction 62 [...] 10. O2 uptake data detailed in the [facility] Medical Record (Cardiopulmonary (VO2) Exercise [...] border definition. Imaging enhancement agent administered per [facility] ardiography Contrast Administration Protocol Reference Document [id number]. Patient met an inclusion criterion and did [...] 10. O2 uptake data detailed in the [facility] Medical Record (Cardiopulmonary (VO2) Exercise [...] per Echocardiography Contrast Administration Protocol Reference Document [id number]. Patient met an inclusion criterion and did [...]
--- OUTSIDE RECORDS SUMMARY | 2022-09-05 14:51 | XMS_ITS | Clinical Summary ---
:1945 Author Organization [facility] [place] [address] Care Team Providers Name Role Phone Dayday [...] Type Group BLUE CROSS MR BLUE CROSS [id number] 2016-Present [address] [address] [place], [place] MR PB ONLY [phone] Care Teams Ethylbenzene Converter Operator Relationship Specialty Start Date End Date Labenski, Dayday Ahmet, MD PCP - General 03/20/06 [address] [place] [address]
--- OUTSIDE RECORDS SUMMARY | 2022-09-05 14:51 | XMS_ITS | Encounter Summary ---
:1945 Author Organization [facility] Address [address] [place] [address] Care Team Providers Name Role Phone Unavailable Primary Care Provider Unavailable Reason for Visit Appointment Request (Routine) - Closed Specialty Diagnoses / Procedures Referred By Contact Refer red To Contact Diagnoses Dyspnea On Exertion Nick Mcneil M.D. Procedures Pulmonary Function Tests [address] [place] [address] Referral ID Status Reason Start Date Expiration Date Visits Requ ested Visits Authorized [id number] Closed 05/11/2022 05/11/2023 1 Encounter Details Date Type Department Care Team Description 05/19/2022 Diagnostic Division of Pulmonary Nick Mcneil, Dyspnea On Exertion Medicine in [facility] [address] [facility] [address] [place] [phone] (Wo rk) Social History Tobacco [...] slept in a senior care (including now)? Education Answer Date Recorded What [...] Component Value Ref Test Analysis Performed At [facility] Range Method Time Signature VC MAX 2.18 L 05/19/2022 [facility] 9:[address] FVC PROVDILATATION 2.16 L 05/19/2022 [facility] 9:15 AM CDT SUITE FEV 1 1.64 L 05/19/2022 [facility] 9:15 AM CDT SUITE FEV1/FVC 75.86 % 05/19/2022 [facility] 9:15 AM CDT SUITE FEF 25-75% 1.37 L/s 05/19/2022 [facility] 9:15 AM CDT [address] PEF PROVDILATATION 3.36 L/s 05/19/2022 [facility] 9:15 AM CDT SUITE FET PROVDILATATION 8.05 sec 05/19/2022 [facility] 9:15 AM CDT SUITE [id number] 100.00 % 05/19/2022 [facility] 9:15 AM CDT SUITE PulseRest 67.00 1/min 05/19/2022 [facility] 9:15 AM CDT SUITE [id number] 96.00 % 05/19/2022 [facility] 9:15 AM CDT SUITE PulseExer 101.00 1/min 05/19/2022 [facility] 9:15 AM CDT SUITE EXER TIME 3.00 min 05/19/2022 [facility] 9:15 AM CDT SUITE STEP HEIGHT PRE 9.00 Inch 05/19/2022 [facility] 9:15 AM CDT SUITE VC MAX PROVOCATION 2.12 L 05/19/2022 [facility] 9:15 AM CDT SUITE CHALFVC [...] AM CDT SUITE CUMULATED DOSE 1063.278?? 05/19/2022 [facility] 9:15 AM CDT SUITE CUMULATED DOSE 2.000 05/19/2022 [facility] 9:15 AM CDT SUITE PD 20 05/19/2022 [facility] 9:15 AM CDT SUITE SUBSTANCE PROVBASE -- 05/19/2022 [facility] 9:15 AM CDT SUITE SUBSTANCE Methacholine 05/19/2022 [facility] 9:15 AM CDT SUITE SUBSTANCE Combivent 05/19/2022 [facility] 9:15 AM CDT SUITE % PRED VC MAX 97 % % 05/19/2022 [facility] 9:15 AM CDT SUITE FVC% 97 % % 05/19/2022 [facility] 9:15 AM CDT SUITE FEV1% 95 % % 05/19/2022 [facility] 9:15 AM CDT SUITE % PRED FEV1/FVC 97 % % 05/19/2022 [facility] 9:15 AM CDT SUITE % PRED FEF 25-75% 91 % % 05/19/2022 [facility] 9:15 AM CDT SUITE % PRED PEF 78 % % 05/19/2022 [facility] 9:15 AM CDT SUITE DLCO% 63 % % 05/19/2022 [facility] 9:15 AM CDT SUITE PRED VC MAX 2.40 05/19/2022 [facility] 9:15 AM CDT SUITE PRED FVC 2.40 05/19/2022 [facility] 9:15 AM CDT SUITE PRED FEV 1 1.83 05/19/2022 [facility] 9:15 AM CDT SUITE PRED FEV1/FVC 77.3 05/19/2022 [facility] 9:15 AM T SUITE PRED FEF 25-75% 1.51 05/19/2022 [facility] 9:15 AM CDT [facility] PRED PEF 5.0 05/19/2022 [facility] 9:15 AM T [facility] PRED DLCO 17.7 05/19/2022 [facility] 9:15 AM CDT [facility] Specimen (Source) Anatomical Collection Method Collection Time Re ceived Time Location / / Volume Laterality 05/19/2022 7:29 AM CDT Impressions [facility] - 05/19/2022 9:15 AM C DT [...] Organization Address City/State/ZIP Code Phon e Number [facility] NA documented in this encounter [...] as needed, other, per protocol, Starting on [facility] 05/19/22 at 0743, For 1 dose methacholine [...] as needed, per protocol, Starting on Reena 8 at 0743, For 1 dose, Administer by inhalation using nebulizer. documented in this encounter
--- OUTSIDE RECORDS SUMMARY | 2022-09-05 14:51 | XMS_ITS | Encounter Summary ---
:1945 Author Organization [facility] Address [address] [place] [address] Care Team Providers Name Role Phone Unavailable Primary Care Provider Unavailable Encounter Details Date Type Department Care Team Description 07/18/2022 [facility] All Krishnan Inf ection Urinary AND CLINICS C, [place]ik[place] Tract (Primary Dx) [address] [facility] [address] [place] [address] [place], [place] [phone] Social History Tobacco Use Types Packs/Day Years [...] as of this encounter Visit Diagnoses Diagnosis Infection Urinary Tract - Primary documented in this encounter
--- OUTSIDE RECORDS SUMMARY | 2022-09-05 14:51 | XMS_ITS | Encounter Summary ---
:1945 Author Organization [facility] Address [address] [place] [address] Care Team Providers Name Role Phone Unavailable Primary Care Provider Unavailable Reason for Referral Outpatient (Routine) - Closed Specialty Diagnoses / Procedures Referred By Contact Refer red To Contact Cardiovascular Disease Nick Mcneil [facility] M.DNik [address] [place] [address] Referral ID Status Reason Start Date Expiration Date Visits Requ ested Visits Authorized [id number] Closed 05/11/2022 05/11/2023 1 1 Outpatient (Routine) - Closed Specialty Diagnoses / Procedures Referred By Contact Refer red To Contact Diagnoses Syncope And Near Syncope [facility]il [facility].D. [facility] Procedures ECG Ambulatory Real Time Cardiac Monitoring [address] [place] [address] Referral ID Status Reason Start Date Expiration Date Visits Requ ested Visits Authorized [id number] Closed 05/11/2022 05/11/2023 1 1 Appointment Request (Routine) - Closed Specialty Diagnoses / Procedures Referred By Contact Refer red To Contact Diagnoses Dyspnea On Exertion Nick Mcneil M.D. Procedures Pulmonary Function Tests [address] [place] [address] Referral ID Status Reason Start Date Expiration Date Visits Requ ested Visits Authorized [id number] Closed 05/11/2022 05/11/2023 1 Outpatient (Routine) - Closed Specialty Diagnoses / Procedures Referred By Contact Refer red To Contact Diagnoses Syncope And Near Syncope Dyspnea On Exertion Nick Mcneil M.D. [facility] Procedures Echo Stress [address] [place] [address] Referral ID Status Reason Start Date Expiration Date Visits Requ ested Visits Authorized [id number] Closed 05/11/2022 05/11/2023 1 1 Reason for Visit Reason Comments Syncope Vasovagal Outpatient (Routine) - Closed Specialty Diagnoses / Referred By Contact Referred To Contact Procedures Cardiovascular Diseases / Diagnoses Syncope Vasovagal Yoni Cavanaugh, [facility] Cardiovascular Disease M.Kenny, M.P.H. [address] [place] [phone] Referral ID Status Reason Start Date Expiration Date Visits Requ ested Visits Authorized [id number] Closed 04/11/2022 04/11/2023 1 1 Encounter Details Date Type Department Care Team Description 05/11/2022 Comprehensive Visit Department of [place] Syncope And Near Syncope (Primary Dx); Cardiovascular Nick Reyes M.D. Syncope Vasovagal; Diseases in [facility] [address] Dyspnea On Exertion [place], [place] [address] [address] [place], [place] [phone] (Work) [phone] Social History Tobacco Use Types Packs/Day Years [...] event occurred October 2021 while standing in anabaptism. Difficulty to properly characterize the event; memory [...] Hyperlipidemia, per primary care provider. Lipids from [place] reviewed (LDL 136, HDL 60, triglycerides 119 [...] with the plan. CARDIOLOGY CONSULTATION Location: [facility]. Referring Provider: Yoni Cavanaugh M.D., M.P.H. SUBJECTIVE CHIEF COMPLAINT/REASON FOR CONSULT No chief complaint on file. HISTORY OF PRESENT ILLNESS Ms. Emmy Anderson is a very pleasant 77 y.o. female who presents to [facility] for evaluation after loss of consciousness. Her primary care provider is No primary care provider on file.. Previously seen by Cardiology: No. Presenting unaccompanied by family. The patient presents today to establish care after episode of loss of consciousness, October 10/2022. She states she was standing in anabaptism on suddenly everything became fuzzy and white. She was still by witnesses that she had lost consciousness and hit her head causing her to have a concussion. [place] had significant neck and chest discomfort, from [...] by primary care provider. Lipids done in [place] reviewed. Currently undergoing treatment for UTI. No [...] and she does water aerobics at the [employer] times a week. She has been noticed [...] (see comments) diahrria Phenylpropanolamine Other (see comments) [place] Pollen-Rough Pigweed Other (see comments) Sneezing, nasal drainage Adhesive Itching Social History Socioeconomic History Marital status: Highest education level: Professional school degree (e.g., , DDS, DVM, KRISTEN) Tobacco Use Smoking status: [...] Friends and Family: Once a week Attends Gnosticist Services: More than 4 times per year [...] Date Value Ventricular Rate ECG/Min 04/27/2022 75 MS Interval 04/27/2022 164 QRSD Interval 04/27/2022 134 QT Interval 04/27/2022 410 QTC Interval 04/27/2022 457 P [place] 04/27/2022 66 R [place] 04/27/2022 -73 T Wave [place] 04/27/2022 31 Hospital Outpatient Visit on 02/23/2022 Component Date Value Min Heart Rate 02/25/2022 49 Max Heart Rate 02/25/2022 120 Mean Heart Rate 02/25/2022 74 VE Total Beats 02/25/2022 205 VE Percent Beats 02/25/2022 less than 1 SVE Total Beats 02/25/2022 109 SVE Percent Beats 02/25/2022 less than 1 AF Count 02/25/2022 0 AF Duration 02/25/2022 0 AF [place] 02/25/2022 0 Symptom Count 02/25/2022 0 ECG [...] in this encounter Plan of Treatment Scheduled Referrals [...] Duration 0 sec duration INFOBIONIC MOME AF [place] 0% percent INFOBIONIC MOME VT Runs 0 [...] ??to 86 BPM. No ectopy was noted. [place]: NATASHA Gómez/ Ashleigh Schaefer Procedure Note Marc [...] to 86 BPM. No ectopy was noted. [place]: NATASHA Gómez/ Ashleigh Schaefer Nick Mcneil M.D. CV CARDIAC SERVICES PROCEDUR ES Performing Organization Address City/State/ZIP Code Phon e Number INFOBIONIC MOME INFOBION[facility] MOME NA ECHO STRESS 2D WITH COLOR, DOPPLER AND CONTRAST (05/19/2022 10:11 AM CDT) [facility] Method Time Signature Ejection Fraction 62 [...] 10. O2 uptake data detailed in the [facility] Medical Record (Cardiopulmonary (VO2) Exercise Test). [...] border definition. Imaging enhancement agent administered per [facility] ardiography Contrast Administration Protocol Reference Document [id number]. Patient met an inclusion criterion and did [...] 10. O2 uptake data detailed in the [facility] Medical Record (Cardiopulmonary (VO2) Exercise Test). [...] per Echocardiography Contrast Administration Protocol Reference Document [id number]. Patient met an inclusion criterion and did not h ave contraindications in screening sections. LUNG FINDINGS:Lung ultrasound performed. Findings consistent with normal lung aeration at rest and with exercise. For the complete report, see the Order-L evel Documents. Nick Mcneil M.D. CV ECHO PROCEDURES Pulmonary Function Tests (05/19/2022 7:29 AM CDT) Component Value Ref Test Analysis Performed At [facility] Method Time Signature VC MAX 2.18 L [facility] FVC PROVDILATATION 2.16 L 05/19/2022 [facility]ILLIAN[facility] Y 9:15 AM CDT SUITE FEV 1 1.64 L 05/19/2022 [facility] PROVDILATATION 9:15 AM CDT SUITE FEV1/FVC 75.86 % 05/19/2022 [facility] PROVDILATATION 9:15 AM CDT SUITE FEF 25-75% 1.37 L/s 05/19/20[facility] 9:15 AM CDT SU[address] PEF PROVDILATATION 3.36 L/s 05/19/2022 [facility] 9:15 AM CDT SUITE FET PROVDILATATION 8.05 sec 05/19/2022 [facility] 9:15 AM CDT SUITE [id number] 100.00 % 05/19/2022 [facility] 9:15 AM CDT SUITE PulseRest 67.00 1/min 05/19/2022 [facility] 9:15 AM CDT SUITE [id number] 96.00 % 05/19/2022 [facility] 9:15 AM CDT SUITE PulseExer 101.00 1/min 05/19/2022 [facility] 9:15 AM CDT SUITE EXER TIME 3.00 min 05/19/2022 [facility] 9:15 AM CDT SUITE STEP HEIGHT PRE 9.00 Inch 05/19/2022 [facility] 9:15 AM CDT SUITE VC MAX [...] AM CDT SUITE CUMULATED DOSE 1063.278?? 05/19/2022 [facility] PROVOCATION 9:15 AM CDT SUITE CUMULATED DOSE 2.000 05/19/2022 [facility] PROVDILATATION 9:15 AM CDT SUITE PD 20 05/19/2022 [facility] 9:15 AM CDT SUITE SUBSTANCE PROVBASE -- 05/19/2022 [facility] 9:15 AM CDT SUITE SUBSTANCE Methacholine 05/19/2022 [facility] 9:15 AM CDT SUITE SUBSTANCE Combivent 05/19/2022 [facility] PROVDILATATION 9:15 AM CDT SUITE % PRED VC MAX 97 % % 05/19/2022 [facility] 9:15 AM CDT SUITE FVC% 97 % % 05/19/2022 [facility] 9:15 AM CDT SUITE FEV1% 95 % % 05/19/2022 [facility] 9:15 AM CDT SUITE % PRED FEV1/FVC 97 % % 05/19/2022 [facility] 9:15 AM CDT SUITE % PRED FEF 25-75% 91 % % 05/19/2022 [facility] 9:15 AM CDT SUITE % PRED PEF 78 % % 05/19/2022 [facility] 9:15 AM CDT SUITE DLCO% 63 % % 05/19/2022 [facility] 9:15 AM CDT SUITE PRED VC MAX 2.40 05/19/2022 [facility] 9:15 AM CDT SUITE PRED FVC 2.40 05/19/2022 [facility] 9:15 AM CDT SUITE PRED FEV 1 1.83 05/19/2022 [facility] 9:15 AM CDT SUITE PRED FEV1/FVC 77.3 05/19/2022 [facility] 9:15 AM CDT SUITE PRED FEF 25-75% 1.51 05/19/2022 [facility] 9:15 AM CDT SUITE PRED PEF 5.0 05/19/2022 [facility] 9:15 AM CDT SUITE PRED DLCO 17.7 05/19/2022 [facility] 9:15 AM CDT SUITE Specimen (Source) Anatomical Collection Method Collection Time Re ceived Time Location / / Volume Laterality 05/19/2022 7:29 AM CDT Impressions [facility] - 05/19/2022 9:15 AM C DT [...] Performing Organization Address City/[facility] Phon e Number [facility]ENTRY SUITE DUPREE SENT SUITE NA SARS Coronavirus-2 RNA, V Asymptomatic (05/16/2022 9:57 AM CDT) [facility] Method Time Signature SARS-CoV-2 Swab, 05/16/2022 [...] pe rformed using the Aptima SARS-CoV-2 assay ([employer] on the [employer] tem under emergency use authorization (EUA) by the U.S. Food and Drug Administ ration. Fact sheets for this EUA assay can be fo und at the following links: For Healthcare Providers: https://www.fd a.gov/media/150237/download For Patients: https://www.fda.gov/media/ 612902/download Specimen Anatomical Collection Method Collection Time Receive d Time (Source) Location / / Volume Laterality Varies 05/16/2022 9:57 AM 4:43 (Nasopharynx) CDT PM CDT Nick Mcneil M.D. LAB MICROBIOLOGY - GENERAL O RDERABLES Performing Organization Address City/State/[facility] Code Phon e Number [facility]- [address] [place] [address] [place] [address] System in [place] [address] [facility] documented in this encounter Visit Diagnoses Diagnosis Syncope And Near Syncope - Primary Syncope Vasovagal Dyspnea On Exertion Dyspnea On Exertion Syncope And Near Syncope Dyspnea On Exertion Syncope And Near Syncope documented in this encounter
--- OUTSIDE RECORDS SUMMARY | 2022-09-05 14:51 | XMS_ITS | Encounter Summary ---
:1945 Author Organization [facility] Address [address] [place] [address] Care Team Providers Name Role Phone Unavailable Primary Care Provider Unavailable Reason for Visit Reason Comments Consult Urinary Tract Infection Recurrent Appointment Request (Routine) - Closed Specialty Diagnoses / Procedures Referred By Contact Refer red To Contact Urology Referral ID Status Reason Start Date Expiration Date Visits Requ ested Visits Authorized [id number] Closed 07/27/2022 07/27/2023 1 1 Encounter Details Date Type Department Care Team Description 07/28/2022 Comprehensive Visit Department of Janie Sheriff Inf ection Urinary Tract Recurrent (Primary Dx); Urology in A, ACCESS CLERK, C.N.P. 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 - 07/28/2022 9:30 AM CDT SUBJECTIVE REASON FOR CONSULT Recurrent UTI HISTORY OF PRESENT ILLNESS Emmy is a pleasant 77 year old female here today for consultation for recurrent urinary tract infection. She has been symptomatic for infection on June 24, July 02, and July 13. She was treated with Macrobid but symptoms did not improve. She was treated with ciprofloxacin 500 mg tablet twice daily for 7 days. She was unable to tolerate this at full strength and took a half tablet twice daily for 4 days. She did not have positive urine cultures. Other infections in the past occurred in November2021, August 2021 and March 2021. Complete records are not available as her primary provider is at [facility]. Please see below for further details. MC AMB URO PROLAPSE INTAKE QUESTIONNAIRE SB: How many pregnancies have you had?: 2 How many live births have you had?: 2 How many vaginal deliveries have you had?: 2 Have you had a hysterectomy?: no Are you premenopausal, perimenopausal, or post menopausal?: post menopausal Associated Symptoms suprapubic pain (+) Chemical exposures: toxic chemical exposure (-) Lower Urinary Symptoms Lower Urinary Sx: able to sense full bladder (+) frequency (+) Presence of pelvic pain: suprapubic pain (+) Obstructive Sx: kidney infections or required hospitalization for kidney failure (-) # of UTI's in past year: 3 or more Required catheter: no Incontinence: urge incontinence (+) unintentionally leaks urine (+) leaking occurs during coughing, sneezing or lifting heavy objects (-) experiences a feeling of urgency before leaking (+) Treatments: Treatments taken for urinary symptoms: medications treatments helped (+) had surgical or office procedures to improve urinary symptoms (-) The following portions of the patient's history were reviewed and updated as appropriate: allergies,current medications, family history, medical history, social history, surgical history, and problem list. REVIEW OF SYSTEMS Gastrointestinal: Positive for constipation and diarrhea. - Pain before bowel movements, colonoscopy normal in the past. Stool is soft and doesn't stick together. Goes back and forth between constipation and diarrhea. Very diet dependent. Takes plums regularly. Genitourinary: Positive for pain with urination. - Symptoms of UTI: increased urgency and frequency, increased incontinence, duenas when urinating. Symptoms returned 4 days after stopping Macrobid, recheck showed infection and started Cipro which caused diarrhea. Takes probiotics with antibiotics. No sexual activity. No douches. Uses Ivory soap, takes bath 4 times week, shower 3 times week after exercise at pool. Drinks 1-2 20 ounce water, 2 small glasses of juice, rice milk with cereal. Sometimes leaks on the way to the bathroom. Gets up 3-4 times at night to void. Psychiatric/Behavioral: - Snores at times. Lot of respiratory issues in the past. Past Medical History: Diagnosis Date Cataract 2000 Complication Anesthesia Initial 2002 Dermatitis 1980 Gallbladder Disorder removed about 2002 Headache Unspecified frequent most of my life Hyperlipidemia 3-2019 Hyperthyroidism about 1990 Migraine Headache 1990 Osteoporosis about 2006 Other Injury Of Unspecified Body Region 2016 disk not sure on date Other Specified Health Status 1999 Graves Dise ase and severe allergy to lidocane. food intolle Past Surgical History: Procedure Laterality Date DILATATION AND CURETTAGE 1979 Not sure on date GALLBLADDER SURGERY 2002 not sure on exact date OTHER CONVERTED SHX (SEE COMMENT) N/A 09/12/1995 >Injection of right extensor carpi ulnaris tendon sheath with Celestone and Xylocaine. OTHER CONVERTED SHX (SEE COMMENT) N/A 07/26/1999 > Colonoscopy Family History Problem Relation Age of Onset [...] Thyroid disease Brother Arthritis Brother Diabetes Brother Allergies Allergen Reactions Lidocaine Anaphylaxis per pt, tubal closure, asthmatic attack; Adhesive Tape-Silicones Rash Aspirin GI intolerance Chlorpheniramine Other (see comments) Chlorpheniramine-Phenylephrine Cough runny nose Codeine Shortness of breath Mold Other (see comments) Sneezing, sinus issues Penicillin V Other (see comments) diahrria Phenylpropanolamine Other (see comments) [place] Pollen-Rough Pigweed Other (see comments) Sneezing, nasal drainage Adhesive Itching Current Outpatient Medications on File Prior to Visit Medication Sig Dispense Refill acetaminophen (TYLENOL) 325 mg tablet Every 4 [...] application topically as needed for dry skin. No current facility-administered medications on file prior to visit. Social History Tobacco Use Smoking status: Never Smokeless tobacco: Never Vaping Use Vaping Use: never used Substance Use Topics Alcohol use: Not Currently Alcohol/week: 0.0 standard drinks Comment: wine about once a month Drug use: Never OBJECTIVE There were no vitals filed for this visit. PHYSICAL EXAM Vitals and nursing note reviewed. General: Well developed, well nourished, well groomed female in no acute distress. Neurological: Alert, cooperative, oriented x3. Appropriate mood and affect. Head: Normal appearance, no abnormalities, normocephalic. Neck: Symmetrical and supple, trachea is midline. Cardiac: regular rate, regular rhythm. Respiratory:Respirations are unlabored with normal respiratory rate and normal respiratory movements. Normal chest wall expansion without use of accessory muscles. Abdomen: Soft, non-tender, non-distended Vascular: There are +2 pulses noted in both upper and lower extremities. : Skin color and turgor appropriate for region. No ulcers, erythema, rashes, or pigmented lesions noted. External genitalia negative for masses, lesions, or swelling. No labial agglutination noted, minimal atrophy noted. No unusual odors or discharge noted. Vaginal mucosa with atrophy present. No cystocele or rectocele exhibited on straining. Extremities: Warm, without edema or ulcerations. Musculoskeletal: [place] is symmetrical and balanced. DIAGNOSTIC Postvoid residual by bladder scan 28 mL. ASSESSMENT / PLAN 1. Infection Urinary Tract Recurrent 2. Atrophy Vagina Due To Estrogen Deficiency We had an in-depth discussion about her recurrent urinary tract infections and vaginal atrophy. We discussed that vaginal estrogen therapy can be very effective at rejuvenating vaginal tissue and therefore preventing infections. She should use vaginal estrogen nightly for 1 week then 3 times a week after that. We also discussed use of Ellura or Uqora products for prevention of infection. She is encouraged to continue with adequate amounts of fluid intake. We discussed symptoms of infection, if she is symptomatic she should contact us or be seen by her primary provider. We encouraged that she have urine cultures collected with all urine specimens. We discussed hygiene measures to prevent infections. If she continues to have issues, she will contact us. Next steps in workup would include CT abdomenand pelvis and possible cystoscopy. All questions answered today. Signed by: Janie Sheriff APRN, C.N.P. 07/28/2022 9:10 AM CDT documented in this encounter Plan of Treatment Not on filedocumented as of this encounter Visit Diagnoses Diagnosis Infection Urinary Tract Recurrent - Prim levi Atrophy Vagina Due To Estrogen Deficienc y documented in this encounter
--- OUTSIDE RECORDS SUMMARY | 2022-09-05 14:51 | XMS_ITS | Encounter Summary ---
:1945 Author Organization [facility] Address [address] [place] [address] Care Team Providers Name Role Phone Unavailable Primary Care Provider Unavailable Encounter Details Date Type Department Care Team Description 05/16/2022 Lab Department of General Nick Mcneil, Syncope And Near Syncope Surgery in [place] [address], [place] [phone] (Wo rk) Social History Tobacco Use Types [...] or relatives? How often do you attend taoist or More than 4 times per year 02/16/2022 zoroastrianism services? Do you belong to any clubs or Yes 02/16/2022 organizations such as taoist groups, unions, fraternal or athletic groups, or [...] place to sleep or slept in a snf (including now)? Education Answer Date Recorded What [...] RNA, V Asymptomatic (05/16/2022 9:57 AM CDT) [facility] Method Time Signature SARS-CoV-2 Swab, 05/16/2022 [...] pe rformed using the Aptima SARS-CoV-2 assay ([employer] on the [employer] tem under emergency use authorization (EUA) by the U.S. Food and Drug Administ ration. Fact sheets for this EUA assay can be fo und at the following links: For Healthcare Providers: https://www.fd a.gov/media/883277/download For Patients: https://www.fda.gov/media/ 898020/download Specimen Anatomical Collection Method Collection Time Receive d Time (Source) Location / / Volume Laterality Varies 05/16/2022 9:57 AM 4:43 (Nasopharynx) CDT PM CDT Nick Mcneil M.D. LAB MICROBIOLOGY - GENERAL O RDELVIS Performing Organization Address City/State/[facility] Phon e Number [facility]- [address] [place] [address] [place] [address] System [address] documented in this encounter Visit Diagnoses Diagnosis Syncope And Near Syncope documented in this encounter Additional Health Concerns Infection Onset Date Last Indicated Resolved Time COVID19 Pending 05/13/2022 05/16/2022 05/16/2022 10:33 PM CDT documented as of this encounter
--- OUTSIDE RECORDS SUMMARY | 2022-09-05 14:51 | XMS_ITS | Encounter Summary ---
:1945 Author Organization [facility] Address [address] [place] [address] Care Team Providers Name Role Phone Unavailable Primary Care Provider Unavailable Reason for Referral Outpatient (Routine) - Closed Specialty Diagnoses / Procedures Referred By Contact Refer red To Contact Diagnoses Dyspnea On Exertion Nick Mcneil M.D. [facility] Procedures DX Chest AP or PA and Lateral 2 Views [address] [place] [address] Referral ID Status Reason Start Date Expiration Date Visits Requ ested Visits Authorized [id number] Closed 07/27/2022 07/27/2023 1 1 Reason for Visit Outpatient (Routine) - Closed Specialty Diagnoses / Procedures Referred By Contact Refer red To Contact Diagnoses Dyspnea On Exertion Nick [facility]neil M.D. [facility] Procedures DX Chest AP or PA and Lateral 2 Views [address] [place] [address] Referral ID Status Reason Start Date Expiration Date Visits Requ ested Visits Authorized [id number] Closed 07/27/2022 07/27/2023 1 1 Encounter Details Date Type Department Care Team Description 07/27/2022 Hospital Encounter Department of Nick Mcneil ea On Exertion Radiology in [place] [address] [facility] [place] [phone] Social History Tobacco Use Types Packs/Day Years [...] succinate Take 12.5 mg by mouth 0 /04/2022 (TOPROL-XL) 25 mg 24 hr daily. tablet phenazopyridine (PYRIDIUM) TAKE 1 TABLET BY 0 10/2021 100 mg tablet MOUTH THREE TIMES DAILY FOR 6 DOSES NEEDED FOR PAIN pseudoephedrine-guaiFENesi Take 1 tablet by 0 n [...] VIEWS and all the results outpatients) section. documented in this encounter Results DX Chest AP or [...]
--- OUTSIDE RECORDS SUMMARY | 2022-09-05 14:52 | XMS_ITS | Encounter Summary ---
:1945 Author Organization [facility] Address [address] [place] [address] Care Team Providers Name Role Phone Unavailable Primary Care Provider Unavailable Encounter Details Date Type Department Care Team Description 04/24/2020 Clinical Communication Department of Deepali Harrington, Dermatology in M.D. [place], [place] [address] [facility] [address] [place] [phone] [phone] Social History Tobacco Use Types Packs/Day Years [...] or relatives? How often do you attend sikh or More than 4 times per year 02/16/2022 gnosticism services? Do you belong to any clubs or Yes 02/16/2022 organizations such as sikh groups, unions, fraternal or athletic groups, or school groups? How often do you attend meetings of the More than 4 times pe year 02/16/2022 clubs or organizations you belong [...] skin check. She can be reached at [phone]. Thank you documented in this encounter Plan of Treatment Not on filedocumented as of this encounter Visit Diagnoses Not on filedocumented in this encounter
--- OUTSIDE RECORDS SUMMARY | 2022-09-05 14:52 | XMS_ITS | Encounter Summary ---
:1945 Author Organization [facility] Address [address] [place] [address] Care Team Providers Name Role Phone Unavailable [...] More than 4 times per year 02/16/2022 amish services? Do you belong to any clubs [...] or slept in a [facility] (including now)? Sex Assigned at Date Recorded [...]
--- OUTSIDE RECORDS SUMMARY | 2022-09-05 14:52 | XMS_ITS | Encounter Summary ---
:1945 Author Organization [facility] Address [address] [place] [address] Care Team Providers Name Role Phone Unavailable [...] or relatives? How often do you attend quaker or More than 4 times per year 02/16/2022 shinto services? Do you belong to any clubs or Yes 02/16/2022 organizations such as quaker groups, unions, fraternal or athletic groups, or [...] or slept in a correction (including now)? Sex Assigned at Date Recorded [...] Electronically signed by: ?? Jose Rafael Caballero [phone] [id number] 7 22:50 I have reviewed the [...] . Electronically signed by: Jose Rafael Caballero [phone] [id number] 7 22:50 I have reviewed the [...] Electronically signed by: ?? Juan Robertson MD [phone] ([id number]) 20-Jul-20 07 17:15 I have reviewed the films/images and agr ee with the above interpretation. Electronically signed by: ?? Oz Decker MD [phone] [id number] 20-Jul-2007 1 9:02 Procedure Note Gwyn [...] film. Electronically signed by: Juan Robertson MD [phone] ([id number]) 20-Jul-20 07 17:15 I have reviewed the films/images and agr ee with the above interpretation. Electronically signed by: Oz Decker MD [phone] [id number] 20-Jul-2007 1 9:02 Martha TEJEDA DIAGNOSTIC IMAGING PROCE DURES MR Cervical Spine without and with IV [...] Electronically signed by: ?? Sam Palm MD. [id number] 19-Jul-2007 21:23 Procedure Note Sam Palm M.D. [...] evaluation. Electronically signed by: Sam Palm MD. [id number] 19-Jul-2007 21:23 Elizabeth TEJEDA MRI PROCEDURES documented in this encounter Visit Diagnoses Not on filedocumented in this encounter
--- OUTSIDE RECORDS SUMMARY | 2022-09-05 14:52 | XMS_ITS | Encounter Summary ---
:1945 Author Organization [facility] Address [address] [place] [address] Care Team Providers Name Role Phone Unavailable Primary Care Provider Unavailable Reason for Visit Reason Comments Allergies bananas, consult Appointment Request (Routine) - Closed Specialty Diagnoses / Procedures Referred By Contact Refer red To Contact Allergy and Immunology Referral ID Status Reason Start Date Expiration Date Visits Requ ested Visits Authorized [id number] Closed 10/10/2018 10/10/2019 1 Encounter Details Date Type Department Care Team Description 11/16/2018 Office Visit Department of Allergy Ondina Garduno, Rh initis Chronic (Primary Dx); in [place] Wang M.D. Pain Ear Bilateral; [address] Intolerance Food (HCC) [place] [phone] Social History Tobacco Use Types Packs/Day Years [...] More than 4 times per year 02/16/2022 episcopal services? Do you belong to any clubs [...] Comments Blood Pressure 152/78 11/16/2018 3:43 PM INFORMATION RECEPTIONIST Pulse 68 11/16/2018 3:43 PM INFORMATION RECEPTIONIST Temperature - - Respiratory Rate - - Oxygen Saturation - - Inhaled Oxygen Concentration - - Weight 73.8 kg (162 lb 11.2 oz) 11/16/2018 3:43 PM INFORMATION RECEPTIONIST Height - - Body Mass Index 28.47 08/21/2014 8:19 AM INFORMATION RECEPTIONIST documented in this encounter Patient Instructions Patient [...] profile so it can be used more fpc. RMATION RECEPTIONIST documented in this encounter Consult Notes Ondina [...] processed meats have been associated with diarrhea. [place] (and any corn derivative), celery and bananas seem to trigger nasal congestion. Peas, onion, apple, pears trigger migraines. [place] fruits cause cold sores. Ms. Anderson detailed a number of other reaction concerns including respiratory issues with exposure to jute, mock orange shrub, indian lilac tree, rough pigweed, some molds, and [...] consideration for symptomatology. Follow up as needed. RMATION RECEPTIONIST documented in this encounter Plan of Treatment Not on filedocumented as of this encounter Visit Diagnoses Diagnosis Rhinitis Chronic - Primary Pain Ear Bilateral Intolerance Food documented in this encounter
--- OUTSIDE RECORDS SUMMARY | 2022-09-05 14:52 | XMS_ITS | Encounter Summary ---
:1945 Author Organization [facility] Address [address] [place] [address] Care Team Providers Name Role Phone Unavailable Primary Care Provider Unavailable Reason for Visit Reason Comments Skin Check Encounter Details Date Type Department Care Team Description 11/26/2019 Office Visit Department of Deepali Harrington, Natty Pittman ple (Primary Dx); Dermatology in [place] Keratosis Actinic; [address] Keratosis Seborrheic; [address] [place] [address] [place] [address] [phone] Social History Tobacco Use Types Packs/Day Years [...] More than 4 times per year 02/16/2022 yazdanism services? Do you belong to any clubs or Yes 02/16/2022 organizations such as episcopalian groups, unions, fraternal or athletic groups, or school groups? How often do you attend meetings of the More than 4 times [facility] year 02/16/2022 clubs or organizations you belong [...] extremities. My nurse (Tana) served as a water pollution control inspector for the entirety of the exam. Examination [...] By signing my name below, I, Manny Briggs, attest that this documentation has been prepared under thedirection and in the presence of Deepali Harrington M.D. Electronically Signed: josiane Waters. 11/26/2019. 12:54 PM GREEN FEED ATTENDANT. I, Deepali Harrington M.D., personally performed the services described in this documentation. All medical record entries made by the scribe were at my direction and in my presence. I have reviewed the chart and discharge instructions (if applicable) and agree that the record reflects my personal performance and is accurate and complete. Deepali Harrington M.D. . 11/26/2019. 1:04 PM GREEN FEED ATTENDANT. N FEED ATTENDANT documented in this encounter Plan of Treatment Not on filedocumented as of this encounter Visit Diagnoses Diagnosis Nevi Multiple - Primary Keratosis Actinic Keratosis Seborrheic Verrucal Keratosis documented in this encounter
--- OUTSIDE RECORDS SUMMARY | 2022-09-05 14:52 | XMS_ITS | Encounter Summary ---
:1945 Author Organization [facility] Address [address] [place] [address] Care Team Providers Name Role Phone Unavailable Primary Care Provider Unavailable Encounter Details Date Type Department Care Team Description 09/18/2007 - Hospital Encounter HX RST INFUSION Jerson Ramos, 09/25/2007 THERAPY R.N. [address] [place] [address] Social History Tobacco Use Types Packs/Day Years [...] or relatives? How often do you attend latter day or More than 4 times per year 02/16/2022 mandaeism services? Do you belong to any clubs or Yes 02/16/2022 organizations such as latter day groups, unions, fraternal or athletic groups, or [...] or slept in a residential (including now)? Sex Assigned at Date Recorded Female 05/07/2022 11:11 AM CDT documented as of this encounter Plan of Treatment Not on filedocumented as of this encounter Visit Diagnoses Not on filedocumented in this encounter
--- OUTSIDE RECORDS SUMMARY | 2022-09-05 14:52 | XMS_ITS | Encounter Summary ---
:1945 Author Organization [facility] Address [address] [place] [address] Care Team Providers Name Role Phone Unavailable Primary Care Provider Unavailable Encounter Details Date Type Department Care Team Description 10/11/2019 [facility] All Krishnan Spinal AND OLENA Saeed M.D. Cervical (Primary Dx) 1999 [facility] [address] [place] [address] [place], [place] [phone] Social History Tobacco Use Types Packs/Day Years [...] or relatives? How often do you attend lutheran or More than 4 times per year 02/16/2022 rastafarian services? Do you belong to any clubs or Yes 02/16/2022 organizations such as lutheran groups, unions, fraternal or athletic groups, or [...] or slept in a retirement (including now)? Sex Assigned at Date Recorded Female 05/07/2022 11:11 AM CDT documented as of this encounter Plan of Treatment Not on filedocumented as of this encounter Visit Diagnoses Diagnosis Stenosis Spinal Cervical - Primary documented in this encounter
--- OUTSIDE RECORDS SUMMARY | 2022-09-05 14:52 | XMS_ITS | Encounter Summary ---
:1945 Author Organization [facility] Address [address] [place] [address] Care Team Providers Name Role Phone Unavailable Primary Care Provider Unavailable Reason for Referral Outpatient (Routine) - Closed Specialty Diagnoses / Procedures Referred By Contact Refer red To Contact Diagnoses Pain Back Weakness Leg Numbness Lower Extremity Weakness Upper Extremity Osteoporosis Elizabeth Jenkins M.D. [facility] Procedures BMD Bone Density Spine Hips [address] [place] [phone] Referral ID Status Reason Start Date Expiration Date Visits Requ ested Visits Authorized [id number] Closed 10/18/2019 10/17/2020 1 1 T OUTPUT CLERK Reason for Visit Outpatient (Routine) - Closed Specialty Diagnoses / Procedures Referred By Contact Refer red To Contact Diagnoses Pain Back Weakness Leg Numbness Lower Extremity Weakness Upper Extremity Osteoporosis Elizabeth Jenkins M.D. [facility] Procedures BMD Bone Density Spine Hips [address] [place] [phone] Referral ID Status Reason Start Date Expiration Date Visits Requ ested Visits Authorized [id number] Closed 10/18/2019 10/17/2020 1 1 Encounter Details Date Type Department Care Team Description 10/22/2019 Hospital Encounter Department of Elizabeth Jenkins Pain Ba ck; RadiologyMegan M.D. Weakness Leg; Building, in [address] [place] [address] Numbness Lower Extremity; [place], [place] Weakness Upper Extremity; [address] [place] [phone] Osteoporosis [place], [place] [phone] (Work) [phone] Social History Tobacco Use Types Packs/Day Years [...] or relatives? How often do you attend sabianist or More than 4 times per year 02/16/2022 amish services? Do you belong to any clubs or Yes 02/16/2022 organizations such as sabianist groups, unions, fraternal or athletic groups, or [...] levothyroxine (SYNTHROID, Take 1 tablet by 0 /11/2012 LEVOTHROID) 88 mcg tablet mouth daily. loperamide [...] for this SPINE HIPS (most inpatients AM INPUT OUTPUT CLERK Weakness Leg procedure are in and all Numbness Lower the results outpatients) Extremity section. Weakness Upper Extremity Osteoporosis documented in this encounter Results BMD Bone Density Spine Hips (10/22/2019 8:57 AM INPUT OUTPUT CLERK) Anatomical Region Laterality Modality Hip, Lumbar Spine, Nuclear Medicine RST LOS, N/A Radiographic Imaging Musculoskeletal ARZ LOS, Muskuloskeletal FLA LOS Specimen (Source) Anatomical Collection Method Collection Time Re ceived Time Location / / Volume Laterality 10/22/2019 12:14 PM INPUT OUTPUT CLERK Impressions 10/22/2019 12:15 PM INPUT OUTPUT CLERK Osteoporosis Narrative 10/22/2019 12:15 PM INPUT OUTPUT CLERK EXAM: ??BMD BONE DENSITY SPINE HIPS COMPARISON: [...] images and graphs, is available in [employer]. ?In the absence of other causes of [...] including images and graphs, is available in [employer]. In the absence of other causes of [...] evidence of skeletal fragility in the a ppropriate clinical setting. Degenerative changes are present which [...]
--- OUTSIDE RECORDS SUMMARY | 2022-09-05 14:52 | XMS_ITS | Encounter Summary ---
:1945 Author Organization [facility] Address [address] [place] [address] Care Team Providers Name Role Phone Unavailable Primary Care Provider Unavailable Encounter Details Date Type Department Care Team Description 02/22/2022 Clinical Communication Department of Sleep Yoni Cavanaugh, Medicine in Geeta Blevins, M.P .H. [place] [address] [place] [address] [phone] Social History Tobacco Use Types Packs/Day Years [...] More than 4 times per year 02/16/2022 sabianist services? Do you belong to any clubs [...] the results on her portal. Route to [facility] pool of ordering provider. documented in this encounter Plan of Treatment Not on filedocumented as of this encounter Visit Diagnoses Not on filedocumented in this encounter
--- OUTSIDE RECORDS SUMMARY | 2022-09-05 14:52 | XMS_ITS | Encounter Summary ---
:1945 Author Organization [facility] Address [address] [place] [address] Care Team Providers Name Role Phone Unavailable Primary Care Provider Unavailable Reason for Visit MRI/CAT/PET Scan (Routine) - Closed Specialty Diagnoses / Procedures Referred By Contact Refer red To Contact Radiology Diagnoses Pain Back Weakness Leg Numbness Lower Extremity Weakness Upper Extremity Osteoporosis Elizabeth Jenkins M.D. [facility] Procedures MR Lumbar Spine without IV Contrast [address] [place] [address] Referral ID Status Reason Start Date Expiration Date Visits Requ ested Visits Authorized [id number] Closed 10/18/2019 10/17/2020 1 1 Encounter Details Date Type Department Care Team Description 10/23/2019 Hospital Encounter Department of Elizabeth Jenkins Pain Ba ck; Dino Kathleen M.D. Weakness Leg; [facility] in [place], [address] [place] [address] Numbness Lower Extremity; [place], [place] Weakness Upper Extremity; [address] [place] [phone] Osteoporosis [place], [place] [phone] (Work) [phone] Social History Tobacco Use Types Packs/Day Years [...] or more drinks on one occasion? Ne elticia 10/19/2019 Social Isolation Answer Date Recorded In a typical week, how many times do you More than three babita es a week 02/16/2022 talk on the phone with family, friends, or neighbors? How often do you get together with friends Once a week 02/16/2022 or relatives? How often do you attend spiritism or More than 4 times per year 02/16/2022 presybeterian services? Do you belong to any clubs or Yes 02/16/2022 organizations such as spiritism groups, unions, fraFanzter or athletic groups, or school groups? How [...] 161.2 cm (5' 3.47) 10/23/2019 4:51 PM ELECTRICAL MACHINE BUILDER Body Mass Index - - documented in [...] of this encounter Nursing Notes Justine Whitfield, R.N. - 10/23/2019 5:30 PM CST A review of the patients current medications was completed under the context of radiology care priorto contrast/medication administration. TRICAL MACHINE BUILDER documented in this encounter Plan of Treatment Not on filedocumented as of this encounter Procedures Procedure Name Priority Date/Time Associated Comments Diagnosis MR CERVICAL AND RAD - Routine 10/23/2019 6:55 Pain Back Results for this THORACIC AND (most inpatients PM ELECTRICAL MACHINE BUILDER Weakness Leg procedure are in LUMBAR SPINE WOW and all Numbness Lower the resul ts IV CONTRAST outpatients) Extremity section. Weakness Upper Extremity Osteoporosis documented in this encounter Results MR Cervical and Thoracic and Lumbar Spine WOW IV Contrast (10/23/2019 6:55 PM ELECTRICAL MACHINE BUILDER) Anatomical Region Laterality Modality Spine, Cervical Spine, Neuroradiology RST LOS, N/A Magnetic Resonance Neuroradiology ARZ LOS, Neuroradiology FLA LOS Specimen (Source) Anatomical Collection Method Collection Time Re ceived Time Location / / Volume Laterality 10/24/2019 1:56 PM ELECTRICAL MACHINE BUILDER Impressions 10/24/2019 3:08 PM ELECTRICAL MACHINE BUILDER Overall mild degenerative changes within the spine, with compression deformities compatible with osteoporosis . Nothing to explain the patient's numbness and weakness in all extremities . Narrative 10/24/2019 3:08 PM ELECTRICAL MACHINE BUILDER EXAM: MR CERVICAL AND THORACIC AND LUMBAR [...] injection 0.01-30 mL Given 10/23/2019 6:15 PM ELECTRICAL MACHINE BUILDER 8 m L (GADAVIST) 0.01-30 mL, intravenous, Once in imaging, contrast, Starting on Mon10/23/19 at 1651, For 1 dose, Imaging Protocol Orders, Dose per Radiant Medication Guidelines documented in this encounter
--- OUTSIDE RECORDS SUMMARY | 2022-09-05 14:52 | XMS_ITS | Encounter Summary ---
:1945 Author Organization [facility] Address [address] [place] [address] Care Team Providers Name Role Phone Unavailable Primary Care Provider Unavailable Reason for Referral MRI/CAT/PET Scan (Routine) - Closed Specialty Diagnoses / Procedures Referred By Contact Refer red To Contact Radiology Diagnoses Post Concussion Syndrome Dizziness [facility] [place] [facility] Procedures MR Brain without IV Contrast [place] MRI BRAIN WO CNTRST HC MRI BRAIN WO CNTRST [facility].P.[facility]. [address] [place] [phone] Referral ID Status Reason Start Date Expiration Date Visits Requ ested Visits Authorized [id number] Closed 02/16/2022 02/16/2023 1 1 Reason for Visit MRI/CAT/PET Scan (Routine) - Closed Specialty Diagnoses / Procedures Referred By Contact Refer red To Contact Radiology Diagnoses Post Concussion Syndrome Dizziness [facility] [place] [facility] Procedures MR Brain without IV Contrast [place] MRI BRAIN WO CNTRST HC MRI BRAIN WO CNTRST [facility]. [address] [place] [phone] Referral ID Status Reason Start Date Expiration Date Visits Requ ested Visits Authorized [id number] Closed 02/16/2022 02/16/2023 1 1 Encounter Details Date Type Department Care Team Description 02/17/2022 Hospital Encounter Department of Yoni Cavanaugh Con cussion Syndrome; Radiology in [place] M.D., [place], [place] M.P.H. [address] [facility] [address] [place] [phone] Social History Tobacco Use Types Packs/Day [...] or relatives? How often do you attend buddhist or More than 4 times per year 02/16/2022 yarsani services? Do you belong to any clubs or Yes 02/16/2022 organizations such as buddhist groups, unions, fraternal or athletic groups, or [...]
--- OUTSIDE RECORDS SUMMARY | 2022-09-05 14:52 | XMS_ITS | Encounter Summary ---
:1945 Author Organization [facility] Address [address] [place] [address] Care Team Providers Name Role Phone Unavailable [...] or slept in a custodial (including now)? Sex Assigned at Date Recorded Female 05/07/2022 11:11 AM CDT documented as of this encounter Plan of Treatment Not on filedocumented as of this encounter Visit Diagnoses Not on filedocumented in this encounter
--- OUTSIDE RECORDS SUMMARY | 2022-09-05 14:52 | XMS_ITS | Encounter Summary ---
:1945 Author Organization [facility] Address [address] [place] [address] Care Team Providers Name Role Phone Unavailable Primary Care Provider Unavailable Encounter Details Date Type Department Care Team Description 10/22/2019 Hospital Encounter Department of [place], Elizabeth, Pain Ba ck; Laboratory Medicine M.D. Weakness Leg; and Pathology, [address] [place] [address] Numbness Lower Extremity; [facility], in [place], [place] Weaknes s Upper Extremity; [place], [place] [address] Osteoporosis [address] [address] [place], [place] (Work) [phone] Social History Tobacco Use Types Packs/Day Years [...] or relatives? How often do you attend anabaptist or More than 4 times per year 02/16/2022 lutheran services? Do you belong to any clubs or Yes 02/16/2022 organizations such as anabaptist groups, unions, fraternal or athletic groups, or [...] k Results for this AND D3, S AGRICULTURE SCIENCE TEACHER Weakness Leg procedure are in Numbness Lower the results Extremity section. Weakness Upper Extremity Osteoporosis PHOSPHORUS Routine 10/22/2019 8:56 AM Pain Back Results for this (INORGANIC), S AGRICULTURE SCIENCE TEACHER Weakness Leg procedure are in Numbness Lower the results Extremity section. Weakness Upper Extremity Osteoporosis CREATININE WITH Routine 10/22/2019 8:56 AM Pain Back Results for this EGFR, S/P AGRICULTURE SCIENCE TEACHER Weakness Leg procedure are in Numbness Lower the results Extremity section. Weakness Upper Extremity Osteoporosis CALCIUM, TOT, S/P Routine 10/22/2019 8:56 AM Pain Back Results for this AGRICULTURE SCIENCE TEACHER Weakness Leg procedure are in Numbness Lower the results Extremity section. Weakness Upper Extremity Osteoporosis ALBUMIN, S/P Routine 10/22/2019 8:56 AM Pain Back Results for this AGRICULTURE SCIENCE TEACHER Weakness Leg procedure are in Numbness Lower the results Extremity section. Weakness Upper Extremity Osteoporosis documented in this encounter Results 25-Hydroxyvitamin D2 and D3 (10/22/2019 8:56 AM AGRICULTURE SCIENCE TEACHER) athologist Signature 25-Hydroxy D2 <4.0 ng/mL 10/23/2019 SDSC 1:02 PM AGRICULTURE SCIENCE TEACHER 25-Hydroxy D3 48 ng/mL 10/23/2019 SDSC 1:02 PM AGRICULTURE SCIENCE TEACHER 25-Hydroxy D 48 ng/mL 10/23/2019 SDSC Total 1:02 PM AGRICULTURE SCIENCE TEACHER Comment: ----REFERENCE VALUE---- 25-HYDROXY D TOTAL (D2+D3) Optimum level s in the healthy population are 20-50, patients with bone disease may benefit from higher levels within this r silas. ----ADDITIONAL INFORMATION---- This test was developed and its performa nce characteristics determined by [facility] in a manner consistent with CLIA requirements. This test has not been cleared or approved by the [place] d and Drug Administration. Specimen Anatomical Collection Method Collection Time Receive d Time (Source) Location / / Volume Laterality Blood (Blood, 10/22/2019 8:56 AM 10/22/19 Venous) AGRICULTURE SCIENCE TEACHER 12:10 PM AGRICULTURE SCIENCE TEACHER Elizabeth Jenkins M.D. LAB BLOOD ADD-ON Performing Organization Address City/State/ZIP Code Phon e Number [facility] [address] [place], [place] [address] [facility] [place] [address] Laboratory Medicine and Pathology [address] [place] Albumin (10/22/2019 8:56 AM AGRICULTURE SCIENCE TEACHER) P athologist Signature Albumin, S 4.4 3.5 - 5.0 10/22/2019 DTL g/dL 10:16 AM AGRICULTURE SCIENCE TEACHER Specimen Anatomical Collection Method Collection Time Receive d Time (Source) Location / / Volume Laterality Blood (Blood, 10/22/2019 8:56 AM 10/22/19 9:17 Venous) AGRICULTURE SCIENCE TEACHER AM AGRICULTURE SCIENCE TEACHER Elizabeth Jenkins M.D. LAB BLOOD ADD-ON Performing Organization Address City/[facility]/ZIP [facility] Phon e Number [facility] - [address] [place], [place] [address] [place] [address] [facility] [address] Calcium, Total (10/22/2019 8:56 AM AGRICULTURE SCIENCE TEACHER) P athologist Signature Calcium, Total, 9.2 8.8 - 10.2 10/22/2019 DTL S mg/dL 10:16 AM AGRICULTURE SCIENCE TEACHER Specimen Anatomical Collection Method Collection Time Receive d Time (Source) Location / / Volume Laterality Blood (Blood, 10/22/2019 8:56 AM 10/22/19 9:17 Venous) AGRICULTURE SCIENCE TEACHER AM AGRICULTURE SCIENCE TEACHER Elizabeth Jenkins M.D. LAB BLOOD ADD-ON Performing Organization Address City/State/ZIP [facility] Phon e Number [facility] - [address] [place], [place] [address] [place] [address] [facility] [address] Phosphorus Inorganic (10/22/2019 8:56 AM AGRICULTURE SCIENCE TEACHER) P athologist Signature Phosphorus 3.5 2.5 - 4.5 10/22/2019 DTL (Inorganic), S mg/dL 10:16 AM AGRICULTURE SCIENCE TEACHER Specimen Anatomical Collection Method Collection Time Receive d Time (Source) Location / / Volume Laterality Blood (Blood, 10/22/2019 8:56 AM 10/22/19 9:17 Venous) AGRICULTURE SCIENCE TEACHER AM AGRICULTURE SCIENCE TEACHER Elizabeth Jenkins M.D. LAB BLOOD ADD-ON Performing Organization Address City/State/[facility] Code Phon e Number [facility] - [address] [place] [address] (ABNORMAL) Creatinine with Estimated GFR (10/22/2019 8:56 AM AGRICULTURE SCIENCE TEACHER) Analysis Performed At Patho logist Time Signature Creatinine 1.24 (H) 0.59 - 10/22/2019 DTL 1.04 mg/dL 10:16 AM AGRICULTURE SCIENCE TEACHER eGFR-Non 42 (L) >=60 10/22/2019 DTL Black/ mL/min/BSA 10:16 AM AGRICULTURE SCIENCE TEACHER Belarusian Comment: ----ADDITIONAL INFORMATION---- Estimated GFR calculated using the 2009 CKD_EPI creatinine equation. eGFR-Black/ 49 (L) >=60 mL/min/BSA 2019 10:16 AM AGRICULTURE SCIENCE TEACHER DTL Comment: ----ADDITIONAL INFORMATION---- Estimated GFR calculated using the 2009 CKD_EPI creatinine equation. Specimen Anatomical Collection Method Collection Time Receive d Time (Source) Location / / Volume Laterality Blood (Blood, 10/22/2019 8:56 AM 10/22/19 9:17 Venous) AGRICULTURE SCIENCE TEACHER AM AGRICULTURE SCIENCE TEACHER Elizabeth Jenkins M.D. LAB BLOOD ADD-ON Performing Organization Address City/[facility] Code Phon e Number [facility] - [address] documented in this encounter Visit Diagnoses Diagnosis Pain Back Weakness Leg Numbness Lower Extremity Weakness Upper Extremity Osteoporosis documented in this encounter
--- OUTSIDE RECORDS SUMMARY | 2022-09-05 14:52 | XMS_ITS | Encounter Summary ---
:1945 Author Organization [facility] Address [address] [place] [address] Care Team Providers Name Role Phone Unavailable Primary Care Provider Unavailable Reason for Visit Reason Comments Medication Question Encounter Details Date Type Department Care Team Description 06/27/2019 Clinical Division of Maged Medication Communication Gastroenterology in [place], [place] MC[place] [address] [facility] [address] [place] [phone] [place] [address] Social History Tobacco Use Types Packs/Day Years [...]
--- OUTSIDE RECORDS SUMMARY | 2022-09-05 14:52 | XMS_ITS | Encounter Summary ---
:1945 Author Organization [facility] Address [address] [place] [address] Care Team Providers Name Role Phone Unavailable Primary Care Provider Unavailable Reason for Referral Outpatient (Routine) - Authorized Specialty Diagnoses / Procedures Referred By Contact Refer red To Contact Neurology Diagnoses Dizziness Weakness [facility] All Krishnan M.D. [facility] [address] [place] [address] Referral ID Status Reason Start Date Expiration Date Visits V isits Requested Authorized [id number] Authorized 02/15/2022 02/15/2023 1 1 Encounter Details Date Type Department Care Team Description 02/15/2022 [facility] All Krishnan (Primary Dx); AND CLINICS JEFF Saeed M.D. [facility] [address] [place] [address] [phone] Social History Tobacco Use Types Packs/Day Years [...] or relatives? How often do you attend sabianism or More than 4 times per year 02/16/2022 faith services? Do you belong to any clubs or Yes 02/16/2022 organizations such as sabianism groups, unions, fraKwestr or athletic groups, or school groups? How [...] level of school Master's degree (e.g., M A, MS, 12/09/2020 you have completed or the highest Surya, MEd, EXPERIMENTAL TECHNICIAN, LIVE) degree you have received? Sex Assigned at Date Recorded Female 05/07/2022 11:11 AM CDT documented as of this encounter Plan of Treatment Scheduled Referrals Name Type Priority Associated Diagnoses Order S [facility] Neurology Referral Outpatient Referral Routine Dizziness Expected: Weakness General 02/15/2022 (Approximate), Expires: 05/18/2023 documented as of this encounter Visit Diagnoses Diagnosis Dizziness - Primary Weakness General documented in this encounter
--- OUTSIDE RECORDS SUMMARY | 2022-09-05 14:52 | XMS_ITS | Encounter Summary ---
:1945 Author Organization [facility] Address [address] [place] [address] Care Team Providers Name Role Phone Unavailable Primary Care Provider Unavailable Reason for Referral Outpatient (Routine) - Closed Specialty Diagnoses / Procedures Referred By Contact Refer red To Contact Diagnoses Pain Back Weakness Leg Numbness Lower Extremity Weakness Upper Extremity Osteoporosis Elizabeth Jenkins M.D. [facility] Procedures BMD Bone Density Spine Hips [address] [place] [phone] Referral ID Status Reason Start Date Expiration Date Visits Requ ested Visits Authorized [id number] Closed 10/18/2019 10/17/2020 1 1 utpatient (Routine) - Closed Specialty Diagnoses / Procedures Referred By Contact Refer red To Contact Endocrinology Diagnoses Pain Back Weakness Leg Numbness Lower Extremity Weakness Upper Extremity Osteoporosis Elizabeth Jenkins M.D. [facility] [address] [place] [phone] Referral ID Status Reason Start Date Expiration Date Visits Requ ested Visits Authorized [id number] Closed 10/18/2019 10/17/2020 1 1 Scheduling Instructions Has seen Dr. Cha in the past RI/CAT/PET Scan (Routine) - Closed Specialty Diagnoses / Procedures Referred By Contact Refer red To Contact Radiology Diagnoses Pain Back Weakness Leg Numbness Lower Extremity Weakness Upper Extremity Osteoporosis Elizabeth Jenkins M.D. [facility] Procedures MR Lumbar Spine without IV Contrast [address] [place] [address] Referral ID Status Reason Start Date Expiration Date Visits Requ ested Visits Authorized [id number] Closed 10/18/2019 10/17/2020 1 1 RI/CAT/PET Scan (Routine) - Closed Specialty Diagnoses / Procedures Referred By Contact Refer red To Contact Radiology Diagnoses Pain Back Weakness Leg Numbness Lower Extremity Weakness Upper Extremity Osteoporosis Elizabeth Jenkins M.D. [facility] Procedures MR Thoracic Spine without IV Contrast [address] [place] [address] Referral ID Status Reason Start Date Expiration Date Visits Requ ested Visits Authorized [id number] Closed 10/18/2019 10/17/2020 1 1 NCIAL COMPLIANCE OFFICER Reason for Visit Reason Onset Date Comments Return Visit 10/14/2019 Encounter Details Date Type Department Care Team Description 10/14/2019 Clinical Communication Department of Elizabeth Jenkins Ret urn Visit Orthopedic Surgery in [place], [place] [address] [facility] [address] [place] [phone] [phone] Social History Tobacco Use Types Packs/Day Years [...] or relatives? How often do you attend hinduism or More than 4 times per year 02/16/2022 congregation services? Do you belong to any clubs or Yes 02/16/2022 organizations such as hinduism groups, unions, fraternal or athletic groups, or [...] states good understanding of the information discussed. NCIAL COMPLIANCE OFFICER Telephone Encounter - Lupe Soria - 10/28/2019 5:02 PM CST Patient returning Robert's call NCIAL COMPLIANCE OFFICER Telephone Encounter - Lisa Denis R.N. - 10/28/2019 2:27 PM CST Attempted to reach patient x1 Contact number used: [phone] Nature of call: Recommendations for patient Left msg to return call. NCIAL COMPLIANCE OFFICER Telephone Encounter - Che Neff - 10/18/2019 3:16 PM CST Confirmed 1-, 1-22 and 2-4 appointments with the patient. Sent PAG in the mail and emailed her thelink for the portal. NCIAL COMPLIANCE OFFICER Telephone Encounter - Lisa Denis R.N. - 10/18/2019 1:55 PM CST Che, Orders have been placed for MRIs and Endo. Please let me know if you have any questions. Thanks, Robert NCIAL COMPLIANCE OFFICER Telephone Encounter - Lupe Soria - 10/17/2019 9:46 AM CST X-rays available for review and copy of report sent to scanning and copy in service box NCIAL COMPLIANCE OFFICER Telephone Encounter - Lisa Denis R.N. - [...] she would be willing to come to [place] for this. Advised her that Dr. Jenkins would also like her to see a bone milk pickup truck driver. She states she hasn't seen one in a while and is in agreement with this plan. Advised her that one of our schedulers will be in contact with her to get all of this arranged. She states good understanding of everything discussed and is in agreement with the plan. NCIAL COMPLIANCE OFFICER Telephone Encounter - Lisa Denis R.N. - 10/15/2019 10:02 AM FINANCIAL COMPLIANCE OFFICER Attempted to reach patient x1 Contact number used: [phone] Nature of call: Return call from a patient msg Left msg to return call. NCIAL COMPLIANCE OFFICER Telephone Encounter - Carolyne Pal - 10/14/2019 [...] return and if any testing is needed. ([phone]) NCIAL COMPLIANCE OFFICER documented in this encounter Plan of Treatment Scheduled Referrals Name Type Priority Associated Order Schedule Diagnoses Endocrinology - Outpatient Referral Routine Pain Back Expected: Osteoporosis / Weakness Leg 10/18/2019 metabolic bone Numbness Lower (Approximat e), disorders consult Extremity Expires: (clinic) Weakness Upper 10/18/2022 Extremity Osteoporosis documented as of this encounter Results BMD Bone Density Spine Hips (10/22/2019 8:57 AM FINANCIAL COMPLIANCE OFFICER) Anatomical Region Laterality Modality Hip, Lumbar Spine, Nuclear Medicine RST LOS, N/A Radiographic Imaging Musculoskeletal ARZ LOS, Muskuloskeletal FLA LOS Specimen (Source) Anatomical Collection Method Collection Time Re ceived Time Location / / Volume Laterality 10/22/2019 12:14 PM FINANCIAL COMPLIANCE OFFICER Impressions 10/22/2019 12:15 PM FINANCIAL COMPLIANCE OFFICER Osteoporosis Narrative 10/22/2019 12:15 PM FINANCIAL COMPLIANCE OFFICER EXAM: ??BMD BONE DENSITY SPINE HIPS COMPARISON: [...] including images and graphs, is available in [employer]. ?In the absence of other causes of [...] [facility]. Degenerative changes are present which m ay spuriously elevate the spine BMD measurement. Today's spine scan was compared with the previous scans using a new region,L1-L2. Patient does not meet ISCD guidelines fo r FRAX calculations. IMPRESSION: Osteoporosis Elizabeth Jenkins M.D. IMG DXA PROCEDURES 25-Hydroxyvitamin D2 and D3 (10/22/2019 8:56 AM FINANCIAL COMPLIANCE OFFICER) P athologist Signature 25-Hydroxy D2 <4.0 ng/mL 10/23/2019 SDSC 1:02 PM FINANCIAL COMPLIANCE OFFICER 25-Hydroxy D3 48 ng/mL 10/23/2019 SDSC 1:02 PM FINANCIAL COMPLIANCE OFFICER 25-Hydroxy D 48 ng/mL 10/23/2019 SDSC Total 1:02 PM FINANCIAL COMPLIANCE OFFICER Comment: ----REFERENCE VALUE---- 25-HYDROXY D TOTAL (D2+D3) Optimum level s in the healthy population are 20-50, patients with bone disease may benefit from higher levels within this r silas. ----ADDITIONAL INFORMATION---- This test was developed and its performa nce characteristics determined by [facility] in a manner consistent with CLIA requirements. This test has not been cleared or approved by the U.[place]. [place] d and Drug Administration. Specimen Anatomical Collection Method Collection Time Receive d Time (Source) Location / / Volume Laterality Blood (Blood, 10/22/2019 8:56 AM 10/22/19 20 Venous) FINANCIAL COMPLIANCE OFFICER 12:10 PM FINANCIAL COMPLIANCE OFFICER Elizabeth Jenkins M.D. LAB BLOOD ADD-ON Performing Organization Address City/State/ZIP Code Phon e Number [facility] [address] [place], [place] [address] [facility] [address] Laboratory Medicine and Pathology [address] [place] Albumin (10/22/2019 8:56 AM FINANCIAL COMPLIANCE OFFICER) P athologist Signature Albumin, S 4.4 3.5 - 5.0 10/22/2019 DTL g/dL 10:16 AM FINANCIAL COMPLIANCE OFFICER Specimen Anatomical Collection Method Collection Time Receive d Time (Source) Location / / Volume Laterality Blood (Blood, 10/22/2019 8:56 AM 10/22/19 9:17 Venous) FINANCIAL COMPLIANCE OFFICER AM FINANCIAL COMPLIANCE OFFICER Elizabeth Jenkins M.D. LAB BLOOD ADD-ON Performing Organization Address City/[facility]/ZIP Code Phon e Number [facility] - [address] [place], [place] [address] [place] [address] [facility] [address] Calcium, Total (10/22/2019 8:56 AM FINANCIAL COMPLIANCE OFFICER) athologist Signature Calcium, Total, 9.2 8.8 - 10.2 10/22/2019 DTL S mg/dL 10:16 AM FINANCIAL COMPLIANCE OFFICER Specimen Anatomical Collection Method Collection Time Receive d Time (Source) Location / / Volume Laterality Blood (Blood, 10/22/2019 8:56 AM 10/22/19 9:17 Venous) FINANCIAL COMPLIANCE OFFICER AM FINANCIAL COMPLIANCE OFFICER Elizabeth Jenkins M.D. LAB BLOOD ADD-ON Performing Organization Address City/[facility]/ZIP Code Phon e Number [facility] - [address] [place], [place] [address] [facility] [place] [address] [facility] [address] Phosphorus Inorganic (10/22/2019 8:56 AM FINANCIAL COMPLIANCE OFFICER) P athologist Signature Phosphorus 3.5 2.5 - 4.5 10/22/2019 DTL (Inorganic), S mg/dL 10:16 AM FINANCIAL COMPLIANCE OFFICER Specimen Anatomical Collection Method Collection Time Receive d Time (Source) Location / / Volume Laterality Blood (Blood, 10/22/2019 8:56 AM 10/22/19 9:17 Venous) FINANCIAL COMPLIANCE OFFICER AM FINANCIAL COMPLIANCE OFFICER Elizabeth Jenkins M.D. LAB BLOOD ADD-ON Performing Organization Address City/State/ZIP Code Phon e Number [facility] - [address] [place] [address] Laboratories-[address] (ABNORMAL) Creatinine with Estimated GFR (10/22/2019 8:56 AM FINANCIAL COMPLIANCE OFFICER) Analysis Performed At Patho logist Time Signature Creatinine 1.24 (H) 0.59 - 10/22/2019 DTL 1.04 mg/dL 10:16 AM FINANCIAL COMPLIANCE OFFICER eGFR-Non 42 (L) >=60 10/22/2019 DTL Black/ mL/min/BSA 10:16 AM FINANCIAL COMPLIANCE OFFICER Kenyan Comment: ----ADDITIONAL INFORMATION---- Estimated GFR calculated using the 2009 CKD_EPI creatinine equation. eGFR-Black/ 49 (L) >=60 mL/min/BSA 2019 10:16 AM FINANCIAL COMPLIANCE OFFICER DTL Comment: ----ADDITIONAL INFORMATION---- Estimated GFR calculated using the 2009 CKD_EPI creatinine equation. Specimen Anatomical Collection Method Collection Time Receive d Time (Source) Location / / Volume Laterality Blood (Blood, 10/22/2019 8:56 AM 10/22/19 20 9:17 Venous) FINANCIAL COMPLIANCE OFFICER AM FINANCIAL COMPLIANCE OFFICER Elizabeth Jenkins M.D. LAB BLOOD ADD-ON Performing Organization Address City/State/[facility] Code Phon e Number [facility] - [address] [place], [place] [address] [facility] [place] [address] Laboratories-[address] documented in this encounter Visit Diagnoses Diagnosis Pain Back - Primary Weakness Leg Numbness Lower Extremity Weakness Upper Extremity Osteoporosis Pain Back Weakness Leg Numbness Lower Extremity Weakness Upper Extremity Osteoporosis documented in this encounter
--- OUTSIDE RECORDS SUMMARY | 2022-09-05 14:52 | XMS_ITS | Encounter Summary ---
:1945 Author Organization [facility] Address [address] [place] [address] Care Team Providers Name Role Phone Unavailable Primary Care Provider Unavailable Reason for Visit Outpatient (Routine) - Closed Specialty Diagnoses / Procedures Referred By Contact Refer red To Contact Endocrinology Diagnoses Pain Back Weakness Leg Numbness Lower Extremity Weakness Upper Extremity Osteoporosis Elizabeth Jenkins M.D. [facility] [address] [place], [place] [phone] Referral ID Status Reason Start Date Expiration Date Visits Requ ested Visits Authorized [id number] Closed 10/18/2019 10/17/2020 1 1 Encounter Details Date Type Department Care Team Description 10/22/2019 Comprehensive Visit Division of Brittni Beckham k; Endocrinology in [place] Weakness Leg; [place], [place] [address] Numbness Lower Extremity; [address] [facility] Weakness Upper Extremity; [place], [place], Osteoporosis [phone] [place] [phone] Social History Tobacco Use Types Packs/Day Years [...] or relatives? How often do you attend restorationism or More than 4 times per year 02/16/2022 synagogue services? Do you belong to any clubs or Yes 02/16/2022 organizations such as restorationism groups, unions, fraternal or athletic groups, or [...] or slept in a chcf (including now)? Education Answer Date Recorded What [...] Comments Blood Pressure 140/71 10/22/2019 1:17 PM COLOR CHECKER ROVING OR YARN Pulse 76 10/22/2019 1:17 PM COLOR CHECKER ROVING OR YARN Temperature - - Respiratory Rate - - Oxygen Saturation - - Inhaled Oxygen Concentration - - Weight 73.6 kg (162 lb 4.1 oz) 10/22/2019 1:17 PM COLOR CHECKER ROVING OR YARN Height 161.2 cm (5' 3.47) 10/22/2019 1:17 PM COLOR CHECKER ROVING OR YARN Body Mass Index 28.32 10/22/2019 1:17 PM COLOR CHECKER ROVING OR YARN documented in this encounter Consult Indy Martinez M.D. - 10/22/2019 1:30 PM CST Problem List Musculoskeletal Osteoporosis Overview ?? Osteoporosis, T score -2.6 right hip, neck, T12 compression fracture 2009 after lifting boat ?? Intolerant and reluctant [...] PCP, return if questions or fractures arise R CHECKER ROVING OR YARN documented in this encounter Miscellaneous Notes Assessment [...] PCP, return if questions or fractures arise R CHECKER ROVING OR YARN documented in this encounter Plan of Treatment Not on filedocumented as of this encounter Visit Diagnoses Diagnosis Pain Back Weakness Leg Numbness Lower Extremity Weakness Upper Extremity Osteoporosis documented in this encounter
--- OUTSIDE RECORDS SUMMARY | 2022-09-05 14:52 | XMS_ITS | Encounter Summary ---
:1945 Author Organization [facility] Address [address] [place] [address] Care Team Providers Name Role Phone Unavailable Primary Care Provider Unavailable Reason for Referral Outpatient (Routine) - Authorized Specialty Diagnoses / Procedures Referred By Contact Refer red To Contact Diagnoses Post Concussion Syndrome Dizziness Syncope Vasovagal Yoni Cavanaugh M.D., [facility] [place] Region Procedures ECG Heart rhythm monitor (Holter) [facility] [address] [place] [phone] Referral ID Status Reason Start Date Expiration Date Visits V isits Requested Authorized [id number] Authorized 02/16/2022 02/16/2023 1 1 MRI/CAT/PET Scan (Routine) - Closed Specialty Diagnoses / Procedures Referred By Contact Refer red To Contact Radiology Diagnoses Post Concussion Syndrome Dizziness Yoni Cavanaugh M.D., [facility] [place] Procedures MR Brain without IV Contrast IN MRI BRAIN WO CNTRST HC MRI BRAIN WO CNTRST [facility] [address] [place] [phone] Referral ID Status Reason Start Date Expiration Date Visits Requ ested Visits Authorized [id number] Closed 02/16/2022 02/16/2023 1 1 Reason for Visit Reason Comments Dizziness Weakness - Generalized Ref. Dr. Krishnan [facility] Appointment Request (Routine) - Closed Specialty Diagnoses / Procedures Referred By Contact Refer red To Contact Neurology Referral ID Status Reason Start Date Expiration Date Visits Requ ested Visits Authorized [id number] Closed 02/14/2022 02/14/2023 1 Encounter Details Date Type Department Care Team Description 02/16/2022 Comprehensive Visit Department of Yoni Cavanaugh Co ncussion Syndrome (Primary Dx); Neurology in [place], Dizziness; [place], [place] [facility] Syncope Vasovagal [address] [facility] [address] [place], [place] [phone] Social History Tobacco Use Types Packs/Day [...] More than 4 times per year 02/16/2022 spiritism services? Do you belong to any clubs [...] cannot be sent through Care Everywhere. Concussion (Haitian)documented in this encounter Consult Notes Yoni Cavanaugh M.D., [facility] - 02/16/2022 8:00 AM CDT SUBJECTIVE CHIEF COMPLAINT / REASON FOR VISIT Emmy Anderson is a 76 y.o. female who presents for evaluation of Dizziness and Weakness - Generalized (Ref. Dr. Krishnan [facility]). HISTORY OF PRESENT ILLNESS 76-year-old patient presents for evaluation of dizziness and weakness that have resulted after a fall on October 10 while at [employer] [employer]. She tells the story that she had been standing in a turned to put him on offering in the tray and as she turned to walk away she felt her vision went white or hazy and then the next thing she recalls is waking up on the floor. Apparently the fall was unwitnessed but people hurt it and the Jehovah'S Witness will stand show core vibrating I would [...] frequent most of my life ??? Hyperlipidemia 3-2018 ??? Hyperthyroidism about 1990 ??? Migraine Headache [...] diahrria ??? Phenylpropanolamine Other (see comments) ??? [place] Pollen-Rough Pigweed Other (see comments) Sneezing, nasal [...] and Family: Once a week ??? Attends Yarsanism Services: More than 4 times per year [...] Alert and oriented x 4. CRANIAL NERVES: precision assembly inspector II-XII intact and symmetric. MOTOR: Full strength [...] Not on filedocumented as of this encounter Results HOLTER MONITOR - IN CLINIC LIBRARY TECHNICIAN (02/25/2022 1:58 PM CDT) [facility] Method Time Signature Min Heart Rate [...] AF Duration 0 duration INFOBIONIC MOME AF [place] 0 percent INFOBIONIC MOME Symptom Count 0 [...] 1%. 4. No symptomatic events were noted. Social And Political Studies Professor: Kamala Marcus/ Otoniel, Ad am Procedure Note [...] 1%. 4. No symptomatic events were noted. Social And Political Studies Professor: Kamala Marcus/ Phani Frederick am Yoni Cavanaugh [...]
--- OUTSIDE RECORDS SUMMARY | 2022-09-05 14:52 | XMS_ITS | Encounter Summary ---
:1945 Author Organization [facility] Address [address] [place] [address] Care Team Providers Name Role Phone Unavailable Primary Care Provider Unavailable Reason for Visit Reason Comments Skin Check Appointment Request (Routine) - Closed Specialty Diagnoses / Procedures Referred By Contact Refer red To Contact Family Medicine Referral ID Status Reason Start Date Expiration Date Visits Requ ested Visits Authorized [id number] Closed 10/05/2020 10/05/2021 1 1 Encounter Details Date Type Department Care Team Description 12/21/2020 Office Visit Department of Deepali Harrington, Keratosis Seborrheic (Primary Dx); [facility] [place], [place] [address] [place] [address] Keratosis Actinic [address] [place] [phone] Social History Tobacco Use Types Packs/Day Years [...] More than 4 times per year 02/16/2022 muslim services? Do you belong to any clubs [...] have completed or the highest Surya, MEd, LEAD JAVA SOFTWARE ENGINEER, LIVE) degree you have received? Sex Assigned [...]
--- OUTSIDE RECORDS SUMMARY | 2022-09-05 14:52 | XMS_ITS | Encounter Summary ---
:1945 Author Organization [facility] Address [address] [place] [address] Care Team Providers Name Role Phone Unavailable Primary Care Provider Unavailable Reason for Visit Reason Comments Skin Check Appointment Request (Routine) - Closed Specialty Diagnoses / Procedures Referred By Contact Refer red To Contact Dermatology Referral ID Status Reason Start Date Expiration Date Visits Requ ested Visits Authorized [id number] Closed 01/17/2018 07/16/2018 1 Encounter Details Date Type Department Care Team Description 03/27/2018 Office Visit Department of Deepali Harrington, Keratosis Seborrheic Inflamed (Primary Dx); [facility] [place], [place] [address] [facility] Keratosis Actinic [address] [place] [phone] Social History Tobacco Use Types Packs/Day Years [...] More than 4 times per year 02/16/2022 adventism services? Do you belong to any clubs [...]
--- OUTSIDE RECORDS SUMMARY | 2022-09-05 14:52 | XMS_ITS | Encounter Summary ---
:1945 Author Organization [facility] Address [address] [place] [address] Care Team Providers Name Role Phone Unavailable Primary Care Provider Unavailable Reason for Visit Reason Comments Skin Check Appointment Request (Routine) - Closed Specialty Diagnoses / Procedures Referred By Contact Refer red To Contact Referral ID Status Reason Start Date Expiration Date Visits Requ ested Visits Authorized [id number] Closed 10/13/2021 10/13/2022 1 1 Encounter Details Date Type Department Care Team Description 01/10/2022 Office Visit Department of Deepali Harrington, Keratosis Actinic (Primary Dx); Dermatology in [place] Keratosis Seborrheic Inflamed; [place], [place] [address] [facility] Keratosis Seborrheic; [address] [place] [address] [place] [phone] Social History Tobacco Use Types Packs/Day Years [...] have completed or the highest Surya, MEd, STERILE PRODUCTS PROCESSOR, LIVE) degree you have received? Sex Assigned [...] extremities. My scribe (Ana) served as a relief salesperson for the entirety of the exam. Examination [...]
== END 2022-09-05 14:21 | disposition home or self-care (01) ==
LOC: MAMMO 14:21
PROVIDERS: PCP Family Medicine; Visit Provider Family Medicine
DX: Z12.31 Encounter for screening mammogram for malignant neoplasm of breast (principal)
CPT/HCPCS: 77063; 77067

== ENCOUNTER 2023-04-14 08:26 | Outpatient (CLI) | payer MEDICARE, BC, SELFPAY | END 2023-04-14 08:27 | disposition home or self-care (01) | PROVIDERS: PCP Family Medicine; Visit Provider Family Medicine | DX: Z00.00 Encounter for general adult medical examination without abnormal findings (principal); E03.9 Hypothyroidism, unspecified; E78.5 Hyperlipidemia, unspecified; R30.0 Dysuria; M25.551 Pain in right hip; R53.83 Other fatigue; Z13.1 Encounter for screening for diabetes mellitus | CPT/HCPCS: 80048; 80061; 84443; 87086 ==

== ENCOUNTER 2023-06-15 16:08 | Emergency (ER) | payer MEDICARE, BC, SELFPAY ==
[2023-06-15] VITALS (8 sets, daily range): BP systolic 135–149; BP diastolic 73–74; PULSE 68–92; RESP 18; TEMP 36.4–36.7; O2SAT 96–99; BMI 25.2
--- NOTE | 2023-06-15 17:48 | CRLHL7_ITS ---
For Patients: As a result of the Cures Act, medical imaging exams and procedure reports are released immediately into your electronic medical record. You may view this report before your referring provider. If you have questions, please contact your health care provider. INDICATION: Rib pain after fall TECHNIQUE: Chest and left ribs 3 views. COMPARISON: Chest radiograph October 19, 2021 FINDINGS: Cardiovascular and mediastinum: Heart size and vasculature are normal in caliber and appearance. Mediastinum is within normal limits. Lungs and pleural spaces: Lungs are clear. No sign of infiltrate or mass. No sign of pleural effusion. No pneumothorax. Bones and soft tissues: Detailed oblique images of the left ribs demonstrate no fractures or bone lesions. Multilevel degenerative changes in the thoracic spine. IMPRESSION: Unremarkable chest and left ribs. Dictated by Kimberly Bruner MD @ 06/15/2023 9:39:55 PM (Electronically Signed)
--- NOTE | 2023-06-15 17:49 | CRLHL7_ITS ---
For Patients: As a result of the Century Cures Act, medical imaging exams and procedure reports are released immediately into your electronic medical record. You may view this report before your referring provider. If you have questions, please contact your health care provider. INDICATION: fall, LUQ pain TECHNIQUE: CT abdomen and pelvis acquired with 68 cc Isovue 370 IV contrast. COMPARISON: None. FINDINGS: Lower chest: The visualized lower lungs are aerated. No pleural or pericardial effusion. ABDOMEN: Liver: Normal enhancement. No focal suspicious hepatic lesions. Gallbladder and biliary: Cholecystectomy) normal caliber bile ducts. Spleen: Normal size and enhancement. Pancreas: Normal enhancement without peripancreatic inflammatory changes or ductal dilatation. Adrenal glands: Normal adrenal glands. Kidneys and ureters: Normal enhancement. No radio-opaque calculi. No hydroureteronephrosis. Subcentimeter hypodensities are too small to characterize however statistically represent cysts. GI tract: The stomach is relatively decompressed. Although relatively decompressed there is questionable mild circumferential wall thickening and hyperemia of the gastric antrum, a nonspecific finding however can be seen in the setting of underlying gastritis. Normal caliber small and large bowel loops. Normal appendix. Vascular structures: Patent abdominal aorta with atherosclerotic vascular calcifications. Lymph nodes: No lymphadenopathy in the abdomen or pelvis by size criteria. Peritoneum: No free air, free fluid, or focal drainable fluid collection. PELVIS: Genitourinary system: Normal urinary bladder. Age-appropriate uterus and ovaries. SKELETAL STRUCTURES AND SOFT TISSUES: No suspicious lytic or blastic lesions. No discrete acute displaced fracture. IMPRESSION: 1. No discrete acute abdominal or pelvic process. No obstruction. No hydroureteronephrosis. Normal appendix. 2. Although relatively decompressed there is questionable mild circumferential wall thickening and hyperemia of the gastric antrum, a nonspecific finding however can be seen in the setting of underlying gastritis. Please note that all CT scans at this facility use dose modulation, iterative reconstruction, and/or weight-based dosing when appropriate to reduce radiation dose to as low as reasonably achievable. Dictated by Manjinder Dow MD @ 06/15/2023 9:24:33 PM (Electronically Signed)
--- NOTE | 2023-06-15 18:09 | ED_ITS ---
HPI - General Adult General Chief complaint: Fall/Minor Trauma Stated complaint: Fell last night, L rib pain Time Seen by Provider: 06/15/23 17:43 Source: patient Mode of arrival: ambulatory Limitations: no limitations History of Present Illness HPI narrative: Patient is a michael 78-year-old female coming in today with left-sided chest wall pain. She states that last night she was getting ready for bed and was b rushing her teeth when all of a sudden she became very lightheaded and passed out. She states this has happened her before. She follows up with [facility] for which she describes as an arrhythmia. She thinks she has lost consciousness for just a brief second. She was unable to get up off of the bathroom floor as she has chronic back pain, she crawled to the bedroom and called her then help her up. She states that she did feel like she was her yesterday woke up this morning with pain across the anterior left chest wall. It hurts to take deep breaths in hurts to push on the area. She denies headache, changes in her vision or changes in her hearing. No ringing in her ears. She denies any confusion or altered mental status. She denies worsening of her chronic back pain. She wants to make sure that she does not have any rib fractures. She does not wish to have a cardiac evaluation. Patient is not on any blood thinners. Related Data Home Medications Medication Instructions Recorded Confirmed acetaminophen 325 mg capsule 325 - 650 mg PO ONCE PRN 03/29/22 05/23/23 calcium carbonate (bulk) (Coral See Rx Instructions miscellaneous 03/29/22 05/23/23 Calcium powder) DAILY ergocalciferol (vitamin D2) 10 mcg 400 unit PO BID 03/29/22 05/23/23 (400 unit) tablet ibuprofen 200 mg capsule 200 mg PO .Q6h Prn 03/29/22 05/23/23 docosanol 10 % topical cream 1 applic topical ONCE PRN 04/01/22 05/23/23 (Abreva) Previous Rx's Medication Instructions Recorded phenazopyridine 100 mg tablet 100 mg PO TID PRN pain 6 doses #6 07/02/22 (Pyridium) tabs metoprolol succinate 25 mg 12.5 mg (1/2 x 25 mg) PO QDAY #45 04/14/23 tablet,extended release 24 hr tabs levothyroxine 88 mcg tablet 88 mcg PO DAILY #90 tabs 04/23/23 Allergies Allergy/AdvReac Type Severity Reaction Status Date / Time lidocaine Allergy Severe throat Verified 06/15/23 19:54 closure, rash aspirin Allergy Mild reflux Verified 06/15/23 19:54 codeine Allergy Mild Verified 06/15/23 19:54 penicillin V Allergy Mild Diarrhea Verified 06/15/23 19:54 chlorpheniramine Allergy Unknown Verified 06/15/23 19:54 phenylpropanolamine Allergy Unknown Verified 06/15/23 19:54 adhesive AdvReac Mild itching Verified 06/15/23 19:54 and blisters Review of Systems Status of ROS: Reports: 10 or more systems reviewed and unremarkable except as noted in History and below [facility] Medical History Back Pain ?M54.9 - Dorsalgia, unspecified (ICD-10) Sinus arrhythmia ?I49.8 - Other specified cardiac arrhythmias (ICD-10) Lumbar compression fracture ?S32.000A - Wedge compression fracture of unspecified lumbar vertebra, initial encounter for closed fracture (ICD-10) Compression fx, thoracic spine ?S22.000A - Wedge compression fracture of unspecified thoracic vertebra, initial encounter for closed fracture (ICD-10) H/O osteomyelitis ?Z87.39 - Personal history of other diseases of the musculoskeletal system and connective tissue (ICD-10) Surgical History S/P dilatation and curettage ?Z98.890 - Other specified postprocedural states (ICD-10) S/P cholecystectomy ?Z90.49 - Acquired absence of other specified parts of digestive tract (ICD- 10) Social History What is your current living situation?: I presently have a place to live Problems where you live: pests, such as bugs, ants, or mice In the past 12 months, utilities in danger of being shut off: no In the past 12 mos, have been you worried that your food would run out before you had money to buy more?: never true In the past 12 mos, the food you bought just didn't last and you didn't have money to buy more?: never true Smoking Status: Never smoker How often do you have a drink containing alcohol: never AUDIT-C Alcohol total score: 0 Non-prescribed substance use: denies use How often does anyone, including family, friends and others, physically hurt you : never How often does anyone, including family, friends and others, insult or talk down to you: sometimes How often does anyone, including family, friends and others, threaten you with harm: never How often does anyone, including family, friends and others, scream or curse at you: sometimes Little interest or pleasure in doing things: not at all Feeling down, depressed, or hopeless: not at all Exam Narrative: Exam Narrative: Well-nourished well-developed patient in no acute distress. Alert and oriented x3. Answers questions appropriately. Mood and affect are appropriate. Thoughts are goal oriented and rational. No tangential or magical thinking noted. Patient speaks in full sentences without needing to catch her breath. GCS is 15 HEENT: Normocephalic atraumatic. There is no bruising, abrasions or erythema noted of the scalp. Pupils are equally round reactive to light. Extraocular muscles are intact. Conjunctivae are moist without any icterus noted. Moist mucous membranes. Posterior pharynx is normal. Neck is soft. Cardiovascular: Heart is regular rate and rhythm S1 and S2 are present without any murmurs. Lungs: Clear to auscultation bilaterally no wheezes rhonchi or rales are appreciated. Deep breaths do bring about discomfort of the anterior chest wall. Patient has tenderness to palpation just underneath the left breast. The pain she has been feeling is reproducible on examination. There is no bruising or skin changes visualized in the area. She has no tenderness of the lateral or posterior chest wall. Abdomen: Soft and nondistended with normal bowel sounds. No guarding or rebound. No masses or organomegaly appreciated. She does have tenderness in the left upper quadrant. Extremities: Bilateral lower extremities are without edema. Normal DP and PT pulses. Skin: Well perfused without any obvious rashes. Back: Normal appearance. She has no tenderness to palpation of the cervical, thoracic or lumbar spine. No tenderness to the paraspinal musculature of the spine. No evidence of trauma noted. She has full range of motion at the neck with flexion, extension, side bending and rotation without new or worsened discomfort. Const: Vital Signs, click to edit/add: Vital Signs - 24 hr 06/15/23 16:18 06/15/23 18:46 06/15/23 19:00 Temperature 97.6 F Pulse Rate 69 68 Pulse Rate [Right Pulse Oximeter] 92 Respiratory Rate 18 Blood Pressure [Ri ght Upper Arm] 149/73 H Pulse Oximetry 96 98 98 Oxygen Delivery Me thod Room Air 06/15/23 19:15 06/15/23 19:34 06/15/23 19:45 Temperature Pulse Rate 69 77 71 Pulse Rate [Right Pulse Oximeter] Respiratory Rate Blood Pressure [Ri ght Upper Arm] Pulse Oximetry 99 99 98 Oxygen Delivery Me thod Course Course ED Course: We did proceed with a rib x-ray as well as a CT of the abdomen given her left upper quadrant discomfort. Abdominal CT was unremarkable, rib x-ray was unremarkable. Vital Signs Vital signs: Initial Vital Signs Temperature 97.6 F 06/15/23 16:18 Temperature Source Temporal Artery Scan 06/15/23 16:18 Pulse Rate 92 06/15/23 16:18 Pulse Rhythm Regular 06/15/23 16:18 Pulse Strength 3+ Normal 06/15/23 16:18 Respiratory Rate 18 06/15/23 16:18 Blood Pressure 149/73 H 06/15/23 16:18 Blood Pressure Mean 98 06/15/23 16:18 Blood Pressure Position Sitting 06/15/23 16:18 Pulse Oximetry 96 06/15/23 16:18 Oxygen Delivery Method Room Air 06/15/23 16:18 Vital Signs Temperature 97.6 F 06/15/23 16:18 Pulse Rate 92 06/15/23 16:18 Respiratory Rate 18 06/15/23 16:18 Blood Pressure 149/73 H 06/15/23 16:18 Pulse Oximetry 96 06/15/23 16:18 Oxygen Delivery Method Room Air 06/15/23 16:18 Temperature 97.6 F 06/15/23 16:18 Pulse Rate 71 06/15/23 19:45 Respiratory Rate 18 06/15/23 16:18 Blood Pressure 149/73 H 06/15/23 16:18 Pulse Oximetry 98 06/15/23 19:45 Oxygen Delivery Method Room Air 06/15/23 16:18 Medical Decision Making MDM Narrative Medical decision making narrative: 78-year-old female with chest wall pain after a fall. We discussed heat, acetaminophen he gentle stretching. We discussed reasons for follow-up including worsening pain, shortness of breath. Patient was in agreement, felt comfortable going home and had no other questions. Lab Data Labs: Lab Results 06/15/23 Range/Units 18:34 POC Creatinine 1.3 (0.6-1.3) mg/dl Imaging Data CT scan - abdomen: Attestation: I have reviewed the pertinent imaging results. Radiologist's impression: CT abdomen and pelvis acquired with 68 cc Isovue 370 IV contrast. COMPARISON: None. FINDINGS: Lower chest: The visualized lower lungs are aerated. No pleural or pericardial effusion. ABDOMEN: Liver: Normal enhancement. No focal suspicious hepatic lesions. Gallbladder and biliary: Cholecystectomy) normal caliber bile ducts. Spleen: Normal size and enhancement. Pancreas: Normal enhancement without peripancreatic inflammatory changes or ductal dilatation. Adrenal glands: Normal adrenal glands. Kidneys and ureters: Normal enhancement. No radio-opaque calculi. No hydroureteronephrosis. Subcentimeter hypodensities are too small to characterize however statistically represent cysts. GI tract: The stomach is relatively decompressed. Although relatively decompressed there is questionable mild circumferential wall thickening and hyperemia of the gastric antrum, a nonspecific finding however can be seen in the setting of underlying gastritis. Normal caliber small and large bowel loops. Normal appendix. Vascular structures: Patent abdominal aorta with atherosclerotic vascular calcifications. Lymph nodes: No lymphadenopathy in the abdomen or pelvis by size criteria. Peritoneum: No free air, free fluid, or focal drainable fluid collection. PELVIS: Genitourinary system: Normal urinary bladder. Age-appropriate uterus and ovaries. SKELETAL STRUCTURES AND SOFT TISSUES: No suspicious lytic or blastic lesions. No discrete acute displaced fracture. IMPRESSION: 1. No discrete acute abdominal or pelvic process. No obstruction. No hydroureteronephrosis. Normal appendix. 2. Although relatively decompressed there is questionable mild circumferential wall thickening and hyperemia of the gastric antrum, a nonspecific finding however can be seen in the setting of underlying gastritis. Rib x-ray: Attestation: I have reviewed the pertinent imaging results. Radiologist's impression: Chest and left ribs 3 views. COMPARISON: Chest radiograph October 19, 2021 FINDINGS: Cardiovascular and mediastinum: Heart size and vasculature are normal in caliber and appearance. Mediastinum is within normal limits. Lungs and pleural spaces: Lungs are clear. No sign of infiltrate or mass. No sign of pleural effusion. No pneumothorax. Bones and soft tissues: Detailed oblique images of the left ribs demonstrate no fractures or bone lesions. Multilevel degenerative changes in the thoracic spine. IMPRESSION: Unremarkable chest and left ribs. Discharge Plan Discharge Clinical Impression: Acute chest wall pain Patient Disposition: Home, Self-Care Condition: Stable Additional Instructions: Okay to use heat to sore areas, do not apply heat directly to skin. Okay to use Tylenol as needed. Return to the ER if your pain is worsening or you develop difficulty breathing. Prescriptions: No Action acetaminophen 325 mg capsule 325 - 650 mg PO ONCE PRN ergocalciferol (vitamin D2) 10 mcg (400 unit) tablet 400 unit PO BID calcium carbonate (bulk) [Coral Calcium] Powder See Rx Instructions miscellaneous DAILY Rx Instructions: 1 Cap miscellaneous daily; ibuprofen 200 mg capsule 200 mg PO .Q6h Prn docosanol [Abreva] 10 % cream 1 applic topical ONCE PRN phenazopyridine [Pyridium] 100 mg tablet 100 mg PO TID PRN (Reason: pain) Qty: 6 0RF metoprolol succinate 25 mg tablet extended release 24 hr 12.5 mg PO QDAY Qty: 45 3RF levothyroxine 88 mcg tablet 88 mcg PO DAILY Qty: 90 3RF Follow Up/Referrals: Stephen Krishnan MD [Primary Care Provider] - Stand Alone Forms: [employer]bit[employer] Info Instructions
[2023-06-15 18:36] LABS: Creatinine, Point-of-Care* 1.3 mg/dl (0.6-1.3)
== END 2023-06-15 22:08 | disposition home or self-care (01) ==
PROVIDERS: Emergency Provider Family Medicine; PCP Family Medicine
DX: R07.89 Other chest pain (principal)
CPT/HCPCS: 71101; 74177; 82565; 94761; 99284; 99285; Q9967

== ENCOUNTER 2023-11-01 13:45 | Outpatient (CLI) | payer MEDICARE, BC, SELFPAY ==
--- OUTSIDE RECORDS SUMMARY | 2023-11-01 13:48 | XMS_ITS ---
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 Procedure Estimated Blood Loss Check Surgery Details section. Procedure Findings Check Surgery Details section. Procedure Specimens Taken Check Surgery Details section.
--- OUTSIDE RECORDS SUMMARY | 2023-11-01 13:48 | XMS_ITS | Clinical Summary ---
Author Name Unknown Organization [facility] Address [address] [place] [id number] Care Team Providers Care Rn Employee Health Name Role Phone Unavailable Primary Care Provider Unavailabl e Source Comments Patient records contain information from all sites at [facility]. For routine questions regarding patient records, call [phone] during business hours, M-F 8:00 AM - 5:00 PM Central Time. Record requests for emergency care only can be directed to [phone] at any time.[facility] Allergies Active Allergy Reactions Criticality Noted Date Comments Adhesive Itching Low 01/11/2022 Adhesive Tape-Silicones Rash 06/04/2013 Aspirin GI intolerance 08/30/2005 Chlorpheniramine Other (see comments) 01/11/2022 Chlorpheniramine-Phenylephr ine Cough 06/04/2013 runny nose Codeine Shortness of breath (Reselect Reaction) High 08/30/2005 Lidocaine Anaphylaxis High 06/25/2009 per pt, tubal closure, asthmatic attack; Mold Other (see comments) 02/16/2022 Sneezing, sinus issues Penicillin V Other (see comments) 03/27/2018 diahrria Phenylpropanolamine Other (see comments) 01/11/2022 [place] Pollen-Rough Pigweed Other (see comments) 02/16/2022 Sneezing, nasal drainage Medications Medication Sig Dispensed Refills Start Date End Date Status calcium carbonate-vitamin D3 400-133.3 mg-unit tablet Take 1,000 mg by mouth daily. 0 05/07/2009 Active cholecalciferol (VITAMIN D3) 10 mcg (400 Unit) tablet Take 400 Units by mouth daily. 0 05/07/2009 Active levothyroxine (SYNTHROID, LEVOTHROID) 88 mcg tablet Take 1 tablet by mouth daily. 0 01/21/2013 Active loratadine (CLARITIN) 10 mg tablet Take 1 tablet by mouth daily as needed. 0 06/04/2013 Active docosanol (ABREVA) 10 % cream Apply 1 application topically 4 (four) times a day as needed. 0 Active pseudoephedrine-g uaiFENesin (MUCINEX D) 60-600 mg per 12 hr tablet Take 1 tablet by mouth 2 (two) times a day as needed for allergies. 0 Active dextromethorphan- guaiFENesin (ROBITUSSIN-DM) 10-100 mg/5 mL syrup Take by mouth as needed for cough. 0 Active Lactobacillus acidophilus capsule Take 1 capsule by mouth as needed (Uses when also taking antibiotics). 0 Active diphenhydrAMINE (BENADRYL) 25 mg capsule Take 25 mg by mouth every 6 (six) hours as needed. 0 Active loperamide (IMODIUM A-D) 2 mg capsule Take 2 mg by mouth 4 (four) times a day as needed for diarrhea. 0 Active clotrimazole (LOTRIMIN) 1 % cream Apply 1 application topically as needed. 0 Active vitamin A & D (AMERIDERM) ointment Apply 1 application topically as needed for dry skin. 0 Active acetaminophen (TYLENOL) 325 mg tablet Every 4 Hours as needed 0 Active metoprolol succinate (TOPROL-XL) 25 mg 24 hr tablet Take 12.5 mg by mouth daily. 0 03/08/2022 Active ergocalciferol, vitamin D2, 10 mcg (400 unit) tablet Twice A Day 0 Active phenazopyridine (PYRIDIUM) 100 mg tablet TAKE 1 TABLET BY MOUTH THREE TIMES DAILY FOR 6 DOSES NEEDED FOR PAIN 0 07/02/2022 Active estradioL (ESTRACE) 0.1 mg/g (0.01%) vaginal cream Insert 1 g into the vagina 3 (three) times a week. Nightly for first week. 42 g 3 07/29/2022 4 Discontinued Active Problems Problem Noted Date Diagnosed Date Radiculopathy Lumbar 06/28/2023 Urinary Tract Infection (UTI)/Bacteriuria NOS Overview: Diagnosis Maintenance Updates Atrophy Vagina Due To Estrogen Deficiency 2021 Syncope And Collapse 04/12/2022 Osteoporosis 10/22/2019 Overview: ?? Osteoporosis, T score -2.6 right hip, neck, T12 compression fracture 2008 after lifting boat ?? Intolerant and reluctant for bone directed therapies (prior on oral bisphosphonates for ?11 months but didn't like due to symptoms) ?? She declined IV Reclast prior and currently Last Assessment & Plan: ?? Emmy presents [...] questions or fractures arise Encounters Date Type Department Care Team Description 10/16/2023 9:00 AM BEHAVIOR SUPPORT SPECIALIST Comprehensive Visit Department of Cardiovascular Medicine in [place], [place] [address] [place] [address] Kim Mackay M.B.B.S. Syncope And Near Syncope (Primary Dx); Cardiac Conduction Disorder; Bundle Branch Block Bifascicular; Fatigue; Hyperlipidemia; Graves Disease Personal History 10/13/2023 8:45 AM BEHAVIOR SUPPORT SPECIALIST Clinical Communication Virtual Review in [place], [place] [address] [place] [address] Pre-visit Intake 10/11/2023 11:56 AM BEHAVIOR SUPPORT SPECIALIST - 10/11/2023 11:59 PM BEHAVIOR SUPPORT SPECIALIST Hospital Encounter Department of Cardiovascular Diseases in [place], [place] [address] [place] [address] Nick Mcneil M.D. Syncope And Near Syncope; Dyspnea On Exertion Discharge Disposition: Home or Self Care 08/28/2023 7:25 AM BEHAVIOR SUPPORT SPECIALIST - 08/28/2023 11:59 PM BEHAVIOR SUPPORT SPECIALIST Hospital Encounter Division of Cardiovascular Diseases in [place], [place] [address] [place] [address] Nick Mcneil M.D. Dizziness And Giddiness Discharge Disposition: Home or Self Care 08/25/2023 2:00 PM BEHAVIOR SUPPORT SPECIALIST Comprehensive Visit Department of Physical Medicine and Rehabilitation in [place], [place] [address] [place] [address] Ina Jeong APRN, C.N.P., D.N.P. Radiculopathy Lumbar 08/23/2023 9:30 AM BEHAVIOR SUPPORT SPECIALIST - 08/23/2023 11:59 PM BEHAVIOR SUPPORT SPECIALIST Hospital Encounter Department of Cardiovascular Diseases in [address] [address] Nick Mcneil M.D. Syncope And Near Syncope Discharge Disposition: Home or Self Care 08/07/2023 9:45 AM BEHAVIOR SUPPORT SPECIALIST Office Visit Department of Dermatology in [address] [address] Deepali Harrington M.D. Nevi Multiple (Primary Dx); Keratosis Seborrheic Discharge Disposition: Home or Self Care 08/03/2023 Clinical Communication Department of Cardiovascular Diseases in [place], [place] [address] [place] [address] Nick Mcneil M.D. 08/02/2023 11:19 AM CDT - 08/02/2023 11:59 PM CDT Hospital Encounter Department of Radiology in [address] [phone] Nick Mcneil M.D. Syncope And Near Syncope; Dyspnea On Exertion Discharge Disposition: Home or Self Care 08/02/2023 11:06 AM CDT - 08/02/2023 11:18 AM CDT Hospital Encounter Department of Laboratory Medicine in [place], [place] [address] [place] [address] Nick Mcneil M.D. Syncope And Near Syncope; Dyspnea On Exertion Discharge Disposition: Home or Self Care 08/02/2023 10:15 AM CDT Office Visit Department of Cardiovascular Diseases in [place], [place] [address] [place] [address] Nick Mcneil M.D. Syncope And Near Syncope (Primary Dx); Dyspnea On Exertion 08/02/2023 Clinical Communication Department of Cardiovascular Medicine in [place], [place] [address] [place] [address] Psychologist Personnel Constantine M.D. Triage (INT CONS) from Last 3 Months Family History Medical History Relation Name Comments Coronary artery disease Brother 1 ray Hypertension Brother 1 ray Coronary artery disease Brother 2 lenie Diabetes Brother 2 lenie Obesity Brother 2 lenie Hypertension Brother 3 laura Obesity Brother 3 laura Arthritis Brother 4 beau Hyperlipidemia Brother 4 beau Melanoma Brother 4 beau Thyroid disease Brother 4 beau Coronary artery disease Brother 5 robin Diabetes Brother 5 robin Diabetes Brother 6 matt Coronary artery disease Father pops Hyperlipidemia Father [...] Sister 3 bo Obesity Sister 3 bo Asthma Sister 4 tiffanie Asthma Son clau Relation Name Status Comments Brother 1 ray Brother 2 lenie Brother 3 laura Brother 4 beau Brother 5 robin Brother 6 matt Father pops Maternal Grandfather gramps Mother moms Sister 1 nasim Sister 2 placido Sister 3 bo Sister 4 tiffanie Son clau Social History Tobacco Use Types Packs/Day Years Used Date Smoking Tobacco: Never Smokeless Tobacco: Never Alcohol Use Standard Drinks/Week Comments Not Currently 0 (1 standard drink = 0.6 oz pur e alcohol) wine about once a month Humiliation, Afraid, Rape, and Kick questionnair e Answer Date Recorded Within the last year, have y ou been afraid of your partner or ex-partner? No 02/16/2022 Within the last year, have y ou been humiliated or emotionally abused in other ways by your partner or ex-partner? No Within the last year, have y ou been kicked, hit, slapped, or otherwise physically hurt by your partner or ex-partner? No 02/16/2022 Within the last year, have y ou been raped or forced to have any kind of sexual activity by your partner or ex-partner? No 02/16/2022 Social Connection and Isolat ion Panel [NHANES] Answer Date Recorded In a typical week, how many times do you talk on the phone with family, friends, or neighbors? More than three times a week 02/16/2022 How often do you get togethe r with friends or relatives? Once a week 02/16/2022 How often do you attend chur ch or buddhist services? More than 4 times per year 02/16/2022 Do you belong to any clubs o r organizations such as yarsanism groups, unions, fraternal or athletic groups, or school groups? Yes 02/16/2022 How often do you attend meet ings of the clubs or organizations you belong to? More than 4 times per year 02/16/2022 Are you , , di vorced, , never , or living with a partner? 02/16/2022 AUDIT-C Answer Date Recorded Q1: How often do you have a drink containing alc ohol? Never 02/16/2022 Average Number of Drinks Not on file 022 Frequency of Binge Drinking Not on file 01/30 Overall Financial Resource Strain (CARDIA) Answe r Date Recorded How hard is it for you to pa y for the very basics like food, housing, medical care, and heating? Not hard at all 08/06/2023 [facility] [place] [facility] - Occupational Stress Questionnaire Answer Date Recorded Do you feel stress - tense, restless, nervous, or anxious, or unable to sleep at night because your mind is troubled all the time - these days? Only a little 02/16/2022 Exercise Vital Sign Answer Date Recorde d On average, how many days pe r week do you engage in moderate to strenuous exercise (like a brisk walk)? 5 days 08/06/2023 On average, how many minutes do you engage in exercise at this level? 20 min 08/06/2023 Hunger Vital Sign Answer Date Recorded Within the past 12 months, y ou worried that your food would run out before you got the money to buy more. Never true 02/17/20 Within the past 12 months, t he food you bought just didn't last and you didn't have money to get more. Never true 02/16/2022 PRAPARE - Transportation Answer Date Re corded In the past 12 months, has l ack of transportation kept you from medical appointments or from getting medications? No 01/2023 In the past 12 months, has l ack of transportation kept you from meetings, work, or from getting things needed for daily living? No 08/06/2023 Nutrition Answer Date Recorded Nutrition: EVOO Fat Source Yes 08/06 On average, how many serving s of fruits and vegetables do you eat per day (serving size is equal to 1 cup or approximately the size of a tennis ball)? 3-5 08/06/2023 Dental Answer Date Recorded Dental: Regular Dentist Yes 02/17/20 Employment Answer Date Recorded Employment status Retired 02/16/2022 Housing Stability Answer Date Recorded What is your living situation today? I have a [facility] place to live 08/06/2023 Education Answer Date Recorded What is the highest level of school you have completed or the highest degree you have received? Professional school degree (e.g., MD, DDS, DVM, KRISTEN) 02/16/2022 Sex and Gender Information Value Date Recorded Sex Assigned at Female 05/07/2022 11:11 AM CDT Gender Identity Female 05/07/2022 11:11 AM CDT Sexual Orientation Straight 10/19/2019 10 :08 AM BEHAVIOR SUPPORT SPECIALIST Last Filed Vital Signs Vital Sign Reading Time Taken Comments Blood Pressure 135/61 10/16/2023 8:50 AM BEHAVIOR SUPPORT SPECIALIST Pulse 69 10/16/2023 8:50 AM BEHAVIOR SUPPORT SPECIALIST Temperature - - Respiratory Rate - - Oxygen Saturation 99% 08/02/2023 10: 10 AM CDT room air Inhaled Oxygen Concentration - - Weight 66.6 kg (146 lb 13.2 oz) 10/16/2023 8:50 AM BEHAVIOR SUPPORT SPECIALIST Height 157.7 cm (5' 2.09) 10/16/2023 8:50 AM CS T Body Mass Index 26.78 10/16/2023 8:50 AM BEHAVIOR SUPPORT SPECIALIST Plan of Treatment Health Maintenance Due Date Last Done Comments Zoster Vaccines (1 of 2) 1993 Depression Screening (Annual PHQ-2) 10/02/2023 Fall Risk Screen (Annual) 10/02/2023 Thyroid Stimulating Hormone (TSH) test for thyroid function 08/02/2024 08/02/2023 DTaP,Tdap,and Td Vaccines (4 - Td or Tdap) 03/24/2031 03/24/2021, 12/01/2010, 12/01/2010, Additional history exists Colonoscopy Discontinued 08/22/2014 Colorectal Cancer Surveillance Discontinued Pneumococcal vaccine (65+ years) Completed 12/30/19, 05/11/2009 Influenza Vaccine Completed 06/28/2023, , 06/18/2021, Additional history exists COVID-19 Vaccine Completed 07/03/2023, , 06/10/2022, Additional history exists CT Colonography Discontinued Cologuard Discontinued Procedures Procedure Name Priority Date/Time Associated Diagnosis Comments (TTE) 2D ECHO DOPPLER COLOR Routine 10/11/2023 12:39 PM BEHAVIOR SUPPORT SPECIALIST Syncope And Near Syncope Dyspnea On Exertion ECG AMBULATORY REAL TIME CARDIAC MONITORING Routine 09/26/2023 3:06 PM BEHAVIOR SUPPORT SPECIALIST Dizziness And Giddiness HOLTER MONITOR - IN CLINIC SUBSTANCE ABUSE RN Routine 08/24/2023 11:04 PM BEHAVIOR SUPPORT SPECIALIST Syncope And Near Syncope DX CHEST AP OR PA AND LATERAL 2 VIEWS RAD - Routine (most inpatients and all outpatients) 08/02/2023 11:34 AM CDT Syncope And Near Syncope Dyspnea On Exertion CBC WITHOUT DIFFERENTIAL, B Routine 08/02/2023 11:19 AM CDT Syncope And Near Syncope Dyspnea On Exertion THYROID FUNCTION CASCADE, S Routine 08/02/2023 11:19 AM CDT Syncope And Near Syncope BASIC METABOLIC PANEL, S/P Routine 08/02/2023 11:19 AM CDT Syncope And Near Syncope from Last 3 Months Results * (TTE) 2D ECHO DOPPLER COLOR (10/11/2023 12:39 PM BEHAVIOR SUPPORT SPECIALIST) Ejection Fraction 60 MC CV EIMS Mid-Ascending Aorta 34 MC CV EIMS LV Mass Index 93 MC CV EIMS LV End-Diastolic Diameter 42 MC CV EIMS LV End-Systolic Diameter 28 MC CV EIMS MV E Velocity 0.6 MC CV EIMS MV A Velocity 0.8 MC CV EIMS MV E/A 0.75 MC CV EIMS MV e' Velocity Medial 0.06 MC CV EIMS MV e' Velocity Lateral 0.06 MC CV EIMS MV E/e' Medial 10 MC CV EIMS MV E/e' Lateral 10 MC CV EIMS Left ventricular stroke volume index 45 MC CV EIMS Cardiac Output 4.57 MC CV EIMS Cardiac Index 2.72 MC CV EIMS LV Interventricular Septal Wall Thickness 11 MC CV EIMS LV Posterior Wall Thickness 11 MC CV EIMS LV Relative Wall Thickness 52 MC CV EIMS Tricuspid Annular S? 0.1 MC CV EIMS RA Pressure 5 MC CV EIMS AV mean gradient 4 MC CV EIMS Aortic valve area 2.52 MC CV EIMS Aortic Valve Dimensionless Index 0.73 MC CV EIMS LA Volume Index 23 MC CV EIMS Aortic Valve Systolic Peak Velocity 1.3 MC CV EIMS Anatomical Region Laterality Modality Echocardiography 10/11/2023 11:5 8 AM BEHAVIOR SUPPORT SPECIALIST Impressions 10/11/2023 1:24 PM BEHAVIOR SUPPORT SPECIALIST Transthoracic outreach echo interpretation. LEFT VENTRICLE:Normal left ventricular chamber size. Abnormal left ventricular geometry with ??concentric remodeling (increased wall thickness to cavity ratio). Calculated 2-D linear left ventricular ejection fraction 60%. Left ventricular volumes were performed but not reported based on staff interpreter's judgment. No regional wall motion abnormalities. Grade 1/3 left ventricular diastolic dysfunction, consistent with low to normal left ventricular filling pressure at rest. RIGHT VENTRICLE:Normal right ventricular chamber size by visual estimate. Normal right ventricular systolic function. Unable to detect peak tricuspid regurgitation velocity for pulmonary artery systolic pressure calculation. ATRIA:Normal left atrial size. Left atrial volume index 23 ml/m2. Normal right atrial size by visual estimate. CARDIAC VALVES:No hemodynamically significant valvular heart disease. Trileaflet aortic valve. Mildly thickened aortic valve. Mild aortic valve regurgitation. Mildly thickened mitral valve. Mild mitral valve regurgitation. Normal pulmonary valve. Normal pulmonary valve systolic velocities. Trivial pulmonary valve regurgitation. Normal tricuspid valve. Trivial tricuspid valve regurgitation. OTHER ECHO FINDINGS:Normal inferior vena cava size with normal inspiratory collapse (>50%). Normal mid ascending aorta diameter of 34 mm. Abdominal aorta not visualized. No atrial level shunt by color flow imaging. No intracardiac mass or thrombus, but the left atrial appendage cannot be visualized adequately with transthoracic echo to exclude thrombus in this location. No ??pericardial effusion. Prominent anterior epicardial fat layer. For the complete report, see the Order-Level Documents. Narrative 10/11/2023 1:24 PM BEHAVIOR SUPPORT SPECIALIST For the complete report, see the Order-Level Documents. Hemodynamics Heart Rate: 60 BPM Blood Pressure: 134 / 77 mmHg ECG: Sinus rhythm Final Impressions 1. Normal left ventricular chamber size, no regional wall motion abnormalities, calculated 2-D linear ejection fraction 60%. 2. Abnormal left ventricular geometry with ??concentric remodeling (increased wall thickness to cavity ratio), grade 1/3 diastolic dysfunction, consistent with low to normal filling pressure at rest. 3. Normal right ventricular chamber size, normal systolic function, unable to detect peak tricuspid regurgitation velocity for pulmonary artery systolic pressure calculation. 4. No hemodynamically significant valvular heart disease. 5. No ??pericardial effusion. Procedure Note Nick Mcneil M.D. - 10/11/2023 For the complete report, see the Order-Level Documents. Hemodynamics Heart Rate: 60 BPM Blood Pressure: 134 / 77 mmHg ECG: Sinus rhythm Final Impressions 1. Normal left ventricular chamber size, no regional wall motionabnormalities, calculated 2-D linear ejection fraction 60%. 2. Abnormal left ventricular geometry with concentric remodeling(increased wall thickness to cavity ratio), grade 1/3 diastolicdysfunction, consistent with low to normal filling pressure at rest. 3. Normal right ventricular chamber size, normal systolic function, unableto detect peak tricuspid regurgitation velocity for pulmonary arterysystolic pressure calculation. 4. No hemodynamically significant valvular heart disease. 5. No pericardial effusion. Findings Transthoracic outreach echo interpretation. LEFT VENTRICLE:Normal left ventricular chamber size. Abnormal leftventricular geometry with concentric remodeling (increased wall thicknessto cavity ratio). Calculated 2-D linear left ventricular ejection [id number]%. Left ventricular volumes were performed but not reported based oninterpreter's judgment. No regional wall motion abnormalities. Grade 1/3left ventricular diastolic dysfunction, consistent with low to normal leftventricular filling pressure at rest. RIGHT VENTRICLE:Normal right ventricular chamber size by visual estimate.Normal right ventricular systolic function. Unable to detect peaktricuspid regurgitation velocity for pulmonary artery systolic pressurecalculation. ATRIA:Normal left atrial size. Left atrial volume index 23 ml/m2. Normalright atrial size by visual estimate. CARDIAC VALVES:No hemodynamically significant valvular heart disease.Trileaflet aortic valve. Mildly thickened aortic valve. Mild aortic valveregurgitation. Mildly thickened mitral valve. Mild mitral valveregurgitation. Normal pulmonary valve. Normal pulmonary valve systolicvelocities. Trivial pulmonary valve regurgitation. Normal tricuspid valve.Trivial tricuspid valve regurgitation. OTHER ECHO FINDINGS:Normal inferior vena cava size with normal inspiratorycollapse (>50%). Normal mid ascending aorta diameter of 34 mm. Abdominalaorta not visualized. No atrial level shunt by color flow imaging. Nointracardiac mass or thrombus, but the left atrial appendage cannot bevisualized adequately with transthoracic echo to exclude thrombus in thislocation. No pericardial effusion. Prominent anterior epicardial fatlayer. For the complete report, see the Order-Level Documents. Nick Mcneil M.D. CV ECHO PROCEDURES * ECG AMBULATORY REAL TIME CARDIAC MONITORING (09/26/2023 3:06 PM BEHAVIOR SUPPORT SPECIALIST) Min Heart Rate 49 bpm [facility] Max Heart Rate 118 bpm [facility] Mean Heart Rate 69 bpm [facility] VE Total Beats <100 count [facility] VE Percent Beats 0% percent [facility] SVE Total Beats 1580 count [facility] SVE Percent Beats <1% percent [facility] Holter Pauses 0 count [facility] AF Count 0 count [facility] AF Duration 0 sec duration [facility] AF [place] 0% percent [facility] VT Runs 0 count [facility] SVT Runs 4 count [facility] Symptom Count 13 count [facility] 08/28/2023 10:4 2 AM BEHAVIOR SUPPORT SPECIALIST Narrative [facility] - 09/27/2023 5:21 PM BEHAVIOR SUPPORT SPECIALIST 1. The patient was monitored from 08/28/2023 to 09/26/2023 with a total monitoring time of 28 days 14 hr 4 min. The baseline rhythm was sinus with the right bundle branch block. The heart rate varied from 49 bpm to 118 bpm. The average heart rate was 69 bpm. 2. There were <100 PVCs seen with a PVC burden of <1%. 3. There were 1,580 PACs seen singly and non-conducted with a PAC burden of <1%. There were 4 runs of supraventricular tachycardia observed. The longest run of SVT was 12 beats. The maximum rate of SVT was 155 bpm. 4. The patient reported 13 symptomatic events of dizziness. During these events, the rhythm was sinus with the right bundle branch block. The heart rate varied from 57 bpm to 84 bpm. No ectopy was seen. Child Adolescent Care: NATASHA Dunn/NATASHA Hardwick Procedure Note Marc Lau M.D. - 09/27/2023 1. The patient was monitored from 08/28/2023 to 09/26/2023 with a totalmonitoring time of 28 days 14 hr 4 min. The baseline rhythm was sinus withthe right bundle branch block. The heart rate varied from 49 bpm to 118bpm. The average heart rate was 69 bpm. 2. There were <100 PVCs seen with a PVC burden of <1%. 3. There were 1,580 PACs seen singly and non-conducted with a PAC burdenof <1%. There were 4 runs of supraventricular tachycardia observed. Thelongest run of SVT was 12 beats. The maximum rate of SVT was 155 bpm. 4. The patient reported 13 symptomatic events of dizziness. During theseevents, the rhythm was sinus with the right bundle branch block. The heartrate varied from 57 bpm to 84 bpm. No ectopy was seen. Child Adolescent Care: NATASHA Dunn/NATASHA Hardwick Nick Mcneil M.D. CV CARDIAC SERVICE S PROCEDURES [facility] NA * HOLTER MONITOR - IN CLINIC SUBSTANCE ABUSE RN (08/24/2023 11:04 PM BEHAVIOR SUPPORT SPECIALIST) Pathologist [facility] Min Heart Rate 51 bpm [facility]B ION[facility] MOME Max Heart Rate 107 bpm INFOB [facility] MOME Mean Heart Rate 70 bpm [facility] M[facility] VE Total Beats 2 count INFOB IONIC MOME VE Percent Beats less than 1 percent [facility] MOME SVE Total Beats 25 count INFO[facility] M[facility] SVE Percent Beats less than 1 percent [facility] AF Count 0 count [facility] AF Duration 0 duration INFOB[facility] IC MOME AF [place] 0 percent [facility] Symptom Count 0 count INFOBI ONIC MOME 08/23/2023 9:34 AM BEHAVIOR SUPPORT SPECIALIST Narrative [facility] - 08/27/2023 1:45 PM BEHAVIOR SUPPORT SPECIALIST [place] 1. The basic rhythm was sinus with right bundle branch block. The total analyzed time was 23h 37m. The heart rate varied from 51 to 107 bpm. The average HR was 70 bpm. 2. Premature ventricular complexes were noted singly and interpolated. There were 2 PVC recorded with a PVC burden of less than 1%. 3. Premature supraventricular complexes were noted singly and in one 5 beat atrial run with a rate of 81 bpm. There were 25 PACs recorded with a PAC burden of less than 1%. 4. The patient reported symptoms of breathlessness and heart fluttering with no events noted with which to correlate. Child Adolescent Care: NATASHA Dunn/ NATASHA Shelton A Holter monitor with cascade to extended monitoring was ordered for the indication of Undifferentiated syncope/spells. During the Holter monitoring period, the patient did not report syncope with associated rhythm abnormality (pause >=3 seconds, bradycardia <=30bpm for at least 30 seconds, sustained VT >=110bpm or SVT >=140bpm for >=30 beats). Therefore, the study was cascaded to extended monitoring. Procedure Note Marc Lau M.D. - 08/27/2023 [place] 1. The basic rhythm was sinus with right bundle branch block. The totalanalyzed time was 23h 37m. The heart rate varied from 51 to 107 bpm. Theaverage HR was 70 bpm. 2. Premature ventricular complexes were noted singly and interpolated.There were 2 PVC recorded with a PVC burden of less than 1%. 3. Premature supraventricular complexes were noted singly and in one 5beat atrial run with a rate of 81 bpm. There were 25 PACs recorded with aPAC burden of less than 1%. 4. The patient reported symptoms of breathlessness and heart flutteringwith no events noted with which to correlate. Child Adolescent Care: NATASHA Dunn/ NATASHA Shelton A Holter monitor with cascade to extended monitoring was ordered for theindication of Undifferentiated syncope/spells. During the Holtermonitoring period, the patient did not report syncope with associatedrhythm abnormality (pause >=3 seconds, bradycardia <=30bpm for at least 30 seconds, sustained VT >=110bpm or SVT>=140bpm for >=30 beats). Therefore, the study was cascaded to extended monitoring. Nick Mcneil M.D. CV CARDIAC SERVICE S PROCEDURES Performing Organization Address City/State/[facility] Co de Phone Number INFOBIONIC MOME NA * DX Chest AP or PA and Lateral 2 Views (08/02/2023 11:34 AM CDT) Anatomical Region Laterality Modality Chest, Thoracic RST LOS, Tho racic ARZ LOS, Thoracic FLA LOS N/A Digital Radiography 08/02/2023 1:07 PM CDT Impressions 08/02/2023 1:12 PM CDT Negative for consolidation, pleural effusion or cardiomegaly. Aortic arch atherosclerotic calcification. Chronic degenerative changes in the spine. Unchanged postcholecystectomy clips in the right upper quadrant. Comparison, 07/27/2022. Narrative 08/02/2023 1:12 PM CDT EXAM: DX CHEST AP OR PA AND LATERAL 2 VIEWS Procedure Note Blaine Person M.B., Geeta Garza - 08/02/2023 EXAM: DX CHEST AP OR PA AND LATERAL 2 VIEWS IMPRESSION: Negative for consolidation, pleural effusion or cardiomegaly. Aorticarch atherosclerotic calcification. Chronic degenerative changes in the spine.Unchanged postcholecystectomy clips in the right upper quadrant. Comparison,07/27/2022. Nick Mcneil M.D. IMG DIAGNOSTIC MJ GING PROCEDURES * Thyroid Function [place] (08/02/2023 11:19 AM CDT) Pathologist [facility] TSH, Sensitive 1.9 0.3 - 4.2 mIU/L 08/02/2023 4:42 PM CDT OW Blood (Blood, Venous) 08/02/2023 11:19 AM CDT 08/02/2023 1:05 PM CDT Nick Mcneil M.D. LAB BLOOD ADD-ON [facility] [address] [place] [id number], [facility] OWAT [facility] [place] [address] [address] * CBC without Differential (08/02/2023 11:19 AM CDT) Hemoglobin 13.6 11.6 - 15.0 g/dL 08/02/2023 11:25 AM CDT FB60 Hematocrit 42.3 35.5 - 44.9 % 08/02/2023 11:25 AM CDT FB60 Erythrocytes 4.59 3.92 - 5.13 x10(12)/L 08/02/2023 11:25 AM CDT FB60 MCV 92.2 78.2 - 97.9 fL 08/02/2023 11:25 AM CDT FB60 RBC Distrib Width 13.3 12.2 - 16.1 % 08/02/2023 11:25 AM CDT FB60 Platelet Count 197 157 - 371 x10(9)/L 08/02/2023 11:25 AM CDT FB60 Leukocytes 5.0 3.4 - 9.6 x10(9)/L 08/02/2023 11:25 AM CDT FB60 Blood (Blood, Venous) 08/02/2023 11:19 AM CDT 08/02/2023 11:19 AM CDT Nick Mcneil M.D. LAB BLOOD ADD-ON [facility] [address] [place] [address], [facility] FB60 [facility] [place] [address] [place] [address] * (ABNORMAL) Basic Metabolic Panel (08/02/2023 11:19 AM CDT) Potassium, P 4.3 3.6 - 5.2 mmol/L 08/02/2023 1:39 PM CDT OWAT Sodium, P 142 135 - 145 mmol/L 08/02/2023 1:39 PM CDT OWAT Chloride, P 104 98 - 107 mmol/L 08/02/2023 1:39 PM CDT OWAT Bicarbonate, P 27 22 - 29 mmol/L 08/02/2023 1:39 PM CDT OWAT Anion Gap, P 11 7 - 15 08/02/2023 1:39 PM CDT OWAT BUN (Blood Urea Nitrogen), P 16 6 - 21 mg/dL 08/02/2023 1:39 PM CDT OWAT Creatinine 1.19(H) 0.59 - 1.04 mg/dL 08/02/2023 1:39 PM CDT OWAT Estimated GFR (eGFR) 46(L) >=60 mL/min/BSA 08/02/2023 1:39 PM CDT OWAT Comment: Estimated GFR calculated using the 2020 CKD_EPI creatinine equation. Calcium, Total, P 9.5 8.8 - 10.2 mg/dL 08/02/2023 1:39 PM CDT OWAT Glucose, P 90 70 - 140 mg/dL 08/02/2023 1:39 PM CDT OWAT Blood (Blood, Venous) 08/02/2023 11:19 AM CDT 08/02/2023 1:04 PM CDT Nick Mcneil M.D. LAB BLOOD ADD-ON [facility] [address] [place] [address], [place] OWAT [facility] [place] [address] [place] [address] from Last 3 Months Advance Directives For more information, please contact: [phone] Documents on File Type Date Recorded Patient Midwife Practitioner Expl anation Advance Directives 08/30/2007 12:00 AM Rupali astorga document. See document viewer.
--- OUTSIDE RECORDS SUMMARY | 2023-11-01 13:48 | XMS_ITS | Referral Summary ---
Author Name Unknown Organization [facility] Address [address] [place] [id number] Care Team Providers Care Casting Machine Operator Automatic Name Role Phone Unavailable Primary Care Provider Unavailabl e Source Comments Patient records contain information from all sites at [facility]. For routine questions regarding patient records, call [phone] during business hours, M-F 8:00 AM - 5:00 PM Central Time. Record requests for emergency care only can be directed to [phone] at any time.[facility] Encounters Date Type Department Care Team Description 10/16/2023 9:00 AM SUPERVISOR HYDROCHLORIC AREA Comprehensive Visit Department of Cardiovascular Medicine in [place], [place] [address] [place] [phone] Kim Mackay M.B.B.S. Syncope And Near Syncope (Primary Dx); Cardiac Conduction Disorder; Bundle Branch Block Bifascicular; Fatigue; Hyperlipidemia; Graves Disease Personal History 10/13/2023 8:45 AM SUPERVISOR HYDROCHLORIC AREA Clinical Communication Virtual Review in [place], [place] 200 [place] [address] Pre-visit Intake 10/11/2023 11:56 AM SUPERVISOR HY[employer]CHLORIC AREA - 10/11/2023 11:59 PM SUPERVISOR HY[employer]OCHLORIC AREA Hospital Encounter Department of Cardiovascular Diseases in [address] [phone] Nick Mcneil M.D. Syncope And Near Syncope; Dyspnea On Exertion Discharge Disposition: Home or Self Care 08/28/2023 7:25 AM SUPERVISOR HY[employer]CHLORIC AREA - 08/28/2023 11:59 PM SUPERVISOR HYDROCHLORIC AREA Hospital Encounter Division of Cardiovascular Diseases in [place], [place] [address] [address] Nick Mcneil M.D. Dizziness And Giddiness Discharge Disposition: Home or Self Care 08/25/2023 2:00 PM SUPERVISOR HY[employer]CHLORIC AREA Comprehensive Visit Department of Physical Medicine and Rehabilitation in [place], [place] [address] [place] [address] Ina Jeong APRN, C.N.P., D.N.P. Radiculopathy Lumbar 08/23/2023 9:30 AM SUPERVISOR HY[employer]OCHLORIC AREA - 08/23/2023 11:59 PM SUPERVISOR HY[employer]OCHLORIC AREA Hospital Encounter Department of Cardiovascular Diseases in [address] [phone] Nick Mcneil M.D. Syncope And Near Syncope Discharge Disposition: Home or Self Care 08/07/2023 9:45 AM SUPERVISOR HYDROCHLORIC AREA Office Visit Department of Dermatology in [address] [phone] Deepali Harrington M.D. Nevi Multiple (Primary Dx); Keratosis Seborrheic Discharge Disposition: Home or Self Care 08/03/2023 Clinical Communication Department of Cardiovascular Diseases in [place], [place] [address] [place] [address] Nick Mcneil M.D. 08/02/2023 Clinical Communication Department of Cardiovascular Medicine in [place], [place] [address] [place] [address] Senior Game Designer Constantine M.D. Triage ([place]) 08/02/2023 11:19 AM CDT - 08/02/2023 11:59 PM CDT Hospital Encounter Department of Radiology in [address] [phone] Nick Mcneil M.D. Syncope And Near Syncope; Dyspnea On Exertion Discharge Disposition: Home or Self Care 08/02/2023 11:06 AM CDT - 08/02/2023 11:18 AM CDT Hospital Encounter Department of Laboratory Medicine in [address] [phone] Nick Mcneil M.D. Syncope And Near Syncope; Dyspnea On Exertion Discharge Disposition: Home or Self Care 08/02/2023 10:15 AM CDT Office Visit Department of Cardiovascular Diseases in [place], [place] [address] [facility] [place] [address] Nick Mcneil M.D. Syncope And Near Syncope (Primary Dx); Dyspnea On Exertion from Last 3 Months Allergies Active Allergy Reactions Criticality Noted Date [...] 03/27/2018 diahrria Phenylpropanolamine Other (see comments) 01/11/2022 [place] Pollen-Rough Pigweed Other (see comments) 02/16/2022 Sneezing, [...] PCP, return if questions or fractures arise Social History Tobacco Use Types Packs/Day Years [...] often do you attend chur ch or synagogue services? More than 4 times per year 02/16/2022 Do you belong to any clubs o r organizations such as episcopalian groups, unions, fraternal [...] and heating? Not hard at all 08/06/2023 [facility] - Occupational Stress [...] money to buy more. Never true 02/17/20 22 Within the past 12 months, t he [...] your living situation today? I have a [facility] place to live 08/06/2023 Education Answer Date Recorded What is the highest level of school you have completed or the highest degree you have received? Professional school degree (e.g., MD, DDS, DVM, KRISTEN) 02/16/2022 Sex and Gender Information Value Date Recorded Sex Assigned at Female 05/07/2022 11:11 AM CDT Gender Identity Female 05/07/2022 11:11 AM CDT Sexual Orientation Straight 10/19/2019 10 :08 AM SUPERVISOR HYDROCHLORIC AREA Last Filed Vital Signs Vital Sign Reading Time Taken Comments Blood Pressure 135/61 10/16/2023 8:50 AM SUPERVISOR HYDROCHLORIC AREA Pulse 69 10/16/2023 8:50 AM SUPERVISOR HYDROCHLORIC AREA Temperature - - Respiratory Rate - - Oxygen Saturation 99% 08/02/2023 10: 10 AM CDT room air Inhaled Oxygen Concentration - - Weight 66.6 kg (146 lb 13.2 oz) 10/16/2023 8:50 AM SUPERVISOR HYDROCHLORIC AREA Height 157.7 cm (5' 2.09) 10/16/2023 8:50 AM CS T Body Mass Index 26.78 10/16/2023 8:50 AM SUPERVISOR HYDROCHLORIC AREA Plan of Treatment Not on file Procedures Procedure Name Priority Date/Time Associated Diagnosis Comments (TTE) 2D ECHO DOPPLER COLOR Routine 10/11/2023 12:39 PM SUPERVISOR HYDROCHLORIC AREA Syncope And Near Syncope Dyspnea On Exertion ECG AMBULATORY REAL TIME CARDIAC MONITORING Routine 09/26/2023 3:06 PM SUPERVISOR HYDROCHLORIC AREA Dizziness And Giddiness HOLTER MONITOR - IN CLINIC PSYCHOMETRIC EXAMINER Routine 08/24/2023 11:04 PM SUPERVISOR HYDROCHLORIC AREA Syncope And Near Syncope DX CHEST AP [...] 2D ECHO DOPPLER COLOR (10/11/2023 12:39 PM SUPERVISOR HYDROCHLORIC AREA) Ejection Fraction 60 MC CV EIMS Mid-Ascending [...] Laterality Modality Echocardiography 10/11/2023 11:5 8 AM SUPERVISOR HYDROCHLORIC AREA Impressions 10/11/2023 1:24 PM SUPERVISOR HYDROCHLORIC AREA Transthoracic outreach echo interpretation. LEFT VENTRICLE:Normal left ventricular chamber size. Abnormal left ventricular geometry with ??concentric remodeling (increased wall thickness to cavity ratio). Calculated 2-D linear left ventricular ejection fraction 60%. Left ventricular volumes were performed but not reported based on seo coordinator's judgment. No regional wall motion abnormalities. Grade [...] the Order-Level Documents. Narrative 10/11/2023 1:24 PM SUPERVISOR HYDROCHLORIC AREA For the complete report, see the Order-Level [...] ratio). Calculated 2-D linear left ventricular ejection [id number]%. Left ventricular volumes were performed but not [...] REAL TIME CARDIAC MONITORING (09/26/2023 3:06 PM SUPERVISOR HYDROCHLORIC AREA) Min Heart Rate 49 bpm INFOBIONIC MOME [...] Duration 0 sec duration INFOBIONIC MOME AF [place] 0% percent INFOBIONIC MOME VT Runs 0 count INFOBIONIC MOME SVT Runs 4 count INFOBIONIC MOME Symptom Count 13 count INFOBIONIC MOME 08/28/2023 10:4 2 AM SUPERVISOR HYDROCHLORIC AREA Narrative INFOBIONIC MOME - 09/27/2023 5:21 PM SUPERVISOR HYDROCHLORIC AREA 1. The patient was monitored from 08/28/2023 [...] to 84 bpm. No ectopy was seen. Demand Planning Manager: NATASHA Dunn/NATASHA Hardwick Procedure Note Marc Lau [...] to 84 bpm. No ectopy was seen. Demand Planning Manager: NATASHA Dunn/NATASHA Hardwick Nick Mcneil M.D. CV CARDIAC SERVICE S PROCEDURES INFOBIONIC MOME NA * HOLTER MONITOR - IN CLINIC PSYCHOMETRIC EXAMINER (08/24/2023 11:04 PM SUPERVISOR HYDROCHLORIC AREA) Min Heart Rate 51 bpm INFOB IONIC [...] Duration 0 duration INFOBION IC MOME AF [place] 0 percent INFOBIONIC MOME Symptom Count 0 count INFOBI ONIC MOME 08/23/2023 9:34 AM SUPERVISOR HYDROCHLORIC AREA Narrative INFOBIONIC MOME - 08/27/2023 1:45 PM SUPERVISOR HYDROCHLORIC AREA [place] 1. The basic rhythm was sinus with [...] no events noted with which to correlate. Demand Planning Manager: NATASHA Dunn/ NATASHA Shelton A Holter monitor [...] Procedure Note Marc Lau M.D. - 08/27/2023 [place] 1. The basic rhythm was sinus with [...] no events noted with which to correlate. Demand Planning Manager: NATASHA Dunn/ NATASHA Shelton A Holter monitor [...] SERVICE S PROCEDURES INFOBIONIC MOME NA * DX Chest AP [...] DIAGNOSTIC MJ GING PROCEDURES * Thyroid Function [place] (08/02/2023 11:19 AM CDT) TSH, Sensitive 1.9 0.3 - 4.2 mIU/L 08/02/2023 4:42 PM CDT OW Blood (Blood, Venous) 08/02/2023 11:19 AM CDT 08/02/2023 1:05 PM CDT Nick Mcneil M.D. LAB BLOOD ADD-ON [facility] [address] [place] [address], [facility] OWAT [facility] [place] [address] [place] [address] * CBC without Differential (08/02/2023 11:19 AM [...] CDT Nick Mcneil M.D. LAB BLOOD ADD-ON [facility] [address] [place] [address], [facility] FB60 [facility] [place] [address] [place] [address] * (ABNORMAL) Basic Metabolic Panel (08/02/2023 11:19 [...] CDT Nick Mcneil M.D. LAB BLOOD ADD-ON [facility] [address] [place] [address], [place] OWAT [facility] [place] [address] [place] [address] from Last 3 Months Advance Directives For more information, please contact: [phone] Documents on File Type Date Recorded Patient Numerical Control Nesting Operator Expl anation Advance Directives 08/30/2007 12:00 AM Rupali astorga document. See document viewer.
--- OUTSIDE RECORDS SUMMARY | 2023-11-01 13:48 | XMS_ITS | Clinical Summary ---
Author Name Unknown Organization [facility] Address [place], [place] [address] Care Team Providers Care Tool Programmer Name Role Phone Edwige Balderas MD Primary Care Provider + Immunizations Name Administration Dates Next Due Amb Influenza, Inactivated A IIV4 (Age 65+ Years) Preserv Free 07/13/2020 Social History Tobacco Use Types Packs/Day Years Used Date Smoking Tobacco: Never Assessed Sex and Gender Information Value Date Recorded Sex Assigned at Not on file Gender Identity Not on file Sexual Orientation Not on file Plan of Treatment Health Maintenance Due Date Last Done Comments Tdap 1954 Depression screening for age 12+ 1955 BMI (ht and wt on same day) for age 18+ 1961 Tetanus booster 1963 Zoster (shingles) series for age 50+ (1 of 2) 1993 DEXA/DXA scan for age 65+ 2008 Pneumococcal series for age 65+ (1 of 1 - PCV) 2008 Influenza for age 65+ 06/02/2023 07/13/2020 COVID-19 vaccine series Completed 07/03/20, 01/28/2023, 06/10/2022, Additional history exists Care Teams Tool Programmer Relationship Specialty Start Date End Date Edwige Balderas MD [address] [place] [address] PCP - General Family Practice 07/14/23
--- OUTSIDE RECORDS SUMMARY | 2023-11-01 13:49 | XMS_ITS | Encounter Summary ---
Author Name Unknown Organization [facility] Address [address] [place] [address] Care Team Providers Care Healthcare Prof Name Role Phone Unavailable Primary Care Provider Unavailabl e Reason for Referral * Outpatient (Routine) - Authorized Specialty Diagnoses / Procedures Referred By Contac t Referred To Contact Cardiovascular Disease Nick Mcneil M.D. [address] [place] [address] [facility] Region Referral ID Status Reason Start Date Expiration Date V isits Requested Visits Authorized [id number] Authorized 08/02/2023 08/01/2026 1 1 * Outpatient (Routine) - Closed Specialty Diagnoses / Procedures Referred By Contac t Referred To Contact Diagnoses Syncope And Near Syncope Dyspnea On Exertion Procedures Echo Transthoracic (TTE) Nick Mcneil M.D. [address] [place] [address] [facility] Region Referral ID Status Reason Start Date Expiration Date Visits Re quested Visits Authorized [id number] Closed 08/02/2023 08/01/2024 1 1 * Outpatient (Routine) - Closed Specialty Diagnoses / Procedures Referred By Contac t Referred To Contact Diagnoses Syncope And Near Syncope Dyspnea On Exertion Procedures DX Chest AP or PA and Lateral 2 Views Nick Mcneil M.D. [address] [place] [address] [facility] Region Referral ID Status Reason Start Date Expiration Date Visits Re quested Visits Authorized [id number] Closed 08/02/2023 08/01/2024 1 1 * Outpatient (Routine) - Closed Specialty Diagnoses / Procedures Referred By Contact Referred To Contact Cardiovascular Diseases / Cardiovascular Disease Diagnoses Syncope And Near Syncope Nick Mcneil M.D. [address] [place] [address] [facility] Referral ID Status Reason Start Date Expiration Date Visits Re quested Visits Authorized [id number] Closed 08/02/2023 08/01/2024 1 1 * Outpatient (Routine) - Authorized Specialty Diagnoses / Procedures Referred By Contleonora t Referred To Contact Diagnoses Syncope And Near Syncope Procedures ECG Heart rhythm monitor (Holter) Nick Mcneil M.D. [address] [place] [address] [facility] Referral ID Status Reason Start Date Expiration Date V isits Requested Visits Authorized [id number] Authorized 08/02/2023 08/01/2024 1 1 Reason for Visit * Reason Comments Follow-up EKG completed * Outpatient (Routine) - Closed Specialty Diagnoses / Procedures Referred By Contac t Referred To Contact Cardiovascular Disease Nick Mcneil M.D. [address] [place] [address] [facility] Region Referral ID Status Reason Start Date Expiration Date Visits Re quested Visits Authorized [id number] Closed 07/27/2022 07/26/2025 1 1 Encounter Details Date Type Department Care Team (Latest Contact Info) Description 08/02/2023 10:15 AM CDT Office Visit Department of Cardiovascular Diseases in [place], [place] [address] [facility] [place] [phone] Nick Mcneil M.D. [address] [facility] [place] [phone] Syncope And Near Syncope (Primary Dx); Dyspnea On Exertion Social History Tobacco Use Types Packs/Day Years Used Date Smoking Tobacco: Never Smokeless Tobacco: Never Tobacco Cessation:Counseling Given: Not Answered Alcohol Use Standard Drinks/Week [...] often do you attend chur ch or quaker services? More than 4 times per year 02/16/2022 Do you belong to any clubs o r organizations such as synagogue groups, unions, fraternal or athletic groups, or [...] care, and heating? Not hard at all 02/16/2022 [facility] - Occupational Stress [...] to strenuous exercise (like a brisk walk)? 7 days 02/16/2022 On average, how many minutes do you engage in exercise at this level? 30 min 02/16/2022 Hunger Vital Sign Answer Date Recorded Within [...] medical appointments or from getting medications? No 01/30 In the past 12 months, has l ack of transportation kept you from meetings, work, or from getting things needed for daily living? No 02/16/2022 Housing Stability Vital Sign Answer Roger e Recorded In the last 12 months, was t here a time when you were not able to pay the mortgage or rent on time? No 02/16/2022 In the last 12 months, how many places have you lived? 1 02/16/2022 In the last 12 months, was t here a time when you did not have a steady place to sleep or slept in a usp (including now)? No 02/16/2022 Nutrition Answer Date Recorded Nutrition: EVOO Fat Source Yes 02/16 On average, how many serving s of fruits and vegetables do you eat per day (serving size is equal to 1 cup or approximately the size of a tennis ball)? 4-5 02/16/2022 Dental Answer Date Recorded Dental: Regular Dentist Yes 02/17/20 Employment Answer Date Recorded Employment status Retired 02/16/2022 Education Answer Date Recorded What is the highest level of school you have completed or the highest degree you have received? Professional school degree (e.g., MD, DDS, DVM, KRISTEN) 02/16/2022 Sex and Gender Information Value Date Recorded Sex Assigned at Female 05/07/2022 11:11 AM CDT Gender Identity Female 05/07/2022 11:11 AM CDT Sexual Orientation Straight 10/19/2019 10 :08 AM DEPUTY ATTORNEY GENERAL documented as of this encounter Last Filed Vital Signs Vital Sign Reading Time Taken Comments Blood Pressure 117/68 08/02/2023 10:18 AM CDT Pulse 72 08/02/2023 10:18 AM CDT Temperature - - Respiratory Rate - - Oxygen Saturation 99% 08/02/2023 10: 10 AM CDT room air Inhaled Oxygen Concentration - - Weight 66.6 kg (146 lb 13.2 oz) 023 10:10 AM CDT Height - - Body Mass Index 26.78 06/28/2023 9:28 AM CDT documented in this encounter Progress Notes * Nick Mcneil M.D. - 08/02/2023 10:15 AM CDT ASSESSMENT / PLAN Loss of consciousness, 10/2021. Recurrences on 10/01/2022, 06/13/2023 Palpitations Right bundle-branch block and left anterior fascicular block on electrocardiogram from 01/2022; newfrom 2005 Nonsustained supraventricular/atrial tachycardia on Holter 01/2022 and EM 05/2022 Chest discomfort, resolved Dyspnea, not suggestive of cardiac etiology Hyperlipidemia, statin intolerant Hypothyroidism; status post Graves disease with radioactive ablation Osteoporosis; compression fractures Spinal stenosis of lumbar region Sciatica, seen by neurology 06/2023 COVID-19 on 06/2022. Loss of consciousness, likely due to syncope. Her initial event occurred October 2021 while standing in synagogue. Recurrences on 10/01/2022 (sitting at the toilet stool; preceded by abdominal discomfort) and again 06/13/2023. Minimal lightheadedness preceding associated with fall and trauma. Atypical orthostatic events not excluded but not orthostatic on exam today. Not on medications that would lead to significant orthostasis currently. Cardiac etiology was not suggested on prior reassuring workup. Still, in view of recurrent events and bifascicular block we decided to refer the patient to electrophysiology for consideration of EP study +/-implantable loop recorder placement. In the meantime,a repeat 30 day outpatient sorter upholstery parts will be performed (if significant arrhythmias are seen, ER evaluation will be recommended) and an echo will be updated. Pre testing prior to electrophysiology assessment also ordered. We have asked the patient not to drive for 3 months after her last sync opal spell. The patient has supraventricular tachycardia previously documented but no palpitations associated with her events to suggest a tachyarrhythmia. Continue beta-stacey therapy as prescribed. We previously educated the patient on how to prevent vasovagal episodes. We recommended ER visit in case of recurrent events. Dyspnea. Not typical for cardiac etiology. No recurrent chest discomfort. Symptoms are not suggestive of ischemia and she is status post reassuring cardiopulmonary exercise stress echocardiogram. Pulmonary testing was not significantly abnormal but for mild reduction in diffusing capacity. Continue risk modification with primary care provider. She had hyperlipidemia based on past lipids done at [place] (LDL 136, HDL 60, triglycerides 119 with normal CMP April 2022; normal TSH and no anemia March 2022). No recent labs available for my review. The patient is candidate for statins but has been unable to tolerate to different statins due to side effects in the past (sore throat and headache reported). Low-dose statin such as Crestor once a week or ezetimibe may be initiated by primary care provider. We will send note to PCP. PLAN: #1 Syncope And Near Syncope - ECG Heart rhythm monitor (Holter); Future; Expected date: 08/02/2023 - Cardiovascular Disease - Heart rhythm consult (clinic); Future; Expected date: 08/02/2023 - Basic Metabolic Panel; Future; Expected date: 08/02/2023 - Thyroid Function Tillman; Future; Expected date: 08/02/2023 #2 Dyspnea On Exertion Other orders - Cardiovascular Disease office visit (clinic) General - DX Chest AP or PA and Lateral 2 Views; Future; Expected date: 08/02/2023 - Echo Transthoracic (TTE); Future; Expected date: 08/02/2023 - CBC without Differential; Future; Expected date: 08/02/2023 - Cardiovascular Disease office visit (clinic) General; Future; Expected date: 01/31/2024 Medications Discontinued During This Encounter Medication Reason ibuprofen (ADVIL,MOTRIN) 200 mg capsule Alternate therapy - Follow up with Cardiology in 6 months or call us sooner in case of problems or concerns. The patient expressed understanding of the information discussed during the visit today and agreement with the plan. CARDIOLOGY SUBSEQUENT VISIT Location: [facility] SUBJECTIVE CHIEF COMPLAINT / REASON FOR VISIT Office follow-up. HISTORY OF PRESENT ILLNESS Ms. Emmy Anderson is a very pleasant 78 y.o. female who presents to [facility] for follow-up. Her primary care provider is No primary care provider on file. (New primary care provider Briana Balderas, [place] - phone [phone]; fax [phone]). Last seen by me on July 2022. Presenting unaccompanied by family. I had the pleasure of seeing Ms. Emmy Anderson in clinic today. The patient presents today forevaluation having had two more episodes of loss of consciousness since our last visit. She did not reach out to us if those events. She had a total of 3 events and they occurred on 10/09/2021, 10/01/2022 in the last event occurred 04/12/2023. She went to the ER 2 days later due to musculoskeletal complaints. She states that at the time of her September 2022 episode she was seen in a toilet stool withabdominal discomfort (???intestinal cramps?? ) and fainted falling towards her side. She woke up feeling good. No significant premonitory symptoms. She did not feel fatigued or any queasiness to her stomach before after the event. During her last event on 06/13/2003 she was standing getting ready tobrush her teeth on felt lightheaded and suddenly lost consciousness. She felt and hit her left side. She went to the ER in [place] 2 days later due to discomfort. No broken bones but just some muscle damage reported. She reports the lightheadedness was extremely brief and she did not have time to sit down prior to falling. Again she did not have confusion, did not bite her tongue, no bowel bladder incontinence, in no symptoms after waking up. Events were not witnessed. She has been doing good otherwise. No significant chest discomfort reported. She does get some dyspnea when lying down at night a few times a week (2 to 3 times a week) but takes a cough drop and symptoms resolve. She is having significant pain her back when lying down. Being evaluated by Neurology for that. She states she gets dizzy when going from lying down to standing up so she has to sit in her bad and weight a little before symptoms subside. Seen by urology with recurrent UTI July 2022. She had issues with vaginal atrophy. Seen by Neurology June 2023. Following with them for her sciatica. Recurrent episode of loss of consciousness June 2023, see above. No suggestion for Neurology etiology based on notes. PERTINENT CARDIAC (OR RELATED) STUDIES REVIEWED: Ambulatory electrocardiographic monitor 06/2022: 1. The patient was monitored from 05/25/2022 to 06/23/2022 with a total monitoring time of 28 days 11hr 56 min. The baseline rhythm was sinus. [...] vascular abnormality, or anemia. Pulse oximetry is normal at rest and during exercise. [...] are no resting or exercise-induced wall motion abnormalitiessuggestive of ischemia. 2. Stress ECG portion of [...] mcg (400 unit) tablet Twice A Day Lactobacillus acidophilus capsule Take 1 capsule by [...] application topically as needed for dry skin. estradioL (ESTRACE) 0.1 mg/g (0.01%) vaginal cream Insert 1 g into the vagina 3 (three) times a week. Nightly for first week. (Patient not taking: Reported on 08/02/2023) phenazopyridine (PYRIDIUM) 100 mg tablet TAKE 1 TABLET BY MOUTH THREE TIMES DAILY FOR 6 DOSES NEEDED FOR PAIN Allergies Allergen Reactions Lidocaine Anaphylaxis per pt, tubal closure, asthmatic attack; Adhesive Tape-Silicones Rash Aspirin GI intolerance Chlorpheniramine Other (see comments) Chlorpheniramine-Phenylephrine Cough runny nose Codeine Shortness of breath (Reselect Reaction) Mold Other (see comments) Sneezing, sinus issues Penicillin V Other (see comments) diahrria Phenylpropanolamine Other (see comments) [place] Pollen-Rough Pigweed Other (see comments) Sneezing, nasal drainage Adhesive Itching REVIEW OF SYSTEMS Constitutional: Positive for fatigue and weight loss of more than 10 pounds. - Poor sleep Gastrointestinal: Positive for abdominal (belly) pain or cramping, constipation and diarrhea. Musculoskeletal: Positive for pain or stiffness in the joints and muscle pain/stiffness. Neurological: Positive for loss of consciousness, light-headedness, numbness or shooting pain in hands, arms, legs, or feet and headaches. All other systems reviewed and are negative. The following portions of the patient's history were reviewed and updated as appropriate: allergies, current medications, family history, medical history, social history, surgical history and problemlist. OBJECTIVE Vitals: 08/02/23 1010 08/02/23 1018 BP: 129/64 117/68 BP Location: Left arm Left arm Patient Position: Sitting Standing Cuff Size: Regular Regular Pulse: 81 72 SpO2: 99% Weight: 66.6 kg BP Readings from Last 3 Encounters: 08/02/23 117/68 06/28/23 129/59 07/27/22 131/77 Wt Readings from Last 3 Encounters: 08/02/23 66.6 kg 06/28/23 66.4 kg 07/27/22 68.9 kg Body mass index is 26.78 kg/m??. PHYSICAL EXAMINATION General: Patient is awake, alert, oriented x3. No acute distress. Eyes: No pallor. No icterus. No xanthelasma. Neck: No jugular venous distention. No carotid bruits. Chest/Lungs: No chest deformity. Normal respiratory effort. Good entry bilaterally. No adventitioussounds. Cardiovascular: Normal rate and regular rhythm. Normal S1 and S2. No murmurs, rubs, or gallops. Negative hepatojugular reflux. Abdomen: Soft, nontender, nondistended. Lower Extremities: Lower extremity warm without edema. Upper Extremities: 2+ right radial pulse. Normal capillary refill. No cyanosis. Neurologic: Exam deferred. DIAGNOSTICS I have reviewed the patient's current laboratory, imaging, and other diagnostic studies. Pertinent laboratory studies have been reviewed and are notable for: Hospital Outpatient Visit on 07/31/2023 Component Date Value Ventricular Rate ECG/Min 07/31/2023 62 DE Interval 07/31/2023 144 QRSD Interval 07/31/2023 132 QT Interval 07/31/2023 424 QTC Interval 07/31/2023 430 P [place] 07/31/2023 38 R [place] 07/31/2023 -61 T Wave [place] 07/31/2023 3 Lab Results Component Value Date CREATININE 1.24 (H) 10/22/2019 The patient brought some records from [place] which were reviewed. Creatinine 1.3. She had a CT of the abdomen and chest x-ray done. ECG from the last 30 days: ECG 12 Lead Result Date: 07/31/2023 Normal sinus rhythm Right bundle branch block with secondary ST-T abnormalities Left anterior fascicular block Bifascicular block When compared with ECG of 27-APR-2022 09:12, No significant change was found Reviewed by NATASHA Garcia Imaging last 30 days: CT Lumbar Spine without IV Contrast Result Date: 07/25/2023 Impression: 1. Moderate multilevel lumbar spondylosis most pronounced L4-L5 where there is at [id number] spinal canal and moderate right neuroforaminal stenosis. The degree of neuroforaminal and spinal canal stenosis would be better evaluated on MRI. Results for orders placed during the hospital encounter of 07/27/22 DX Chest AP or PA and Lateral 2 Views Narrative EXAM: DX CHEST AP OR PA AND LATERAL 2 VIEWS COMPARISON: 07/20/2007 FINDINGS: No acute abnormalities are identified in the chest. The heart size and pulmonary vascularity are within normal limits. No acute focal pulmonary parenchymal abnormalities are seen. The visualized skeleton is demineralized. There are surgical clips in the right upper quadrant. There are atherosclerotic changes in the aorta. Mild lumbar curve is partially included on this study. Impression No acute abnormalities are identified in the chest. IMPRESSION/REPORT/PLAN See above. Nick Mcneil M.D. documented in this encounter Plan of Treatment Scheduled Referrals Name Type Priority Associated Diagnoses Order Schedule Cardiovascular Disease - Heart rhythm consult (clinic) Outpatient Referral Routine Syncope And Near Syncope Expected: 08/02/2023 (Approximate), Expires: 11/02/2024 Cardiovascular Disease office visit (clinic) General Outpatient Referral Routine Expected: 01/31/2024 (Approximate), Expires: 11/02/2024 documented as of this encounter Results * (TTE) 2D ECHO DOPPLER COLOR (10/11/2023 12:39 PM DEPUTY ATTORNEY GENERAL) Ejection Fraction 60 MC CV EIMS Mid-Ascending [...] Laterality Modality Echocardiography 10/11/2023 11:5 8 AM DEPUTY ATTORNEY GENERAL Impressions 10/11/2023 1:24 PM DEPUTY ATTORNEY GENERAL Transthoracic outreach echo interpretation. LEFT VENTRICLE:Normal left ventricular chamber size. Abnormal left ventricular geometry with ??concentric remodeling (increased wall thickness to cavity ratio). Calculated 2-D linear left ventricular ejection fraction 60%. Left ventricular volumes were performed but not reported based on certified court/medical interpreter's judgment. No regional wall motion abnormalities. [...] the Order-Level Documents. Narrative 10/11/2023 1:24 PM DEPUTY ATTORNEY GENERAL For the complete report, see the Order-Level [...] ratio). Calculated 2-D linear left ventricular ejection [id number] Left ventricular volumes were performed but not [...] Nick Mcneil M.D. CV ECHO PROCEDURES * HOLTER MONITOR - IN CLINIC RELATIONSHIP ADVISOR (08/24/2023 11:04 PM DEPUTY ATTORNEY GENERAL) Min Heart Rate 51 bpm INFOB IONIC [...] Duration 0 duration INFOBION IC MOME AF [place] 0 percent INFOBIONIC MOME Symptom Count 0 count INFOBI ONIC MOME 08/23/2023 9:34 AM DEPUTY ATTORNEY GENERAL Narrative INFOBIONIC MOME - 08/27/2023 1:45 PM DEPUTY ATTORNEY GENERAL [place] 1. The basic rhythm was sinus with [...] no events noted with which to correlate. Industrial Nurse: NATASHA Dunn/ NATASHA Shelton A Holter monitor [...] cascaded to extended monitoring. Procedure Note Marc aLu M.D. - 08/27/2023 [place] 1. The basic rhythm was sinus with [...] no events noted with which to correlate. Industrial Nurse: NATASHA Dunn/ NATASHA Shelton A Holter monitor [...] M.D. CV CARDIAC SERVICE S PROCEDURES INFOBIONIC FIDEL NA * DX Chest AP or PA [...] right upper quadrant. Comparison,07/27/2022. Nick Mcneil M.D. IMAmelie DIAGNOSTIC MJ GING PROCEDURES * CBC without Differential (08/02/2023 11:19 AM [...] CDT Nick Mcneil M.D. LAB BLOOD ADD-ON [facility] [address] [place] [address], [facility] [id number] [facility] [place] [address] [place] [address] * Thyroid Function Tillman (08/02/2023 11:19 AM CDT) TSH, Sensitive 1.9 0.3 - 4.2 mIU/L 08/02/2023 4:42 PM CDT OWAT Blood (Blood, Venous) 08/02/2023 11:19 AM CDT 08/02/2023 1:05 PM CDT Nick Mcneil M.D. LAB BLOOD ADD-ON [facility] [address] [place] [address], [facility] OWAT [facility] [place] [address], [place] [address] * (ABNORMAL) Basic Metabolic Panel (08/02/2023 11:19 [...] CDT Nick Mcneil M.D. LAB BLOOD ADD-ON [facility] [address], [place] [address], [facility] [facility] [place] [address], [place] [address] documented in this encounter Visit Diagnoses Diagnosis Syncope And Near Syncope- Primary Dyspnea On Exertion Syncope And Near Syncope Dyspnea On Exertion Syncope And Near Syncope Syncope And Near Syncope Dyspnea On Exertion documented in this encounter
--- OUTSIDE RECORDS SUMMARY | 2023-11-01 13:49 | XMS_ITS | Encounter Summary ---
Author Name Unknown Organization [facility] Address [address] [place] [id number] Care Team Providers Care Roller Mechanic Name Role Phone Unavailable Primary Care Provider Unavailabl e Reason for Visit * Outpatient (Routine) - Closed Specialty Diagnoses / Procedures Referred By Contact Referred To Contact Cardiovascular Diseases / Cardiovascular Disease Diagnoses Syncope And Near Syncope Nick Mcneil M.D. [address] [place] [phone] [facility] Referral ID Status Reason Start Date Expiration Date Visits Re quested Visits Authorized [id number] Closed 08/02/2023 08/01/2024 1 1 Encounter Details Date Type Department Care Team (Latest Contact Info) Description 10/16/2023 9:00 AM ALUM OPERATOR Comprehensive Visit Department of Cardiovascular Medicine in [place], [place] [address] [place] [phone] Kim Mackay M.B.B.S. [address] [place] [address] Syncope And Near Syncope (Primary Dx); Cardiac Conduction Disorder; Bundle Branch Block Bifascicular; Fatigue; Hyperlipidemia; Graves Disease Personal History Social History Tobacco Use Types Packs/Day Years [...] 02/16/2022 How often do you attend chur or restorationism services? More than 4 times per year 02/16/2022 Do you belong to any clubs o r organizations such as hoahaoism groups, unions, fraternal or athletic groups, or [...] and heating? Not hard at all 08/06/2023 [facility] [place] [facility] Occup[facility] - Occupational Stress [...] your living situation today? I have a [facility] place to live 08/06/2023 Education Answer [...] Sexual Orientation Straight 10/19/2019 10 :08 AM ALUM OPERATOR documented as of this encounter Last Filed Vital Signs Vital Sign Reading Time Taken Comments Blood Pressure 135/61 10/16/2023 8:50 AM ALUM OPERATOR Pulse 69 10/16/2023 8:50 AM ALUM OPERATOR Temperature - - Respiratory Rate - - Oxygen Saturation - - Inhaled Oxygen Concentration - - Weight 66.6 kg (146 lb 13.2 oz) 10/16/2023 8:50 AM ALUM OPERATOR Height 157.7 cm (5' 2.09) 10/16/2023 8:50 AM CS T Body Mass Index 26.78 10/16/2023 8:50 AM ALUM OPERATOR documented in this encounter Consult Notes * Marily Dennis APRN CNikNNikPNik, M.S.N. - 10/16/2023 9:00 AM CST HEART RHYTHM CLINIC NOTE REFERRED BY Nick Mcneil M.D. [address] [place] [phone] COLLABORATING PHYSICIAN Kim Mackay M.B.BNikS. CHIEF COMPLAINT / REASON FOR VISIT Syncope HISTORY OF PRESENT ILLNESS Ms. Anderson is a pleasant 78 y.o. female who presents to the [facility] with a past medical history significant for, but not limited to: Recurrent loss of consciousness Palpitations Conduction system disease 3A. Bifascicular block, RBBB and LAFB 3B. Brief SVT Dyspnea Labile blood pressure Chest discomfort Hyperlipidemia, statin intolerant Graves disease, status post radioactive ablation, on replacement therapy Osteoporosis and compression fractures Spinal stenosis Sciatica Prior Covid 19 infection Multiple food and substance sensitivities Mrs. Anderson was referred by Dr. Mcneil for consideration of EP study plus/minus implantable loop recorder. There is a background of occasional loss of consciousness consistent with vasovagal events in her younger years. On October 10, 2021 she was standing, turned, then vision went white/hazy, and the next thing she knew she was waking up on the floor. The episode was not witnessed. She did not seek care. She had subsequent concerns for dizziness, headache, neck pain, fatigue, and presyncope with sitting up or standing. She was initiated on metoprolol 12.5 mg daily. On February 16, 2022 she was evaluated by Dr. Cavanaugh in Neurology. There were concerns for post concussive syndrome. Brain MRI showed no hematoma. A 48 hour Holter demonstrated sinus rhythm and sinus arrhythmia with rates 49-120 with an average of 74 beats per minute, 205 PVCs, 109 PACs, and a 9 beat atrial run at 117 beats per minute. On May 11, 2022 she met in consultation with Dr. Mcneil. She had not had recurrent syncope butreported stabbing intermittent chest discomfort, palpitations, and dyspnea. PFT showed normal baseline spirometry, negative methacholine challenge, and mildly reduced diffusion capacity. Stress VO2 de monstrated average peak VO2 without evidence of cardiac or pulmonary impairment to exercise. Peak heart rate was 81% of predicted, chronotropic response 78% of predicted. A 30 day event monitor captured sinus rhythm rates 49-120 and an average of 69 beats per minute. She had less than 100 PVCs. There were two thousand one hundred sixty-three PACs (less than 1% burden) and 8 runs of SVT up to 16 beats with a maximum rate of 171 beats per minute. She reported symptoms of heart fluttering and hardheartbeats in sinus rhythm without ectopy. In September 2022, she had recurrent sudden loss of consciousness in the setting of intestinal cramps and bowel movement. She fell to the side and awoke feeling well. In June 2023, she was standing in her bathroom, felt very suddenly lightheaded, dizzy, and lost consciousness. Again, she awoke feeling well. There was no bowel or bladder incontinence. None of these events have been witnessed. Reportedly, she went to the emergency room 2 days after the most recent episode and was diagnosed with muscle pain; but we do not have access to those records. An ECG 07/31/2023 showed sinus rhythm at 62 beats per minute with bifascicular (right bundle/LAFB) block, WV interval 144 milliseconds, QRS duration 132 milliseconds, and corrected QT 430 milliseconds. A 30 day event monitor completed 09/26/2023 demonstrated sinus rhythm with right bundle-branch block and rates 49-118 with an average of 69 beats per minute. She had fewer than 100 PVCs, 1580 PACs (less than 1% burden), 4 runs of SVT up to 12 beats and maximum rate of 155 beats per minute. She reported dizziness in sinus rhythm. A TTE 10/11/2023 showed normal LV chamber size and ejection fraction of 60% with no regional wall motion abnormalities, abnormal LV geometry with concentric remodeling and grade 1 of 3 diastolic dysfunction, normal RV chamber size and function, and no hemodynamically significant valve disease. Atriawere normal size. Today, She states her main concern is that she may not wake up after passing out. She has not had sudden loss of consciousness since June but continues to have occasional episodes of presyncope preceded by abdominal cramping. She has a restricted diet due to multiple food sensitivities. She feels like she tires more easily over the last 2 years and stopped her pool workouts due to this. SOCIAL HISTORY Reports that she has never smoked. She has never used smokeless tobacco. She reports that she does not currently use alcohol. She reports that she does not use drugs. FAMILY HISTORY Family history includes Arthritis in her brother and mother; Asthma in her sister, sister, and son;Breast cancer in her sister; Colon cancer in her maternal grandfather; Coronary artery disease in her brother, brother, brother, and father; Diabetes in her brother, brother, brother, and sister; Hype rlipidemia in her brother, father, sister, and sister; Hypertension in her brother, brother, father, sister, and sister; Melanoma in her brother; Obesity in her brother, brother, mother, and sister; Skin cancer in her mother and sister; Stroke in her mother; Thyroid disease in her brother. REVIEW OF SYSTEMS A comprehensive review of systems was completed; pertinent abnormalities are included in the History of Present Illness. MEDICATIONS Current Medications: acetaminophen (TYLENOL) 325 mg tablet, Every 4 Hours as needed calcium carbonate-vitamin D3 400-133.3 mg-unit tablet, Take 1,000 mg by mouth daily. cholecalciferol (VITAMIN D3) 10 mcg (400 Unit) tablet, Take 400 Units by mouth daily. clotrimazole (LOTRIMIN) 1 % cream, Apply 1 application topically as needed. dextromethorphan-guaiFENesin (ROBITUSSIN-DM) 10-100 mg/5 mL syrup, Take by mouth as needed for cough. diphenhydrAMINE (BENADRYL) 25 mg capsule, Take 25 mg by mouth every 6 (six) hours as needed. docosanol (ABREVA) 10 % cream, Apply 1 application topically 4 (four) times a day as needed. ergocalciferol, vitamin D2, 10 mcg (400 unit) tablet, Twice A Day Lactobacillus acidophilus capsule, Take 1 capsule by mouth as needed (Uses when also taking antibiotics). levothyroxine (SYNTHROID, LEVOTHROID) 88 mcg tablet, Take 1 tablet by mouth daily. loperamide (IMODIUM A-D) 2 mg capsule, Take 2 mg by mouth 4 (four) times a day as needed for diarrhea. loratadine (CLARITIN) 10 mg tablet, Take 1 tablet by mouth daily as needed. metoprolol succinate (TOPROL-XL) 25 mg 24 hr tablet, Take 12.5 mg by mouth daily. phenazopyridine (PYRIDIUM) 100 mg tablet, TAKE 1 TABLET BY MOUTH THREE TIMES DAILY FOR 6 DOSES NEEDED FOR PAIN pseudoephedrine-guaiFENesin (MUCINEX D) 60-600 mg per 12 hr tablet, Take 1 tablet by mouth 2 (two) times a day as needed for allergies. vitamin A & D (AMERIDERM) ointment, Apply 1 application topically as needed for dry skin. VITALS Blood Pressure: 135/61 Height: 157.7 cm Weight: 66.6 kg BMI (Calculated): 26.8 kg/m?? BP 135/61 (BP Location: Right arm, Patient Position: Sitting, Cuff Size: Regular) Pulse 69 Ht 157.7 cm Wt 66.6 kg BMI 26.78 kg/m?? PHYSICAL EXAMINATION General: Comfortable at rest, mood is appropriate. Vascular: Regular pulse. No radio radial delay. Normal capillary refill time. Heart: Regular rhythm, regular rate. S1/S2 without murmur, click, gallop, or rub. Lungs: Percussion note is resonant. Good air entry bilaterally with no wheezing or crackles. Extremities: No peripheral edema INVESTIGATIONS Echo Transthoracic (TTE) Result Date: 10/11/2023 For the complete report, see the Order-Level Documents. Hemodynamics Heart Rate: 60 BPM Blood Pressure: 134 / 77 mmHg ECG: Sinus rhythm Final Impressions 1. Normal left ventricular chamber size, no regional wall motion abnormalities, calculated 2-D linear ejection fraction 60%. 2. Abnormal left ventricular geometry with concentric remodeling (increased wall thickness to cavity ratio), grade 1/3 diastolic dysfunction, consistent with low to normal filling pressure at rest. 3. Normal right ventricular chamber size, normal systolic function, unable to detect peak tricuspid regurgitation velocityfor pulmonary artery systolic pressure calculation. 4. No hemodynamically significant valvular heart disease. 5. No pericardial effusion. ASSESSMENT/PLAN Syncope and presyncope, potentially multifactorial Conduction system disease 2A. Bifascicular block 2B. Brief SVT captured on ambulatory monitoring, on metoprolol Fatigue Hyperlipidemia, statin intolerant Graves disease, status post radioactive ablation, on replacement therapy Multiple food and substance sensitivities/allergies Mrs. Anderson presents to the [facility] for discussion on candidacy for electrophysiology study and/or loop recorder implant in the setting of recurrent Loss of consciousness. To date, she has had one episode of syncope in October 2021 preceded by vision changes, a second episode in September 2022 preceded by abdominal cramps, and a third in June, preceded by lightheadedness. She has had other episodes of presyncope preceded by abdominal cramping. More mild symptoms while monitored have not correlated with any concerning rhythm abnormality. She has bifascicular block on ECG. At present, there is conflicting data on empiric pacemaker implant in setting of bifascicular block. Prior to pacing, it would be reasonable to achieve better symptom-rhythm correlation. In order to achieve symptom-rhythm correlation, we discussed 2 reasonable options: Proceed with electrophysiology study to assess for concerning conduction abnormality. We reviewed how the procedure is performed and 2-5% risk of complications including, but not limited to, vascularaccess complications, damage to the jena conduction system, arrhythmia, valve damage, pericardial effusion/tamponade, thromboembolism, adverse reaction to anesthesia, and rarely . This may help determine candidacy for pacemaker implant. If no concerning conduction abnormalities were found, would likely proceed with loop recorder implant. Loop recorder implant. We discussed how the procedure is performed with small risk of pain, bleeding, or infection. The device is capable of monitoring the heart rhythm for about 3 years. She understands that neither option will treat her symptoms but rather are performed in an effort to identify a conduction abnormality as the cause of her symptoms. We also reviewed the potential multifactorial nature of her symptoms. Symptoms that are related to a slow heart rate would likely resolve with pacing. However, vasovagal symptoms are not expected to resolve. Conservative treatment forvasovagal syncope would include including getting to a place of safety when symptoms occur, maintaining hydration, and using compression socks. Mrs. Anderson has also had the opportunity to meet with Dr. Mackay. She was given adequate time to ask questions, which we have answered the best of our ability. After considering options, she has electedto defer any procedures at this time. In the future, if her wishes change or symptoms worsen, we are available for consultation. Marily Dennis APRN, C.N.P., M.S.N. 10/16/23 OPERATOR * Kim Mackay M.B.B.S. - 10/16/2023 9:00 AM CST HEART RHYTHM CLINIC NOTE REFERRED BY Nick Mcneil M.D. [address] [place] [phone] CHIEF COMPLAINT / REASON FOR VISIT Syncope HISTORY OF PRESENT ILLNESS Ms. Anderson is a 78 y.o. female with a past medical history significant for, but not limited to: 1. Syncope 2. Conduction system disease A. Right bundle branch block and left anterior fascicular block 3. Nonsustained supraventricular tachycardia 4. Structurally normal heart 5. Hyperlipidemia 6. Graves disease A. Status post radio ablation, currently on levothyroxine 7. Spinal stenosis 8. Prior COVID infection 9. Multiple food intolerances A. Associated abdominal cramping with exacerbation of lightheadedness. She has been evaluated by Dr. Mcneil regarding her prior syncope. In brief, she has had 3 episodes of syncope since October 2021. In October 2021, she was in hoahaoism when she reports her vision turning white. The next thing she knows is that she had an episode of syncope and had hit her head. She denies recollection of this and states that when she got home she had a bruised head and only realized she had fainted when she called her friends from hoahaoism choir. She states that she had a mild concussion related to this fall. In September 2022, she had another episode of syncope which was precipitated by abdominal discomfort/cramping. She states that typically, she can javier the spells of lightheadedness if she can bend forward but in this situation was unable to do so as she did not have anything that she can crouch down on. Her most recent episode was in June 2023 when standing in her bathroom. She is felt lightheaded/ dizzy prior to losing consciousness. She fell and bruised her side but did not sustain any major trauma. There has been no stigmata of seizure activity with any of these episodes based on her report. She has been evaluated by Neurology and no clear autonomic cause has been identified. She reports that she has orthostatic lightheadedness. She was also had some dizziness with head movement. She was due to undergo the Cirilo maneuver but due to back pain this was deferred. She has undergone extensive evaluation including several ambulatory heart rhythm monitors. These have not identified any significant tachy or bradyarrhythmias except for her known bifascicular block.She has reported some episodes of dizziness while wearing these monitors during which time she was in sinus rhythm without any other abnormality noted. TTE is demonstrated normal LV size and function with evidence of 1/3 diastolic dysfunction. RV sizeand function was normal with no significant valvular heart disease. SOCIAL HISTORY Social History Tobacco Use Smoking status: Never Smokeless tobacco: Never Vaping Use Vaping Use: never used Substance Use Topics Alcohol use: Not Currently Comment: wine about once a month Drug use: Never FAMILY HISTORY Family History Problem Relation Age of Onset Skin cancer Mother Stroke Mother Arthritis Mother Obesity Mother Coronary artery disease Father Hypertension Father Hyperlipidemia Father Breast cancer Sister Hypertension Sister Hyperlipidemia Sister Diabetes Sister Skin cancer Sister Hypertension Sister Hyperlipidemia Sister Asthma Sister Obesity Sister Coronary artery disease Brother Hypertension Brother Coronary artery disease Brother Diabetes Brother Obesity Brother Hypertension Brother Obesity Brother Melanoma Brother Hyperlipidemia Brother Thyroid disease Brother Arthritis Brother Diabetes Brother Coronary artery disease Brother Colon cancer Maternal Grandfather Diabetes Brother Asthma Son Asthma Sister REVIEW OF SYSTEMS A comprehensive review of systems was completed; pertinent abnormalities are included in the History of Present Illness. MEDICATIONS Current Medications: acetaminophen (TYLENOL) 325 mg tablet, Every 4 Hours as needed calcium carbonate-vitamin D3 400-133.3 mg-unit tablet, Take 1,000 mg by mouth daily. cholecalciferol (VITAMIN D3) 10 mcg (400 Unit) tablet, Take 400 Units by mouth daily. clotrimazole (LOTRIMIN) 1 % cream, Apply 1 application topically as needed. dextromethorphan-guaiFENesin (ROBITUSSIN-DM) 10-100 mg/5 mL syrup, Take by mouth as needed for cough. diphenhydrAMINE (BENADRYL) 25 mg capsule, Take 25 mg by mouth every 6 (six) hours as needed. docosanol (ABREVA) 10 % cream, Apply 1 application topically 4 (four) times a day as needed. ergocalciferol, vitamin D2, 10 mcg (400 unit) tablet, Twice A Day Lactobacillus acidophilus capsule, Take 1 capsule by mouth as needed (Uses when also taking antibiotics). levothyroxine (SYNTHROID, LEVOTHROID) 88 mcg tablet, Take 1 tablet by mouth daily. loperamide (IMODIUM A-D) 2 mg capsule, Take 2 mg by mouth 4 (four) times a day as needed for diarrhea. loratadine (CLARITIN) 10 mg tablet, Take 1 tablet by mouth daily as needed. metoprolol succinate (TOPROL-XL) 25 mg 24 hr tablet, Take 12.5 mg by mouth daily. phenazopyridine (PYRIDIUM) 100 mg tablet, TAKE 1 TABLET BY MOUTH THREE TIMES DAILY FOR 6 DOSES NEEDED FOR PAIN pseudoephedrine-guaiFENesin (MUCINEX D) 60-600 mg per 12 hr tablet, Take 1 tablet by mouth 2 (two) times a day as needed for allergies. vitamin A & D (AMERIDERM) ointment, Apply 1 application topically as needed for dry skin. VITALS Blood Pressure: 135/61 Height: 157.7 cm Weight: 66.6 kg BMI (Calculated): 26.8 kg/m?? BP 135/61 (BP Location: Right arm, Patient Position: Sitting, Cuff Size: Regular) Pulse 69 Ht 157.7 cm Wt 66.6 kg BMI 26.78 kg/m?? PHYSICAL EXAMINATION General: Comfortable at rest, mood is appropriate. HEENT: No scleral icterus. Vascular: Regular pulse. No radio radial delay. Normal capillary refill time. Heart: Normal apical impulse. Normal heart sounds. No significant murmurs. No pericardial rub. Lungs: Percussion note is resonant. Good air entry bilaterally with no wheezing or crackles. Abdomen: Soft, nontender. Extremities: No peripheral edema INVESTIGATIONS As above. ASSESSMENT 1. Syncope 2. Conduction system disease A. Right bundle branch block and left anterior fascicular block 3. Nonsustained supraventricular tachycardia 4. Structurally normal heart 5. Hyperlipidemia 6. Graves disease A. Status post radio ablation, currently on levothyroxine 7. Spinal stenosis 8. Prior COVID infection 9. Multiple food intolerances A. Associated abdominal cramping with exacerbation of lightheadedness. PLAN It was a pleasure meeting Mrs. Anderson in clinic. The etiology of her spells is unclear though I am suspicious for a component of vasovagal mediated syncope. This is predicated on the fact that she has a prodrome (though brief in some situations) prior to each spell, which is typically associated withabdominal discomfort. However, she is a little unclear as to the events surrounding the episode that occurred in October 2021 when in hoahaoism. We discussed that she does have baseline conduction system disease which may increase the likelihood significant bradyarrhythmias/pauses that result in syncope. However, none have been documented on ambulatory heart rhythm monitoring. In the setting of a structurally normal heart, the likelihood of tachyarrhythmias is lower. We reviewed management options which include continued observation with conservative measures, proceeding with an injectable loop recorder for better heart rhythm/rate correlation given infrequent nature of syncope, EP study for further guidance or proceeding directly with pacemaker implantation. Iinformed her that continued observation alone would risk recurrent spells unless she feels that shecan abbreviate episodes by avoiding the various triggers. The pros and cons of EP study and/or injectable loop recorder were reviewed, stating that this may give the most definitive answer. We reviewed the option for empiric pacemaker implantation given her bifascicular block though based on the fairly recent SPRITELY study, there was no reduction in syncope with this approach, especially if there is a component of hypotension associated with her spells. After extensive discussion of the options, she does not wish to proceed with any invasive measure. Rather, she would like to continue with observation. She feels as though she has a good handle of the causes of her syncope and we will try to avoid these. I did genetic counselor her regarding counterpulsationmaneuvers, slow positional change, use of compression garments, fluid liberalization etc.. I informed her that should she have another episode then she should seek medical attention immediately rather than delaying a she has done previously. Certainly if she changes her mind, she can notify us and we will make arrangements accordingly. Of note, she does report some lightheadedness with head turning. Given this, it is not unreasonableto consider revisit with her PT regarding Cirilo maneuver. I will update Dr. Mcneil regarding her decision. Remainder as per Ms. Dennis. Summary of recommendations: 1. Patient would like conservative measures for now instead of invasive measures. Sandee Cagle.S Cardiac Electrophysiology Family Practice Physician [facility] OPERATOR documented in this encounter Plan of Treatment Not on file documented as of this encounter Visit Diagnoses Diagnosis Syncope And Near Syncope- Primary Cardiac Conduction Disorder Bundle Branch Block Bifascicular Fatigue Hyperlipidemia Graves Disease Personal History documented in this encounter
--- OUTSIDE RECORDS SUMMARY | 2023-11-01 13:49 | XMS_ITS | Encounter Summary ---
Author Name Unknown Organization [facility] Address [address] [place] [address] Care Team Providers Care Glass Setter Name Role Phone Unavailable Primary Care Provider Unavailabl e Reason for Referral * Outpatient (Routine) - Closed Specialty Diagnoses / Procedures Referred By Contac t Referred To Contact Diagnoses Dizziness And Giddiness Procedures Escalated MCT - TECH USE ONLY Nick Mcneil M.D. [address] [place] [phone] [facility] Referral ID Status Reason Start Date Expiration Date Visits Re quested Visits Authorized [id number] Closed 08/28/2023 08/27/2024 1 1 LE OPERATOR HEAD Reason for Visit * Outpatient (Routine) - Closed Specialty Diagnoses / Procedures Referred By Contac t Referred To Contact Diagnoses Dizziness And Giddiness Procedures Escalated MCT - TECH USE ONLY Nick Mcneil M.D. [address] [place] [phone] [facility] Referral ID Status Reason Start Date Expiration Date Visits Re quested Visits Authorized [id number] Closed 08/28/2023 08/27/2024 1 1 Encounter Details Date Type Department Care Team (Latest Contact Info) Description 08/28/2023 7:25 AM KETTLE OPERATOR HEAD - 08/28/2023 11:59 PM KETTLE OPERATOR HEAD Hospital Encounter Division of Cardiovascular Diseases in [place], [place] [address] [place] [address] Nick Mcneil M.D. [address] [place] [phone] Dizziness And Giddiness Discharge Disposition: Home or Self Care Social History Tobacco Use Types Packs/Day Years [...] How often do you attend chur or lutheran services? More than 4 times per year 02/16/2022 Do you belong to any clubs o r organizations such as worship groups, unions, fraternal [...] and heating? Not hard at all 08/06/2023 [facility] [place] of Occupat ional Health - Occupational Stress [...] your living situation today? I have a [facility] place to live 08/06/2023 Education Answer Date Recorded What is the highest level of school you have completed or the highest degree you have received? Professional school degree (e.g., MD, DDS, DVM, KRISTEN) 02/16/2022 Sex and Gender Information Value Date Recorded Sex Assigned at Female 05/07/2022 11:11 AM CDT Gender Identity Female 05/07/2022 11:11 AM CDT Sexual Orientation Straight 10/19/2019 10 :08 AM KETTLE OPERATOR HEAD documented as of this encounter Medications at Time of Discharge Medication Sig Dispensed Refills Start Date End Date acetaminophen (TYLENOL) 325 mg tablet Every 4 Hours as needed 0 calcium carbonate-vitamin D3 400-133.3 mg-unit tablet Take 1,000 mg by mouth daily. 0 05/07/2009 cholecalciferol (VITAMIN D3) 10 mcg (400 Unit) tablet Take 400 Units by mouth daily. 0 05/07/2009 clotrimazole (LOTRIMIN) 1 % cream Apply 1 application topically as needed. 0 dextromethorphan-guaiFE Nesin (ROBITUSSIN-DM) 10-100 mg/5 mL syrup Take by mouth as needed for cough. 0 diphenhydrAMINE (BENADRYL) 25 mg capsule Take 25 mg by mouth every 6 (six) hours as needed. 0 docosanol (ABREVA) 10 % cream Apply 1 application topically 4 (four) times a day as needed. 0 ergocalciferol, vitamin D2, 10 mcg (400 unit) tablet Twice A Day 0 Lactobacillus acidophilus capsule Take 1 capsule by mouth as needed (Uses when also taking antibiotics). 0 levothyroxine (SYNTHROID, LEVOTHROID) 88 mcg tablet Take 1 tablet by mouth daily. 0 01/21/2013 loperamide (IMODIUM A-D) 2 mg capsule Take 2 mg by mouth 4 (four) times a day as needed for diarrhea. 0 loratadine (CLARITIN) 10 mg tablet Take 1 tablet by mouth daily as needed. 0 06/04/2013 metoprolol succinate (TOPROL-XL) 25 mg 24 hr tablet Take 12.5 mg by mouth daily. 0 03/08/2022 phenazopyridine (PYRIDIUM) 100 mg tablet TAKE 1 TABLET BY MOUTH THREE TIMES DAILY FOR 6 DOSES NEEDED FOR PAIN 0 07/02/2022 pseudoephedrine-guaiFEN esin (MUCINEX D) 60-600 mg per 12 hr tablet Take 1 tablet by mouth 2 (two) times a day as needed for allergies. 0 vitamin A & D (AMERIDERM) ointment Apply 1 application topically as needed for dry skin. 0 estradioL (ESTRACE) 0.1 mg/g (0.01%) vaginal cream Insert 1 g into the vagina 3 (three) times a week. Nightly for first week. 42 g 3 07/29/2022 10/16/2023 documented as of this encounter Plan of Treatment Not on file documented as of this encounter Procedures Procedure Name Priority Date/Time Associated Diagnosis Comments ECG AMBULATORY REAL TIME CARDIAC MONITORING Routine 09/26/2023 3:06 PM KETTLE OPERATOR HEAD Dizziness And Giddiness documented in this encounter Results * ECG AMBULATORY REAL TIME CARDIAC MONITORING (09/26/2023 3:06 PM KETTLE OPERATOR HEAD) Min Heart Rate 49 bpm INFOBIONIC MOME [...] Duration 0 sec duration INFOBIONIC MOME AF [place] 0% percent INFOBIONIC MOME VT Runs 0 count INFOBIONIC MOME SVT Runs 4 count INFOBIONIC MOME Symptom Count 13 count INFOBIONIC MOME 08/28/2023 10:4 2 AM KETTLE OPERATOR HEAD Narrative INFOBIONIC MOME - 09/27/2023 5:21 PM KETTLE OPERATOR HEAD 1. The patient was monitored from 08/28/2023 [...] to 84 bpm. No ectopy was seen. Courtesy Booth Cashier: NATASHA Dunn/NATASHA Hardwick Procedure Note Marc Lau [...] to 84 bpm. No ectopy was seen. Courtesy Booth Cashier: NATASHA Dunn/NATASHA Hardwick Nick Mcneil M.D. CV CARDIAC SERVICE S PROCEDURES INFOBIONIC FIDEL NA documented in this encounter Visit Diagnoses Diagnosis Dizziness And Giddiness documented in this encounter
--- OUTSIDE RECORDS SUMMARY | 2023-11-01 13:49 | XMS_ITS | Encounter Summary ---
Author Name Unknown Organization [facility] Address [address] [place] [address] Care Team Providers Care Sr. Manager Marketing Name Role Phone Unavailable Primary Care Provider Unavailabl e Encounter Details Date Type Department Care Team (Latest Contact Info) Description 08/03/2023 Clinical Communication Department of Cardiovascular Diseases in [place], [place] [address] [place] [phone] Nick Mcneil M.D. [address] [place] [phone] Social History Tobacco Use Types Packs/Day Years [...] often do you attend chur ch or latter-day services? More than 4 times per year 02/16/2022 Do you belong to any clubs o r organizations such as latter day groups, unions, [...] and heating? Not hard at all 08/06/2023 [facility] [place] of Occupat ional Health - Occupational Stress [...] your living situation today? I [facility] a [facility] place to [facility] 08/06/2023 Education Answer [...] Sexual Orientation Straight 10/19/2019 10 :08 AM SALES SUPPORT CONSULTANT documented as of this encounter Miscellaneous Notes * Telephone Encounter - Nani Henson R.N. - 08/03/2023 11:19 AM CDT ----- Message from Nick Mcneil M.D. sent at 08/03/2023 8:39 AM CDT ----- Please send my note to the patient's primary care provider (Briana Balderas [place] - phone [phone]; fax [phone]). Thank you. documented in this encounter Plan of Treatment Not on file documented as of this encounter Visit Diagnoses Not on filedocumented in this encounter
--- OUTSIDE RECORDS SUMMARY | 2023-11-01 13:49 | XMS_ITS | Encounter Summary ---
Author Name Unknown Organization [facility] Address [address] [place] [address] Care Team Providers Care Partition Notcher Name Role Phone Unavailable Primary Care Provider Unavailabl e Reason for Referral * Outpatient (Routine) - Closed Specialty Diagnoses / Procedures Referred By Mattyac t Referred To Contact Diagnoses Syncope And Near Syncope Dyspnea On Exertion Procedures Echo Transthoracic (TTE) Nick Mcneil M.D. [address] [place] [phone] [facility] Referral ID Status Reason Start Date Expiration Date Visits Re quested Visits Authorized [id number] Closed 08/02/2023 08/01/2024 1 1 IED COMMUNICATIONS ARCHITECT Reason for Visit * Outpatient (Routine) - Closed Specialty Diagnoses / Procedures Referred By Jaime garcia Referred To Contact Diagnoses Syncope And Near Syncope Dyspnea On Exertion Procedures Echo Transthoracic (TTE) Nick Mcneil M.D. [address] [place] [phone] [facility] Referral ID Status Reason Start Date Expiration Date Visits Re quested Visits Authorized [id number] Closed 08/02/2023 08/01/2024 1 1 Encounter Details Date Type Department Care Team (Latest Contact Info) Description 10/11/2023 11:56 AM UNIFIED COMMUNICATIONS ARCHITECT - 10/11/2023 11:59 PM UNIFIED COMMUNICATIONS ARCHITECT Hospital Encounter Department of Cardiovascular Diseases in [place], [place] [address] [place] [phone] Nick Mcneli M.D. [address] [facility] [place] [phone] Syncope And Near Syncope; Dyspnea On Exertion Discharge Disposition: Home or Self Care Social [...] How often do you attend chur or pentecostal services? More than 4 times per year 02/16/2022 Do you belong to any clubs o r organizations such as baptism groups, unions, fraternal [...] and heating? Not hard at all 08/06/2023 [facility] [place] of Occupat ional Health - Occupational Stress [...] your living situation today? I have a [facility] place to live 08/06/2023 Education Answer Date Recorded What is the highest level of school you have completed or the highest degree you have received? Professional school degree (e.g., , DDS, DVM, KRISTEN) 02/16/2022 Sex and Gender Information Value Date Recorded Sex Assigned at Female 05/07/2022 11:11 AM CDT Gender Identity Female 05/07/2022 11:11 AM CDT Sexual Orientation Straight 10/19/2019 10 :08 AM UNIFIED COMMUNICATIONS ARCHITECT documented as of this encounter Medications at [...] ECHO DOPPLER COLOR Routine 10/11/2023 12:39 PM UNIFIED COMMUNICATIONS ARCHITECT Syncope And Near Syncope Dyspnea On Exertion documented in this encounter Results * (TTE) 2D ECHO DOPPLER COLOR (10/11/2023 12:39 PM UNIFIED COMMUNICATIONS ARCHITECT) Ejection Fraction 60 MC CV EIMS Mid-Ascending [...] Laterality Modality Echocardiography 10/11/2023 11:5 8 AM UNIFIED COMMUNICATIONS ARCHITECT Impressions 10/11/2023 1:24 PM UNIFIED COMMUNICATIONS ARCHITECT Transthoracic outreach echo interpretation. LEFT VENTRICLE:Normal left ventricular chamber size. Abnormal left ventricular geometry with ??concentric remodeling (increased wall thickness to cavity ratio). Calculated 2-D linear left ventricular ejection fraction 60%. Left ventricular volumes were performed but not reported based on night time babysitter's judgment. No regional wall motion abnormalities. Grade [...] the Order-Level Documents. Narrative 10/11/2023 1:24 PM UNIFIED COMMUNICATIONS ARCHITECT For the complete report, see the Order-Level [...] ratio). Calculated 2-D linear left ventricular ejection [id number]%. Left ventricular volumes were performed but not [...] Documents. Nick Mcneil M.D. CV ECHO PROCEDURES documented in this encounter Visit Diagnoses Diagnosis Syncope And Near Syncope Dyspnea On Exertion documented in this encounter
--- OUTSIDE RECORDS SUMMARY | 2023-11-01 13:49 | XMS_ITS | Encounter Summary ---
Author Name Unknown Organization [facility] Address [address] [place] [address] Care Team Providers Care Diesel Technician Mechanic Name Role Phone Unavailable Primary Care Provider Unavailabl e Reason for Visit * Reason Comments Back Pain * Outpatient (Routine) - Closed Specialty Diagnoses / Procedures Referred By Contact Referred To Contact Physical Medicine and Rehabilitation Diagnoses Radiculopathy Lumbar Jerrell Barfield M.D. [address] [phone] [facility] Referral ID Status Reason Start Date Expiration Date Visits Re quested Visits Authorized [id number] Closed 08/08/2023 08/07/2024 1 1 Encounter Details Date Type Department Care Team (Latest Contact Info) Description 08/25/2023 2:00 PM SPEECH LANG PATH Comprehensive Visit Department of Physical Medicine and Rehabilitation in [place], [place] [address] [place] [phone] Ina Jeong V., SERGEY, C.N.P., D.N.P. [address] [place] [phone] Radiculopathy Lumbar Social History Tobacco Use Types Packs/Day Years [...] How often do you attend chur or mu-ism services? More than 4 times per year 02/16/2022 Do you belong to any clubs o r organizations such as jain groups, unions, fraternal or athletic groups, or [...] and heating? Not hard at all 08/06/2023 [facility] [place] of Occupat ional Health - Occupational Stress [...] your living situation today? I have a [facility] place to live 08/06/2023 Education Answer [...] Sexual Orientation Straight 10/19/2019 10 :08 AM SPEECH LANG PATH documented as of this encounter Consult Notes * Ina Jeong APRN, C.N.P., D.N.P. - 08/25/2023 2:00 PM SPEECH LANG PATH SUBJECTIVE REQUESTING PROVIDER Jerrell Barfield M.D. REASON FOR CONSULT Low back pain HISTORY OF PRESENT ILLNESS Mrs. Emmy Anderson is a 78 y.o. female, with a history of hyperlipidemia, migraine headache, syncope, osteoporosis, who presents today for evaluation of low back pain. Ms. Anderson describes intermittent sharp pain, in the lower lumbar area, that started in April 2023, of4 months' duration, after bending down to pickle pumper an object off the floor. Initially, she also had intermittent pain that radiated down the left leg, that has since resolved. She does have a history of intermittent low back pain for or several years. She rates the pain 4-9/10 and states that it is particularly worse in the mornings, when getting out of bed, and walking after first getting out of bed. The pain tends to improve when she gets going, as the day progresses, with heat, standing still. She has completed physical therapy in June and July 2023, which have been helpful. She has also found massage treatments helpful. She uses a cane to get out of bed. Patient denies fever, chills, rash, loss of bowel or bladder control, numbness or tingling, shooting pains down arms or legs, paresthesia, unintentional weight loss. She endorses subjective back and lower extremity, and difficulty sleeping. The following portions of the patient's history were reviewed as appropriate: allergies, current medications, family history, medical history, social history, surgical history and problem list. REVIEW OF SYSTEMS I have briefly reviewed the Review of Systems as noted on the Health history form. I am only responding to those symptoms which are directly relevant to the specific indication for my consultation. Irecommend that the patient follow up with their primary or referring provider to pursue any other symptoms which may be of concern. OBJECTIVE There were no vitals taken for this visit. PHYSICAL EXAM General: Well-developed, well-nourished individual in no acute distress. Mental: Appropriate mood and affect. Grossly oriented with coherent speech and thought processing. Vessels: No lower extremity edema bilaterally. Skin: There are no dermatomal rashes. Lungs: Breathing is comfortable and regular. No dyspnea noted during examination. Musculoskeletal: Spine: Lumbar Spine range of motion is within normal limits with pain on extension Palpation: Lumbar paraspinal tenderness bilaterally, left greater than Joint ROM: Hip range of motion Within functional limits throughout. Provocative Maneuvers: Lumbar: Pain with posterior element loading bilaterally No radiating pain with lumbar extension. Hip: Negative SIENNA and Stinchfield tests. Reproduction of back pain with SIENNA and Stinchfield Neuro: Gait: Gait is nonantalgic. Able to heel-walk, toe- Strength: Full and symmetric in the lower extremities. Sensation: Normal to light touch sensation in the lower extremities. Reflexes: Physiologic and symmetric in the lower extremities bilaterally. SLR: Straight leg raise is negative for radicular pain or paresthesias bilaterally. DIAGNOSTICS Imaging results discussed with the patient. EXAM: CT LUMBAR SPINE WITHOUT IV CONTRAST on 07/25/2023 IMPRESSION: 1. Moderate multilevel lumbar spondylosis most pronounced L4-L5 where there is at least [id number] spinal canal and moderate right neuroforaminal stenosis. The degree of neuroforaminal and spinal canal stenosis would be better evaluated on MRI. Multilevel facet osteoarthritis is most pronounced and moderate at L3-L4. ASSESSMENT / PLAN #1 Low back pain #2 Lumbar spondylosis #3 Lumbar facet arthropathy #4 Lumbar stenosis without neurogenic claudication Low back pain appears to be mechanical in etiology, specifically due to facet arthropathies most pronounced at L3-L4. While there is some canal and neuroforaminal narrowing on MRI, the patient's symptomatology as well as physical examination findings are most consistent with a facetogenic back pain. 1. Discussed medial branch block/radiofrequency ablation as a treatment option. The patient would like to defer this at this time. 2. Discussed oral, topical medications, modalities, modifications, that the patient may try. 3. Because she has already completed 2 programs of physical therapy, she does not think that more therapy would provide added benefit. 4. She will continue to be active, especially in aquatic- based exercises. 5. Consider an MRI of the lumbar spine should symptoms persist, worsen. 6. Patient will follow up as necessary. EDUCATION We discussed the diagnosis and treatment plan in detail. The patient expressed understanding of thecontent. No apparent learning barriers were identified; learning preferences include listening. Total time 60 minutes including review of records and coordination of care. Signed by: Ina Escalante APRN, C.N.P., D.N.P. 08/25/2023 1:37 PM SPEECH LANG PATH CH LANG PATH documented in this encounter Plan of Treatment Not on file documented as of this encounter Visit Diagnoses Diagnosis Radiculopathy Lumbar documented in this encounter
--- OUTSIDE RECORDS SUMMARY | 2023-11-01 13:49 | XMS_ITS | Encounter Summary ---
Author Name Unknown Organization [facility] Address [address] [place] [address] Care Team Providers Care Battery Plate Remover Name Role Phone Unavailable Primary Care Provider Unavailabl e Encounter Details Date Type Department Care Team (Latest Contact Info) Description 08/02/2023 11:06 AM CDT - 08/02/2023 11:18 AM CDT Hospital Encounter Department of Laboratory Medicine in [place], [place] [address] [place] [phone] Nick Mcneil M.D. [address] [place] [phone] Syncope And Near Syncope; Dyspnea On Exertion [...] How often do you attend chur or evangelical services? More than 4 times per year 02/16/2022 Do you belong to any clubs o r organizations such as nondenominational groups, unions, fraternal [...] and heating? Not hard at all 02/16/2022 [facility] of Occupat ional Health - Occupational Stress [...] slept in a senior care (including now)? No 02/16/2022 Nutrition Answer Date [...] Sexual Orientation Straight 10/19/2019 10 :08 AM SECOND CRUSHER documented as of this encounter Medications at [...] Procedure Name Priority Date/Time Associated Diagnosis Comments THYROID FUNCTION CASCADE, S Routine 08/02/2023 11:19 AM CDT Syncope And Near Syncope CBC WITHOUT DIFFERENTIAL, B Routine 08/02/2023 11:19 AM CDT Syncope And Near Syncope Dyspnea On Exertion BASIC METABOLIC PANEL, S/P Routine 08/02/2023 11:19 AM CDT Syncope And Near Syncope documented in this encounter Results * CBC without Differential (08/02/2023 11:19 AM [...] CDT Nick Mcneil M.D. LAB BLOOD ADD-ON [facility] [address] [facility] [place] [address], [facility] [address] [facility] [place] [address] [place] [address] * Thyroid Function [place] (08/02/2023 11:19 AM CDT) TSH, Sensitive 1.9 0.3 - 4.2 mIU/L 08/02/2023 4:42 PM CDT [facility] Blood (Blood, Venous) 08/02/2023 11:19 AM CDT 08/02/2023 1:05 PM CDT Nick Mcneil M.D. LAB BLOOD ADD-ON [facility] [address] [place] [address], [facility] [place] [address] [place] [address] * (ABNORMAL) Basic Metabolic Panel (08/02/2023 11:19 [...] CDT Nick Mcneil M.D. LAB BLOOD ADD-ON [facility] [address] [place] [address], [place] [facility] [place] [address] [place] [address] documented in this encounter Visit Diagnoses Diagnosis Syncope And Near Syncope Dyspnea On Exertion documented in this encounter
--- OUTSIDE RECORDS SUMMARY | 2023-11-01 13:49 | XMS_ITS | Encounter Summary ---
Author Name Unknown Organization [facility] Address [address] [place] [address] Care Team Providers Care Director Life Name Role Phone Unavailable Primary Care Provider Unavailabl e Reason for Referral * Outpatient (Routine) - Authorized Specialty Diagnoses / Procedures Referred By Contac t Referred To Contact Diagnoses Syncope And Near Syncope Procedures ECG Heart rhythm monitor (Holter) Nick Mcneil M.D. [address] [place] [phone] [facility] Referral ID Status Reason Start Date Expiration Date V isits Requested Visits Authorized [id number] Authorized 08/02/2023 08/01/2024 1 1 GER EMBALMER FUNERAL DIRECTOR Reason for Visit * Outpatient (Routine) - Authorized Specialty Diagnoses / Procedures Referred By Contac t Referred To Contact Diagnoses Syncope And Near Syncope Procedures ECG Heart rhythm monitor (Holter) Nick Mcneil M.D. [address] [place] [phone] [facility] Referral ID Status Reason Start Date Expiration Date V isits Requested Visits Authorized [id number] Authorized 08/02/2023 08/01/2024 1 1 Encounter Details Date Type Department Care Team (Latest Contact Info) Description 08/23/2023 9:30 AM MANAGER EMBALMER FUNERAL DIRECTOR - 08/23/2023 11:59 PM MANAGER EMBALMER FUNERAL DIRECTOR Hospital Encounter Department of Cardiovascular Diseases in [address] [phone] Nick Mcneil M.D. [address] [place], [place] [address] [phone] Syncope And Near Syncope Discharge Disposition: Home or Self Care Social [...] week 02/16/2022 How often do you attend [facility] or oriental orthodox services? More than 4 times per year [...] and heating? Not hard at all 08/06/2023 [facility] of Occupat ional [facility] - Occupational Stress Questionnaire Answer Date Recorded [...] Sexual Orientation Straight 10/19/2019 10 :08 AM MANAGER EMBALMER FUNERAL DIRECTOR documented as of this encounter Medications at [...] Procedure Name Priority Date/Time Associated Diagnosis Comments HOLTER MONITOR - IN CLINIC ALARM INSTALLATION TECHNICIAN Routine 08/24/2023 11:04 PM MANAGER EMBALMER FUNERAL DIRECTOR Syncope And Near Syncope documented in this encounter Results * HOLTER MONITOR - IN CLINIC ALARM INSTALLATION TECHNICIAN (08/24/2023 11:04 PM MANAGER EMBALMER FUNERAL DIRECTOR) Min Heart Rate 51 bpm INFOB IONIC [...] Duration 0 duration INFOBION IC MOME AF [place] 0 percent INFOBIONIC MOME Symptom Count 0 count INFOBI ONIC MOME 08/23/2023 9:34 AM MANAGER EMBALMER FUNERAL DIRECTOR Narrative INFOBIONIC MOME - 08/27/2023 1:45 PM MANAGER EMBALMER FUNERAL DIRECTOR [place] 1. The basic rhythm was sinus with [...] no events noted with which to correlate. Rn Spine: NATASHA Dunn/ NATASHA Shelton A Holter monitor [...] Procedure Note Marc Lau M.D. - 08/27/2023 [place] 1. The basic rhythm was sinus with [...] no events noted with which to correlate. Rn Spine: NATASHA Dunn/ NATASHA Shelton A Holter monitor [...] CARDIAC SERVICE S PROCEDURES INFOBIONIC MOME NA documented in this encounter Visit Diagnoses Diagnosis Syncope And Near Syncope documented in this encounter
--- OUTSIDE RECORDS SUMMARY | 2023-11-01 13:49 | XMS_ITS | Encounter Summary ---
Author Name Unknown Organization [facility] Address [address] [place] [address] Care Team Providers Care Movie Star Name Role Phone Unavailable Primary Care Provider Unavailabl e Reason for Referral * Outpatient (Routine) - Closed Specialty Diagnoses / Procedures Referred By Jaime garcia Referred To Contact Diagnoses Syncope And Near Syncope Dyspnea On Exertion Procedures DX Chest AP or PA and Lateral 2 Views Nick Mcneil M.D. [address] [place] [address] [facility] Referral ID Status Reason Start Date Expiration Date Visits Re quested Visits Authorized [id number] Closed 08/02/2023 08/01/2024 1 1 Reason for Visit * Outpatient (Routine) - Closed Specialty Diagnoses / Procedures Referred By Jaime garcia Referred To Contact Diagnoses Syncope And Near Syncope Dyspnea On Exertion Procedures DX Chest AP or PA and Lateral 2 Views Nick Mcneil M.D. [address] [place] [address] [facility] Referral ID Status Reason Start Date Expiration Date Visits Re quested Visits Authorized [id number] Closed 08/02/2023 08/01/2024 1 1 Encounter Details Date Type Department Care Team (Latest Contact Info) Description 08/02/2023 11:19 AM CDT - 08/02/2023 11:59 PM CDT Hospital Encounter Department of Radiology in [place], [place] [address] [place] [phone] Nick Mcneil M.D. [address] [facility] [place] [address] Syncope And Near Syncope; Dyspnea On Exertion [...] often do you attend chur ch or sabianism services? More than 4 times per year 02/16/2022 Do you belong to any clubs o r organizations such as bahai groups, unions, fraternal [...] and heating? Not hard at all 02/16/2022 [facility] - Occupational Stress Questionnaire Answer Date Recorded [...] or slept in a assisted (including now)? No 02/16/2022 Nutrition Answer Date [...] have received? Professional school degree (e.g., MD, DDAmy, DVM, KRISTEN) 02/16/2022 Sex and Gender Information Value Date Recorded Sex Assigned at Female 05/07/2022 11:11 AM CDT Gender Identity Female 05/07/2022 11:11 AM CDT Sexual Orientation Straight 10/19/2019 10 :08 AM CHANDELIER MAKER documented as of this encounter Medications at [...] Procedure Name Priority Date/Time Associated Diagnosis Comments DX CHEST AP OR PA AND LATERAL 2 VIEWS RAD - Routine (most inpatients and all outpatients) 08/02/2023 11:34 AM CDT Syncope And Near Syncope Dyspnea On Exertion documented in this encounter Results * DX Chest AP or PA and [...] 2 VIEWS Procedure Note Blaine Person M.B., ChNikBNik, M.Joyce. - 08/02/2023 EXAM: DX CHEST AP OR PA AND LATERAL 2 VIEWS IMPRESSION: Negative for consolidation, pleural effusion or cardiomegaly. Aorticarch atherosclerotic calcification. Chronic degenerative changes in the spine.Unchanged postcholecystectomy clips in the right upper quadrant. Comparison,07/27/2022. Nick TEJEDA DIAGNOSTIC MJ GING PROCEDURES documented in this encounter Visit Diagnoses Diagnosis Syncope And Near Syncope Dyspnea On Exertion documented in this encounter
--- OUTSIDE RECORDS SUMMARY | 2023-11-01 13:49 | XMS_ITS | Encounter Summary ---
Author Name Unknown Organization [facility] Address [address] [place] [address] Care Team Providers Care Apple Turner Name Role Phone Unavailable Primary Care Provider Unavailabl e Reason for Visit * Reason Onset Date Comments Triage 08/02/2023 INT CONS Encounter Details Date Type Department Care Team (Latest Contact Info) Description 08/02/2023 Clinical Communication Department of Cardiovascular Medicine in [place], [place] [address] [place] [address] Ash HandlerConstantine M.D. Triage (INT CONS) Social History Tobacco Use Types Packs/Day Years [...] often do you attend chur ch or anabaptist services? More than 4 times per year 02/16/2022 Do you belong to any clubs o r organizations such as mandaen groups, unions, fraternal [...] and heating? Not hard at all 08/06/2023 [facility] - Occupational Stress [...] your living situation today? I have a [facility] place to live 08/06/2023 Education [...] Sexual Orientation Straight 10/19/2019 10 :08 AM MARKLOGIC DEVELOPER documented as of this encounter Miscellaneous Notes * Telephone Encounter - Carolyne Boles - 08/02/2023 11:09 AM CDT SUBJECTIVE CHIEF COMPLAINT / REASON FOR CALL Triage (INT CONS) Contacts Type Contact Phone/Fax 08/02/2023 11:08 AM CDT Phone (Incoming) Leoncio Blevins (Coworker/Associate) [phone] Triage/Record Review Internal/external: INT/Nick Mcneil M.D. 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
--- OUTSIDE RECORDS SUMMARY | 2023-11-01 13:49 | XMS_ITS | Encounter Summary ---
Author Name Unknown Organization [facility] Address [address] [place] [address] Care Team Providers Care Spot Facer Name Role Phone Unavailable Primary Care Provider Unavailabl e Reason for Visit * Reason Comments Skin Check * Appointment Request (Routine) - Closed Specialty Diagnoses / Procedures Referred By Jaime t Referred To Contact Dermatology Referral ID Status Reason Start Date Expiration Date Visits Re quested Visits Authorized [id number] Closed 05/09/2023 05/08/2024 1 1 Encounter Details Date Type Department Care Team (Late st Contact Info) Description 08/07/2023 9:45 AM HOT BREAD BAKER Office Visit Department of Dermatology in [address] [phone] Deepali Harrington M.D. [address] [place] [phone] Nevi Multiple (Primary Dx); Keratosis Seborrheic Discharge Disposition: Home or Self Care Social [...] often do you attend chur ch or mormon services? More than 4 times per year 02/16/2022 Do you belong to any clubs o r organizations such as rastafari groups, unions, fraternal or athletic groups, or [...] and heating? Not hard at all 08/06/2023 [facility] - Occupational Stress Questionnaire Answer Date [...] your living situation today? I have a [facility] place to live 08/06/2023 Education Answer [...] Sexual Orientation Straight 10/19/2019 10 :08 AM HOT BREAD BAKER documented as of this encounter Progress Notes * Deepali Harrington M.D. - 08/07/2023 9:45 AM CST SUBJECTIVE CHIEF COMPLAINT / REASON FOR VISIT Full skin cancer screening HISTORY OF PRESENT ILLNESS Emmy Anderson is a pleasant 78 y.o. female who presents for a full skin cancer screening. The patient was last seen by me in Dermatology clinic on 02/06/23. She denies a personal history of skin cancer. Her brother has a history for melanoma. She uses sunscreen. She would particularly like us toevaluate a lesion involving the scalp today. She states it itches occassionally. MEDICAL HISTORY Negative for skin cancer FAMILY HISTORY Melanoma in brother Unknown skin cancer in mother and sister OBJECTIVE PHYSICAL EXAMINATION General: Awake, alert, in no acute distress, and with appropriate affect. Eyes: No scleral injection or icterus. No eyelid abnormalities. Lymph: No lower extremity edema. Skin: I have examined the scalp, face, neck, chest, abdomen, back, bilateral upper extremities, andbilateral lower extremities. My scribe (Ana) served as a color corrector for the entirety of the exam. Examination of the face, trunk and extremities reveals multiple benign-appearing nevi, lentigines and seborrheic keratoses. Examination of the vertex scalp reveals a seborrheic keratosis. Examination today reveals no suspicious lesions for skin cancer. ASSESSMENT / PLAN #1 Face, trunk and extremities: Multiple nevi and lentigines The ABCDE criteria for melanoma was reviewed with the patient. None of the patient's nevi reach theclinical threshold for biopsy. I recommend continued sun protection, self-skin examinations, and observation. Should any of the patient's nevi change in size, color, texture, or shape or develop symptoms such as itching or bleeding, I recommend an immediate return visit for reassessment. Follow up in 12 months for a full skin cancer screening. #2 Face, trunk and extremities: Seborrheic keratosis The benign nature of the skin lesion(s) was discussed with the patient. No treatment is required. Irecommend continued observation. Should this lesion change in size, color, texture, or shape or develop symptoms such as itching or bleeding, I recommend an immediate return visit for reassessment. Follow up in 12 months for a full skin cancer screening. PATIENT EDUCATION: Ready to learn. No apparent learning barriers were identified. Learning preferences include listening. Explained diagnosis and treatment plan; patient/guardian of patient expressed understanding of the content. By signing my name below, Jarrod, Ana Salter, attest that this documentation has been prepared underthe direction and in the presence of Deepali Harrington M.D. Electronically Signed: josiane Mullen. 08/07/2023. 9:53 AM HOT BREAD BAKER. Deepali Garay M.D., personally performed the services described in this documentation. All medical record entries made by the scribe were at my direction and in my presence. I have reviewed the chart and discharge instructions (if applicable) and agree that the record reflects my personal performance and is accurate and complete. Deepali Harrington M.D. Scribed for Deepali Harrington M.D. by Ana Salter on 08/07/2023, 10:05 AM HOT BREAD BAKER. BREAD BAKER documented in this encounter Plan of Treatment Not on file documented as of this encounter Visit Diagnoses Diagnosis Nevi Multiple- Primary Keratosis Seborrheic documented in this encounter
--- OUTSIDE RECORDS SUMMARY | 2023-11-01 13:49 | XMS_ITS | Encounter Summary ---
Author Name Unknown Organization [facility] Address [address] [place] [address] Care Team Providers Care Shipping Order Clerk Name Role Phone Unavailable Primary Care Provider Unavailabl e Reason for Visit * Reason Onset Date Comments Pre-visit Intake 10/13/2023 Encounter Details Date Type Department Care Team (Latest Contact Info) Description 10/13/2023 8:45 AM INSTRUCTION ASSISTANT PRINCIPAL Clinical Communication Virtual Review in [place], [place] [address] [place], [place] [phone] Pre-visit Intake Social History Tobacco Use Types Packs/Day Years [...] often do you attend chur ch or yazdanism services? More than 4 times per year 02/16/2022 Do you belong to any clubs o r organizations such as methodist groups, unions, fraternal [...] and heating? Not hard at all 08/06/2023 [facility] - Occupational [...] your living situation today? [facility] [employer] [facility] [employer] [facility] live 08/06/2023 Education Answer Date Recorded What is the highest level of school you have completed or the highest degree you have received? Professional school degree (e.g., MD, DDS, DVM, KRISTEN) 02/16/2022 Sex and Gender Information Value Date Recorded Sex Assigned at Female 05/07/2022 11:11 AM CDT Gender Identity Female 05/07/2022 11:11 AM CDT Sexual Orientation Straight 10/19/2019 10 :08 AM INSTRUCTION ASSISTANT PRINCIPAL documented as of this encounter Plan of Treatment Not on file documented as of this encounter Visit Diagnoses Not on filedocumented in this encounter
--- OUTSIDE RECORDS SUMMARY | 2023-11-01 13:50 | XMS_ITS | Encounter Summary ---
Author Name Unknown Organization [facility] Address [address] [place] [address] Care Team Providers Care Fishing Vessel Captain Name Role Phone Unavailable Primary Care Provider Unavailabl e Reason for Referral * MRI/CAT/PET Scan (Routine) - Closed Specialty Diagnoses / Procedures Referred By Contac t Referred To Contact Radiology Diagnoses Radiculopathy Lumbar Procedures CT Lumbar Spine without IV Contrast Jerrell Barfield M.D. [address] [address] [facility] Region Referral ID Status Reason Start Date Expiration Date Visits Re quested Visits Authorized [id number] Closed 06/28/2023 06/27/2024 1 1 Reason for Visit * MRI/CAT/PET Scan (Routine) - Closed Specialty Diagnoses / Procedures Referred By Contac t Referred To Contact Radiology Diagnoses Radiculopathy Lumbar Procedures CT Lumbar Spine without IV Contrast Jerrell Barfield M.D. [address] [phone] [facility] Region Referral ID Status Reason Start Date Expiration Date Visits Re quested Visits Authorized [id number] Closed 06/28/2023 06/27/2024 1 1 Encounter Details Date Type Department Care Team (Latest Contact Info) Description 07/25/2023 9:30 AM CDT - 07/25/2023 11:59 PM CDT Hospital Encounter Department of Radiology in [place], [place] [address] [place] [address] Jerrell Barfield M.D. [address] [place] [address] Radiculopathy Lumbar Discharge Disposition: Home or Self Care Social [...] any clubs o r organizations such as pentecostalism groups, unions, fraternal [...] and heating? Not hard at all 02/16/2022 [facility] of Occupat ional [facility] - Occupational Stress Questionnaire Answer Date Recorded [...] or slept in a fpc (including now)? No 02/16/2022 Nutrition Answer Date [...] Sexual Orientation Straight 10/19/2019 10 :08 AM MOLD CAPPER HELPER documented as of this encounter Medications at [...] first week. 42 g 3 07/29/2022 10/16/2023 ibuprofen (ADVIL,MOTRIN) 200 mg capsule Take 600 mg by mouth every 6 (six) hours as needed for pain. 0 08/02/2023 documented as of this encounter Miscellaneous Notes * Result Encounter Note - Jerrell Barfield M.D. - 08/01/2023 1:[address] of the lumbar spine with multilevel spondylosis with moderate right neuroforaminal stenosis at the L4-5 level. There is fairly significant facet osteoarthritis likely contributing to low back pain. documented in this encounter Plan of Treatment Not on file documented as of this encounter Procedures Procedure Name Priority Date/Time Associated Diagnosis Comments CT LUMBAR SPINE WITHOUT IV CONTRAST RAD - Routine (most inpatients and all outpatients) 07/25/2023 10:03 AM CDT Radiculopathy Lumbar documented in this encounter Results * CT Lumbar Spine without IV Contrast (07/25/2023 10:03 AM CDT) Anatomical Region Laterality Modality Lumbar Spine, Neuroradiology RST LOS, Neuroradiology ARZ LOS, Neuroradiology FLA LOS N/A Computed Tomography 07/25/2023 10:1 1 AM CDT Impressions 07/25/2023 10:16 AM CDT 1. Moderate multilevel lumbar spondylosis most pronounced L4-L5 where there is at least pjjn-wt-ooywkflx spinal canal and moderate right neuroforaminal stenosis. The degree of neuroforaminal and spinal canal stenosis would be better evaluated on MRI. Narrative 07/25/2023 10:16 AM CDT EXAM: CT LUMBAR SPINE WITHOUT IV CONTRAST COMPARISON: Lumbar spine MRI 10/23/2019 FINDINGS: Mild levocurvature with apex L3. Normal sagittal alignment. Moderate multilevel degenerative disc disease most pronounced bowel L3-L4 and L4-L5 where diffuse disc bulges and ligamentum flavum infolding results in at least mild to moderate spinal canal stenosis. Multilevel facet osteoarthritis is most pronounced and moderate at L3-L4. These findings results in up to moderate right neuroforaminal stenosis at L4-L5. No compression fracture. Calcified atherosclerosis throughout the abdominal aorta and major branches. Cholecystectomy. Cortical thinning in the left kidney may be a sequela of prior infection or inflammation. Unchanged large Schmorl's node in the inferior T12 endplate. Procedure Note Gustavo Coon M.D. - 07/25/2023 EXAM: CT LUMBAR SPINE WITHOUT IV CONTRAST COMPARISON: Lumbar spine MRI 10/23/2019 FINDINGS: Mild levocurvature with apex L3. Normal sagittal alignment. Moderatemultilevel degenerative disc disease most pronounced bowel L3-L4 and L4-L5 where diffuse disc bulgesand ligamentum flavum infolding results in at least mild to moderate spinal canal stenosis.Multilevel facet osteoarthritis is most pronounced and moderate at L3-L4. These findingsresults in up to moderate right neuroforaminal stenosis at L4-L5. No compression fracture. Calcified atherosclerosis throughout the abdominal aorta and majorbranches. Cholecystectomy. Cortical thinning in the left kidney may be a sequela of prior infectionor inflammation. Unchanged large Schmorl's node in the inferior T12 endplate. IMPRESSION: 1. Moderate multilevel lumbar spondylosis most pronounced L4-L5 wherethere is at least luud-wc-epiiwapu spinal canal and moderate right neuroforaminal stenosis.The degree of neuroforaminal and spinal canal stenosis would be better evaluated onMRI. Jerrell TEJEDA CT PROCEDURES documented in this encounter Visit Diagnoses Diagnosis Radiculopathy Lumbar documented in this encounter
--- OUTSIDE RECORDS SUMMARY | 2023-11-01 13:50 | XMS_ITS | Encounter Summary ---
Author Name Unknown Organization [facility] Address [address] [place] [address] Care Team Providers Care Dry Lumber Grader Name Role Phone Unavailable Primary Care Provider Unavailabl e Encounter Details Date Type Department Care Team (Late st Contact Info) Description 06/28/2023 Clinical Communication Department of Neurology in [place], [place] [address] [place] [address] Jerrell Barfield M.D. [address] [place] [phone] Social History Tobacco Use Types Packs/Day Years [...] often do you attend chur ch or rastafari services? More than 4 times per year 02/16/2022 Do you belong to any clubs o r organizations such as adventist groups, unions, fraternal [...] and heating? Not hard at all 02/16/2022 [facility] of Occupat ional Health - Occupational Stress [...] or slept in a alf (including now)? No 02/16/2022 Nutrition Answer Date [...] Sexual Orientation Straight 10/19/2019 10 :08 AM TANK CREWMEMBER documented as of this encounter Miscellaneous Notes * Telephone Encounter - Yesica Centeno - 06/28/2023 9:57 AM CDT Patient has CT order in queue. Please fill out this CT questionnaire and fax to [phone]. [place]. documented in this encounter Plan of Treatment Not on file documented as of this encounter Visit Diagnoses Not on filedocumented in this encounter
--- OUTSIDE RECORDS SUMMARY | 2023-11-01 13:50 | XMS_ITS | Encounter Summary ---
Author Name Unknown Organization [facility] Address [address] [place] [address] Care Team Providers Care Research Dairy Farm Supervisor Name Role Phone Unavailable Primary Care Provider Unavailabl e Reason for Visit * Reason Comments Skin Check * Appointment Request (Routine) - Closed Specialty Diagnoses / Procedures Referred By Jaime garcia Referred To Contact Dermatology Referral ID Status Reason Start Date Expiration Date Visits Re quested Visits Authorized [id number] Closed 11/01/2022 11/01/2023 1 1 Encounter Details Date Type Department Care Team (Late st Contact Info) Description 02/06/2023 1:45 PM CDT Office Visit Department of Dermatology in [address] [phone] Deepali Harrington M.D. [address] [place] [phone] Nevi Multiple (Primary Dx); Keratosis Seborrheic; Keratosis Actinic Discharge Disposition: Home or Self Care Social [...] any clubs o r organizations such as scientologist groups, unions, fraternal or athletic groups, or [...] and heating? Not hard at all 02/16/2022 [facility] Occupat ional Health - Occupational Stress [...] or slept in a snf (including now)? No 02/16/2022 Nutrition Answer Date [...] Sexual Orientation Straight 10/19/2019 10 :08 AM ARMATURE REWINDER documented as of this encounter Progress Notes * Deepali Harrington M.D., Ph.D. - 02/06/2023 1:45 PM CDT SUBJECTIVE CHIEF COMPLAINT / REASON FOR VISIT Full skin cancer screening HISTORY OF PRESENT ILLNESS Emmy Anderson is a pleasant 77 y.o. female who presents for a full skin cancer screening. The patient was last seen by me in Dermatology clinic on 01/10/22. She denies a personal history of skin [...] extremities. My scribe (Ana) served as a film vault supervisor for the entirety of the exam. Examination today reveals actinic keratoses, including 2 right cheek, 1 left mid nasal bridge, 1 left medial cheek and 3 left upper lateral cheek. Examination of the face, trunk and extremities reveals multiple benign-appearing nevi, lentigines and seborrheic keratoses. Examination of the ASSESSMENT / PLAN #1 Right cheek, left mid nasal bridge, left medial cheek and left upper lateral cheek: Actinic keratosis x 7 Given the precancerous nature of this lesion(s), treatment is medically indicated. After discussionof the risks, benefits and alternatives to treatment with cryotherapy, informed consent was obtained. We treated a total of seven lesion(s) with two 10-second freeze-thaw cycles of liquid nitrogen cryotherapy. The patient tolerated the procedure well. Aftercare instructions were provided in writtenand verbal form to the patient. Should any [...] immediate return visit for reassessment. #3 Face, trunk and extremities: Seborrheic keratosis [...] the content. By signing my name below, I, Ana Salter, attest that this documentation has been prepared underthe direction and in the presence of Deepali Harrington M.D. Electronically Signed: josiane Mullen. 01/31/2023. 4:41 PM CDT. I, Deepali Harrington M.D., personally performed the services described in this documentation. All medical record entries made by the scribe were at my direction and in my presence. I have reviewed the chart and discharge instructions (if applicable) and agree that the record reflects my personal performance and is accurate and complete. Deepali Harrington M.D. Scribed for Deepali Harrington M.D., Ph.D. by Ana Salter, on 02/06/2023, 2:08 PM CDT. documented in this encounter Plan of Treatment Not on file documented as of this encounter Visit Diagnoses Diagnosis Nevi Multiple- Primary Keratosis Seborrheic Keratosis Actinic documented in this encounter
--- OUTSIDE RECORDS SUMMARY | 2023-11-01 13:50 | XMS_ITS | Encounter Summary ---
Author Name Unknown Organization [facility] Address [address] [place] [address] Care Team Providers Care Farmer [employer] Name Role Phone Unavailable Primary Care Provider Unavailabl e Reason for Referral * MRI/CAT/PET Scan (Routine) - Closed Specialty Diagnoses / Procedures Referred By Mattyac t Referred To Contact Radiology Diagnoses Radiculopathy Lumbar Procedures CT Lumbar Spine without IV Contrast Jerrell Barfield M.D. [address], [place] [address] [facility] Referral ID Status Reason Start Date Expiration Date Visits Re quested Visits Authorized [id number] Closed 06/28/2023 06/27/2024 1 1 Reason for Visit * Reason Comments Syncope Sciatica * Outpatient (Routine) - Closed Specialty Diagnoses / Procedures Referred By Contac t Referred To Contact Neurology Diagnoses Dizziness Weakness General All Krishnan M.D. [address] [place] [address] [facility] Referral ID Status Reason Start Date Expiration Date Visits Re quested Visits Authorized [id number] Closed 02/15/2022 02/15/2023 1 1 Encounter Details Date Type Department Care Team (Latest Contact Info) Description 06/28/2023 9:45 AM CDT Office Visit Department of Neurology in [place], [place] [address] [phone] Jerrell Barfield M.D. [address] [facility] [place] [address] Radiculopathy Lumbar (Primary Dx); Dizziness; Weakness General; Syncope And Collapse Social History Tobacco Use Types Packs/Day Years [...] and heating? 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 - 06/28/2023 9:45 AM CDT SUBJECTIVE CHIEF COMPLAINT / REASON FOR VISIT Emmy Anderson is a 78 y.o. female who presents for evaluation of Syncope and Sciatica. HISTORY OF PRESENT ILLNESS Mrs. Anderson is an 78-year-old female with a history of cardiogenic syncope who returns to [facility] for followup in that regard as well as sciatica. She states that in terms of her low back she has been having issues off and on for several months dating back to April. Initially, she had some pain that shot down the leg, although that has largely resolved a few weeks after beginning. She does have some dull ache in her low back. However, after beginning physical therapy, this has actually become more of a sharp jabbing pain in the back that is particularly worsened with certain movements. She had an x-ray of her lumbar spine which did show multilevel degenerative disease and facet degeneration, however, no dramatic cause of symptoms necessarily. She has not undergone more advanced imaging. Please recall she was previously seen by Dr. Cavanaugh for an episode of syncope in October of 2021. She recently had another episode in early June when she was brushing her teeth, had presyncopal symptoms of lightheadedness and dizziness before briefly losing consciousness. There was no post event confusion. No loss of bowel or bladder control or tonic-clonic stiffening. REVIEW OF SYSTEMS REVIEW OF SYSTEMS OBJECTIVE PHYSICAL EXAM General: Female in her 80s, alert, attentive, no acute distress Vitals: BP 129/59, HR 80 Neuro: Focused neurologic exam of the lower extremities reveals bilateral preserved strength in thelower extremities with the exception of perhaps trace weakness in the iliopsoas bilaterally although this is somewhat pain limited. Bilateral patella and ankle jerk reflexes are preserved. Casual gait is antalgic but not broad-based or ataxic. For details of the neurologic examination, please see the neurologic examination form. ASSESSMENT / PLAN #1 Radiculopathy Lumbar vs facetogenic pain We discussed that her low back pain while initially did sound as though it was radicular in nature now sounds largely confined to the low back and may be predominantly musculoskeletal perhaps facetogenic in nature. I did discuss with her obtaining a CT of the lumbar spine to obtain more informationas well as likely a physical medicine rehabilitation consult to discuss facetogenic versus other lumbar spine injection. She is under going physical therapy currently which sounds as though it is actually worsen some of her mechanical low back pain. I discussed that I would defer to her whether sheshould continue that at this point. Plan to communicate results of CT to her when those are available. #2 Syncope And Collapse As stated previously her events sound consistent with decreased cerebral perfusion given the presyncopal lightheadedness and subsequent syncope. Nothing on history suggestive of underlying seizure disorder. No further workup from neurologic perspective given current symptomatology. Advance Care Planning Provided information on advanced care planning Total time 22 minutes documented in this encounter Plan of Treatment Not on file documented as of this encounter Results * CT Lumbar Spine without IV Contrast (07/25/2023 10:03 AM CDT) Anatomical Region Laterality Modality Lumbar Spine, Neuroradiology [facility], Neuroradiology [facility], Neuroradiology [facility] N/A Computed Tomography 07/25/2023 10:1 1 AM CDT Impressions 07/25/2023 10:16 AM CDT 1. Moderate multilevel lumbar spondylosis most pronounced L4-L5 where there is at least hzal-zq-mgahklny spinal canal and moderate right neuroforaminal stenosis. [...] most pronounced L4-L5 wherethere is at least kybf-vs-[id number] spinal canal and moderate right neuroforaminal stenosis.The degree of neuroforaminal and spinal canal stenosis would be better evaluated onMRI. Jerrell TEJEDA CT PROCEDURES documented in this encounter Visit Diagnoses Diagnosis Radiculopathy Lumbar- Primary Dizziness Weakness General Syncope And Collapse Radiculopathy Lumbar documented in this encounter
--- OUTSIDE RECORDS SUMMARY | 2023-11-01 13:50 | XMS_ITS | Encounter Summary ---
Author Name Unknown Organization [facility] Address [address] [place] [address] Care Team Providers Care Assistant Professor Of Anthropology Name Role Phone Unavailable Primary Care Provider Unavailabl e Reason for Referral * Outpatient (Routine) - Closed Specialty Diagnoses / Procedures Referred By Contac t Referred To Contact Diagnoses Syncope Vasovagal Procedures ECG 12 Lead Nick Mcneil M.D. [address] [place] [address] [facility] Referral ID Status Reason Start Date Expiration Date Visits Re quested Visits Authorized [id number] Closed 07/27/2022 07/27/2023 1 1 Reason for Visit * Outpatient (Routine) - Closed Specialty Diagnoses / Procedures Referred By Contac t Referred To Contact Diagnoses Syncope Vasovagal Procedures ECG 12 Lead Nick Mcneil M.D. [address] [place] [address] [facility] Referral ID Status Reason Start Date Expiration Date Visits Re quested Visits Authorized [id number] Closed 07/27/2022 07/27/2023 1 1 Encounter Details Date Type Department Care Team (Latest Contact Info) Description 07/31/2023 9:48 AM CDT - 07/31/2023 11:59 PM CDT Hospital Encounter Department of Laboratory Medicine in [place], [place] [address] [place] [address] Nick Mcneil M.D. [address] [place] [phone] Syncope Vasovagal Discharge Disposition: Home or Self Care Social [...] How often do you attend chur or confucianism services? More than 4 times per year 02/16/2022 Do you belong to any clubs o r organizations such as protestant groups, unions, fraternal or athletic groups, or [...] and heating? Not hard at all 02/16/2022 [facility] - Occupational Stress [...] have received? 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 documented as of this encounter Medications at [...] 0 08/02/2023 documented as of this encounter Plan of Treatment Not on file documented as of this encounter Procedures Procedure Name Priority Date/Time Associated Diagnosis Comments ECG Routine 07/31/2023 10:03 AM CDT Syncope Vasovagal documented in this encounter Results * ECG 12 Lead (07/31/2023 10:03 AM CDT) Ventricular Rate ECG/Min 62 BPM MUSE DE Interval 144 ms MUSE QRSD Interval 132 ms MUSE QT Interval 424 ms MUSE QTC Interval 430 ms MUSE P [place] 38 degrees MUSE R [place] -61 degrees MUSE T Wave [place] 3 degrees MUSE 07/31/2023 10:0 3 AM CDT 07/31/2023 10:17 AM CDT Impressions MUSE - 07/31/2023 10:17 AM CDT Normal sinus rhythm Right bundle branch block with secondary ST-T abnormalities Left anterior fascicular block Bifascicular block When compared with ECG of 27-APR-2022 09:12, No significant change was found Reviewed by NATASHA Garcia Narrative Procedure Note Fred Ingram Jr., M.D. 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 ECG ORDERABLES MUSE NA documented in this encounter Visit Diagnoses Diagnosis Syncope Vasovagal documented in this encounter
--- NOTE | 2023-11-01 14:00 | CRLHL7_ITS ---
For Patients: As a result of the Century Cures Act, medical imaging exams and procedure reports are released immediately into your electronic medical record. You may view this report before your referring provider. If you have questions, please contact your health care provider. CLINICAL HISTORY: Syncope and collapse TECHNIQUE: The carotid circulations and the vertebral arteries in the neck were examined with menjivar-scale ultrasound, color-flow and Doppler spectral analysis. Degrees of stenosis were determined using SRU 2002 Consensus Panel Criteria. FINDINGS: Sonographic images demonstrate bilateral atherosclerotic plaque formation, right greater than left, without suspicious soft tissue mass. There was antegrade blood flow demonstrated within the vertebral arteries and the subclavian arteries demonstrated a normal triphasic waveform. The spectral Doppler tracings of the common carotid, internal and external carotid arteries demonstrate no abnormal turbulence or spectral broadening. There was mild significant elevation of peak systolic blood flow within the right proximal ICA measuring 129 cm/second which would indicate a hemodynamically-significant stenosis by SRU criteria. The ICA/CCA peak systolic velocity ratio measures 1.2 on the right and 1.1 on the left. 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 Less than 50 percent stenosis of the left ICA. Dictated by Manjinder Antunez MD @ 11/01/2023 3:48:54 PM (Electronically Signed)
== END 2023-11-01 13:46 | disposition home or self-care (01) ==
LOC: US 13:46
PROVIDERS: PCP Family Medicine; Visit Provider Family Medicine
DX: R55 Syncope and collapse (principal); I65.21 Occlusion and stenosis of right carotid artery; R93.89 Abnormal findings on diagnostic imaging of other specified body structures
CPT/HCPCS: 93880

== ENCOUNTER 2024-03-11 16:12 | Outpatient (CLI) | payer MEDICARE, BC, SELFPAY ==
--- OUTSIDE RECORDS SUMMARY | 2024-03-11 16:15 | XMS_ITS ---
Author Organization [facility] Address [address] [place] [address] Care Team Providers Care Training Analyst Name Role Phone Unavailable Unavailable Unavailable Surgery Details Not on file Complications Check Surgery Details section. Procedure Estimated Blood Loss Check Surgery Details section. Procedure Findings Check Surgery Details section. Procedure Specimens Taken Check Surgery Details section.
--- OUTSIDE RECORDS SUMMARY | 2024-03-11 16:15 | XMS_ITS | Encounter Summary ---
Author Organization [facility] Address [address] [place] [address] Care Team Providers Care Boat Canvas Installer Name Role Phone Unavailable Primary Care Provider Unavailabl e Reason for Referral * Outpatient (Routine) - Authorized Specialty Diagnoses / Procedures Referred By Contac t Referred To Contact Cardiovascular Disease Nick Mcneil M.D. [address] [place] [address] [facility] Referral ID Status Reason Start Date Expiration Date V isits Requested Visits Authorized [id number] Authorized 01/31/2024 08/01/2025 1 1 * Outpatient (Routine) - Authorized Specialty Diagnoses / Procedures Referred By Contac t Referred To Contact Diagnoses Dizziness And Giddiness Procedures ECG 12 Lead Nick Mcneil M.D. [address] [place] [address] [facility] Region Referral ID Status Reason Start Date Expiration Date V isits Requested Visits Authorized [id number] Authorized 01/31/2024 01/30/2025 1 1 Reason for Visit * Reason Comments Follow-up * Outpatient (Routine) - Closed Specialty Diagnoses / Procedures Referred By Contac t Referred To Contact Cardiovascular Disease Nick Mcneil M.D. [address] [place] [address] [facility] Region Referral ID Status Reason Start Date Expiration Date Visits Re quested Visits Authorized [id number] Closed 08/02/2023 08/01/2026 1 1 Encounter Details Date Type Department Care Team (Latest Contact Info) Description 01/31/2024 10:45 AM CDT Office Visit Department of Cardiovascular Diseases in [place], [place] [address] [facility] [place] [address] Nick Mcneil M.D. [address] [facility] [place] [address] Dizziness And Giddiness (Primary Dx) Social History Tobacco Use Types Packs/Day Years [...] week 02/16/2022 How often do you attend [facility] or rastafari services? More than 4 times per year 02/16/2022 Do you belong to any clubs o r organizations such as shinto groups, unions, fraternal or athletic groups, or [...] and heating? Not hard at all 08/06/2023 [facility] - [...] living? No 08/06/2023 Nutrition Answer Date Recorded On average, how many serving s of fruits and vegetables do you eat per day (serving size is equal to 1 cup or approximately the size of a tennis ball)? 3-5 08/06/2023 Dental Answer Date Recorded Dental: Regular Dentist Yes 02/17/20 Employment Answer Date Recorded Employment status Retired 02/16/2022 Housing Stability Answer Date Recorded What is your living situation today? I have a [facility] place to live 08/06/2023 Education Answer [...] Sexual Orientation Straight 10/19/2019 10 :08 AM ASSOCIATE PROGRAM MANAGER documented as of this encounter Last Filed Vital Signs Vital Sign Reading Time Taken Comments Blood Pressure 133/68 01/31/2024 10:42 AM CDT Pulse 58 01/31/2024 10:42 AM CDT Temperature - - Respiratory Rate - - Oxygen Saturation 99% 01/31/2024 10:39 AM CDT room air Inhaled Oxygen Concentration - - Weight 66.9 kg (147 lb 7.8 oz) 01/31/2024 10:39 AM CDT Height - - Body Mass Index 26.3 11/24/2023 9:03 AM ASSOCIATE PROGRAM MANAGER documented in this encounter Progress Notes * Nick Mcneil M.D. - 01/31/2024 10:45 AM CDT ASSESSMENT / PLAN Loss of [...] event occurred October 2021 while standing in shinto. Recurrences on 10/01/2022 (sitting at the toilet stool; preceded by abdominal discomfort) and again 06/13/2023. Minimal lightheadedness preceding associated with fall and trauma. Feet has ongoing lightheadedness and 1 episode there was more severe in October 2023. Possibly associated with the hypotension. She was seen by electrophysiology in October 2023. EP study +/- implantable loop recorder reviewed but not pursue that at that time. Cardiogenic syncope is possible even though hypotensive/orthostatic events are more likely (not previously orthostatic). Not on medications that would lead to significant orthostasis currently. Prior cardiac workup was reassuring; no structural cardiac abnormalities identified on echocardiography. The patient had supraventricular tachycardia previously documented but no palpitations associated with her past events to suggest a tachyarrhythmia. C ontinue beta-stacey therapy as prescribed. We reviewed the options offered by electrophysiology, including EP study +/-implantable loop recorder and she believes she might be interested in pursuing,in the future (very busy during summer, prefers to have procedures done late fall). We will communicate with the electrophysiology after the visit. We previously educated the patient on how to prevent vasovagal episodes. She reports benefitting from wearing compression stockings; refill prescribed.We recommended ER visit in case of recurrent events. Dyspnea. Not typical for cardiac etiology. No recurrent chest discomfort. Euvolemic on exam. Symptoms are not suggestive of ischemia and she is status post reassuring cardiopulmonary exercise stress echocardiogram. Pulmonary testing was not significantly abnormal but for mild reduction in diffusing capacity. Continue risk modification with primary care provider. She had hyperlipidemia based on recent lipids done in November (LDL 151, triglycerides 191, HDL 70; normal CMP April 2022; normal TSH and no anemia March 2022). As previously discussed, she is candidate for statins but has been unable to tolerate different statins due to side effects in the past (sore throat and headache reported). Weoffered ezetimibe but she was not interested at this time. Very low-dose statin (such as Crestor once a week) could also be considered. This may be reconsidered by her primary care provider. PLAN: #1 Dizziness And Giddiness - DME Miscellaneous (Free Text Entry) (Non-Medicare Covered): Compression stockings; knee high; 20-30 mm Hg; non-allergenic - ECG 12 Lead; Future; Expected date: 01/30/2025 (Before next visit) Other orders - Cardiovascular Disease office visit (clinic) General - Cardiovascular Disease office visit (clinic); Future; Expected date: 01/30/2025 There are no discontinued medications. - Follow up with Cardiology in 12 months or call us sooner in case of problems or concerns. The patient expressed understanding of the information discussed during the visit today and agreement with the plan. ADDENDUM: We corresponded with the electrophysiology after the appointment. EP study +/- implantable loop recorder we will be offered. CARDIOLOGY SUBSEQUENT VISIT Location: [facility] SUBJECTIVE CHIEF COMPLAINT / REASON FOR VISIT Office follow-up. HISTORY OF PRESENT ILLNESS Ms. Emmy Anderson is a very pleasant 78 y.o. female who presents to [facility] for follow-up. Her primary care provider is No primary care provider on file.. Last seen by me onAugust 2023. Seen by electrophysiology on October 2023. Suspicious for vasovagal component, EP study with implantable loop recorder was not pursued. Seen by vascular Medicine November 2023. Carotidultrasound did not show significant stenosis. Follow up with Cardiology recommended. I had the pleasure of seeing Ms. Emmy Anderson in clinic today. The patient presents unaccompanied by family. She reports episodes of lightheadedness including 1 in October when she was very weak and felt pressure in her back and associated dizziness. She felt better after a number minutes with lying down. Blood pressures were low at that time and heart rate 38 beats per minute (she wonderedif her machine was broken). Blood pressures when dizzy tend to be around 93/31 to 112/48 mmHg and heart rates can be low as well. She does feel limited due to see you concerns with the dizziness spells and feels that this is affecting her quality of life. She was not had any loss of consciousness though. She believes she can prevent that by lying down. She was seen by EP but reluctant to under goprocedures as she had bad experience with procedures in the past. She is compliant with compressionstockings. PERTINENT CARDIAC (OR RELATED) STUDIES REVIEWED: Echocardiogram October 2023: 1. Normal left ventricular chamber size, no regional wall motion abnormalities, calculated 2-D linear ejection fraction 60%. 2. Abnormal left ventricular geometry with concentric remodeling (increased wall thickness to cavity ratio), grade 1/3 diastolic dysfunction, consistent with low to normal filling pressure at rest. 3. Normal right ventricular chamber size, normal systolic function, unable to detect peak tricuspidregurgitation velocity for pulmonary artery systolic pressure calculation. 4. No hemodynamically significant valvular heart disease. 5. No pericardial effusion. MCOT September 2023: 1. The patient was monitored from 08/28/2023 to 09/26/2023 with a total monitoring time of 28 days 14 hr 4 min. The baseline rhythm was sinus with the right bundle branch block. The heart rate variedfrom 49 bpm to 118 bpm. The average [...] to 84 bpm. No ectopy was seen. Holter monitor August 2023: 1. The basic rhythm was sinus with [...] no events noted with which to correlate. Ambulatory electrocardiographic monitor 06/2022: 1. The patient [...] 1 tablet by mouth daily as needed. menthol 3.2 mg lozenge Take 1 lozenge by mouth as needed. metoprolol succinate (TOPROL-XL) 25 mg 24 hr tablet Take 12.5 mg by mouth daily. pseudoephedrine-guaiFENesin (MUCINEX D) 60-600 mg per 12 hr tablet Take 1 tablet by mouth 2 (two) times a day as needed for allergies. UNABLE TO FIND Med Name: Benadryl gel - for itch. 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 vitamin A & D (AMERIDERM) ointment Apply 1 application topically as needed for dry skin. phenazopyridine (PYRIDIUM) 100 mg tablet TAKE 1 TABLET BY MOUTH THREE TIMES DAILY FOR 6 DOSES NEEDED FOR PAIN Allergies Allergen Reactions Codeine Shortness of breath (Reselect Reaction) Lidocaine Anaphylaxis per pt, tubal closure, asthmatic attack; Adhesive Tape-Silicones Rash Aspirin GI intolerance Chlorpheniramine Other (see comments) Chlorpheniramine-Phenylephrine Cough runny nose Mold Other (see comments) Sneezing, sinus issues Penicillin V Other (see comments) diahrria Phenylpropanolamine Other (see comments) [place] Pollen-Rough Pigweed Other (see comments) Sneezing, nasal drainage Adhesive Itching REVIEW OF SYSTEMS Constitutional: Positive for fatigue. - Poor sleep Respiratory: Positive for dry cough. Gastrointestinal: Positive for abdominal (belly) pain or cramping and diarrhea. Musculoskeletal: Positive for pain or stiffness in the joints and muscle pain/stiffness. Neurological: Positive for light-headedness and numbness or shooting pain in hands, arms, legs, or feet. - Negative for loss of consciousness. All other systems reviewed and are negative. The following portions of the patient's history were reviewed and updated as appropriate: allergies, current medications, family history, medical history, social history, surgical history and problemlist. OBJECTIVE Vitals: 01/31/24 1039 01/31/24 1042 BP: 148/61 133/68 BP Location: Left arm Left arm Patient Position: Sitting Sitting Cuff Size: Regular Regular Pulse: (!) 59 (!) 58 SpO2: 99% Weight: 66.9 kg BP Readings from Last 3 Encounters: 01/31/24 133/68 11/24/23 (!) 122/53 10/16/23 135/61 Wt Readings from Last 3 Encounters: 01/31/24 66.9 kg 11/24/23 68.4 kg 10/16/23 66.6 kg Body mass index is 26.3 kg/m??. PHYSICAL EXAMINATION General: Patient is awake, alert, oriented x3. No acute distress. Eyes: No pallor. No icterus. Neck: No jugular venous distention. Chest/Lungs: No chest deformity. Normal respiratory effort. Good entry bilaterally. No adventitioussounds. Cardiovascular: Normal rate and regular rhythm. Normal S1 and S2. No murmurs, rubs, or gallops. Lower Extremities: Lower extremity warm without edema. Wearing compression stockings bilaterally. Upper Extremities: 2+ Radial pulses bilaterally. Normal capillary refill. No cyanosis. Neurologic: Exam deferred. DIAGNOSTICS I have reviewed the patient's current laboratory, imaging, and other diagnostic studies. Pertinent laboratory studies have been reviewed and are notable for: Orders Only on 12/11/2023 Component Date Value Gene Studied 05/28/2022 BRCA1,BRCA2,MLH1,MSH2,MSH6,PMS2,EPCAM,APOB,LDLR,LDLRAP1,PCSK9 Genetic Disease Assessed 05/28/2022 Evaluation of 11 genes associated with Hereditary Breast and Ovarian Cancer, Black Syndrome and Familial Hypercholesterolemia. Genetic Analysis Overall* 05/28/2022 Value:Negative results through [facility] do not replace diagnostic testing for patients with a personal or family history of cancer/hypercholesterolemia due to limitations with methodology. Consider areferral to a genetic counselor for diagnostic testing if warranted. Genetic Analysis Report 05/28/2022 Value:See [facility] PDF Report No actionable gene changes were detected in the genes that cause Familial Hypercholesterolemia. Thegenes tested for this condition were APOB, LDLR, LDLRAP1, and PCSK9.No actionable gene changes weredetected in the genes that cause Hereditary Breast and Ovarian Cancer. The genes tested for this condition were BRCA1 and BRCA2.No actionable gene changeswere detected in the genes that cause Black Syndrome. The genes tested for this condition were MLH1, MSH2, MSH6, PMS2 and EPCAM. DNA extracted from your saliva sample was captured and enriched using a custom set of reagents (Euroling+ chemistry). Targeted regions were sequenced using an Illumina DNA sequencing system. Your sequence was matched to a modified version of the [place] standard reference genome (GRCh38). Variant calling was completed using a customized version of [employer]'s The Pyromaniacq software, requiring 20x coverage for validated variant calls. Copy Number Variants (CNVs) were called using a [employer] bioinformatics pipeline that compared the coverage profile of your sample with the coverage profiles of other reference set samples. [facility] [employer] then analyzed the generated variant data forthe exons and 10 bp of flanking intronic sequence (and select tagged intronic variants) of the 11 genes included in [place] from the [employer] Database. Your sample was reviewed for single nucleotide variants (SNVs), indels up to 20 bp in length,and CNVs that are known or predicted to be actionable. NOTE: This assay has limited sensitivity to CNVs smaller than a few exons. APOB, PCSK9,and LDLR interpretation and reporting is specific to the Familial Hypercholesterolemia phenotype. Variants associated with other phenotypes such as Hypobetalipoproteinemia are not included. Some known complex variants like the inversion of exons 1-7 in the MSH2 gene (Delores inversion), exons 11-15 of the PMS2 gene, or variants within or immediately adjacent to long homopolymer runs a re not analyzed or reported. There are regions that are not covered, such as deep intronic, promoter, and enhancer regions. This assay cannot detect all variants known to increase disease risk. Other clinical diagnostic testing for these conditions could identify variants not detected by this test. If you have had previous testing, these results should be takeninto consideration during risk assessments and medical management. Human Reference Sequence* 05/28/2022 GRCh38 Lab Results Component Value Date CREATININE 1.19 (H) 08/02/2023 BUN 16 08/02/2023 NA 142 08/02/2023 CL 104 08/02/2023 No results found for: ALT Lab Results Component Value Date TSH 1.9 08/02/2023 Lab Results Component Value Date WBC 5.0 08/02/2023 HGB 13.6 08/02/2023 HCT 42.3 08/02/2023 MCV 92.2 08/02/2023 PLT 197 08/02/2023 ECG from the last 30 days: No results found. Imaging last 30 days: No results found. Results for orders placed during the hospital encounter of 08/02/23 DX Chest AP or PA and Lateral 2 Views Narrative EXAM: DX CHEST AP OR PA AND LATERAL 2 VIEWS Impression Negative for consolidation, pleural effusion or cardiomegaly. Aortic arch atherosclerotic calcification. Chronic degenerative changes in the spine. Unchanged postcholecystectomy clips in the right upper quadrant. Comparison, 07/27/2022. The ASCVD Risk score ([place] DK, et al., 2019) failed to calculate for the following reasons: The 2019 ASCVD risk score is only valid for ages 40 to 79 IMPRESSION/REPORT/PLAN See above. Nick Mcneil M.D. documented in this encounter Plan of Treatment Scheduled Orders Name Type Priority Associated Diagnoses Orde r Schedule ECG 12 Lead ECG Routine Dizziness And Giddiness Expected: 01/30/2025, Expires: 05/02/2025 Scheduled Referrals Name Type Priority Associated Diagnoses Order Schedule Cardiovascular Disease office visit (clinic) Outpatient Referral Routine Expect ed: 01/30/2025 (Approximate), Expires: 05/02/2025 documented as of this encounter Visit Diagnoses Diagnosis Dizziness And Giddiness- Primary documented in this encounter
--- OUTSIDE RECORDS SUMMARY | 2024-03-11 16:15 | XMS_ITS | Clinical Summary ---
Author Organization [facility] Address [place], [place] [address] Care Team Providers Care Ship Rigger Apprentice Name Role Phone Edwige Balderas MD Primary [...] - PCV) 2008 Influenza for age 65+ 06/02/2024 07/13/2020 COVID-19 vaccine series Completed 07/03/20 23, 01/28/2023, 06/10/2022, Additional history exists Care Teams Ship Rigger Apprentice Relationship Specialty Start Date End Date Edwige Balderas MD [address] [place], [place] [id number] PCP - General Family Practice 07/14/23
--- OUTSIDE RECORDS SUMMARY | 2024-03-11 16:15 | XMS_ITS | Encounter Summary ---
Author Organization [facility] Address [address] [place] [address] Care Team Providers Care World Geography Teacher Name Role Phone Unavailable Primary Care Provider Unavailabl e Encounter Details Date Type Department Care Team (Latest Contact Info) Description 02/12/2024 Clinical Communication Department of Cardiovascular Medicine in [place], [place] [address] [place] [address] Brittanie Cooper, R.N. Social History Tobacco Use Types Packs/Day Years [...] often do you attend chur ch or hindu services? More than 4 times per year 02/16/2022 Do you belong to any clubs o r organizations such as mandaeism groups, unions, fraternal [...] and heating? Not hard at all 08/06/2023 [facility]ational Stress Questionnaire Answer Date [...] your living situation today? 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 - 02/21/2024 3:26 PM CDT INFORMATION DISCUSSED Inquired if Mrs. Anderson would like to move forward with a loop recorder implant and she stated that she does not. She acknowledged she has been wearing compression socks daily and this has really helped to alleviate her symptoms. Encouraged her to contact us should she wish to schedule this in the future. Mrs. Anderson verbalized understanding an appreciation for the phone call. PLAN Disposition/Recommendation: self-care is appropriate at this time, patient encouraged to call back with questions Education: patient/caller able to teach back Caller agreeable to plan of care: yes The following references were used: nursing clinical judgement * Telephone Encounter - Brittanie Cooper R.N. - 02/12/2024 7:58 AM CDT Images from the original note were not included. Kim Mackay M.B.BNikS. Nick Mcneil M.D.; [facility] Thank you. The ILR implants are quick, can be under local with same day discharge. Scheduling does not go far our either. Will have our team contact her and see if she still wishes to wait. Kim Previous Messages ----- Message ----- From: Nick Mcneil M.D. Sent: 02/05/2024 5:07 PM CDT To: Irene Valencia; t [facility] I was finally able to reach the patient. She prefers to have an implantable loop recorder placed rather than having the EP study done. She states she is enjoys her summer and prefers to have the procedure scheduled for late fall/earlywinter. We made her aware of potential risks of delaying the procedure. She would greatly appreciate if she could be scheduled for the procedure in early August 2024. Thank you all for your help in coordinating her care. Nick ----- Message ----- From: Kim Mackay M.B.B.S. Sent: 02/01/2024 10:34 AM CDT To: Nick Mcneil M.D.; [facility] Thanks Nick. Ccing the team to help arrange. It does not need to be with me to expedite things. Ifgabriela prefers ILR alone without EP study, we can also arrange that. Just let us know your/ her preference. Venkat, Kim ----- Message ----- From: Nick Mcneil M.D. Sent: 01/31/2024 9:27 PM CDT To: Irene Valencia, You have seen this patient in October for syncope and conduction abnormalities. She had not been interested in pursuing EP study and implantable loop recorder placement when you met. During the visittoday she reported having ongoing episodes of dizziness and weakness but no recurrent syncope. She feels her quality of life he is reduced due to concerns about ongoing symptoms. She did state that, at times, episodes may be associated with low blood pressure levels. However, she feels she would like to pursue EP study and implantable loop recorder if still indicated (we would appreciate if you could facilitate that). Otherwise, we could propose repeating a 30 day MCOT. Thank you, Nick documented in this encounter Plan of Treatment Not on file documented as of this encounter Visit Diagnoses Not on filedocumented in this encounter
--- OUTSIDE RECORDS SUMMARY | 2024-03-11 16:15 | XMS_ITS | Clinical Summary ---
Author Organization [facility] Address [address] [place] [address] Care Team Providers Care Tribal Judge Name Role Phone Unavailable Primary Care Provider Unavailabl e Source Comments Patient records contain information from all sites at [facility]. For routine questions regarding patient records, call [phone] during business hours, M-F 8:00 AM - 5:00 PM Central Time. Record requests for emergency care only can be directed to [phone] at any time.[facility] Allergies Active Allergy Reactions Criticality Noted Date [...] 03/27/2018 diahrria Phenylpropanolamine Other (see comments) 01/11/2022 [place] Pollen-Rough Pigweed Other (see comments) 02/16/2022 Sneezing, nasal drainage Medications Medication Sig Dispensed Refills Start Date End Date Status calcium carbonate-vitamin D3 400-133.3 mg-unit tablet Take 1,000 mg by mouth daily. 05/07/2009 Active cholecalciferol (VITAMIN D3) 10 mcg (400 Unit) tablet Take 400 Units by mouth daily. 05/07/2009 Active levothyroxine (SYNTHROID, LEVOTHROID) 88 mcg tablet Take 1 tablet by mouth daily. 01/21/2013 Active loratadine (CLARITIN) 10 mg tablet Take 1 tablet by mouth daily as needed. 06/04/2013 Active docosanol (ABREVA) 10 % cream Apply 1 application topically 4 (four) times a day as needed. Active pseudoephedrine-guai FENesin (MUCINEX D) 60-600 mg per 12 hr tablet Take 1 tablet by mouth 2 (two) times a day as needed for allergies. Active dextromethorphan-gua iFENesin (ROBITUSSIN-DM) 10-100 mg/5 mL syrup Take by mouth as needed for cough. Active Lactobacillus acidophilus capsule Take 1 capsule by mouth as needed (Uses when also taking antibiotics). Active diphenhydrAMINE (BENADRYL) 25 mg capsule Take 25 mg by mouth every 6 (six) hours as needed. Active loperamide (IMODIUM A-D) 2 mg capsule Take 2 mg by mouth 4 (four) times a day as needed for diarrhea. Active clotrimazole (LOTRIMIN) 1 % cream Apply 1 application topically as needed. Active vitamin A & D (AMERIDERM) ointment Apply 1 application topically as needed for dry skin. Active acetaminophen (TYLENOL) 325 mg tablet Every 4 Hours as needed Active metoprolol succinate (TOPROL-XL) 25 mg 24 hr tablet Take 12.5 mg by mouth daily. 03/08/2022 Active ergocalciferol, vitamin D2, 10 mcg (400 unit) tablet Twice A Day Active menthol 3.2 mg lozenge Take 1 lozenge by mouth as needed. Active UNABLE TO FIND Med Name: Benadryl gel - for itch. 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 01/31/2024 10:45 AM CDT Office Visit Department of Cardiovascular Diseases in [place], [place] [address] [place] [phone] Nick Mcneil M.D. Dizziness And Giddiness (Primary Dx) 12/11/2023 Orders Only Division of Gastroenterology in [place], [place] [address] [place] [address] Denilson Flores M.D. Genetic Susceptibility To Disease from Last 3 Months Family History Medical [...] often do you attend chur ch or jainism services? More than 4 times per year 02/16/2022 Do you belong to any clubs o r organizations such as religion groups, unions, fraternal [...] and heating? Not hard at all 08/06/2023 [facility] of Occupat ional Health - Occupational Stress [...] your living situation today? I have a [facility] place to live 08/06/2023 Education Answer [...] Sexual Orientation Straight 10/19/2019 10 :08 AM AIR HOLE DRILLER Last Filed Vital Signs Vital Sign Reading Time Taken Comments Blood Pressure 133/68 01/31/2024 10:42 AM CDT Pulse 58 01/31/2024 10:42 AM CDT Temperature - - Respiratory Rate - - Oxygen Saturation 99% 01/31/2024 10:39 AM CDT room air Inhaled Oxygen Concentration - - Weight 66.9 kg (147 lb 7.8 oz) 01/31/2024 10:39 AM CDT Height 159.5 cm (5' 2.8) 11/24/2023 9:03 AM AIR HOLE DRILLER Body Mass Index 26.3 11/24/2023 9:03 AM AIR HOLE DRILLER Plan of Treatment Health Maintenance Due Date Last Done Comments Zoster Vaccines (1 of 2) 1993 Depression Screening (Annual PHQ-2) 10/02/2023 Fall Risk Screen (Annual) 10/02/2023 COVID-19 Vaccine (2022- 4 season) 2023 07/03/2023, 01/28/2023, 06/10/2022, Additional history exists Thyroid Stimulating Hormone (TSH) test for thyroid function 08/02/2024 08/02/2023 DTaP,Tdap,and Td Vaccines (4 - Td or Tdap) 03/24/2031 03/24/2021, 12/01/2010, 12/01/2010, Additional history exists Colonoscopy Discontinued 08/22/2014 Colorectal Cancer Surveillance Discontinued Pneumococcal vaccine (65+ years) Completed 12/30/19 15, 05/11/2009 Influenza Vaccine Completed 06/28/2023, , 06/18/2021, Additional history exists CT Colonography Discontinued Cologuard Discontinued Procedures Procedure Name Priority Date/Time Associated Diagnosis Comments THYROID FUNCTION CASCADE, S Routine 08/02/2023 11:19 AM CDT Syncope And Near Syncope COLONOSCOPY Routine 08/22/2014 7:07 AM AIR HOLE DRILLER from Last 3 Months or Most Recently Relevant to Health Maintenance Results * Thyroid Function [place] (08/02/2023 11:19 AM CDT) TSH, Sensitive 1.9 0.3 - 4.2 mIU/L 08/02/2023 4:42 PM CDT OWAT Blood (Blood, Venous) 08/02/2023 11:19 AM CDT 08/02/2023 1:05 PM CDT Nick Mcneil M.D. LAB BLOOD ADD-ON [facility] [address] [place] [address], [facility] in [place] [address] [place] [address] * Colonoscopy (08/22/2014 7:07 AM AIR HOLE DRILLER) 08/22/2014 7:07 AM AIR HOLE DRILLER Sonja Ayala R.N. GI PROCEDURE ORDER [facility] [address] [place] [address], [facility] from Last 3 Months or Most Recently Relevant to Health Maintenance Advance Directives For more information, please contact: [phone] Documents on File Type Date Recorded Patient Manual Arts Therapist Expl anation Advance Directives 08/30/2007 12:00 AM Rupali astorga document. See document viewer.
--- OUTSIDE RECORDS SUMMARY | 2024-03-11 16:15 | XMS_ITS | Referral Summary ---
Author Organization [facility] Address [address] [place] [address] Care Team Providers Care Box Cutter Name Role Phone Unavailable Primary Care Provider Unavailabl e Source Comments Patient records contain information from all sites at [facility]. For routine questions regarding patient records, call [phone] during business hours, M-F 8:00 AM - 5:00 PM Central Time. Record requests for emergency care only can be directed to [phone] at any time.[facility] Encounters Date Type Department Care Team Description 02/12/2024 Clinical Communication Department of Cardiovascular Medicine in [place], [place] [address] [place] [phone] Brittanie Cooper, RNikN. 01/31/2024 10:45 AM CDT Office Visit Department of Cardiovascular Diseases in [place], [place] [address] [place] [address] Nick Mcneil M.D. Dizziness And Giddiness (Primary Dx) 12/11/2023 Orders Only Division of Gastroenterology in [place], [place] [address] [place] [phone] Denilson Flores M.D. Genetic Susceptibility To Disease from Last 3 Months Allergies Active Allergy [...] 03/27/2018 diahrria Phenylpropanolamine Other (see comments) 01/11/2022 [place] Pollen-Rough Pigweed Other (see comments) 02/16/2022 Sneezing, [...] any clubs o r organizations such as samaritan groups, unions, fraternal [...] and heating? Not hard at all 08/06/2023 [facility] of Occupat ional Health - Occupational [...] your living situation today? I have a [facility] place to live 08/06/2023 Education Answer [...] Sexual Orientation Straight 10/19/2019 10 :08 AM HAND COOPER HELPER Last Filed Vital Signs Vital Sign Reading Time Taken Comments Blood Pressure 133/68 01/31/2024 10:42 AM CDT Pulse 58 01/31/2024 10:42 AM CDT Temperature - - Respiratory Rate - - Oxygen Saturation 99% 01/31/2024 10:39 AM CDT room air Inhaled Oxygen Concentration - - Weight 66.9 kg (147 lb 7.8 oz) 01/31/2024 10:39 AM CDT Height 159.5 cm (5' 2.8) 11/24/2023 9:03 AM HAND COOPER HELPER Body Mass Index 26.3 11/24/2023 9:03 AM HAND COOPER HELPER Plan of Treatment Not on file Procedures Procedure Name Priority Date/Time Associated Diagnosis Comments THYROID FUNCTION CASCADE, S Routine 08/02/2023 11:19 AM CDT Syncope And Near Syncope COLONOSCOPY Routine 08/22/2014 7:07 AM HAND COOPER HELPER from Last 3 Months or Most Recently Relevant to Health Maintenance Results * Thyroid Function [place] (08/02/2023 11:19 AM CDT) TSH, Sensitive 1.9 0.3 - 4.2 mIU/L 08/02/2023 4:42 PM CDT OWAT Blood (Blood, Venous) 08/02/2023 11:19 AM CDT 08/02/2023 1:05 PM CDT Nick Mcneil M.D. LAB BLOOD ADD-ON [facility] [address] [place] [address], [facility] OW[facility] in [place] [address] [place] [address] * Colonoscopy (08/22/2014 7:07 AM HAND COOPER HELPER) 08/22/2014 7:07 AM HAND COOPER HELPER Sonja Ayala R.N. GI PROCEDURE ORDER ROSHNI [facility] [address] [place] [address], [facility] from Last 3 Months or Most Recently Relevant to Health Maintenance Advance Directives For more information, please contact: [phone] Documents on File Type Date Recorded Patient Data Conversion Developer Expl anation Advance Directives 08/30/2007 12:00 AM Rupali astorga document. See document viewer.
--- OUTSIDE RECORDS SUMMARY | 2024-03-11 16:15 | XMS_ITS | Encounter Summary ---
Author Organization [facility] Address [address] [place] [address] Care Team Providers Care Batch Tank Controller Name Role Phone Unavailable Primary Care Provider Unavailabl e Encounter Details Date Type Department Care Team (Late st Contact Info) Description 12/11/2023 Orders Only Division of Gastroenterology in [place], [place] [address] [place] [phone] Denilson Flores M.D. [address] [place] [address] Genetic Susceptibility To Disease Social History Tobacco Use Types Packs/Day Years [...] often do you attend chur ch or adventism services? More than 4 times per year 02/16/2022 Do you belong to any clubs o r organizations such as mormon groups, unions, fraternal [...] and heating? Not hard at all 08/06/2023 [facility] of Occupat ional Health - Occupational Stress [...] your living situation today? I have a [facility] place to live 08/06/2023 Education Answer [...] Sexual Orientation Straight 10/19/2019 10 :08 AM HOUSE CARPENTER documented as of this encounter Plan of Treatment Not on file documented as of this encounter Procedures Procedure Name Priority Date/Time Associated Diagnosis Comments EXT TAPESTRY Routine 05/28/2022 12:00 AM CDT Genetic Susceptibility To Disease documented in this encounter Results * EXT Tapestry (05/28/2022 12:00 AM CDT) Gene Studied BRCA1,BRCA2,MLH1,MSH 2, MSH6,PMS2,EPCAM,APOB,L DLR,LDLRAP1,PCSK9 07/08/2022 12:00 AM CDT [facility] Genetic Disease Assessed Evaluation of 11 genes associated with Hereditary Breast and Ovarian Cancer, Black Syndrome and Familial Hypercholesterolemia. 07/08/2022 12:00 AM CDT [facility] Genetic Analysis Overall Interpretation Negative results through Tapestry do not replace diagnostic testing for patients with a personal or family history of cancer/hypercholestero lemia due to limitations with methodology. Consider a referral to a genetic counselor for diagnostic testing if warranted. 07/08/2022 12:00 AM CDT [facility] Genetic Analysis Report See Tapestry PDF Report No actionable gene changes were detected in the genes that cause Familial Hypercholesterolemia. The genes tested for this condition were APOB, LDLR, LDLRAP1, and PCSK9.No actionable gene changes were detected in the genes that cause Hereditary Breast and Ovarian Cancer. The genes tested for this condition were BRCA1 and BRCA2.No actionable gene changes were detected in the genes that cause Black Syndrome. The genes tested for this condition were MLH1, MSH2, MSH6, PMS2 and EPCAM. DNA extracted from your saliva sample was captured and enriched using a custom set of reagents (Dynamic Signal+ chemistry). Targeted regions were sequenced using an Illumina DNA sequencing system. Your sequence was matched to a modified version of the industry standard reference genome (GRCh38). Variant calling was completed using a customized version of [employer]'s Storage By The Box software, requiring 20x coverage for validated variant calls. Copy Number Variants (CNVs) were called using a proprietary bioinformatics pipeline that compared the coverage profile of your sample with the coverage profiles of other reference set samples. [facility] Know[facility] then analyzed the generated variant data for the exons and 10 bp of flanking intronic sequence (and select tagged intronic variants) of the 11 genes included in [employer] from the [employer] Database. Your sample was reviewed for single nucleotide variants (SNVs), indels up to 20 bp in length, and CNVs that are known or predicted to be actionable. NOTE: This assay has limited sensitivity to CNVs smaller than a few exons. APOB, PCSK9, and LDLR interpretation and reporting is specific to the Familial Hypercholesterolemia phenotype. Variants associated with other phenotypes such as Hypobetalipoproteinemi a are not included. Some known complex variants like the inversion of exons 1-7 in the MSH2 gene (Delores inversion), exons 11-15 of the PMS2 gene, or variants within or immediately adjacent to long homopolymer runs are not analyzed or reported. There are regions that are not covered, such as deep intronic, promoter, and enhancer regions. This assay cannot detect all variants known to increase disease risk. Other clinical diagnostic testing for these conditions could identify variants not detected by this test. If you have had previous testing, these results should be taken into consideration during risk assessments and medical management. 07/08/2022 12:00 AM [facility] Human Reference Sequence Assembly [id number] 07/08/2022 12:00 AM [facility] Saliva (Mouth) 05/28/2022 Denilson Flores M.D. LAB GENETI C TESTING [employer] [address] [facility], [address] [place] [address], [facility] [employer] [address] [facility], [address] [address] documented in this encounter Visit Diagnoses Diagnosis Genetic Susceptibility To Disease documented in this encounter
--- NOTE | 2024-03-11 17:30 | CRLHL7_ITS ---
For Patients: As a result of the Century Cures Act, medical imaging exams and procedure reports are released immediately into your electronic medical record. You may view this report before your referring provider. If you have questions, please contact your health care provider. Indication: Low back pain Technique: Multiplanar, multisequence, MRI of the lumbar spine, obtained without contrast. Comparison: Lumbar spine x-ray 03/07/2024 Findings: Thoracolumbar levoconvex curvature, with preserved lumbar lordosis. For numbering purposes, the L5 segment is partially sacralized, followed by a rudimentary L5-S1 intervertebral disc. Mild chronic anterior wedge configuration of T12 with prominent inferior endplate Schmorl`s node. Mild acute/subacute L3 superior endplate compression fracture, with superior endplate edema. Interspinous degeneration at the L3-4 level, without bony edema or bursitis. The conus medullaris terminates at L1. Incidental left renal cysts. No concerning findings in the paraspinal soft tissues. Mild degenerative changes at the included SI joints. T12-L1: No neural foraminal or spinal canal stenosis. L1-L2: Minimal disc bulge. No neural foraminal or spinal canal stenosis. L2-L3: Mild diffuse disc bulge, mild facet arthropathy. No right, mild left neural foraminal narrowing. Mild spinal canal narrowing with left lateral recess stenosis and potential descending left L3 nerve root impingement. L3-L4: Mild diffuse disc bulge, left asymmetric facet arthropathy and ligamentum flavum laxity. Mild right, boqa-qc-aupnwbeg left neural foraminal narrowing. Mild spinal canal narrowing with mild right lateral recess narrowing and left lateral recess stenosis with potential descending left L4 nerve root impingement. L4-L5: Mild diffuse disc bulge with left eccentric disc-osteophyte complex mild facet arthropathy and left asymmetric ligamentum flavum laxity. No neural foraminal stenosis. Left lateral recess stenosis with potential descending left L5 nerve root impingement. No spinal canal stenosis. L5-S1: L5 sacralization, rudimentary intervertebral disc. No neural foraminal or spinal canal stenosis. Impression: 1. Acute/subacute mild L3 superior endplate compression fracture. 2. Chronic mild T12 anterior wedge compression deformity. 3. Multilevel lumbar spondylosis as detailed. 4. At L2-L3, left lateral recess stenosis with potential descending left L3 nerve root impingement. 5. At L3-L4, mild-moderate left neural foraminal narrowing, with left lateral recess stenosis and potential descending left L4 nerve root impingement. 6. At L4-L5, left lateral recess stenosis with potential descending left L5 nerve root impingement. Dictated by Preeti Levin MD @ 03/12/2024 1:30:36 PM (Electronically Signed)
== END 2024-03-11 16:13 | disposition home or self-care (01) ==
PROVIDERS: PCP Family Medicine; Visit Provider Family Medicine
DX: M54.50 Low back pain, unspecified (principal); M47.896 Other spondylosis, lumbar region; S32.030A Wedge compression fracture of third lumbar vertebra, initial encounter for closed fracture; M51.26 Other intervertebral disc displacement, lumbar region; G89.29 Other chronic pain
CPT/HCPCS: 72148

== ENCOUNTER 2024-04-02 08:00 | Outpatient (CLI) | payer MEDICARE, BC, SELFPAY ==
--- OUTSIDE RECORDS SUMMARY | 2024-04-05 10:15 | XMS_ITS | Encounter Summary ---
Author Organization [facility] Address [address] [place] [address] Care Team Providers Care Ornamental Painter Name Role Phone Unavailable Primary Care Provider Unavailabl e Reason for Referral * Outpatient (Routine) - Authorized Specialty Diagnoses / Procedures Referred By Contac t Referred To Contact Cardiovascular Disease Nick Mcneil M.D. [address] [place] [address] [facility] Referral ID Status Reason Start Date Expiration Date V isits Requested Visits Authorized [id number] Authorized 01/31/2024 08/01/2025 1 1 * Outpatient (Routine) - Authorized Specialty Diagnoses / Procedures Referred By Contac t Referred To Contact Diagnoses Dizziness And Giddiness Procedures ECG 12 Lead Nick Mcneil M.D. [address] [place] [address] [facility] Region Referral ID Status Reason Start Date Expiration Date V isits Requested Visits Authorized [id number] Authorized 01/31/2024 01/30/2025 1 1 Reason for Visit * Reason Comments Follow-up * Outpatient (Routine) - Closed Specialty Diagnoses / Procedures Referred By Contac t Referred To Contact Cardiovascular Disease Nick Mcneil M.D. [address] [place] [address] [facility] Region Referral ID Status Reason Start Date Expiration Date Visits Re quested Visits Authorized [id number] Closed 08/02/2023 08/01/2026 1 1 Encounter Details Date Type Department Care Team (Latest Contact Info) Description 01/31/2024 10:45 AM CDT Office Visit Department of Cardiovascular Diseases in [place], [place] [address] [facility] [address] Nick Mcneil M.D. [address] [facility] [place] [address] Dizziness And Giddiness (Primary Dx) Social [...] week 02/16/2022 How often do you attend [facility] or sabianism services? More than 4 times per year 02/16/2022 Do you belong to any clubs o r organizations such as yarsani groups, unions, fraternal [...] and heating? Not hard at all 08/06/2023 [facility] of Occupat ional Health - Occupational [...] your living situation today? I have a [facility] place to live 08/06/2023 Education Answer [...] Sexual Orientation Straight 10/19/2019 10 :08 AM TIE FASTENER documented as of this encounter Last Filed [...] Body Mass Index 26.3 11/24/2023 9:03 AM TIE FASTENER documented in this encounter Progress Notes * [...] event occurred October 2021 while standing in yarsani. Recurrences on 10/01/2022 (sitting at the toilet [...] will be offered. CARDIOLOGY SUBSEQUENT VISIT Location: [facility] SUBJECTIVE CHIEF COMPLAINT / REASON FOR VISIT Office follow-up. HISTORY OF PRESENT ILLNESS Ms. Emmy Anderson is a very pleasant 78 y.o. female who presents to [facility] for follow-up. Her primary [...] (see comments) diahrria Phenylpropanolamine Other (see comments) [place] Pollen-Rough Pigweed Other (see comments) Sneezing, nasal [...] enriched using a custom set of reagents (TechShop+ chemistry). Targeted regions were sequenced using an Illumina DNA sequencing system. Your sequence was matched to a modified version of the [place] standard reference genome (GRCh38). Variant calling was completed using a customized version of [employer]s [employer] software, requiring 20x coverage for validated variant calls. Copy Number Variants (CNVs) were called using a [employer] bioinformatics pipeline that compared the coverage profile of your sample with the coverage profiles of other reference set samples. [facility] [employer] then analyzed the generated variant data forthe exons and 10 bp of flanking intronic sequence (and select tagged intronic variants) of the 11 genes included in [employer] from the [employer] Database. Your sample was reviewed for single [...] quadrant. Comparison, 07/27/2022. The ASCVD Risk score (Elder DK, et al., 2019) failed to calculate [...]
--- OUTSIDE RECORDS SUMMARY | 2024-04-05 10:15 | XMS_ITS | Referral Summary ---
Author Organization [facility] Address [address] [place] [address] Care Team Providers Care Fabric Machine Operator Name Role Phone Unavailable Primary Care Provider Unavailabl e Source Comments Patient records contain information from all sites at [facility]. For routine questions regarding patient records, call [phone] during business hours, M-F 8:00 AM - 5:00 PM Central Time. Record requests for emergency care only can be directed to [phone] at any time.[facility] Encounters Date Type Department Care Team Description 02/12/2024 Clinical Communication Department of Cardiovascular Medicine in [place], [place] [address] [place] [address] Brittanie Cooper, RNikN. 01/31/2024 10:45 AM CDT Office Visit Department of Cardiovascular Diseases in [place], [place] [address] [place] [address] Nick Mcneil M.D. Dizziness And Giddiness (Primary Dx) from Last 3 Months Allergies Active Allergy [...] 03/27/2018 diahrria Phenylpropanolamine Other (see comments) 01/11/2022 [place] Pollen-Rough Pigweed Other (see comments) 02/16/2022 Sneezing, [...] itch. Active UNABLE TO FIND Med Name: Jerzy issapoo with aloe for Seboria dermitis. Active Active [...] week 02/16/2022 How often do you attend [facility] or uatsdin services? More than 4 times per year 02/16/2022 Do you belong to any clubs o r organizations such as moravian groups, unions, fraternal or athletic groups, or [...] and heating? Not hard at all 08/06/2023 [facility] [place] of Occupat ional Health - Occupational Stress [...] Sexual Orientation Straight 10/19/2019 10 :08 AM COLLAR FOLDER OPERATOR Last Filed Vital Signs Vital Sign Reading Time Taken Comments Blood Pressure 133/68 01/31/2024 10:42 AM CDT Pulse 58 01/31/2024 10:42 AM CDT Temperature - - Respiratory Rate - - Oxygen Saturation 99% 01/31/2024 10:39 AM CDT room air Inhaled Oxygen Concentration - - Weight 66.9 kg (147 lb 7.8 oz) 01/31/2024 10:39 AM CDT Height 159.5 cm (5' 2.8) 11/24/2023 9:03 AM COLLAR FOLDER OPERATOR Body Mass Index 26.3 11/24/2023 9:03 AM COLLAR FOLDER OPERATOR Plan of Treatment Not on file Procedures Procedure Name Priority Date/Time Associated Diagnosis Comments THYROID FUNCTION CASCADE, S Routine 08/02/2023 11:19 AM CDT Syncope And Near Syncope COLONOSCOPY Routine 08/22/2014 7:07 AM COLLAR FOLDER OPERATOR from Last 3 Months or Most Recently Relevant to Health Maintenance Results * Thyroid Function [place] (08/02/2023 11:19 AM CDT) TSH, Sensitive 1.9 0.3 - 4.2 mIU/L 08/02/2023 4:42 PM CDT OWAT Blood (Blood, Venous) 08/02/2023 11:19 AM CDT 08/02/2023 1:05 PM CDT Nick Mcneil M.D. LAB BLOOD ADD-ON [facility] [address] [place] [address], [place] OWAT [facility] [place] [address] [place] [address] * Colonoscopy (08/22/2014 7:07 AM COLLAR FOLDER OPERATOR) 08/22/2014 7:07 AM COLLAR FOLDER OPERATOR Sonja Ayala R.N. GI PROCEDURE ORDER [facility] [address] [place] [address], [facility] from Last 3 Months or Most Recently Relevant to Health Maintenance Advance Directives For more information, please contact: [phone] Documents on File Type Date Recorded Patient Clamp Truck Driver Expl anation Advance Directives 08/30/2007 12:00 AM Rupali astorga document. See document viewer.
--- OUTSIDE RECORDS SUMMARY | 2024-04-05 10:15 | XMS_ITS | Clinical Summary ---
Author Organization [facility] Address [address] [place] [address] Care Team Providers Care Photovoltaic Installer Name Role Phone Unavailable Primary Care Provider Unavailabl e Source Comments Patient records contain information from all sites at [facility]. For routine questions regarding patient records, call [phone] during business hours, M-F 8:00 AM - 5:00 PM Central Time. Record requests for emergency care only can be directed to [phone] at any time.[facility] Allergies Active Allergy Reactions Criticality Noted [...] 03/27/2018 diahrria Phenylpropanolamine Other (see comments) 01/11/2022 [place] Pollen-Rough Pigweed Other (see comments) 02/16/2022 Sneezing, [...] Clinical Communication Department of Cardiovascular Medicine in [place], [place] [address] [place] [address] Brittanie Cooper, RNikN. 01/31/2024 10:45 AM CDT Office Visit Department of Cardiovascular Diseases in [place], [place] [address] [place] [address] Nick Mcneil M.D. Dizziness And Giddiness (Primary Dx) from Last 3 Months Family [...] week 02/16/2022 How often do you attend [facility] or jehovah's witness services? More than 4 times per year 02/16/2022 Do you belong to any clubs o r organizations such as roman catholic groups, unions, [...] [facility] of Occupat ional Health - Occupational Stress [...] your living situation today? I have a [facility] place to live 08/06/2023 Education Answer [...] Sexual Orientation Straight 10/19/2019 10 :08 AM BRIDGE CLUB MANAGER Last Filed Vital Signs Vital Sign Reading Time Taken Comments Blood Pressure 133/68 01/31/2024 10:42 AM CDT Pulse 58 01/31/2024 10:42 AM CDT Temperature - - Respiratory Rate - - Oxygen Saturation 99% 01/31/2024 10:39 AM CDT room air Inhaled Oxygen Concentration - - Weight 66.9 kg (147 lb 7.8 oz) 01/31/2024 10:39 AM CDT Height 159.5 cm (5' 2.8) 11/24/2023 9:03 AM BRIDGE CLUB MANAGER Body Mass Index 26.3 11/24/2023 9:03 AM BRIDGE CLUB MANAGER Plan of Treatment Health Maintenance Due Date Last Done Comments Zoster Vaccines (1 of 2) 1993 Depression Screening (Annual PHQ-2) 10/02/2023 Fall Risk Screen (Annual) 10/02/2023 COVID-19 Vaccine (2022-2 4 season) 2023 07/03/2023, 01/28/2023, 06/10/2022, Additional history exists Influenza Vaccine (#1) 2024 , 06/10/2022, 06/18/2021, Additional history exists Thyroid Stimulating Hormone (TSH) test for thyroid function 08/02/2024 08/02/2023 DTaP,Tdap,and Td Vaccines (4 - Td or Tdap) 03/24/2031 03/24/2021, 12/01/2010, 12/01/2010, Additional history exists Colonoscopy Discontinued 08/22/2014 Colorectal Cancer Surveillance Discontinued Pneumococcal vaccine (65+ years) Completed 12/30/19 15, 05/11/2009 CT Colonography Discontinued Cologuard Discontinued Procedures Procedure Name Priority Date/Time Associated Diagnosis Comments THYROID FUNCTION CASCADE, S Routine 08/02/2023 11:19 AM CDT Syncope And Near Syncope COLONOSCOPY Routine 08/22/2014 7:07 AM BRIDGE CLUB MANAGER from Last 3 Months or Most Recently Relevant to Health Maintenance Results * Thyroid Function [place] (08/02/2023 11:19 AM CDT) TSH, Sensitive 1.9 0.3 - 4.2 mIU/L 08/02/2023 4:42 PM CDT OWAT Blood (Blood, Venous) 08/02/2023 11:19 AM CDT 08/02/2023 1:05 PM CDT Nick Mcneil M.D. LAB BLOOD ADD-ON [facility] [address] [place] [address], [facility] OWAT [facility] in [place] [address] [place] [address] * Colonoscopy (08/22/2014 7:07 AM BRIDGE CLUB MANAGER) 08/22/2014 7:07 AM BRIDGE CLUB MANAGER Sonja Ayala R.N. GI PROCEDURE ORDER [facility] [address] from Last 3 Months or Most Recently Relevant to Health Maintenance Advance Directives For more information, please contact: [phone] Documents on File Type Date Recorded Patient Icicle Machine Operator Expl anation Advance Directives 08/30/2007 12:00 AM Rupali astorga document. See document viewer.
--- OUTSIDE RECORDS SUMMARY | 2024-04-05 10:15 | XMS_ITS | Clinical Summary ---
Author Organization Remote Assistant [facility] Address [place], [place] [address] Care Team Providers Care Time Stamp Assembler Name Role Phone Edwige Balderas MD Primary [...] 65+ (1 of 1 - PCV) 2008 COVID-19 vaccine series (2022-24 season) 2023 07/03/2023, 01/28/2023, 06/10/2022, Additional history exists Influenza for age 65+ 06/02/2024 07/13/2020 Care Teams Time Stamp Assembler Relationship Specialty Start Date End Date Edwige Balderas MD [address] [place] [address] PCP - General Family Practice 07/14/23
--- OUTSIDE RECORDS SUMMARY | 2024-04-05 10:15 | XMS_ITS | Encounter Summary ---
Author Organization [facility] Address [address] [place] [address] Care Team Providers Care Milking Machine Mechanic Name Role Phone Unavailable Primary Care Provider Unavailabl e Encounter Details Date Type Department Care Team (Latest Contact Info) Description 02/12/2024 Clinical Communication Department of Cardiovascular Medicine in [place], [place] [address] [place] [address] Brittanie Cooper, R.N. Social History Tobacco Use [...] often do you attend chur ch or christian services? More than 4 times per year 02/16/2022 Do you belong to any clubs o r organizations such as amish groups, unions, fraternal [...] and heating? Not hard at all 08/06/2023 [employer] [facility] Occupat [facility] - [facility]ational Stress Questionnaire Answer [...] your living situation today? I have a [facility] place to live 08/06/2023 Education Answer [...] Sexual Orientation Straight 10/19/2019 10 :08 AM DIRECTOR DISTRIBUTION documented as of this encounter Miscellaneous Notes [...] 10:34 AM CDT To: Nick Mcneil M.D.; [facility] Rn Thanks Nick. Ccing [...]
--- OUTSIDE RECORDS SUMMARY | 2024-04-05 10:15 | XMS_ITS ---
Author Organization [facility] Address [address] [place] [address] Care Team Providers Care Quality Review Specialist Name Role Phone Unavailable Unavailable Unavailable Surgery Details Not on file Complications Check Surgery Details section. Procedure Estimated Blood Loss Check Surgery Details section. Procedure Findings Check Surgery Details section. Procedure Specimens Taken Check Surgery Details section.
== END 2024-04-02 08:01 | disposition home or self-care (01) ==
LOC: NFLDREF 04-05 10:13
PROVIDERS: PCP Family Medicine; Referring Provider Family Medicine; Visit Provider Family Medicine
DX: E78.5 Hyperlipidemia, unspecified (principal); E03.9 Hypothyroidism, unspecified; M81.0 Age-related osteoporosis without current pathological fracture
CPT/HCPCS: 80053; 80061; 82306; 84443

== ENCOUNTER 2024-04-25 14:19 | Outpatient (CLI) | payer MEDICARE, BC, SELFPAY ==
--- OUTSIDE RECORDS SUMMARY | 2024-04-25 14:22 | XMS_ITS | Encounter Summary ---
Author Organization [facility] Address [address] [place] [address] Care Team Providers Care Restaurant Host/Hostess Name Role Phone Unavailable Primary Care Provider Unavailabl e Encounter Details Date Type Department Care Team (Latest Contact Info) Description 02/12/2024 Clinical Communication Department of Cardiovascular Medicine in [place], [place] [address] [place] [address] Brittanie Cooper, R.N. Social History Tobacco Use [...] often do you attend chur ch or adventist services? More than 4 times per year [...] and heating? Not hard at all 08/06/2023 [facility]at [facility] - Occupational Stress Questionnaire Answer [...] your living situation today? I have a [facility] place to live 08/06/2023 Education [...] Sexual Orientation Straight 10/19/2019 10 :08 AM HEMATOLOGY TECHNICIAN documented as of this encounter Miscellaneous Notes [...] 10:34 AM CDT To: Nick Mcneil M.D.; [facility] Rn Thanks Nick. [...]
--- OUTSIDE RECORDS SUMMARY | 2024-04-25 14:22 | XMS_ITS | Clinical Summary ---
Author Organization [facility] Address [place], [place] [address] Care Team Providers Care Pipe Stem Sawyer Name Role Phone Edwige Balderas MD Primary [...] for age 65+ 06/02/2024 07/13/2020 Care Teams Pipe Stem Sawyer Relationship Specialty Start Date End Date Edwige Balderas MD [address] [place] [address] PCP - General Family Practice 07/14/23
--- OUTSIDE RECORDS SUMMARY | 2024-04-25 14:22 | XMS_ITS | Clinical Summary ---
Author Organization [facility] Address [address] [place] [address] Care Team Providers Care Wheelman Name Role Phone Unavailable Primary Care Provider Unavailabl e Source Comments Patient records contain information from all sites at [facility]. For routine questions regarding patient records, call [phone] during business hours, M-F 8:00 AM - 5:00 PM Central Time. Record requests for emergency care only can be directed to [phone] at any time.[facility] Allergies Active Allergy Reactions Criticality Noted [...] 03/27/2018 diahrria Phenylpropanolamine Other (see comments) 01/11/2022 [place] Pollen-Rough Pigweed Other (see comments) 02/16/2022 Sneezing, [...] Lumbar 06/28/2023 Urinary Tract Infection (UTI)/Bacteriuria NOS Overview (10/31/2022): Diagnosis Maintenance Updates Atrophy Vagina Due To Estrogen Deficiency 2021 Syncope And Collapse 04/12/2022 Osteoporosis 10/22/2019 Overview (10/22/2019): ?? Osteoporosis, T score -2.6 right hip, neck, T12 compression fracture 2008 after lifting boat ?? Intolerant and reluctant for bone directed therapies (prior on oral bisphosphonates for ?11 months but didn't like due to symptoms) ?? She declined IV Reclast prior and currently Assessment & Plan (10/22/2019 4:29 PM WIRE ANNEALER): ?? Emmy presents for follow up of [...] Clinical Communication Department of Cardiovascular Medicine in [place], [place] [address] [place] [address] Brittanie Cooper, RNikN. 01/31/2024 10:45 AM CDT Office Visit Department of Cardiovascular Diseases in [place], [place] [address] [place] [address] Nick Mcneil M.D. Dizziness And Giddiness (Primary [...] week 02/16/2022 How often do you attend [facility] or yazidism services? More than 4 times per year [...] all 08/06/2023 [facility] of Occupat ional [facility] - Occupational Stress Questionnaire Answer [...] your living situation today? I have a [facility] place to live 08/06/2023 Education [...] Sexual Orientation Straight 10/19/2019 10 :08 AM WIRE ANNEALER Last Filed Vital Signs Vital Sign Reading Time Taken Comments Blood Pressure 133/68 01/31/2024 10:42 AM CDT Pulse 58 01/31/2024 10:42 AM CDT Temperature - - Respiratory Rate - - Oxygen Saturation 99% 01/31/2024 10:39 AM CDT room air Inhaled Oxygen Concentration - - Weight 66.9 kg (147 lb 7.8 oz) 01/31/2024 10:39 AM CDT Height 159.5 cm (5' 2.8) 11/24/2023 9:03 AM WIRE ANNEALER Body Mass Index 26.3 11/24/2023 9:03 AM WIRE ANNEALER Plan of Treatment Health Maintenance Due Date Last Done Comments Zoster Vaccines (1 of 2) 1993 Depression Screening (Annual PHQ-2) 10/02/2023 Fall Risk Screen (Annual) 10/02/2023 COVID-19 Vaccine (2022-2 4 season) 2023 07/03/2023, 01/28/2023, 06/10/2022, Additional history exists Influenza Vaccine (#1) 2024 3, 06/10/2022, 06/18/2021, Additional history exists Thyroid Stimulating [...] Near Syncope COLONOSCOPY Routine 08/22/2014 7:07 AM WIRE ANNEALER from Last 3 Months or Most Recently Relevant to Health Maintenance Results * Thyroid Function [place] (08/02/2023 11:19 AM CDT) TSH, Sensitive 1.9 0.3 - 4.2 mIU/L 08/02/2023 4:42 PM CDT OWAT Blood (Blood, Venous) 08/02/2023 11:19 AM CDT 08/02/2023 1:05 PM CDT Nick Mcneil M.D. LAB BLOOD ADD-ON [facility] [address] [place] [address], [place] OWAT [facility] [place] [address] [place] [address] * Colonoscopy (08/22/2014 7:07 AM WIRE ANNEALER) 08/22/2014 7:07 AM WIRE ANNEALER Sonja Ayala R.N. GI PROCEDURE ORDER [facility] [address] [place] [address], [facility] from Last 3 Months or Most Recently Relevant to Health Maintenance Advance Directives For more information, please contact: [phone] Documents on File Type Date Recorded Patient Corporate Operations Compliance Manager Expl anation Advance Directives 08/30/2007 12:00 AM Rupali astorga document. See document viewer.
--- OUTSIDE RECORDS SUMMARY | 2024-04-25 14:22 | XMS_ITS ---
Author Organization [facility] Address [address] [place] [address] Care Team Providers Care Trade Specialist Name Role Phone Unavailable Unavailable Unavailable Surgery Details Not on file Complications Check Surgery Details section. Procedure Estimated Blood Loss Check Surgery Details section. Procedure Findings Check Surgery Details section. Procedure Specimens Taken Check Surgery Details section.
--- OUTSIDE RECORDS SUMMARY | 2024-04-25 14:22 | XMS_ITS | Encounter Summary ---
Author Organization [facility] Address [address] [place] [address] Care Team Providers Care Social Worker Health Services Name Role Phone Unavailable Primary Care Provider Unavailabl e Reason for Referral * Outpatient (Routine) - Authorized Specialty Diagnoses / Procedures Referred By Contac t Referred To Contact Cardiovascular Disease Nick Mcneil M.D. [address] [place] [address] [facility] Referral ID Status Reason Start Date Expiration Date V isits Requested Visits Authorized [id number] Authorized 01/31/2024 08/01/2025 1 1 * Outpatient (Routine) - Authorized Specialty Diagnoses / Procedures Referred By Contac t Referred To Contact Diagnoses Dizziness And Giddiness Procedures ECG 12 Lead Nick Mcneil M.D. [address] [place] [address] [facility] Region Referral ID Status Reason Start Date Expiration Date V isits Requested Visits Authorized [id number] Authorized 01/31/2024 01/30/2025 1 1 Reason for Visit * Reason Comments Follow-up * Outpatient (Routine) - Closed Specialty Diagnoses / Procedures Referred By Contac t Referred To Contact Cardiovascular Disease Nick Mcneil M.D. [address] [place] [address] [facility] Region Referral ID Status Reason Start Date Expiration Date Visits Re quested Visits Authorized [id number] Closed 08/02/2023 08/01/2026 1 1 Encounter Details Date Type Department Care Team (Latest Contact Info) Description 01/31/2024 10:45 AM CDT Office Visit Department of Cardiovascular Diseases in [place], [place] [address] [facility] [place] [address] Nick Mcneil M.D. [address] [facility] [place] [address] Dizziness And Giddiness (Primary Dx) Social [...] week 02/16/2022 How often do you attend [facility] or jewish services? More than 4 times per year [...] and heating? Not hard at all 08/06/2023 [facility] of Occupat ional Health - [...] your living situation today? I have a [facility] place to live 08/06/2023 Education Answer [...] Sexual Orientation Straight 10/19/2019 10 :08 AM OPERATOR WEAPON LOCATING RADAR documented as of this encounter Last Filed [...] Body Mass Index 26.3 11/24/2023 9:03 AM OPERATOR WEAPON LOCATING RADAR documented in this encounter Progress Notes * [...] event occurred October 2021 while standing in [place]. Recurrences on 10/01/2022 (sitting at the toilet [...] will be offered. CARDIOLOGY SUBSEQUENT VISIT Location: [facility] SUBJECTIVE CHIEF COMPLAINT / REASON FOR VISIT Office follow-up. HISTORY OF PRESENT ILLNESS Ms. Emmy Anderson is a very pleasant 78 y.o. female who presents to [facility] for follow-up. Her primary [...] (see comments) diahrria Phenylpropanolamine Other (see comments) [place] Pollen-Rough Pigweed Other (see comments) Sneezing, [...] enriched using a custom set of reagents (PapayaMobile+ chemistry). Targeted regions were sequenced using an Illumina DNA sequencing system. Your sequence was matched to a modified version of the [place] standard reference genome (GRCh38). Variant calling was completed using a customized version of [employer]'s i2weq software, requiring 20x coverage for validated variant calls. Copy Number Variants (CNVs) were called using a [employer] bioinformatics pipeline that compared the coverage profile of your sample with the coverage profiles of other reference set samples. [facility] GeneGoNogging then analyzed the generated variant data forthe exons and 10 bp of flanking intronic sequence (and select tagged intronic variants) of the 11 genes included in Intela from the [employer]'s Alternative Database. Your sample was reviewed for single [...] quadrant. Comparison, 07/27/2022. The ASCVD Risk score ([place] DK, et al., 2019) failed to calculate [...]
--- OUTSIDE RECORDS SUMMARY | 2024-04-25 14:22 | XMS_ITS | Referral Summary ---
Author Organization [facility] Address [address] [place] [address] Care Team Providers Care Help Desk Associate Name Role Phone Unavailable Primary Care Provider Unavailabl e Source Comments Patient records contain information from all sites at [facility]. For routine questions regarding patient records, call [phone] during business hours, M-F 8:00 AM - 5:00 PM Central Time. Record requests for emergency care only can be directed to [phone] at any time.[facility] Encounters Date Type Department Care Team Description 02/12/2024 Clinical Communication Department of Cardiovascular Medicine in [place], [place] [address] [place] [address] Brittanie Cooper, RNikN. 01/31/2024 10:45 AM CDT Office Visit Department of Cardiovascular Diseases in [place] [address] [place] [address] Nick Mcneil M.D. Dizziness And Giddiness (Primary [...] 03/27/2018 diahrria Phenylpropanolamine Other (see comments) 01/11/2022 [place] Pollen-Rough Pigweed Other (see comments) 02/16/2022 Sneezing, [...] currently Assessment & Plan (10/22/2019 4:29 PM HR RECRUITER): ?? Emmy presents for follow up of [...] How often do you attend chur or church services? More than 4 times per year [...] and heating? Not hard at all 08/06/2023 [facility] [place] of Occupat ional Health - Occupational Stress [...] your living situation today? I have a [facility] place to live 08/06/2023 Education Answer [...] Sexual Orientation Straight 10/19/2019 10 :08 AM HR RECRUITER Last Filed Vital Signs Vital Sign Reading Time Taken Comments Blood Pressure 133/68 01/31/2024 10:42 AM CDT Pulse 58 01/31/2024 10:42 AM CDT Temperature - - Respiratory Rate - - Oxygen Saturation 99% 01/31/2024 10:39 AM CDT room air Inhaled Oxygen Concentration - - Weight 66.9 kg (147 lb 7.8 oz) 01/31/2024 10:39 AM CDT Height 159.5 cm (5' 2.8) 11/24/2023 9:03 AM HR RECRUITER Body Mass Index 26.3 11/24/2023 9:03 AM HR RECRUITER Plan of Treatment Not on file Procedures Procedure Name Priority Date/Time Associated Diagnosis Comments THYROID FUNCTION CASCADE, S Routine 08/02/2023 11:19 AM CDT Syncope And Near Syncope COLONOSCOPY Routine 08/22/2014 7:07 AM HR RECRUITER from Last 3 Months or Most Recently Relevant to Health Maintenance Results * Thyroid Function [place] (08/02/2023 11:19 AM CDT) TSH, Sensitive 1.9 0.3 - 4.2 mIU/L 08/02/2023 4:42 PM CDT OWAT Blood (Blood, Venous) 08/02/2023 11:19 AM CDT 08/02/2023 1:05 PM CDT Nick Mcneil M.D. LAB BLOOD ADD-ON [facility] [address] [place] [address], [facility] OWAT [facility] in [place] [address] [place] [address] * Colonoscopy (08/22/2014 7:07 AM HR RECRUITER) 08/22/2014 7:07 AM HR RECRUITER Sonja Ayala R.N. GI PROCEDURE ORDER [facility] [address] [place] [address], [facility] from Last 3 Months or Most Recently Relevant to Health Maintenance Advance Directives For more information, please contact: [phone] Documents on File Type Date Recorded Patient Webfed Offset Press Operator Expl anation Advance Directives 08/30/2007 12:00 AM Rupali astorga document. See document viewer.
--- NOTE | 2024-04-25 14:30 | CRLHL7_ITS ---
For Patients: As a result of the Century Cures Act, medical imaging exams and procedure reports are released immediately into your electronic medical record. You may view this report before your referring provider. If you have questions, please contact your health care provider. DXA BONE MINERAL DENSITY STUDY Reason for exam: Osteoporosis. Current height (in): 62. Weight (lb): 142. Menopause age: 48. Ethnicity: White. 1. Have you had a previous hip or vertebral fracture? Yes. 2. Have you had any fractures during your adult life which did not result from significant trauma (e.g., auto accident)? Yes. 3. Did either of your parents have a hip fracture? No. 4. Do you smoke? No. 5. Have you ever taken Glucocorticoids? No. 6. Do you have rheumatoid arthritis? No. 7. Do you have secondary osteoporosis? Yes. 8. Do you drink 3 or more alcoholic drinks per day? No. 9. Are you being treated for osteoporosis? Yes. 10. Have you ever taken any of the following medications: Actonel, Evista, Fosamax, Miacalcin, Reclast, Boniva, Forteo, HRT (i.e. estrogen/hormone therapy), Protelos, Prolia, Vitamin D, Calcium, other ??? please specify. ANSWER: Yes, Fosamax, vitamin D, calcium and levothyroxine. 11. Do you have any of the following medical conditions: Anorexia or bulimia, asthma or emphysema, end stage renal disease, hyperparathyroidism, any seizure disorders, cancer, inflammatory bowel diseases, hysterectomy, other ??? please specify. ANSWER: Yes, hyperparathyroidism, inflammatory bowel diseases and Graves??? disease. 12. What was your maximum height (inches)? 63. 13. Do you perform weight bearing exercise regularly? No. 14. Do you regularly consume dairy products? No. 15. Do you drink caffeinated beverages? No. 16. At what age did your period start? 11. 17. Are you premenopausal? No. 18. How many full term pregnancies have you had? 2. 19. Have you ever missed your period for more than 6 months in a row (not including or menopause)? No. TECHNIQUE: Bone mineral density study was performed using the [employer]. FINDINGS: The results of the study expressed as bone mineral density (BMD) are as follows: Lumbar spine L1 to L3: BMD: 0.967 g/cm2. T-score: -0.5. Z-score: 2.2. Neck Left: BMD: 0.506 g/cm2. T-score: -3.1. Z-score: -0.7. Right: BMD: 0.503 g/cm2. T-score: -3.1. Z-score: -0.8. Total Left: BMD: 0.600 g/cm2. T-score: -2.8. Z-score: -0.7. Right: BMD: 0.645 g/cm2. T-score: -2.4. Z-score: -0.3. IMPRESSION: Osteoporosis. *Comparison exams done prior to 03/2020 were performed on different unit, [employer]. COMPARISON: Compared with scan of 01/02/2024, the bone mineral density has increased by 3.3 percent at the spine and decreased by 10.7 percent at the hip. Manjinder Antunez M.D. Diagnostic Radiologist [email or web address] ED/sp R: 04/26/2024 Transcribed: 3:16 p.m. SP/Dictated by: Manjinder Antunez MD @ 04/26/2024 11:54:00 AM (Electronically Signed)
== END 2024-04-25 14:20 | disposition home or self-care (01) ==
PROVIDERS: PCP Family Medicine; Referring Provider Family Medicine; Visit Provider Family Medicine
DX: M81.0 Age-related osteoporosis without current pathological fracture (principal)
CPT/HCPCS: 77080

== ENCOUNTER 2024-06-19 09:59 | Outpatient (CLI) | payer MEDICARE, BC, SELFPAY ==
--- OUTSIDE RECORDS SUMMARY | 2024-06-19 10:04 | XMS_ITS | Encounter Summary ---
Author Organization [facility] Address [address] [place] [address] Care Team Providers Care Comprehensive Ophthalmologist Name Role Phone Unavailable Primary Care Provider Unavailabl e Reason for Referral * Outpatient (Routine) - Authorized Specialty Diagnoses / Procedures Referred By Jaime t Referred To Contact Cardiovascular Disease Nick Mcneil M.D. [address] [place] [address] [facility] Referral ID Status Reason Start Date Expiration Date V isits Requested Visits Authorized [id number] Authorized 06/10/2024 12/10/2025 1 1 Reason for Visit * Reason Onset Date Comments Follow-up Orders 06/10/2024 Encounter Details Date Type Department Care Team (Latest Contact Info) Description 06/10/2024 Clinical Communication Department of Cardiovascular Diseases in [place], [place] [address] [place] [address] Nick Mcneil M.D. [address] [place] [address] Follow-up Orders Social History Tobacco Use Types Packs/Day Years [...] 02/16/2022 How often do you attend [facility] or buddhism services? More than 4 times per year 02/16/2022 Do you belong to any clubs o r organizations such as sikh groups, unions, fraternal [...] and heating? Not hard at all 08/06/2023 [facility] [place] of Occupat ional Health - Occupational Stress [...] your living situation today? I have a [facility] place to live 08/06/2023 Education Answer Date Recorded What is the highest level of school you have completed or the highest degree you have received? Professional school degree (e.g., MD, DDS, DVM, KRISTEN) 02/16/2022 Sex and Gender Information Value Date Recorded Sex Assigned at Female 05/07/2022 11:11 AM CDT Gender Identity Female 05/07/2022 11:11 AM CDT Sexual Orientation Straight 10/19/2019 10 :08 AM SENIOR COMMUNICATIONS ENGINEER documented as of this encounter Miscellaneous Notes * Telephone Encounter - Nani Henson R.N. - 06/11/2024 12:09 PM CDT INFORMATION DISCUSSED: Spoke to patient to relay note as written by Dr. Mcneil. Encouraged patient to fill out JEFFY at [facility] to send any pertinent information/testing to Sebastian. Provided Medical Specialty Fax number [phone]. PLAN: Patient in agreement. Warm transfer performed to scheduling team to coordinate follow up withDr. Mcneil. Disposition/Recommendation: Patient repeated directions to designer/writer. Education: patient/caller able to teach back Caller agreeable to plan of care: yes The following references were used: provider Dr. Mcneil * Telephone Encounter - Nick Mcneil M.D. - 06/10/2024 4:31 PM CDT Follow up ordered. Please retrieve information in case any additional testing is done in [facility]. Please check if she has been in the emergency department recently and retrieve that information, if available. Thank you, Nick Mcneil * Telephone Encounter - Marily Jara R.N. - 06/10/2024 3:03 PM CDT SUBJECTIVE CHIEF COMPLAINT / REASON FOR CALL Follow-up Orders Information Discussed Call returned to Emmy to gather additional information regarding desire for possible sooner follow-up and testing with Cardiology. Emmy stated she would like to have a [id number] office visit with Dr. Mcneil to discuss possibly having an evaluation with electrophysiology and/or loop recorder implantation. She stated she suffered a fall recently and had been ill with dizziness and mild respiratory symptoms for which she has an appointment to be evaluated by primary care at the [facility] tomorrow (06/11/24) at 9 AM. She stated her busy season is summer with gardening and activities, which have now passed and she is interested in discussing options further for her heart care. The patient will need an order placed for CVD follow-up if approved by provider as the current order is for an anticipated return visit 01/2025. PLAN Disposition/Recommendation: notified provider and awaiting recommendations Information/Education: patient/caller able to teach back Caller agreeable to plan of care: yes The following references were used: nursing clinical judgement documented in this encounter Plan of Treatment Upcoming Encounters Date Type Department Care Team (Latest Contact Info) Description 07/24/2024 11:45 AM CDT Office Visit Department of Cardiovascular Diseases in [place], [place] [address] [place] [address] Nick Mcneil M.D. [address] [place] [phone] 11/04/2024 11:15 AM SENIOR COMMUNICATIONS ENGINEER Office Visit Department of Dermatology in [address] [phone] Deepali Harrington M.D. [address] [place] [phone] Discharge Disposition: Home or Self Care Scheduled Referrals Name Type Priority Associated Diagnoses Order Schedule Cardiovascular Disease office visit (clinic) Outpatient Referral Routine Expect ed: 06/10/2024 (Approximate), Expires: 09/09/2025 documented as of this encounter Visit Diagnoses Not on filedocumented in this encounter
--- OUTSIDE RECORDS SUMMARY | 2024-06-19 10:04 | XMS_ITS | Clinical Summary ---
Author Organization [facility] Address [address] [place] [address] Care Team Providers Care Cube Cutter Name Role Phone Unavailable Primary Care Provider Unavailabl e Source Comments Patient records contain information from all sites at [facility]. For routine questions regarding patient records, call [phone] during business hours, M-F 8:00 AM - 5:00 PM Central Time. Record requests for emergency care only can be directed to [phone] at any time.[facility] Allergies Active Allergy Reactions Criticality Noted [...] 03/27/2018 diahrria Phenylpropanolamine Other (see comments) 01/11/2022 [place] Pollen-Rough Pigweed Other (see comments) 02/16/2022 Sneezing, [...] currently Assessment & Plan (10/22/2019 4:29 PM FIELD CONSULTANT): ?? Emmy presents for follow up of [...] Encounters Date Type Department Care Team Description 06/10/2024 Clinical Communication Department of Cardiovascular Diseases in [address] [address] Nick Mcneil M.D. Follow-up Orders from Last 3 Months Family History Medical [...] Mother moms Sister 1 nasim Sister 2 palcido Sister 3 bo Sister 4 tiffanie Son [...] How often do you attend chur or hinduism services? More than 4 times per year 02/16/2022 Do you belong to any clubs o r organizations such as buddhist groups, unions, fraternal [...] and heating? Not hard at all 08/06/2023 [facility] of Occupat ional Health - Occupational Stress [...] your living situation today? I have a [facility] place to live 08/06/2023 Education Answer [...] Sexual Orientation Straight 10/19/2019 10 :08 AM FIELD CONSULTANT Last Filed Vital Signs Vital Sign Reading Time Taken Comments Blood Pressure 133/68 01/31/2024 10:42 AM CDT Pulse 58 01/31/2024 10:42 AM CDT Temperature - - Respiratory Rate - - Oxygen Saturation 99% 01/31/2024 10:39 AM CDT room air Inhaled Oxygen Concentration - - Weight 66.9 kg (147 lb 7.8 oz) 01/31/2024 10:39 AM CDT Height 159.5 cm (5' 2.8) 11/24/2023 9:03 AM FIELD CONSULTANT Body Mass Index 26.3 11/24/2023 9:03 AM FIELD CONSULTANT Plan of Treatment Upcoming Encounters Date Type Department Care Team (Latest Contact Info) Description 07/24/2024 11:45 AM CDT Office Visit Department of Cardiovascular Diseases in [place], [place] [address] [place] [phone] Nick Mcneil M.D. [address] [place] [phone] 11/04/2024 11:15 AM FIELD CONSULTANT Office Visit Department of Dermatology in [address] [phone] Deepali Harrington M.D. [address] [place] [address] Discharge Disposition: Home or Self Care Health Maintenance Due Date Last Done Comments Zoster Vaccines (1 of 2) 1993 Depression Screening (Annual PHQ-2) 10/02/2023 Fall Risk Screen (Annual) 10/02/2023 COVID-19 Vaccine (8 - 2022-2 4 season) 2024 07/03/2023, 01/28/2023, 06/10/2022, Additional history exists Influenza [...] Near Syncope COLONOSCOPY Routine 08/22/2014 7:07 AM FIELD CONSULTANT from Last 3 Months or Most Recently Relevant to Health Maintenance Results * Thyroid Function [place] (08/02/2023 11:19 AM CDT) TSH, Sensitive 1.9 0.3 - 4.2 mIU/L 08/02/2023 4:42 PM CDT OWAT Blood (Blood, Venous) 08/02/2023 11:19 AM CDT 08/02/2023 1:05 PM CDT Nick Mcneil M.D. LAB BLOOD ADD-ON [facility] [address] [place] [address], [place] OWAT [facility] in [place] [address] [place] [address] * Colonoscopy (08/22/2014 7:07 AM FIELD CONSULTANT) 08/22/2014 7:07 AM FIELD CONSULTANT Sonja Ayala R.N. GI PROCEDURE ORDER [facility] [address] [place] [id number] from Last 3 Months or Most Recently Relevant to Health Maintenance Advance Directives For more information, please contact: [phone] Documents on File Type Date Recorded Patient Research Technician Expl anation Advance Directives 08/30/2007 12:00 AM Rupali astorga document. See document viewer.
--- OUTSIDE RECORDS SUMMARY | 2024-06-19 10:04 | XMS_ITS | Encounter Summary ---
Author Organization [facility] Address [address] [place] [address] Care Team Providers Care Shot Bagger Name Role Phone Unavailable Primary Care Provider Unavailabl e Encounter Details Date Type Department Care Team (Latest Contact Info) Description 02/12/2024 Clinical Communication Department of Cardiovascular Medicine in [place], [place] [address] [place] [address] Brittanie Cooper, R.N. Social History Tobacco Use [...] often do you attend chur ch or yazidism services? More than 4 times per year 02/16/2022 Do you belong to any clubs o r organizations such as presybeterian groups, unions, fraternal [...] and heating? Not hard at all 08/06/2023 [facility] - Occupational Stress Questionnaire Answer Date [...] your living situation today? I have a [facility] place to live 08/06/2023 Education [...] Sexual Orientation Straight 10/19/2019 10 :08 AM ASPHALT TAR AND GRAVEL ROOFER documented as of this encounter Miscellaneous Notes [...] 10:34 AM CDT To: Nick Mcneil M.D.; [facility] Rn Thanks Nick. Ccing [...] Office Visit Department of Cardiovascular Diseases in [address] [address] Nick Mcneil M.D. [address] [place] [phone] 11/04/2024 11:15 AM ASPHALT TAR AND GRAVEL ROOFER Office Visit Department of Dermatology in [address] [phone] Deepali Harrington M.D. [address] [place] [phone] Discharge Disposition: Home or Self Care documented as of this encounter Visit Diagnoses Not on filedocumented in this encounter
--- OUTSIDE RECORDS SUMMARY | 2024-06-19 10:04 | XMS_ITS | Clinical Summary ---
Author Organization [facility] Address [place], [place] [address] Care Team Providers Care Stone Setter Name Role Phone Edwige Balderas MD Primary [...] for age 50+ (1 of 2) 1993 RSV vaccine for adults or (1 - 1-dose 60+ series) 2003 DEXA/DXA scan for age 65+ 2008 Pneumococcal series for age 65+ (1 of 1 - PCV) 2008 COVID-19 vaccine series (2022-24 season) 2024 07/03/2023, 01/28/2023, 06/10/2022, Additional history exists Influenza for age 65+ 06/02/2024 07/13/2020 Care Teams Stone Setter Relationship Specialty Start Date End Date Edwige Balderas MD [address] [place] [address] PCP - General Family Practice 07/14/23
--- OUTSIDE RECORDS SUMMARY | 2024-06-19 10:04 | XMS_ITS | Referral Summary ---
Author Organization [facility] Address [address] [place] [address] Care Team Providers Care Mobile Application Architect Name Role Phone Unavailable Primary Care Provider Unavailabl e Source Comments Patient records contain information from all sites at [facility]. For routine questions regarding patient records, call [phone] during business hours, M-F 8:00 AM - 5:00 PM Central Time. Record requests for emergency care only can be directed to [phone] at any time.[facility] Encounters Date Type Department Care Team Description 06/10/2024 Clinical Communication Department of Cardiovascular Diseases in [place] [address] [place] [phone] Nick Mcneil M.D. Follow-up Orders from Last 3 Months Allergies Active Allergy [...] 03/27/2018 diahrria Phenylpropanolamine Other (see comments) 01/11/2022 [place] Pollen-Rough Pigweed Other (see comments) 02/16/2022 Sneezing, [...] currently Assessment & Plan (10/22/2019 4:29 PM MAINFRAME DEVELOPER): ?? Emmy presents for follow up of [...] often do you attend chur ch or samaritan services? More than 4 times per year [...] and heating? Not hard at all 08/06/2023 [facility] [place] of Occupat ional Health - Occupational Stress [...] your living situation today? I have a [facility] place to live 08/06/2023 Education [...] Sexual Orientation Straight 10/19/2019 10 :08 AM MAINFRAME DEVELOPER Last Filed Vital Signs Vital Sign Reading Time Taken Comments Blood Pressure 133/68 01/31/2024 10:42 AM CDT Pulse 58 01/31/2024 10:42 AM CDT Temperature - - Respiratory Rate - - Oxygen Saturation 99% 01/31/2024 10:39 AM CDT room air Inhaled Oxygen Concentration - - Weight 66.9 kg (147 lb 7.8 oz) 01/31/2024 10:39 AM CDT Height 159.5 cm (5' 2.8) 11/24/2023 9:03 AM MAINFRAME DEVELOPER Body Mass Index 26.3 11/24/2023 9:03 AM MAINFRAME DEVELOPER Plan of Treatment Upcoming Encounters Date Type Department Care Team (Latest Contact Info) Description 07/24/2024 11:45 AM CDT Office Visit Department of Cardiovascular Diseases in [place], [place] [address] [place] [phone] Nick Mcneil M.D. [address] [place] [address] 11/04/2024 11:15 AM MAINFRAME DEVELOPER Office Visit Department of Dermatology in [address] [phone] Deepali Harrington M.D. [address] [place] [address] Discharge Disposition: Home or Self Care Procedures Procedure Name Priority Date/Time Associated Diagnosis Comments THYROID FUNCTION CASCADE, S Routine 08/02/2023 11:19 AM CDT Syncope And Near Syncope COLONOSCOPY Routine 08/22/2014 7:07 AM MAINFRAME DEVELOPER from Last 3 Months or Most Recently Relevant to Health Maintenance Results * Thyroid Function [place] (08/02/2023 11:19 AM CDT) TSH, Sensitive 1.9 0.3 - 4.2 mIU/L 08/02/2023 4:42 PM CDT OWAT Blood (Blood, Venous) 08/02/2023 11:19 AM CDT 08/02/2023 1:05 PM CDT Nick Mcneil M.D. LAB BLOOD ADD-ON [facility] [address] [place] [address], [facility] OWAT [facility] in [place] [address] [place] [address] * Colonoscopy (08/22/2014 7:07 AM MAINFRAME DEVELOPER) 08/22/2014 7:07 AM MAINFRAME DEVELOPER Sonja Ayala R.N. GI PROCEDURE ORDER [facility] [address] from Last 3 Months or Most Recently Relevant to Health Maintenance Advance Directives For more information, please contact: [phone] Documents on File Type Date Recorded Patient Orthopedic Technician Expl anation Advance Directives 08/30/2007 12:00 AM Rupali astorga document. See document viewer.
--- OUTSIDE RECORDS SUMMARY | 2024-06-19 10:04 | XMS_ITS ---
Author Organization [facility] Address [address] [place] [address] Care Team Providers Care Middle School Science Teacher Name Role Phone Unavailable Unavailable Unavailable Surgery Details Not on file Complications Check Surgery Details section. Procedure Estimated Blood Loss Check Surgery Details section. Procedure Findings Check Surgery Details section. Procedure Specimens Taken Check Surgery Details section.
--- NOTE | 2024-06-19 10:15 | CRLHL7_ITS ---
For Patients: As a result of the Century Cures Act, medical imaging exams and procedure reports are released immediately into your electronic medical record. You may view this report before your referring provider. If you have questions, please contact your health care provider. BILATERAL SCREENING MAMMOGRAM WITH COMPUTER-AIDED DETECTION AND TOMOSYNTHESIS TECHNIQUE: CC and MLO views were obtained. These mammographic images have been obtained using full-field digital technique. These mammographic images were interpreted with the benefit of computer-aided detection. Breast Tomosynthesis was used in this interpretation. COMPARISON FILM: 09/05/22, 08/30/21, 08/18/20. FINDINGS: There are scattered areas of fibroglandular density. IMPRESSION: There is no radiographic evidence for malignancy. ASSESSMENT: BI-RADS Category 2: Benign RECOMMENDATION: Routine screening mammogram in 1 year. A lay language report of this examination will be provided to the patient. Manjinder Antunez M.D. Diagnostic Radiologist [email or web address] SP/Dictated by: Manjinder Antunez MD @ 06/19/2024 10:54:00 AM (Electronically Signed)
== END 2024-06-19 10:00 | disposition home or self-care (01) ==
LOC: MAMMO 10:01
PROVIDERS: PCP Family Medicine; Visit Provider Family Medicine
DX: Z12.31 Encounter for screening mammogram for malignant neoplasm of breast (principal)
CPT/HCPCS: 77063; 77067

== ENCOUNTER 2024-10-29 13:00 | Outpatient (RCR) | payer MEDICARE, BC, SELFPAY ==
--- NOTE | 2024-09-13 12:47 | PT.OPEX ---
PT [facility]aves Outpatient Eval PT [facility] Outpatient Eval Start: 09/13/24 07:26 Freq: Status: Active Protocol: Document 09/13/24 07:26 RAY (Rec: 09/13/24 12:47 RAY [id number]) E-signed By Sarah Andrews PT Physical Therapy Outpatient Evaluation Insurance Information Recert Due Date 12/11/24 Insurance Name [employer] Medical Diagnosis CERVICAL DDD L3 COMPRESSION FRACTURE Treating Diagnosis LOW BACK PAIN NECK PAIN Referring MD DIONNE GAMBOA Subjective Preferred Name BLU Subjective PATIENT REPORTS LONG HISTORY OF CERVICAL AND LUMBAR PATHOLOGY WITH RECENT L3 COMPRESSION FRACTURE TREATED WITH RIGID LUMBAR BRACE INITIALLY NOW WEARING BASIC STABILIZER WHEN PERFORMING PHYSICAL ACTIVITIES. SHE REPORTS STIFFNESS AND DIFFICULTY WITH WALKING HER 6 BLOCK LOOP STATING I HAVE TO HOLD MY HEAD UP IN ORDER TO GET BACK HOME. SHE REPORTS THAT, WHEN SHE SAW THE DOCTOR, HER NECK WAS GIVING HER MORE GRIEF AND TODAY IT'S HER BACK. SHE HAS ROUTINE THAT SHE PERFORMS IN HER BATHTUB BUT DOES NOT PERFORM REGULAR EXERCISES OTHER THAN THAT. SHE IS ACTIVE WITH HER VOOD[employer] CHOIR, [employer], AND TENDS TO STAY BUSY MORE THAN SITTING FOR PROLONGED PERIODS OF TIME. HER PAST REHAB EXPERIENCED INVOLVED MORE DEEP TISSUE WORK THAN EXERCISE AND WANTS TO LEARN MORE OF WHAT SHE CAN DO TO KEEP HER ACTIVE LIFESTYLE. SHE WALKS ~6BLOCKS/30 MIN DAILY. 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 MILD TO MODERATE AND MODERATE RIGHT FORAMINAL STENOSIS, OA - GLOBALLY, HYPOTHYROIDISM, HLD, VERTIGO, OSTEOPOROSIS, H/O C2 OSTEOMYELITIS (20YRS); Objective Other/Pertinent Objective SPINAL ALIGNMENT/POSTURE : RIGID POSTURING, DECREASED CERVICAL LORDOSIS WELL LUMBAR LORDOSIS CERVICAL ROM Flexion: 50% Extension: 25% Right Rotation: 25% Left Rotation: 25% Right side bend: NEGLIGIBLE Left Side bend: NEGLIGIBLE SHOULDER AROM : WNL NECK/SHOULDER MMT: Deep neck flexor endurance test: Shoulder shrug: R 5/5 L5 /5 Shoulder flexion: R 5/5 L 5/5 Shoulder abduction: R 5/5 L 5/ 5 Shoulder External Rotation: R 5/5 L 5/5 Shoulder Internal Rotation: R 5/5 L 5/5 Elbow Flexion: R 5/5 L 5/5 Elbow Ext: R 5/5 L 5/5 Thumb Ext: R 5/5 L 5/5 FInger Abd: R 5/5 L 5/5 SPECIAL TEST : PATIENT VERY APPREHENSIVE AND GUARDED. DID NOT PERFORM AN SPECIAL TESTS. JOINT MOBILITY/PALPATION: CERVICAL PARASPINAL TONE UNABLE TO ASSESS SEGMENTAL MOBILITY D/T GUARDING AND APPREHENSION FOR BOTH CERVICAL AND LUMBAR REGION. TX: CERVICAL ROTATION W/OP 3 X 10 R/L CHIN TUCKS 10 X 5 SEC SHOULDER SHRUG W/BKWD ROTATION STDG CERVICAL AND THORACIC STRETCH 5 X 10 SEC STDG TB (XXXXX) ROW NEXT VISIT STDG TB (XXX) S'EXT NEXT VISIT SUPINE HOOKLYING TRUNK ROTATION R/L 3 X 15 SUPINE POSTERIOR PELVIC TILT X 1' HOLD 5 SEC SUPINE SKTC 3 X 10 SEC SIDELYING CLAM NEXT VISIT SUPINE MODIFIED BRIDGE X 10 HOLD 3 SEC SUPINE DYING BUG NEXT VISIT Functional Test Performed & Score [id number] Assessment Assessment/Impression PATIENT IS A [address] DIONNE GAMBOA TO EVAL AND TREAT CERVICALGIA AND LBP. PATIENT DEMONSTRATES SIGNS AND SYMPTOMS CONSISTENT WITH HER MRI AND XRAYS INDICATING DDD/ DJD, CERVICAL OSTEOPHYTES, T10 & RECENT L3 COMPRESSION FRACTURE CONTRIBUTING TO THEIR FUNCTIONAL IMPAIRMENTS OF PAIN, LIMITED COMMUNITY AMB, DIFFICULTY WITH POURER CRANE LADLE, BENDING, STOOPING AND TRANSITIONAL MVMTS. PATIENT HAS NOTABLE OBJECTIVE FINDING INCLUDING LIMITED CERVICAL ROM , DECREASED LUMBAR ROM, MODERATE CERVICAL PARASPINAL GUARDING WHICH ALL ARE CONTRIBUTING TO THE CLINICAL IMPRESSION. PATIENT IS A GOOD CANDIDATE FOR SKILLED PHYSICAL THERAPY TO ADDRESS AFOREMENTIONED DEFICITS ABOVE IN ORDER TO IMPROVE HER ENDURANCE, CORE STRENGTH AND PARTICIPATE WITH PEER AND FAMILY CENTERED ACTIVITIES. INTERVENTION IS NECESSARY BY WAY OF THERAPEUTIC EXERCISES, MANUAL THERAPY, NEUROMUSCULAR EDUCATION, AND CORE STRENGTHENING AND STABILIZATION. PLEASE REFER TO APPROPRIATE SECTION WITHIN THIS EVALUATION FOR COMPLETE LIST OF GOALS AND PLAN OF CARE . DISCHARGE PLAN AND CRITERIA IS FOR PATIENT TO ACHIEVE THE GOALS LISTED BELOW OR UNTIL MAX POTENTIAL MET. PATIENT VERBALIZED UNDERSTANDING AND AGREEABLE TO POC, FREQ, AND GOALS ESTABLISHED. Plan of Care Rehabilitation Potential Good Physical Therapy Goals STG (4-6 WEEKS): 1. PATIENT WILL REPORT PAIN </ 3/10 DURING DAILY ACTIVITIES AND WITH DAILY PARTICIPATION WITH HER HEP 2. PATIENT WILL REPORT THE ABILITY TO STAND >10 MIN TO ENABLE COOKING, GROOMING, AND OTHER IADL'S 3. PATIENT WILL VERBALIZE A GOOD UNDERSTANDING OF BODY MECHANICS DURING HER DAILY ACTIVITIES ALONG WITH PROPER LIFTING TECHNIQUES FOR GOOD BACK CARE AND WITH SYMPTOM MGMT. LTG (8 WEEKS): 1. PATIENT WILL IMPROVE NOT ONLY FLEXIBILITY BUT BOTH CORE STRENGTH AND STABILITY TO IMPROVE POSTURING DURING DAILY ACTIVITIES INCLUDING IADL'S AND PEER CENTERED ACTIVITIES. 2. PATIENT WILL VERBALIZE GOOD UNDERSTANDING OF CORE STABILITY TO MAINTAIN AND FURTHER PROGRESS HIS FUNCTIONAL MOBILITY AND TOLERANCE TO PROLONGED POSITIONING. 3. PATIENT WILL DEMONSTRATE COMPLETE INDEPENDENCE AND THE ABILITY TO PROGRESS HER HEP FOR MAINTENANCE AND CONTINUED IMPROVEMENT OF HIS CORE / BLE STRENGTH AND STABILITY. Coordination/Communication With Referral Source Treatment Plan/Direct Interventions Dry Needling,Electrical Stimulation,Heat,Ice/Cold/ Vasopneumatic,Joint Mobilization,Manual Therapy, Neuromuscular Re-ed,Self-Care/ Home Management,Therapeutic Activities,Therapeutic Exercises Frequency/Duration 2X/WK Patient Will Be Discharged From Therapy Completion of LTG(s), Independent w/HEP, Independently Progressing Evaluation Billing Untimed Code Treatment Minutes 25 PT Eval No Charge No Complexity Moderate Certification Information Initial Certification Date 09/13/24 Ending Certification Date 12/11/24 Provider Signature Required Yes Provider Signature Shows Agreement With POC & Medical Necessity Physician NPI Number Write NPI# Here Physician Comment/Change : Physician Signature & Date Requested Please Sign/Date Here
== END 2024-11-29 08:13 | disposition home or self-care (01) ==
PROVIDERS: PCP Family Medicine; Visit Provider Family Medicine
DX: S32.030A Wedge compression fracture of third lumbar vertebra, initial encounter for closed fracture (principal); M54.2 Cervicalgia; Z51.89 Encounter for other specified aftercare
CPT/HCPCS: 97110; 97112; 97140; 97162; 97530; 97535

== ENCOUNTER 2025-04-01 10:12 | Outpatient (CLI) | payer MEDICARE, BC, SELFPAY | END 2025-04-01 10:13 | disposition home or self-care (01) | LOC: NFLDREF 10:13 | PROVIDERS: PCP Family Medicine; Visit Provider Family Medicine | DX: R10.9 Unspecified abdominal pain (principal); R19.7 Diarrhea, unspecified; R19.4 Change in bowel habit; Z79.899 Other long term (current) drug therapy | CPT/HCPCS: 80053; 80061; 82306; 84443 ==

== ENCOUNTER 2025-07-14 09:00 | Outpatient (CLI) | payer MEDICARE, BC, SELFPAY | END 2025-07-14 09:01 | disposition home or self-care (01) | LOC: NFLDREF 07-15 08:53 | PROVIDERS: PCP Family Medicine; Referring Provider Family Medicine; Visit Provider Family Medicine | DX: N81.9 Female genital prolapse, unspecified (principal) | CPT/HCPCS: 87086 ==

== ENCOUNTER 2025-08-14 13:36 | Outpatient (CLI) | payer MEDICARE, BC, SELFPAY ==
[2025-08-14 13:48] LABS: Appearance Urine Clear (Clear)
== END 2025-08-14 13:37 | disposition home or self-care (01) ==
PROVIDERS: PCP Family Medicine; Visit Provider Obstetrics & Gynecology
DX: N81.9 Female genital prolapse, unspecified (principal)
CPT/HCPCS: 81001; 81003; 87086

== ENCOUNTER 2025-08-20 10:03 | Outpatient (CLI) | payer MEDICARE, BC, SELFPAY ==
--- NOTE | 2025-08-20 10:15 | CRLHL7_ITS ---
For Patients: As a result of the Century Cures Act, medical imaging exams and procedure reports are released immediately into your electronic medical record. You may view this report before your referring provider. If you have questions, please contact your health care provider. INDICATION: BILATERAL SCREENING MAMMOGRAM, ASYMPTOMATIC 80 Y/O FEMALE COMPARISON: 06/19/2024, 09/05/2022, 08/30/2021 TECHNIQUE: Digital mammogram in CC and MLO projections including computer-aided detection (CAD) and tomosynthesis. BREAST COMPOSITION: There are scattered areas of fibroglandular density. FINDINGS: No suspicious findings. ASSESSMENT: BI-RADS 2 Benign RECOMMENDATION: Annual screening mammogram. A lay language report of this examination will be provided to the patient. Dictated by: Manjinder Antunez MD @ 08/20/2025 10:49:20 (Electronically Signed)
== END 2025-08-20 10:04 | disposition home or self-care (01) ==
LOC: MAMMO 10:04
PROVIDERS: PCP Family Medicine; Visit Provider Family Medicine
DX: Z12.31 Encounter for screening mammogram for malignant neoplasm of breast (principal)
CPT/HCPCS: 77063; 77067

== ENCOUNTER 2025-08-27 10:09 | Outpatient (CLI) | payer MEDICARE, BC, SELFPAY | END 2025-08-27 10:10 | disposition home or self-care (01) | LOC: NFLDREF 10:10 | PROVIDERS: PCP Family Medicine; Visit Provider Obstetrics & Gynecology | DX: E78.5 Hyperlipidemia, unspecified (principal) | CPT/HCPCS: 80061 ==

== ENCOUNTER 2025-09-26 06:08 | Day surgery (SDC) | payer MEDICARE, BC, SELFPAY ==
[2025-09-26] VITALS (24 sets, daily range): BP systolic 86–150; BP diastolic 38–66; PULSE 40–74; RESP 13–40; TEMP 35.7–36.7; O2SAT 92–100; BMI 26.9
[2025-09-26] MEDS: ACETAMINOPHEN 500 MG TABLET 1000 MG PO ×2 (06:30→15:59)
[2025-09-26] MEDS: GABAPENTIN 600 MG TABLET PO (06:30)
[2025-09-26] MEDS: SODIUM CHLORIDE 0.9 % (FLUSH) 10 ML SYRINGE IVF (06:45)
[2025-09-26] MEDS: LACTATED RINGERS 1000 ML 1,000 ML 100 ML IV (06:45)
[2025-09-26 06:54] LABS: Hemoglobin* 14.4 gm/dL (12.0-16.0)
[2025-09-26 07:09] LABS: Creatinine* 1.1 mg/dL (0.5-1.5); Est. Creatinine Clearance* 29.75; Estimated Glomerular Filt Rate 50 ml/min
--- NOTE | 2025-09-26 07:20 | W.PM.H&PU ---
History & Physical Update History & Physical Update H&P Reviewed and patient assessed: No changes noted
[2025-09-26] MEDS: FLUORESCEIN 10% INJ 500 MG IVP (09:00)
--- NOTE | 2025-09-26 09:58 | W.PM.GYNPROC ---
Procedure Note Date of procedure: 09/26/25 Will [facility] bill your pro fee for this procedure?: Yes Pre-op diagnosis: Symptomatic stage III uterine prolapse and cystocele Post-op diagnosis: Same Procedure: Total vaginal hysterectomy with bilateral salpingo-oophorectomy Modified Rivas's culdoplasty Anterior colporrhaphy Cystoscopy Anesthesia: GETA Complications: None Surgeon: Malissa Awan MD Fruit Cutter: Asuncion Loza Estimated blood loss (mL): 25 IV fluids (mL): 1,000 Urine Output (mL): 200 Pathology: specimen obtained, sent to pathology (uterus, cervix, bilateral tubes and ovaries) Condition: stable Disposition: PACU Findings: 1. Upon pelvic exam under anesthesia, the cervix was visible at the vaginal introitus. Uterine prolapse and cystocele were confirmed. Otherwise, the vagina was normal in appearance. Uterus was small. Bilateral tubes and ovaries were normal in appearance. Weight of specimen was 58 g. 2. Upon cystoscopy, performed at multiple points during the procedure, with a last performed after tying the last suspension suture, bilateral ureteral jets were noted and there was no injury to the bladder mucosa. Procedure Description: PROCEDURE: Patient was taken to the operating room with IV running. She received cefazolin in preoperative prophylaxis. She was positioned on the operating table in dorsal lithotomy position with candy-cane stirrups. She was prepped and draped in the usual sterile fashion. Leija catheter was inserted. Exam under anesthesia revealed the above-noted findings. The anterior and posterior lips of the cervix were grasped with thyroid Mac clamps. The cervicovaginal junction was infiltrated with a total of 20 mL of dilute vasopressin. Cervicovaginal junction was incised with the scalpel circumferentially. The vaginal epithelium was dissected off the uterosacral ligaments with a combination of blunt and sharp dissection bilaterally. The anterior colpotomy was performed sharply and a Blanka was placed between the uterus and bladder. Posterior colpotomy was performed sharply and a long weighted speculum was placed in the cul-de-sac. Bilateral uterosacral ligaments were clamped, cut, and suture ligated, and tagged for later identification. The cardinal ligaments were clamped, cut, and suture ligated. The remaining broad ligaments bilaterally were cauterized and transected with the LigaSure Impact device. This freed the uterus from its attachments and it was delivered through the vagina. Attention was 1st turned to the right tube and ovary, which was physically normal in appearance. These were grasped with [place] clamps and held away from the right pelvic sidewall. The LigaSure Impact device was used to cauterize and transect the infundibulopelvic ligament. Hemostasis was noted. This procedure was repeated on the left side and hemostasis was again noted. The bowels were moved out of the pelvis with packing and the patient was placed in Trendelenburg position. The 3 modified Rivas's sutures were placed as follows. The 1st was placed approximately 1 cm medial to the left vaginal angle, through the left uterosacral ligament approximately 2.5 cm above the vaginal cuff, pulled through the peritoneum of the cul-de-sac, through the right uterosacral ligament, approximately 2.5 cm above the cuff, and through the vagina about 1 cm from the right vaginal cuff angle. This was labeled #1 and tagged for later identification. Another stitch was placed just medial to the 1st through the vaginal cuff, and just above the 1st along the uterosacral ligaments and the peritoneum of the cul-de-sac. This was labelled #2 and tagged for later identification. Finally, a Rivas suture was placed, moving from the left uterosacral to the right uterosacral, along the peritoneum of the cul-de-sac, above the is the 2nd suture. This was labeled #3 and tagged for later identification. Attention was turned to the anterior vaginal wall. It was infiltrated with a Small amount of dilute vasopressin. An incision was made from the vaginal cuff proceeding to the urethrovesical junction. The vaginal epithelium was dissected off the fibromuscularis beneath it with a combination of first sharp, with then blunt dissection at the angles. This was done bilaterally. The fibromuscularis was then plicated in the midline with interrupted sutures of 2 0 Vicryl. The vaginal epithelium was trimmed slightly on the each side, and the vaginal epithelium was closed with a running stitch of 2-0 Vicryl. The patient was given sodium fluorescein for better visualization of ureteral jets in cystoscopies to follow. The first of several cystoscopies was performed, revealing no damage to the bladder mucosa and bilateral ureteral jets. The cystoscope was removed. Then, the modified Rivas's sutures were tied down beginning with that labeled #3 first, followed by #2 and then #1. After tying down each of the sutures, cystoscopy was performed, revealing bilateral ureteral jets. Thereafter, the vaginal epithelium was closed, incorporating the distalmost aspects of the uterosacral ligaments into the cuff angle closures. This was done in a vertical interrupted fashion with 0 Vicryl. The procedure was deemed complete and the Leija catheter was replaced. The patient tolerated the procedure well and was taken to recovery area in stable condition. Postoperative debrief was verbalized with OR staff, including a verification of pathology specimens to be sent as described above.
--- NOTE | 2025-09-26 12:06 | P.ANES_ITS ---
Anesthesia Charges Start Date/Time Anesthesia Start Date: 09/26/25 Anesthesia Start Time: 07:24 Stop Date/Time Anesthesia Stop Date: 09/26/25 Anesthesia Stop Time: 09:46 Summary Extremes of Age - Over 70 or under 1: DIRECTOR HEALTH Coding CPT Codes CPT Codes: ANESTH VAGINAL HYSTERECTOMY - 39118 ([id number]) P2 - PATIENT W/MILD SYST DISEASE, QX - DIRECTOR HEALTH SVC W/ MD MED DIRECTION, QZ - DIRECTOR HEALTH SVC W/O DIALS SUPERVISOR BY MD Additional Codes: Summary - Extremes of Age - Over 70 or under 1: DIRECTOR HEALTH ([id number])
--- NOTE | 2025-09-26 12:06 | W.ANESCHARGE ---
Anesthesia Charges Start Date/Time Anesthesia Start Date: 09/26/25 Anesthesia Start Time: 07:24 Stop Date/Time Anesthesia Stop Date: 09/26/25 Anesthesia Stop Time: 09:46 Summary Extremes of Age - Over 70 or under 1: EXTRACTOR OPERATOR Coding CPT Codes CPT Codes: ANESTH VAGINAL HYSTERECTOMY - 91984 ([id number]) P2 - PATIENT W/MILD SYST DISEASE, QX - EXTRACTOR OPERATOR SVC W/ MD MED DIRECTION, QZ - EXTRACTOR OPERATOR SVC W/O VAMP LINER BY MD Additional Codes: Summary - Extremes of Age - Over 70 or under 1: EXTRACTOR OPERATOR ([id number])
[2025-09-26] MEDS: ONDANSETRON 2 MG/ML inj 4 MG IVP (16:01)
[2025-09-26] MEDS: LACTATED RINGERS 1000 ML 1,000 ML 40 ML IV (16:12)
--- NOTE | 2025-09-26 19:45 | PC.NURSE ---
End of shift-- Very pleasant and cooperative patient arrived from PACU at approximately 1030 this morning. VSS and pt is afebrile. Pt c/o pain initially after surgery and MD was notified. Given Morphine once per MD order. Pain now appears well managed with Tylenol and Toradol only. Small amount of vaginal bleeding noted. She c/o some nausea this afternoon that resolved following Zofran and tolerated a regular diet without difficulty, though patient has many dietary restrictions. She was up to the chair with SBA and tolerated it well. Report to EDILIA De Santiago.
[2025-09-27 02:13] VITALS: BP 111/52; PULSE 62; RESP 18; TEMP 36; O2SAT 92
[2025-09-27] MEDS: LEVOTHYROXINE 88 MCG TABLET PO (06:18)
[2025-09-27 07:00] VITALS: BP 116/72; PULSE 71; RESP 16; RESP 71; TEMP 36.7; O2SAT 100
[2025-09-27 07:19] LABS: Hemoglobin* 12.7 gm/dL (12.0-16.0)
[2025-09-27 07:25] LABS: Creatinine* 1.0 mg/dL (0.5-1.5); Est. Creatinine Clearance* 32.73; Estimated Glomerular Filt Rate 56 ml/min
--- NOTE | 2025-09-27 07:34 | PC.NURSE ---
End of shift Note 257 Patient was very pleasant and cooperative during shift. VSS. Afebrile. A&Ox4. Patient used commode to void because she feared she would not make it to the toilet. SBA. Uses call light appropriately. Call light within reach.
--- NOTE | 2025-09-27 09:46 | PM.GYNDS1 ---
DS: Providers Provider Time Seen by Provider: 09:46 Date Seen: 09/27/25 Date of admission: 09/26/2025 Primary care physician: Edwige Balderas MD Admitting Clinician: Malissa Awan MD Attending Physician on discharge: Malissa Awan MD Date of Discharge: 09/27/25 DS: Diagnosis Discharge Diagnosis (1) Uterovaginal prolapse: Status: Acute Problem details: Stage 3 uterine prolapse, stage 2 cystocele [facility]-Discharge Summary Hospital Course Hospital Course Narrative: Patient is a 80 year old admitted on 09/26 for vaginal hysterectomy with repairs. Indication for surgery: prolapse. Intraoperative findings were notable for []. She had an uncomplicated surgery. Postoperative course has been uneventful. Vitals have been stable. She has remained afebrile. Today, on postoperative day 1, she reports the pain is well controlled. She has been able to ambulate Without difficulty. She is tolerating regular diet. She is passing flatus. Leija catheter has been removed, and she is voiding without difficulty. Time Spent with Patient Time attestation: Total time spent providing and/or coordinating discharge services: [facility] - Exam Physical Exam: Vital signs: Temp Pulse Resp BP Pulse Ox O2 Del Method O2 Flow Rate 98.1 F 71 71 H 116/72 100 Room Air 10 09/27/25 07:00 09/27/25 07:00 09/27/25 07:00 09/27/25 07:00 09/27/25 07:00 09/27/25 07:00 09/26/25 10:15 FiO2 100 09/26/25 10:15 Constitutional: Constitutional: no acute distress Routine Respiratory Exam: Respiratory: Present CTA bilaterally Additional findings: Additional findings: lower extremities non-tender [facility] - DS: Data Data Completed and Pending Labs on day of discharge: Labs from last 24 hours 09/27/25 06:30 Hgb 12.7 Creatinine 1.0 Estimated Creat Clear 32.73 Estimated GFR 56 Procedures Procedures: Procedures Operation Date: 09/26/25 07:15 Actual Procedure Side Surgeon p M/S-Total Vaginal Hysterectomy, Bilateral Salpingo-Oophorectomy, Modified Rivas's Culdoplasty, Anterior Colporrhaphy, Cystoscopy Malissa Awan MD Discharge Plan Discharge Disposition: Home w/ Parent or Adult Discharging Surgeon: Carlito Goncalves Follow-Up Appointment: scheduled Prescriptions: No Action acetaminophen 325 mg capsule 325 - 650 mg PO ONCE PRN ergocalciferol (vitamin D2) 10 mcg (400 unit) tablet 400 unit PO BID docosanol [Abreva] 10 % cream 1 applic topical ONCE PRN levothyroxine 88 mcg tablet 88 mcg PO DAILY Qty: 90 3RF estradiol [Estrace] 0.01 % (0.1 mg/gram) cream 0.5 g vaginal 2XW Qty: 42.5 3RF Rx Instructions: Use nightly for 2 weeks, then twice weekly. May apply with finger. Coral Calcium 250-125-100 mg-mg-unit capsule 1 cap PO DAILY Activity Level: Light activity Discharge Diet: Regular Patient Instructions: Scopolamine (Absorbed through the skin) (Transderm Scop), NH+C Vaginal Hysterectomy Follow-up: Edwige Balderas MD [Primary Care Provider, Family Practice] Discharge Orders: Discharge Order (Routine); Ordered 09/27/25 Ordered By: Carlito Goncalves
--- NOTE | 2025-09-27 12:48 | PC.NURSE ---
Discharge: Pt's VSS, on RA tolerating a reg diet. Voiding well after harp removal. Rates 10/11, Denies N/V/SOB. Discharged to home today accompanied by spouse at 1145. IV removed tip intact. Belongings sheet signed and Discharge instructions given and signed. Patient verbalized understanding of instructions.
== END 2025-09-27 11:45 | disposition home or self-care (01) ==
LOC: OR 11:11 → MEDSURG 11:12
PROVIDERS: PCP Family Medicine; Visit Provider Obstetrics & Gynecology
PROC: 0TJB8ZZ Inspection of Bladder, Via Natural or Artificial Opening Endoscopic (ICD-10-PCS; CPT 57260; principal; 2025-09-26 07:15)
DX: N81.3 Complete uterovaginal prolapse (principal)
CPT/HCPCS: 58263; 57240; 00944; 36415; 82565; 85018; 86850; 86900; 86901; 88307; 99100; A4314; A9270; J0330; J0690; J1100; J1885; J2270; J2405; J2704; J2710; J3010; J3490; J7120